=== PATIENT | female | born 1935 | race Caucasian/White ===

== ENCOUNTER → 2016-09-23 | Outpatient (CLI) | payer OTHER ==
[~2016-09-23] MED LIST: APIX1TAB PO; ASPEC81 PO; ATOR10TA88 PO; CALC-579 PO; CHOL100010 PO; CLC100 PO; CLL250 PO; CLTP PO; CYAN100020 PO; DILT120C68 PO; FSM70 PO; FURO-85 PO; HYDR-5688 PO; IBUP600T44 PO; LACT1CAP6 PO; METO25TA3 PO; OXYC-57 PO; OXYC1TAB3 PO; PRD20 PO; PRED20TA2 PO; PRLSR20 PO; QUET1TAB30 PO; SIMV20TA2 PO; SPIR50TA2 PO; TEMA15CA4 PO; VIT 12 PO
--- NOTE | 2016-09-23 15:59 | MAMMOGRAPHY REPORT ---
BILATERAL DIGITAL SCREENING MAMMOGRAM WITH CAD: 09/23/2016 CLINICAL HISTORY: Routine screening. Patient has no complaints. TECHNIQUE: Bilateral CC and MLO views were obtained. Current study was also evaluated with a Comput er Aided Detection (CAD) system. COMPARISON: Comparison is made to exams dated: 09/18/2015 mammogram, 09/12/2014 mammogram, 09/09/2013 m ammogram, 09/08/2012 mammogram, 08/13/2011 ultrasound, and 07/23/2011 mammogram - [facility]. BREAST COMPOSITION: The tissue of both breasts is heterogeneously dense, which may obscure small ma sses. FINDINGS: There is a newly visualized oval 8.7 x 6.4 mm mass in the far superior right breast, proj ecting over the pectoralis muscle on the MLO view. Although this could represent a lymph node, it w as not identified on any prior mammograms and is therefore indeterminate. Further characterization with ultrasound and possible additional mammographic views are recommended. There are stable benign-appearing calcifications bilaterally. Stable postsurgical changes in the le ft breast. No other suspicious mass, architectural distortion or cluster of microcalcifications is s een. IMPRESSION: ACR BI-RADS CATEGORY 0: INCOMPLETE EVALUATION: NEED ADDITIONAL IMAGING EVALUATION The newly visualized 8.7 x 6.4 mm oval mass in the right axilla needs additional evaluation. The patient will be called to schedule an appointment. Approximately 10% of breast cancers are not detected with mammography. A negative mammographic repor t should not delay biopsy if a clinically suggestive mass is present. Alyson Chi M.D. ay/:09/23/2016 14:46:46 Airfreight Operations Agent: Lilia DUENAS,R, M, [facility] letter sent: Addl Imaging 0 BI-RADS Code: ACR BI-RADS Category 0: Incomplete Evaluation: Need Additional Imaging Evaluation
== END | disposition home or self-care (01) ==
LOC: C.MAMM 10:15
PROVIDERS: ATTEND Family Medicine
DX: Z12.31 Encounter for screening mammogram for malignant neoplasm of breast (principal); N63 Unspecified lump in breast

== ENCOUNTER → 2016-10-03 | Outpatient (CLI) | payer OTHER ==
--- NOTE | 2016-10-06 13:48 | MAMMOGRAPHY REPORT ---
UNILATERAL RIGHT DIGITAL DIAGNOSTIC MAMMOGRAM TOMOSYNTHESIS WITH CAD AND TARGETED RIGHT ULTRASOUND: 10/03/2016 CLINICAL HISTORY: Callback from screening mammogram for right breast mass. TECHNIQUE: Breast tomosynthesis in addition to standard 2D mammography was performed. Current study was also evaluated with a Computer Aided Detection (CAD) system. Spot compression right MLO 2-D an d tomosynthesis images were obtained. COMPARISON: Comparison is made to exams dated: 09/23/2016 mammogram, 09/12/2014 mammogram, 09/18/2015 mammogram, 09/09/2013 mammogram, 09/08/2012 mammogram, and 08/13/2011 mammogram - [facility] enter. BREAST COMPOSITION: The tissue of the right breast is heterogeneously dense, which may obscure smal l masses. FINDINGS: Spot compression views demonstrate a morphologically normal right axillary lymph node pro jecting over the right pectoralis muscle, which is normal in shape and contains a normal fatty hilum . This correlates with the mass seen on the recent screening mammogram. Targeted ultrasound was performed of the right axilla. Morphologically normal right axillary lymph nodes are seen, without evidence of a suspicious mass or other suspicious sonographic abnormality. No adenopathy is evident. IMPRESSION: ACR BI-RADS CATEGORY 2: BENIGN, TARGETED ULTRASOUND ACR BI-RADS CATEGORY 2: BENIGN The right axillary mass corresponds with a morphologically normal right axillary lymph node. There is no evidence of right axillary adenopathy. There is no mammographic or targeted sonographic evide nce of malignancy. A 1 year screening mammogram is recommended. The patient has been verbally notif ied of the results. Approximately 10% of breast cancers are not detected with mammography. A negative mammographic repor t should not delay biopsy if a clinically suggestive mass is present. Patrica Edge M.D. ah/:10/03/2016 10:31:57 Sewing Machine Assembler: Jarvis DUENAS(Jennifer)(Jenny), letter sent: Normal 1/2 BI-RADS Code: ACR BI-RADS Category 2: Benign Ultrasound BI-RADS: ACR BI-RADS Category 2: Benign
== END | disposition home or self-care (01) ==
LOC: C.MAMM 09:45
PROVIDERS: ATTEND Family Medicine
DX: N63 Unspecified lump in breast (principal)

== ENCOUNTER → 2016-11-11 | Outpatient (CLI) | payer OTHER ==
[~2016-11-11] MED LIST changes: +ATOR10TA82 PO; -ATOR10TA88 PO
[2016-11-11 12:53] LABS: BASO % 0.2 %; BASO ABS # 0.02 K/uL (0-0.2); COMPLETE YES; EOS % 0.5 %; HEMATOCRIT 37.4 % (37-47); IG% 0.2 %; LYMPH % 16.6 %; LYMPH ABS # 1.39 K/uL (1.2-3.4); MEAN CORPUSCULAR HEMOGLOBIN 29.8 pg (25-34); MEAN CORPUSCULAR HGB CONC 34.2 g/dl (32-36); MEAN PLATELET VOLUME 9.8 fL (7.4-10.4); MONO % 8.7 %; NEUT % 73.8 %; PLATELET COUNT 326 K/uL (130-400); WHITE BLOOD COUNT 8.38 K/uL (4.8-10.8)
[2016-11-11 13:04] LABS: ALT/SGPT 21 U/L (12-78); BLOOD UREA NITROGEN 18 mg/dl (7-18); BUN/CREATININE RATIO 21.3 (10-20); CALCIUM 9.2 mg/dl (8.5-10.1); CARBON DIOXIDE 26 mmol/L (21-32); CHLORIDE 99 mmol/L (98-107); CREATININE 0.83 mg/dl (0.60-1.20); GLUCOSE 97 mg/dl (70-99); POTASSIUM 4.3 mmol/L (3.5-5.1); SODIUM 134 mmol/L (136-145)
[2016-11-11 13:15] LABS: ALB/GLOB RATIO 0.9 (0.9-2); ALKALINE PHOSPHATASE 78 U/L (45-117); AST/SGOT 16 U/L (15-37)
== END | disposition home or self-care (01) ==
LOC: C.LABPBG 10:41
PROVIDERS: ATTEND Nurse Practitioner Family
DX: R51 Headache (principal)

== ENCOUNTER 2016-11-14 14:04 | Emergency (ER) | payer OTHER ==
[~2016-11-14] VITALS: Ht 162.6 cm; Wt 39.0 kg
[~2016-11-14 14:04] MED LIST changes: -APIX1TAB PO; -ATOR10TA82 PO; -CALC-579 PO; -CHOL100010 PO; -CYAN100020 PO; -DILT120C68 PO; -FURO-85 PO; -HYDR-5688 PO; -LACT1CAP6 PO; -OXYC1TAB3 PO; -PRD20 PO; -PRED20TA2 PO; -QUET1TAB30 PO; -SPIR50TA2 PO; -TEMA15CA4 PO
[2016-11-14 14:10] VITALS: TEMP 36.6; Ht 162.6 cm; Wt 39.0 kg
[2016-11-14] MEDS ORDERED: ONDANSETRON INJ 2 MG/ML 2 ML VIAL IV STA (17:04)
[2016-11-14] MEDS ORDERED: SODIUM CHLORIDE 0.9% 500ML 500 ML IV STA (17:04)
--- NOTE | 2016-11-14 17:08 | EMERGENCY ROOM VISIT NOTE ---
History Report prepared by Kay: Marine De Dios Under the Supervision of: Dr. Lenny Pastrana D.O. First contact with patient: 16:56 Chief Complaint: HEADACHE Stated Complaint: SEVERE [place] FOR 3 WEEKS History of Present Illness The patient is an 80 year old female who presents to the Emergency Room with complaints of a constant headache that started 3 weeks ago. She rates her discomfort a 10/10 without pain medication. She states nothing makes this pain worse. Per the patient's daughter, the patient was evaluated by her primary care physician 3 days ago, who prescribed hydrocodone and recommended ultrasound of her carotid arteries and a ct scan of the head. The patient was pending insurance coverage for testing, but was unable to wait any longer as her pain medication prescription runs out in 2 days. Patient denies dizziness, visual disturbances, weakness, chest pain, nausea, vomiting, shortness of breath. Patient has a history of Lyme's Disease and atrial fibrillation. Recent blood work reveals high sodium levels and abnormal thyroid levels. Source of History: patient Onset: 3 weeks ago Position: head Symptom Intensity: 10/10 Timing: constant Modifying Factors (Worsening): other (None) Associated Symptoms: No SOB, No chest pain, No nausea, No vomiting Review of Systems See HPI for pertinent positives & negatives. A total of 10 systems reviewed and were otherwise negative. Past Medical & Surgical Medical Problems: (1) Atrial fibrillation (2) Lyme disease Surgical Problems: (1) S/P triple vessel bypass Family History Cancer Social History Smoking Status: Never Smoker Smokeless Tobacco Use: No Drug Use: none Housing Status: lives with family Current/Historical Medications Scheduled Apixaban (Eliquis), 2.5 MG PO BID Atorvastatin (Lipitor), 10 MG PO HS Calcium Carbonate-Cholecalcife (Calcium/Vitamin D3 600-400 mg-Unit), 1 TAB PO BID Cholecalciferol (Vitamin D), 1,000 UNITS PO QAM Cyanocobalamin (Vitamin B12), 1,000 MCG PO 2XWK Diltiazem Hcl Ext Rel (Tiazac), 120 MG PO BID Furosemide (Lasix), 20 MG PO QAM Lactobacillus (Probiotic), 1 CAP PO BID Omeprazole (Prilosec), 20 MG PO QAM Spironolactone (Aldactone), 50 MG PO QAM Scheduled PRN Hydrocodone/Acetaminophen 5MG/325MG (Stickney 5MG/325MG), 1 TABLET PO Q4 PRN for Pain Temazepam (Restoril), 15 MG PO HS PRN for Sleep Allergies Coded Allergies: No Known Allergies (Verified , 11/14/16) Physical Exam Vital Signs Date Time Temp Pulse Resp B/P Pulse Ox O2 Delivery O2 Flow Rate FiO2 11/14/16 20:12 73 18 117/69 96 Room Air 11/14/16 14:10 36.6 87 18 122/73 97 Room Air Physical Exam GENERAL: Patient is awake, alert, and in no acute distress. Patient is resting comfortably and showing no signs of anxiety EYES: The conjunctivae are clear. The pupils are round and reactive. EARS, NOSE, MOUTH AND THROAT: The nose is without any evidence of any deformity. Mucous membranes are moist tongue is midline NECK: The neck is nontender and supple. RESPIRATORY: Normal respiratory effort is noted there is no evidence of wheezing rhonchi or rales CARDIOVASCULAR: Irregular rhythm noted to auscultation. No definite murmurs noted. GASTROINTESTINAL: The abdomen is soft. Bowel sounds are present in all quadrants. Abdomen is nontender MUSCULOSKELETAL/EXTREMITIES: There is no evidence of gross deformity full range of motion is noted in the hips and shoulders SKIN: There is no obvious evidence of any rash. There are no petechiae, pallor or cyanosis noted. NEUROLOGIC: Patient is awake alert and oriented x3 strength is symmetric patellar reflexes are 2+ bilaterally Medical Decision & Procedures ER Provider Diagnostic Interpretation: Radiology results as stated below per my review and radiologist interpretation: CT SCAN OF THE BRAIN WITHOUT IV CONTRAST CLINICAL HISTORY: Headache. COMPARISON STUDY: No priors. TECHNIQUE: Unenhanced axial CT scan of the brain is performed from the vertex to the skull base. CT DOSE: 537.48 mGy.cm FINDINGS: Brain parenchyma: There are age-related involutional changes noting mild subcortical and periventricular microangiopathic change. There is no hemorrhage, mass effect, or evidence of acute territorial ischemia by CT criteria. 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 Armstrong-white matter is preserved. No extra-axial fluid collection is seen. Ventricles, sulci, cisterns: Prominent secondary to involutional change. Intracranial vasculature: There is atherosclerotic calcification of the cavernous carotid arteries. Calvarium: Unremarkable. Sinuses and mastoids: The visualized paranasal sinuses are clear. The mastoid air cells are well pneumatized. Orbits: The bony orbits are grossly intact. IMPRESSION: 1. There is no hemorrhage, mass effect, or evidence of acute territorial ischemia by CT criteria. 2. 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 Electronically signed by: Ranjit Lynch M.D. 11/14/2016 6:00 PM Dictated Date/Time: 11/14/2016 5:58 PM ULTRASOUND OF THE CAROTID ARTERIES CLINICAL HISTORY: Headache. COMPARISON STUDY: Carotid artery ultrasound dated 01/07/2007. TECHNIQUE: Real-time, grayscale, and color Doppler sonography of the carotid arteries is performed. Images are reviewed in the transverse and longitudinal planes. FINDINGS: Blood pressure in the right arm measures 102/62 and blood pressure in the left arm measures 109/58. The carotid arteries are patent bilaterally and demonstrate antegrade flow. There is mild atherosclerotic plaque seen bilaterally. Normal doppler arterial waveforms are seen throughout. Velocity measurements are listed below. Common carotid peak systolic velocity (cm/sec): RIGHT: 95 LEFT: 91 ICA proximal peak systolic velocity (cm/sec): RIGHT: 85 LEFT: 16 ICA mid peak systolic velocity (cm/sec): RIGHT: 79 LEFT: 71 ICA distal peak systolic velocity (cm/sec): RIGHT: 71 LEFT: 61 ICA/CC peak systolic ratio: RIGHT: 0.9 LEFT: 0.8 Antegrade flow was shown in the vertebral arteries. The external carotid arteries are patent. IMPRESSION: 1. There is no sonographic evidence of hemodynamically significant stenosis in the right or left carotid arterial system. 2. Antegrade flow is shown in the vertebral arteries. Electronically signed by: Ranjit Lynch M.D. 11/14/2016 6:54 PM Dictated Date/Time: 11/14/2016 6:52 PM Laboratory Results 11/14/16 17:15 Red Blood Count 4.17, Mean Corpuscular Volume 86.3, Mean Corpuscular Hemoglobin 29.7, Mean Corpuscular Hemoglobin Concent 34.4, Mean Platelet Volume 9.2, Neutrophils (%) (Auto) 67.7, Lymphocytes (%) (Auto) 22.8, Monocytes (%) (Auto) 8.6, Eosinophils (%) (Auto) 0.6, Basophils (%) (Auto) 0.3, Neutrophils # (Auto) 4.86, Lymphocytes # (Auto) 1.64, Monocytes # (Auto) 0.62, Eosinophils # (Auto) 0.04, Basophils # (Auto) 0.02 11/14/16 17:15 Test 11/14/16 17:15 White Blood Count 7.18 K/uL (4.8-10.8) Red Blood Count 4.17 M/uL (4.2-5.4) Hemoglobin 12.4 g/dL (12.0-16.0) Hematocrit 36.0 % (37-47) Mean Corpuscular Volume 86.3 fL (80-100) Mean Corpuscular Hemoglobin 29.7 pg (25-34) Mean Corpuscular Hemoglobin Concent 34.4 g/dl (32-36) Platelet Count 294 K/uL (130-400) Mean Platelet Volume 9.2 fL (7.4-10.4) Neutrophils (%) (Auto) 67.7 % Lymphocytes (%) (Auto) 22.8 % Monocytes (%) (Auto) 8.6 % Eosinophils (%) (Auto) 0.6 % Basophils (%) (Auto) 0.3 % Neutrophils # (Auto) 4.86 K/uL (1.4-6.5) Lymphocytes # (Auto) 1.64 K/uL (1.2-3.4) Monocytes # (Auto) 0.62 K/uL (0.11-0.59) Eosinophils # (Auto) 0.04 K/uL (0-0.5) Basophils # (Auto) 0.02 K/uL (0-0.2) RDW Standard Deviation 41.6 fL (36.4-46.3) RDW Coefficient of Variation 13.1 % (11.5-14.5) Immature Granulocyte % (Auto) 0.0 % Immature Granulocyte # (Auto) 0.00 K/uL (0.00-0.02) Erythrocyte Sedimentation Rate 64 mm/hr (0-21) Prothrombin Time 11.8 SECONDS (9.0-12.0) Prothromb Time International Ratio 1.1 (0.9-1.1) Activated Partial Thromboplast Time 31.1 SECONDS (21.0-31.0) Partial Thromboplastin Ratio 1.2 Anion Gap 6.0 mmol/L (3-11) Est Creatinine Clear Calc Drug Dose 30.5 ml/min Estimated GFR () 70.4 Estimated GFR (Non- 60.8 BUN/Creatinine Ratio 19.6 (10-20) Calcium Level 8.8 mg/dl (8.5-10.1) Magnesium Level 1.8 mg/dl (1.8-2.4) Total Bilirubin 0.5 mg/dl (0.2-1) Direct Bilirubin 0.2 mg/dl (0-0.2) Aspartate Amino Transf (AST/SGOT) 22 U/L (15-37) Alanine Aminotransferase (ALT/SGPT) 20 U/L (12-78) Alkaline Phosphatase 78 U/L (45-117) Troponin I < 0.015 ng/ml (0-0.045) C-Reactive Protein 13.10 mg/dl (0-0.29) Total Protein 7.8 gm/dl (6.4-8.2) Albumin 3.5 gm/dl (3.4-5.0) Lipase 133 U/L (73-393) Thyroid Stimulating Hormone (TSH) 5.000 uIu/ml (0.300-4.500) Free Thyroxine 1.07 ng/dl (0.80-1.60) Laboratory results per my review. Medications Administered Medications (Trade) Dose Ordered Sig/Rika Route Start Time Stop Time Status Last Admin Dose Admin Sodium Chloride (Nss 500ml) 500 ml @ 999 mls/hr Q31M STAT IV 11/14/16 17:04 11/14/16 17:34 DC 11/14/16 17:33 999 MLS/HR Acetaminophen/ Hydrocodone Bitart (Stickney 5/325mg Home Pack) 1 homepack UD ONCE PO 11/14/16 20:30 11/14/16 20:31 DC 11/14/16 20:36 1 HOMEPACK ECG Indication: other (Persistent headache ) Rate (beats per minute): 72 Rhythm: atrial fibrillation Findings: RBBB, other (No PVC, LVH was noted by voltage criteria ) ED Course 1656: The patient was evaluated in room B8. A complete history and physical examination were performed. 1704: Ordered Zofran Injection 4 mg IV, Sodium Chloride 500 ml @ 999 mls/hr IV. 1715: Ordered Morphine Sulfate 4 mg IV. 2030: Ordered Acetaminophen/ Hydrocodone Bitart 1 homepack PO. 2035: Upon reevaluation, the patient is resting more comfortably. I discussed the results and treatment plan with the patient and her daughter. They verbalized agreement of the treatment plan. She was discharged home. Medical Decision Differential diagnosis: Etiologies such as migraine headache, meningitis, sinusitis, CO exposure, ICH, SAH, infection, tumor, headache, sinus thrombosis, arterial dissection, as well as others were entertained. Nursing notes reviewed. The patient is an 80-year-old female who is been seeing her primary care physician for the last few weeks for headache. The patient was getting ready to have an outpatient workup for this headache including CT the head as well as carotid Dopplers. She could not get the tests certified so she was sent to the emergency Department have the test done in the interim. The patient did not have any focal neurologic deficit. She had no tenderness over the temporal arteries. The patient was found have a mild elevation in her inflammatory markers. I do not feel this is consistent with temporal arteritis at this time. I discussed the patient's laboratory and radiographic studies with her. She was encouraged to continue all medications as prescribed and rest. She was also encouraged to follow-up with the primary care physician as soon as possible but return to the emergency department immediately symptoms change worsen or the need arises. She tells me that her primary care physician is considering sending her to a neurologist for further workup for this headache. Impression Primary Impression: Headache Scribe Attestation The scribe's documentation has been prepared under my direction and personally reviewed by me in its entirety. I confirm that the note above accurately reflects all work, treatment, procedures, and medical decision making performed by me. Departure Information Dispostion Home / Self-Care Prescriptions Hydrocodone/Acetaminophen 5MG/325MG (Stickney 5MG/325MG) Tab 1 TABLET PO Q4 Y for Pain, #25 TAB Prov: Lenny Pastrana DO 11/14/16 Referrals Tran Garber MD (PCP) Forms HOME CARE DOCUMENTATION FORM, IMPORTANT VISIT INFORMATION Patient Instructions My [facility] Additional Instructions Call your family doctor in the morning to schedule follow-up appointment. Continue all medications as prescribed. Return to the emergency department immediately symptoms change worsen or the need arises. I would recommend a follow-up appointment with a neurologist to determine if you need to be started on steroids or if you need to have a biopsy of your temporal artery. Problem Qualifiers Primary Impression: Headache Headache type: unspecified Headache chronicity pattern: unspecified pattern Intractability: not intractable Qualified Codes: R51 - Headache
[2016-11-14] MEDS ORDERED: MoRPHine SULFATE 4 MG/ML 1 ML CARP\\VIAL IV PRN (17:15)
[2016-11-14] MEDS ORDERED: FURO-85 PO (17:27)
[2016-11-14] MEDS ORDERED: TEMA15CA4 PO (17:27)
[2016-11-14] MEDS ORDERED: PRLSR20 PO (17:27)
[2016-11-14] MEDS ORDERED: DILT120C68 PO (17:27)
[2016-11-14] MEDS ORDERED: CHOL100010 PO (17:27)
[2016-11-14] MEDS ORDERED: ATOR10TA82 PO (17:27)
[2016-11-14] MEDS ORDERED: LACT1CAP6 PO (17:27)
[2016-11-14] MEDS ORDERED: SPIR50TA2 PO (17:27)
[2016-11-14] MEDS ORDERED: CYAN100020 PO (17:27)
[2016-11-14] MEDS ORDERED: APIX1TAB PO (17:27)
[2016-11-14] MEDS ORDERED: CALC-579 PO (17:27)
[2016-11-14 17:33] LABS: BASO % 0.3 %; BASO ABS # 0.02 K/uL (0-0.2); COMPLETE YES; EOS % 0.6 %; LYMPH % 22.8 %; LYMPH ABS # 1.64 K/uL (1.2-3.4); MEAN CELL VOLUME 86.3 fL (80-100); MEAN CORPUSCULAR HEMOGLOBIN 29.7 pg (25-34); MEAN CORPUSCULAR HGB CONC 34.4 g/dl (32-36); MEAN PLATELET VOLUME 9.2 fL (7.4-10.4); MONO % 8.6 %; NEUT % 67.7 %; PLATELET COUNT 294 K/uL (130-400); RED BLOOD COUNT 4.17 M/uL (4.2-5.4); WHITE BLOOD COUNT 7.18 K/uL (4.8-10.8)
[2016-11-14 17:44] LABS: INR 1.1 (0.9-1.1); PARTIAL THROMBOPLASTIN RATIO 1.2; PROTHROMBIN TIME (PATIENT) 11.8 SECONDS (9.0-12.0)
[2016-11-14 17:51] LABS: ALT/SGPT 20 U/L (12-78); AST/SGOT 22 U/L (15-37); BLOOD UREA NITROGEN 17 mg/dl (7-18); BUN/CREATININE RATIO 19.6 (10-20); CALCIUM 8.8 mg/dl (8.5-10.1); CARBON DIOXIDE 30 mmol/L (21-32); CHLORIDE 96 mmol/L (98-107); CREATININE 0.89 mg/dl (0.60-1.20); GLUCOSE 100 mg/dl (70-99); MAGNESIUM 1.8 mg/dl (1.8-2.4); POTASSIUM 4.1 mmol/L (3.5-5.1); SODIUM 132 mmol/L (136-145)
[2016-11-14 18:00] LABS: ALKALINE PHOSPHATASE 78 U/L (45-117)
--- NOTE | 2016-11-14 18:02 | DIAGNOSTIC IMAGING REPORT ---
CT SCAN OF THE BRAIN WITHOUT IV CONTRAST CLINICAL HISTORY: Headache. COMPARISON STUDY: No priors. TECHNIQUE: Unenhanced axial CT scan of the brain is performed from the vertex to the skull base. CT DOSE: 537.48 mGy.cm FINDINGS: Brain parenchyma: There are age-related involutional changes noting mild subcortical and periventricular microangiopathic change. There is no hemorrhage, mass effect, or evidence of acute territorial ischemia by CT criteria. 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 Armstrong-white matter is preserved. No extra-axial fluid collection is seen. Ventricles, sulci, cisterns: Prominent secondary to involutional change. Intracranial vasculature: There is atherosclerotic calcification of the cavernous carotid arteries. Calvarium: Unremarkable. Sinuses and mastoids: The visualized paranasal sinuses are clear. The mastoid air cells are well pneumatized. Orbits: The bony orbits are grossly intact. IMPRESSION: 1. There is no hemorrhage, mass effect, or evidence of acute territorial ischemia by CT criteria. 2. 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 Electronically signed by: Ranjit Lynch M.D. 11/14/2016 6:00 PM Dictated Date/Time: 11/14/2016 5:58 PM
--- NOTE | 2016-11-14 18:56 | DIAGNOSTIC IMAGING REPORT ---
ULTRASOUND OF THE CAROTID ARTERIES CLINICAL HISTORY: Headache. COMPARISON STUDY: Carotid artery ultrasound dated 01/07/2007. TECHNIQUE: Real-time, grayscale, and color Doppler sonography of the carotid arteries is performed. Images are reviewed in the transverse and longitudinal planes. FINDINGS: Blood pressure in the right arm measures 102/62 and blood pressure in the left arm measures 109/58. The carotid arteries are patent bilaterally and demonstrate antegrade flow. There is mild atherosclerotic plaque seen bilaterally. Normal doppler arterial waveforms are seen throughout. Velocity measurements are listed below. Common carotid peak systolic velocity (cm/sec): RIGHT: 95 LEFT: 91 ICA proximal peak systolic velocity (cm/sec): RIGHT: 85 LEFT: 16 ICA mid peak systolic velocity (cm/sec): RIGHT: 79 LEFT: 71 ICA distal peak systolic velocity (cm/sec): RIGHT: 71 LEFT: 61 ICA/CC peak systolic ratio: RIGHT: 0.9 LEFT: 0.8 Antegrade flow was shown in the vertebral arteries. The external carotid arteries are patent. IMPRESSION: 1. There is no sonographic evidence of hemodynamically significant stenosis in the right or left carotid arterial system. 2. Antegrade flow is shown in the vertebral arteries. Electronically signed by: Ranjit Lynch M.D. 11/14/2016 6:54 PM Dictated Date/Time: 11/14/2016 6:52 PM
[2016-11-14] MEDS ORDERED: OXYCODONE HCL IR 5 MG TAB (IMMEDIATE RELEASE) PO STA (20:05)
[2016-11-14 20:12] VITALS: BP 117/69; PULSE 73; O2SAT 96
[2016-11-14] MEDS ORDERED: OXYC1TAB3 PO (20:12)
[2016-11-14] MEDS ORDERED: OXYCODONE IR HOME PACK PO ONE (20:15)
[2016-11-14] MEDS ORDERED: HYDR-5688 PO (20:24)
[2016-11-14] MEDS ORDERED: NORCO 5/325MG HOME PACK PO ONE (20:30)
== END 2016-11-14 20:42 | disposition home or self-care (01) ==
LOC: C.EDB 14:06
DX: R51 Headache (principal); I48.91 Unspecified atrial fibrillation; I45.10 Unspecified right bundle-branch block; Z87.898 Personal history of other specified conditions; Z95.1 Presence of aortocoronary bypass graft; Z79.899 Other long term (current) drug therapy; Z80.9 Family history of malignant neoplasm, unspecified; I65.23 Occlusion and stenosis of bilateral carotid arteries

== ENCOUNTER → 2016-11-17 | Outpatient (CLI) | payer OTHER ==
[~2016-11-17] MED LIST changes: +APIX1TAB PO; -ASPEC81 PO; +ATOR10TA82 PO; +CALC-579 PO; +CHOL100010 PO; -CLC100 PO; -CLL250 PO; -CLTP PO; +CYAN100020 PO; +DILT120C68 PO; -FSM70 PO; +FURO-85 PO; +HYDR-5688 PO; -IBUP600T44 PO; +LACT1CAP6 PO; -METO25TA3 PO; -OXYC-57 PO; +PRD20 PO; +PRED20TA2 PO; +QUET1TAB30 PO; -SIMV20TA2 PO; +SPIR50TA2 PO; +TEMA15CA4 PO; -VIT 12 PO
--- NOTE | 2016-11-17 12:33 | DIAGNOSTIC IMAGING REPORT ---
CERVICAL SPINE 2 OR 3 VIEWS CLINICAL HISTORY: NECK PAIN COMPARISON STUDY: None. FINDINGS: AP, lateral, and odontoid views of the cervical spine. Post sternotomy changes. The cervical spine is visualized from C1 through T1. Mild exaggeration of the normal lordotic curvature. Alignment is intact. No fractures identified. Mild disc space narrowing at C5-C6 and C6-C7 with small endplate osteophytes. The C1-C2 interval and prevertebral soft tissues are within normal limits. Mild facet degenerative changes throughout the cervical spine. IMPRESSION: Mild degenerative changes within the cervical spine. No fractures Electronically signed by: Jimenez Serra M.D. 11/17/2016 12:30 PM Dictated Date/Time: 11/17/2016 12:28 PM
== END | disposition home or self-care (01) ==
LOC: C.RAD1850 12:12
PROVIDERS: ATTEND Family Medicine
DX: M54.2 Cervicalgia (principal)

== ENCOUNTER → 2016-11-24 | Outpatient (CLI) | payer OTHER ==
[2016-11-24 13:04] LABS: BLOOD UREA NITROGEN 33 mg/dl (7-18); BUN/CREATININE RATIO 30.3 (10-20); CALCIUM 9.6 mg/dl (8.5-10.1); CARBON DIOXIDE 26 mmol/L (21-32); CHLORIDE 97 mmol/L (98-107); GLUCOSE 143 mg/dl (70-99); POTASSIUM 3.8 mmol/L (3.5-5.1); SODIUM 133 mmol/L (136-145)
[2016-11-24 13:18] LABS: C-REACTIVE PROTEIN 2.26 mg/dl (0-0.29)
[2016-11-28 09:53] LABS: 18KDIGG BAND REACTIVE (NONREACTIVE); 23KDIGG BAND REACTIVE (NONREACTIVE); 23KDIGM BAND REACTIVE (NONREACTIVE); 28KDIGG BAND REACTIVE (NONREACTIVE); 30KDIGG BAND REACTIVE (NONREACTIVE); 39KDIGG BAND REACTIVE (NONREACTIVE); 39KDIGM BAND NONREACTIVE (NONREACTIVE); 41KDIGG BAND REACTIVE (NONREACTIVE); 41KDIGM BAND REACTIVE (NONREACTIVE); 45KDIGG BAND REACTIVE (NONREACTIVE); 58KDIGG BAND REACTIVE (NONREACTIVE); 66KDIGG BAND REACTIVE (NONREACTIVE); 93KDIGG BAND REACTIVE (NONREACTIVE)
== END | disposition home or self-care (01) ==
LOC: C.LABPBG 10:14
PROVIDERS: ATTEND Nurse Practitioner Family
DX: R94.6 Abnormal results of thyroid function studies (principal); E87.1 Hypo-osmolality and hyponatremia; R51 Headache

== ENCOUNTER → 2016-11-27 | Outpatient (CLI) | payer OTHER ==
[~2016-11-27] MED LIST changes: +GADAVIST IV PRN
--- NOTE | 2016-11-27 14:00 | DIAGNOSTIC IMAGING REPORT ---
MRI OF THE BRAIN WITHOUT AND WITH IV CONTRAST CLINICAL HISTORY: New onset of headaches after age 49. COMPARISON STUDY: Head CT November 14, 2016. TECHNIQUE: Utilizing a 1.5 Estela magnet and dedicated coil, multiplanar, multiecho imaging of the brain was performed pre and postcontrast administration. IV administration of 4.5 mL of Gadavist contrast was uneventful. FINDINGS: There are no areas of restricted diffusion. No acute intracranial hemorrhage, midline shift or mass effect is present. There is mild cerebral atrophy. Ventricular system is unremarkable. There is an old infarct within the superior aspect of the left cerebellar hemisphere. There is no intracranial mass or pathologic enhancement. Numerous white matter T2 hyperintense foci suggest moderate small vessel disease. The basilar cisterns are patent. There are no extra-axial collections. Flow-voids for the major intracranial vessels are present. Calvarial signal is normal. IMPRESSION: 1. No acute intracranial findings. 2. No intracranial mass or pathologic enhancement. 3. 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 Electronically signed by: Alex Gomez M.D. 11/27/2016 1:59 PM Dictated Date/Time: 11/27/2016 1:55 PM
== END | disposition home or self-care (01) ==
LOC: C.MRIBC 12:10
PROVIDERS: ATTEND Psychiatry & Neurology Neurology
DX: R51 Headache (principal); Z86.73 Personal history of transient ischemic attack (TIA), and cerebral infarction without residual deficits

== ENCOUNTER → 2017-01-23 | Outpatient (CLI) | payer OTHER ==
[~2017-01-23] MED LIST changes: -GADAVIST IV PRN
[2017-01-23 17:00] LABS: BASO % 0.1 %; BASO ABS # 0.01 K/uL (0-0.2); COMPLETE YES; EOS % 0.1 %; HEMATOCRIT 39.9 % (37-47); IG% 0.2 %; LYMPH % 7.3 %; LYMPH ABS # 0.67 K/uL (1.2-3.4); MEAN CELL VOLUME 88.5 fL (80-100); MEAN CORPUSCULAR HEMOGLOBIN 29.7 pg (25-34); MEAN CORPUSCULAR HGB CONC 33.6 g/dl (32-36); MEAN PLATELET VOLUME 10.5 fL (7.4-10.4); MONO % 1.2 %; NEUT % 91.1 %; PLATELET COUNT 316 K/uL (130-400); RED BLOOD COUNT 4.51 M/uL (4.2-5.4); WHITE BLOOD COUNT 9.18 K/uL (4.8-10.8)
[2017-01-23 17:50] LABS: LYME DISEASE AB IGG POS (NEG); LYME DISEASE AB IGM POS (NEG)
[2017-01-28 15:25] LABS: 18KDIGG BAND REACTIVE (NONREACTIVE); 23KDIGG BAND REACTIVE (NONREACTIVE); 23KDIGM BAND REACTIVE (NONREACTIVE); 28KDIGG BAND REACTIVE (NONREACTIVE); 30KDIGG BAND REACTIVE (NONREACTIVE); 39KDIGG BAND REACTIVE (NONREACTIVE); 39KDIGM BAND NONREACTIVE (NONREACTIVE); 41KDIGG BAND REACTIVE (NONREACTIVE); 41KDIGM BAND NONREACTIVE (NONREACTIVE); 45KDIGG BAND REACTIVE (NONREACTIVE); 58KDIGG BAND REACTIVE (NONREACTIVE); 66KDIGG BAND REACTIVE (NONREACTIVE); 93KDIGG BAND REACTIVE (NONREACTIVE)
== END | disposition home or self-care (01) ==
LOC: C.LABPBG 12:19
PROVIDERS: ATTEND Family Medicine
DX: A69.20 Lyme disease, unspecified (principal); M54.2 Cervicalgia

== ENCOUNTER 2017-01-29 13:39 | Observation (INO) | payer OTHER ==
[~2017-01-29] VITALS: Ht 157.5 cm; Wt 50.8 kg
[~2017-01-29 13:39] MED LIST changes: -ATOR10TA82 PO; +ATOR10TA88 PO; -PRD20 PO; -PRED20TA2 PO; -QUET1TAB30 PO
--- NOTE | 2017-01-29 14:18 | DIAGNOSTIC IMAGING REPORT ---
SINGLE VIEW CHEST CLINICAL HISTORY: Generalized weakness. Change in mental status. FINDINGS: An AP, portable, upright chest radiograph is compared to chest x-ray and chest CT dated 12/01/2005. The examination is degraded by portable technique and patient rotation. The patient is status post midline sternotomy. The heart is mildly enlarged and there is atherosclerotic calcification of the thoracic aorta. Calcified apical pleural plaque is similar to previous. No airspace consolidation, pleural effusion, or pneumothorax is seen. The skeletal structures are osteopenic. The bony thorax is grossly intact. IMPRESSION: Cardiomegaly with no acute cardiopulmonary abnormality. Electronically signed by: Ranjit Lynch M.D. 01/29/2017 2:17 PM Dictated Date/Time: 01/29/2017 2:16 PM
[2017-01-29 14:39] LABS: COMPLETE YES; EOS % 0.4 %; HEMATOCRIT 37.2 % (37-47); IG% 0.4 %; LYMPH % 8.3 %; LYMPH ABS # 1.16 K/uL (1.2-3.4); MEAN CELL VOLUME 87.9 fL (80-100); MEAN CORPUSCULAR HEMOGLOBIN 28.8 pg (25-34); MEAN CORPUSCULAR HGB CONC 32.8 g/dl (32-36); MEAN PLATELET VOLUME 9.7 fL (7.4-10.4); MONO % 6.6 %; NEUT % 84.3 %; PLATELET COUNT 397 K/uL (130-400); RED BLOOD COUNT 4.23 M/uL (4.2-5.4)
--- NOTE | 2017-01-29 14:42 | DIAGNOSTIC IMAGING REPORT ---
HEAD CT NONCONTRAST CT DOSE: 537.48 mGy.cm HISTORY: EVALUATE ALTERED MENTAL STATUS/WEAKNESS TECHNIQUE: Multiaxial CT images of the head were performed without the use of intravenous contrast. Automated exposure control was utilized for this study. Comparison: Head CT 11/14/2016. Findings: The paranasal sinuses and mastoid air cells are clear. The calvarium and skull base are intact. There is no mass, hematoma, midline shift, acute infarct. White matter hypodensity is nonspecific but suggestive of microvascular ischemic change. The ventricles and sulci are within normal limits. 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 Impression: No significant change compared to the prior study. No acute intracranial abnormality. Electronically signed by: Jimenez Serra M.D. 01/29/2017 2:40 PM Dictated Date/Time: 01/29/2017 2:36 PM
[2017-01-29 14:56] LABS: INR 1.1 (0.9-1.1); PARTIAL THROMBOPLASTIN RATIO 1.1; PROTHROMBIN TIME (PATIENT) 11.9 SECONDS (9.0-12.0)
[2017-01-29 14:59] LABS: ALT/SGPT 22 U/L (12-78); BLOOD UREA NITROGEN 30 mg/dl (7-18); BUN/CREATININE RATIO 29.6 (10-20); CALCIUM 9.8 mg/dl (8.5-10.1); CARBON DIOXIDE 28 mmol/L (21-32); CHLORIDE 95 mmol/L (98-107); GLUCOSE 134 mg/dl (70-99); MAGNESIUM 2.1 mg/dl (1.8-2.4); POTASSIUM 4.2 mmol/L (3.5-5.1); SODIUM 132 mmol/L (136-145)
[2017-01-29 15:08] LABS: ALKALINE PHOSPHATASE 61 U/L (45-117); AST/SGOT 10 U/L (15-37)
[2017-01-29 15:53] LABS: LYME DISEASE AB IGG POS (NEG); LYME DISEASE AB IGM POS (NEG)
[2017-01-29] MEDS ORDERED: METHYLPREDNISOLONE 125 MG VIAL IV STA (16:08)
[2017-01-29 16:14] LABS: URINE APPEARANCE CLEAR (CLEAR); URINE BILIRUBIN NEG (NEG); URINE COLOR YELLOW; URINE NITRITE NEG (NEG); URINE SPECIFIC GRAVITY 1.019 (1.000-1.030); UROBILINOGEN NEG (NEG)
[2017-01-29 16:15] LABS: MANUAL MICROSCOPIC REQUIRED? NO; REVIEW REQ? NO
--- NOTE | 2017-01-29 17:53 | EMERGENCY ROOM VISIT NOTE ---
History Report prepared by Kay: Nabila Crenshaw Under the Supervision of: Dr. Lenny Pastrana D.O. First contact with patient: 13:51 Chief Complaint: HEAD PAIN Stated Complaint: SEVERE HEAD PAIN, JAW, EYEBROWS AND NECK History of Present Illness The patient is an 81 year old female who presents to the Emergency Room with complaints of an intermittent headache starting two months ago. The patient reports that around Nory time she was diagnosed with Lyme disease. She reports that she did complete the cycle of Doxycycline. She states that after completing that her PCP recommended physical therapy to get her strength back. She reports that she completed the therapy for four weeks. She states that she has had difficulty sleeping for the past 8-9 months. She notes that the headaches then started two months ago. She reports that her PCP had a CT and MRI performed to determine why. She states that she has seen a neurologist. She reports that they couldn't find anything from the tests to determine why she has these head pains, but was believed it may be coming from degenerative disc disease that was seen on a neck x-ray. She states that her doctor offered to do a spinal tap, but they declined. The patient reports that the headaches worsened at the beginning of this month. She states they were the worst they have ever been last week, so she went to her PCP. She reports that her PCP gave her Prednisone which relived the pain. She states that it just made her jittery. She reports that two days after being done with the Prednisone, her headaches came back. The patient reports that she came to the ED today because her daughter made her since she awoke this morning dizzy and unable to see out of her left eye. The patient notes that she is experiencing pain in her eyebrows , knees, and joints. The patient notes that she had little red bumps behind her ears last week. The patient denies fevers, chills, nausea, vomiting, and any recent falls. Source of History: patient Onset: two months ago Position: head Timing: intermittent Modifying Factors (Relieving): other (Prednisone) Associated Symptoms: No fevers, No chills, No nausea, No vomiting Note: The patient complains of dizziness, not being able to see out of her left eye, pain in her eyebrows, pain in her knees, and pain in her joints. The patient denies any recent falls. Review of Systems See HPI for pertinent positives & negatives. A total of 10 systems reviewed and were otherwise negative. Past Medical & Surgical Medical Problems: (1) Atrial fibrillation (2) Intractable headache (3) Lyme disease (4) Temporal arteritis Surgical Problems: (1) S/P triple vessel bypass Family History Cancer Social History Smoking Status: Never Smoker Drug Use: none Housing Status: lives with family Current/Historical Medications Scheduled Apixaban (Eliquis), 2.5 MG PO BID Atorvastatin (Lipitor), 10 MG PO HS Calcium Carbonate-Cholecalcife (Calcium/Vitamin D3 600-400 mg-Unit), 1 TAB PO BID Cholecalciferol (Vitamin D), 1,000 UNITS PO QAM Cyanocobalamin (Vitamin B12), 1,000 MCG PO 2XWK Diltiazem Hcl Ext Rel (Tiazac), 120 MG PO BID Furosemide (Lasix), 20 MG PO QAM Lactobacillus (Probiotic), 1 CAP PO BID Omeprazole (Prilosec), 20 MG PO QAM Spironolactone (Aldactone), 50 MG PO QAM Scheduled PRN Hydrocodone/Acetaminophen 5MG/325MG ([place] 5MG/325MG), 1 TABLET PO Q4 PRN for Pain Temazepam (Restoril), 15 MG PO HS PRN for Sleep Allergies Coded Allergies: Aspirin (Unverified Allergy, Unknown, unk, 01/29/17) Prednisone (Unverified Allergy, Unknown, unk, 01/29/17) Physical Exam Vital Signs Date Time Temp Pulse Resp B/P (MAP) Pulse Ox O2 Delivery O2 Flow Rate FiO2 01/29/17 17:26 102 18 136/70 98 Room Air 01/29/17 15:38 84 16 117/55 98 Room Air 01/29/17 14:46 84 01/29/17 14:41 88 20 129/71 96 01/29/17 14:41 95 Room Air 01/29/17 13:43 36.7 96 18 131/68 98 Room Air Physical Exam GENERAL: Patient is awake, alert, and in no acute distress. Patient is resting comfortably and showing no signs of anxiety EYES: The conjunctivae are clear. The pupils are round and reactive. EARS, NOSE, MOUTH AND THROAT: The nose is without any evidence of any deformity. Mucous membranes are moist tongue is midline NECK: The neck is nontender and supple. RESPIRATORY: Normal respiratory effort is noted there is no evidence of wheezing rhonchi or rales CARDIOVASCULAR: Regular rate and rhythm noted there no murmurs rubs or gallops normal S1 normal S2 GASTROINTESTINAL: The abdomen is soft. Bowel sounds are present in all quadrants. Abdomen is nontender MUSCULOSKELETAL/EXTREMITIES: There is no evidence of gross deformity full range of motion is noted in the hips and shoulders SKIN: There is no obvious evidence of any rash. There are no petechiae, pallor or cyanosis noted. NEUROLOGIC: Patient is awake alert and oriented x3 strength is symmetric patellar reflexes are 2+ bilaterally Medical Decision & Procedures ER Provider Diagnostic Interpretation: Radiology results as stated below per my review and radiologist interpretation: HEAD CT NONCONTRAST CT DOSE: 537.48 mGy.cm HISTORY: EVALUATE ALTERED MENTAL STATUS/WEAKNESS TECHNIQUE: Multiaxial CT images of the head were performed without the use of intravenous contrast. Automated exposure control was utilized for this study. Comparison: Head CT 11/14/2016. Findings: The paranasal sinuses and mastoid air cells are clear. The calvarium and skull base are intact. There is no mass, hematoma, midline shift, acute infarct. White matter hypodensity is nonspecific but suggestive of microvascular ischemic change. The ventricles and sulci are within normal limits. 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 Impression: No significant change compared to the prior study. No acute intracranial abnormality. Electronically signed by: Jimenez Serra M.D. 01/29/2017 2:40 PM Dictated Date/Time: 01/29/2017 2:36 PM SINGLE VIEW CHEST CLINICAL HISTORY: Generalized weakness. Change in mental status. FINDINGS: An AP, portable, upright chest radiograph is compared to chest x-ray and chest CT dated 12/01/2005. The examination is degraded by portable technique and patient rotation. The patient is status post midline sternotomy. The heart is mildly enlarged and there is atherosclerotic calcification of the thoracic aorta. Calcified apical pleural plaque is similar to previous. No airspace consolidation, pleural effusion, or pneumothorax is seen. The skeletal structures are osteopenic. The bony thorax is grossly intact. IMPRESSION: Cardiomegaly with no acute cardiopulmonary abnormality. Electronically signed by: Ranjit Lynch M.D. 01/29/2017 2:17 PM Dictated Date/Time: 01/29/2017 2:16 PM Laboratory Results 01/29/17 14:20 Red Blood Count 4.23, Mean Corpuscular Volume 87.9, Mean Corpuscular Hemoglobin 28.8, Mean Corpuscular Hemoglobin Concent 32.8, Mean Platelet Volume 9.7, Neutrophils (%) (Auto) 84.3, Lymphocytes (%) (Auto) 8.3, Monocytes (%) (Auto) 6.6, Eosinophils (%) (Auto) 0.4, Basophils (%) (Auto) 0.0, Neutrophils # (Auto) 11.80, Lymphocytes # (Auto) 1.16, Monocytes # (Auto) 0.93, Eosinophils # (Auto) 0.06, Basophils # (Auto) 0.00 01/29/17 14:20 Test 01/29/17 14:20 01/29/17 14:30 White Blood Count 14.00 K/uL (4.8-10.8) Red Blood Count 4.23 M/uL (4.2-5.4) Hemoglobin 12.2 g/dL (12.0-16.0) Hematocrit 37.2 % (37-47) Mean Corpuscular Volume 87.9 fL (80-100) Mean Corpuscular Hemoglobin 28.8 pg (25-34) Mean Corpuscular Hemoglobin Concent 32.8 g/dl (32-36) Platelet Count 397 K/uL (130-400) Mean Platelet Volume 9.7 fL (7.4-10.4) Neutrophils (%) (Auto) 84.3 % Lymphocytes (%) (Auto) 8.3 % Monocytes (%) (Auto) 6.6 % Eosinophils (%) (Auto) 0.4 % Basophils (%) (Auto) 0.0 % Neutrophils # (Auto) 11.80 K/uL (1.4-6.5) Lymphocytes # (Auto) 1.16 K/uL (1.2-3.4) Monocytes # (Auto) 0.93 K/uL (0.11-0.59) Eosinophils # (Auto) 0.06 K/uL (0-0.5) Basophils # (Auto) 0.00 K/uL (0-0.2) RDW Standard Deviation 45.9 fL (36.4-46.3) RDW Coefficient of Variation 14.2 % (11.5-14.5) Immature Granulocyte % (Auto) 0.4 % Immature Granulocyte # (Auto) 0.05 K/uL (0.00-0.02) Erythrocyte Sedimentation Rate 46 mm/hr (0-21) Prothrombin Time 11.9 SECONDS (9.0-12.0) Prothromb Time International Ratio 1.1 (0.9-1.1) Activated Partial Thromboplast Time 28.5 SECONDS (21.0-31.0) Partial Thromboplastin Ratio 1.1 Anion Gap 9.0 mmol/L (3-11) Est Creatinine Clear Calc Drug Dose 34.3 ml/min Estimated GFR () 60.8 Estimated GFR (Non- 52.4 BUN/Creatinine Ratio 29.6 (10-20) Calcium Level 9.8 mg/dl (8.5-10.1) Magnesium Level 2.1 mg/dl (1.8-2.4) Total Bilirubin 0.4 mg/dl (0.2-1) Direct Bilirubin 0.2 mg/dl (0-0.2) Aspartate Amino Transf (AST/SGOT) 10 U/L (15-37) Alanine Aminotransferase (ALT/SGPT) 22 U/L (12-78) Alkaline Phosphatase 61 U/L (45-117) Troponin I < 0.015 ng/ml (0-0.045) C-Reactive Protein 19.30 mg/dl (0-0.29) Total Protein 6.8 gm/dl (6.4-8.2) Albumin 3.0 gm/dl (3.4-5.0) Thyroid Stimulating Hormone (TSH) 2.450 uIu/ml (0.300-4.500) Lyme Disease IgG Antibody POS (NEG) Urine Color YELLOW Urine Appearance CLEAR (CLEAR) Urine pH 5.0 (4.5-7.5) Urine Specific [place] 1.019 (1.000-1.030) Urine Protein NEG (NEG) Urine Glucose (UA) NEG (NEG) Urine Ketones NEG (NEG) Urine Occult Blood NEG (NEG) Urine Nitrite NEG (NEG) Urine Bilirubin NEG (NEG) Urine Urobilinogen NEG (NEG) Urine Leukocyte Esterase NEG (NEG) Laboratory results per my review. Medications Administered Medications (Trade) Dose Ordered Sig/Rika Route Start Time Stop Time Status Last Admin Dose Admin Methylprednisolone Sodium Succinate (Solu-Medrol IV) 125 mg NOW STAT IV 01/29/17 16:08 01/29/17 16:09 DC 01/29/17 16:08 125 MG ECG Indication: other (dizziness) Rate (beats per minute): 83 Rhythm: atrial fibrillation Findings: RBBB (pattern noted), other (LVH noted by voltage criteria) Comparison ECG Date: 11/14/2016 Change: no significant change ED Course 1351: The patient was evaluated in room A9. A complete history and physical examination were performed. 1550: I reevaluated the patient and she is resting comfortably. 1604: I discussed the patient's case with Dr. Clarke. Given the visual complaints, Dr. Clarke thinks that she shouldn't be managed as an outpatient and thinks her case should be discussed with the hospitalist. 1608: Ordered Solu-Medrol IV 125 mg IV. 1612. I discussed the patient's case with Dr. Nino. The patient will be evaluated for further management. Medical Decision Medication Reconciliation: I attest that I have personally reviewed the patient' s current medications list. Blood pressure screening: Patient was found to have normal blood pressure on screening and does not require follow-up. Differential diagnosis: Etiologies such as migraine headache, meningitis, sinusitis, CO exposure, ICH, SAH, infection, tumor, headache, sinus thrombosis, arterial dissection, as well as others were entertained. The patient is an 81-year-old female who presented to the emergency department with family members for evaluation of headache. The patient describes headache which is bitemporal as well as jaw claudication. The patient was seen for these symptoms previously. She had a complete neurologic workup. She also was found have Lyme disease last winter. I'm unsure if this is a true finding or if there is some other immunologic abnormality causing a false positive but she was treated with antibiotics. She presents to [facility] today with significant headache. She was started on steroids recently which improved her symptoms considerably. I discussed the patient's laboratory and radiographic studies with her. If this does represent an arteritis causing her headache I'm concerned because she's not having visual problems as well. For this reason I discussed her case with the patient's primary neurologist. I also discussed her case with the on-call [facility] hospitalist. She was given IV Solu-Medrol in the emergency department. She was reevaluated multiple times. Consults Time Called: 1609 Consulting Physician: Dr. Nino Returned Call: 1612 I discussed the patient's case with Dr. Nino. The patient will be evaluated for further management. Impression Primary Impression: Headache Additional Impressions: possible CVA possible temporal arteritis Scribe Attestation The scribe's documentation has been prepared under my direction and personally reviewed by me in its entirety. I confirm that the note above accurately reflects all work, treatment, procedures, and medical decision making performed by me. Departure Information Dispostion Being Evaluated By Hospitalist Referrals Tran Garber MD (PCP) Patient Instructions My [facility] Problem Qualifiers Primary Impression: Headache Headache type: unspecified Headache chronicity pattern: unspecified pattern Intractability: not intractable Qualified Codes: R51 - Headache
[2017-01-29] MEDS ORDERED: ALUMINUM/MAGNESIUM/SIMETH (MAALOX MAX) 30 ML UDC PO PRN (18:00)
[2017-01-29] MEDS ORDERED: LORAZEPAM 2 MG/ML 1 ML VIAL IV PRN ×2 (18:00)
[2017-01-29] MEDS ORDERED: LORAZEPAM INJ 1 MG in SYRINGE 0.5 ML IV PRN (18:00)
[2017-01-29] MEDS ORDERED: ONDANSETRON INJ 2 MG/ML 2 ML VIAL IV PRN (18:00)
[2017-01-29] MEDS ORDERED: LORAZEPAM INJ 0.5 MG in SYRINGE 0.75 ML IV PRN (18:00)
[2017-01-29] MEDS ORDERED: ACETAMINOPHEN 325 MG TAB PO PRN (18:00)
[2017-01-29] MEDS ORDERED: MAGNESIUM HYDROXIDE SUSP 30 ML UDC PO PRN (18:00)
[2017-01-29] MEDS ORDERED: TEMAZEPAM 15 MG CAP PO PRN (18:00)
[2017-01-29] MEDS ORDERED: KETOROLAC TROMETHAMINE 15 MG/ML VIAL IV PRN (18:00)
[2017-01-29] MEDS ORDERED: LORAZEPAM 0.5 MG TAB PO PRN (18:00)
[2017-01-29] MEDS ORDERED: IV FLUIDS COMPLETED PRN (18:15)
--- NOTE | 2017-01-29 18:44 | History and Physical ---
History & Physical Date & Time of Service: Jan 29, 2017 at 18:16 Chief Complaint: Severe Head Pain, Jaw, Eyebrows And Neck Primary Care Physician: Tran Garber MD History of Present Illness Source: patient, family 79-year-old female presents to emergency department with intense bitemporal headache, painful chewing and swallowing, increasing fatigue. This patient has a significant recent history of having Lyme disease diagnosed in the fall and winter of 2015 at the spring, she was treated by Dr. Abdulaziz Bynum with 1 month of doxycycline which ended in September 2016. She is feeling well then in November noticed some visual changes and headaches, particularly blurry vision in the right eye. The patient saw her eye doctor who said her visual acuity had not changed and recommended a medical workup. The patient had visited Dr. Mane, but most recently saw Dr. Rodriguez where she was given some oral steroids and had transient improvement of her headache. However the steroids caused jitteriness and insomnia and she self discontinued them. The patient now presents with intense bitemporal headache Patient has a significant past medical history of dermatomyositis for which she was treated for a longer period of time with CellCept, however sometime in the last 10 years she was told to discontinue it by her physician who she no longer sees. Her initial evaluation in the emergency department shows a markedly elevated CRP , but no other significant abdomen allergies with the exception of mild white blood cell count elevation which could be from her recent steroid use. The most recent steroids were [address] Rodriguez Past Medical/Surgical History Medical Problems: (1) Atrial fibrillation Status: Chronic (2) Lyme disease Status: Chronic Surgical Problems: (1) S/P triple vessel bypass Status: Resolved Family History Cancer Social History Smoking Status: Never Smoker Drug Use: none Immunizations History of Influenza Vaccine: Unknown History of Tetanus Vaccine?: Unknown History of Pneumococcal: Unknown History of Hepatitis B Vaccine: Unknown Multi-Drug Resistant Organisms History of MDRO: No Allergies Coded Allergies: Aspirin (Unverified Allergy, Unknown, unk, 01/29/17) Prednisone (Unverified Allergy, Unknown, unk, 01/29/17) Home Medications Scheduled Apixaban (Eliquis), 2.5 MG PO BID Atorvastatin (Lipitor), 10 MG PO HS Calcium Carbonate-Cholecalcife (Calcium/Vitamin D3 600-400 mg-Unit), 1 TAB PO BID Cholecalciferol (Vitamin D), 1,000 UNITS PO QAM Cyanocobalamin (Vitamin B12), 1,000 MCG PO 2XWK Diltiazem Hcl Ext Rel (Tiazac), 120 MG PO BID Furosemide (Lasix), 20 MG PO QAM Lactobacillus (Probiotic), 1 CAP PO BID Omeprazole (Prilosec), 20 MG PO QAM Spironolactone (Aldactone), 50 MG PO QAM Scheduled PRN Hydrocodone/Acetaminophen 5MG/325MG ([place] 5MG/325MG), 1 TABLET PO Q4 PRN for Pain Temazepam (Restoril), 15 MG PO HS PRN for Sleep Review of Systems ROS: well nourished well developed ROS: well nourished well developed No double vision, but the patient has blurry vision of her right eye No problems with speech, but she has painful jaws with chewing and difficulty swallowing No palpitations, chest pain or pressure Wheezing or breathing issues No abdominal pain nausea vomiting diarrhea, recent weight loss due to decreased appetite No burning urine urine frequency or changes in color No focal joint pain or muscle pain No skin rashes gross oral lesions No unusual bruising or bleeding No focused back pain or numbness or loss of strength No changes in memory or confusion Physical Exam Vital Signs Date Time Temp Pulse Resp B/P (MAP) Pulse Ox O2 Delivery O2 Flow Rate FiO2 01/29/17 17:26 102 18 136/70 98 Room Air 01/29/17 15:38 84 16 117/55 98 Room Air 01/29/17 14:46 84 01/29/17 14:41 88 20 129/71 96 01/29/17 14:41 95 Room Air 01/29/17 13:43 36.7 96 18 131/68 98 Room Air Diagnostics Laboratory Results Results Past 24 Hours Test 01/29/17 14:20 01/29/17 14:30 Range/Units White Blood Count 14.00 4.8-10.8 K/uL Red Blood Count 4.23 4.2-5.4 M/uL Hemoglobin 12.2 12.0-16.0 g/dL Hematocrit 37.2 37-47 % Mean Corpuscular Volume 87.9 80-100 fL Mean Corpuscular Hemoglobin 28.8 25-34 pg Mean Corpuscular Hemoglobin Concent 32.8 32-36 g/dl Platelet Count 397 130-400 K/uL Mean Platelet Volume 9.7 7.4-10.4 fL Neutrophils (%) (Auto) 84.3 % Lymphocytes (%) (Auto) 8.3 % Monocytes (%) (Auto) 6.6 % Eosinophils (%) (Auto) 0.4 % Basophils (%) (Auto) 0.0 % Neutrophils # (Auto) 11.80 1.4-6.5 K/uL Lymphocytes # (Auto) 1.16 1.2-3.4 K/uL Monocytes # (Auto) 0.93 0.11-0.59 K/uL Eosinophils # (Auto) 0.06 0-0.5 K/uL Basophils # (Auto) 0.00 0-0.2 K/uL RDW Standard Deviation 45.9 36.4-46.3 fL RDW Coefficient of Variation 14.2 11.5-14.5 % Immature Granulocyte % (Auto) 0.4 % Immature Granulocyte # (Auto) 0.05 0.00-0.02 K/uL Erythrocyte Sedimentation Rate 46 0-21 mm/hr Prothrombin Time 11.9 9.0-12.0 SECONDS Prothromb Time International Ratio 1.1 0.9-1.1 Activated Partial Thromboplast Time 28.5 21.0-31.0 SECONDS Partial Thromboplastin Ratio 1.1 Sodium Level 132 136-145 mmol/L Potassium Level 4.2 3.5-5.1 mmol/L Chloride Level 95 98-107 mmol/L Carbon Dioxide Level 28 21-32 mmol/L Anion Gap 9.0 3-11 mmol/L Blood Urea Nitrogen 30 7-18 mg/dl Creatinine 1.00 0.60-1.20 mg/dl Est Creatinine Clear Calc Drug Dose 34.3 ml/min Estimated GFR () 60.8 Estimated GFR (Non- 52.4 BUN/Creatinine Ratio 29.6 10-20 Random Glucose 134 70-99 mg/dl Calcium Level 9.8 8.5-10.1 mg/dl Magnesium Level 2.1 1.8-2.4 mg/dl Total Bilirubin 0.4 0.2-1 mg/dl Direct Bilirubin 0.2 0-0.2 mg/dl Aspartate Amino Transf (AST/SGOT) 10 15-37 U/L Alanine Aminotransferase (ALT/SGPT) 22 12-78 U/L Alkaline Phosphatase 61 45-117 U/L Troponin I < 0.015 0-0.045 ng/ml C-Reactive Protein 19.30 0-0.29 mg/dl Total Protein 6.8 6.4-8.2 gm/dl Albumin 3.0 3.4-5.0 gm/dl Thyroid Stimulating Hormone (TSH) 2.450 0.300-4.500 uIu/ml Lyme Disease IgG Antibody POS NEG Lyme Disease IgM Antibody POS NEG Urine Color YELLOW Urine Appearance CLEAR CLEAR Urine pH 5.0 4.5-7.5 Urine Specific [place] 1.019 1.000-1.030 Urine Protein NEG NEG Urine Glucose (UA) NEG NEG Urine Ketones NEG NEG Urine Occult Blood NEG NEG Urine Nitrite NEG NEG Urine Bilirubin NEG NEG Urine Urobilinogen NEG NEG Urine Leukocyte Esterase NEG NEG CXR normal other (EKG shows A. fib with controlled response) Impression Assessment and Plan 81-year-old female here with intractable headache and concern for giant cell arteritis. The patient observed for pain control, begun on oral steroids, and we'll coordinate care for temporal artery biopsy with holding her oral anticoagulant. Will hopefully have our general surgery team be able to do this some time next week to get a tissue diagnosis. Dr. JOE we'll see the patient and likely follow-up in clinic, she recommended prednisone 40 mg. For her atrial fibrillation will continue her diltiazem and Eliquis a 2.5 coordinating holding this when appropriate. For pain control, the patient states she sensitive to opiates, will use intravenous Toradol and Tylenol this point in time. She believes she is also had some intolerance to Ultram in the past. We'll maintain Restoril for sleep but attempt use low-dose Ativan or Seroquel. DVT prevention is her ELIQUIS VTE Prophylaxis VTE Risk Assessment Done? Y/N: Yes Risk Level: Moderate
[2017-01-29] MEDS ORDERED: LACTOBACILLUS ACIDOPHILUS (FLORANEX) TAB PO SCH (18:45)
[2017-01-29 19:20] VITALS: BP 145/69; PULSE 94; TEMP 36.8; O2SAT 96; Ht 157.5 cm; Wt 50.8 kg
--- NOTE | 2017-01-29 19:24 | DIAGNOSTIC IMAGING REPORT ---
CAROTID ARTERY ULTRASOUND CLINICAL HISTORY: Suspect arteritis. COMPARISON STUDY: Carotid ultrasound November 14, 2016. TECHNIQUE: Real-time, grayscale, and color Doppler sonography of the carotid and vertebral arteries was performed. Images were viewed in the transverse and longitudinal planes. FINDINGS: There is moderate atherosclerotic plaque. Velocity measurements are listed below. COMMON CAROTID PEAK SYSTOLIC VELOCITY (CM/S): RIGHT 98 LEFT 101 ICA PEAK SYSTOLIC VELOCITY (CM/S): RIGHT 90 LEFT 264 Systolic ratio between the left internal to common carotid artery is elevated at 2.6. Antegrade flow is seen in the vertebral arteries. The external carotid arteries are patent. Blood pressure in the right arm measured 116/65. Blood pressure in the left arm measured 117/59. IMPRESSION: Findings suggestive of greater than 70% stenosis of the proximal left internal carotid artery. Velocities have increased since ultrasound of November 14, 2016. Electronically signed by: Alex Gomez M.D. 01/29/2017 7:23 PM Dictated Date/Time: 01/29/2017 7:18 PM
--- NOTE | 2017-01-29 20:32 | Rheumatology Consultation ---
Rheumatology Consultation Date of Consultation: Jan 29, 2017. 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 History is obtained mostly from the patient's daughter. She reports that onset of her illness began in late May after she had raked some leaves, she developed leg pain and back pain. Symptoms persisted and she was eventually diagnosed with Lyme disease in July. She saw Dr. Bynum and was treated with 1 month of doxycycline. In mid November, she followed up with Dr. Garber as they switched her primary care provider. Patient complained of right sided weakness. Physical therapy was recommended and she participated in weekly home PT with improvement in her strength. Around this time, she began to experience daily headaches that were global in nature. 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 She saw her PCP on November 11 and was prescribed Vicodin which did not help. She had a head CT that was negative. She was referred to neurology. She had an MRI of the brain that showed no acute pathology to explain her headaches and a x-ray of her neck showed degenerative changes. A spinal tap was recommended but patient deferred the procedure. Last week, she was seen by Dr. Rodriguez in family practice and complained of jaw pain, facial swelling, ongoing headaches, and swelling behind her ears. She was prescribed prednisone tablets (dose unknown) advised to take 3 tabs for 3 days, 2 tabs for 3 days then 1 tab for 3 days then stop. Daughter notes that she took the prednisone on Thursday and Thursday which resulted in resolution of her headaches, jaw pain, and facial swelling. Because the prednisone made her more jittery, she stopped it and her headache returned. She has also been having trouble sleeping for several months noting that she often can go for several days without sleeping. She has tried trazodone and temazepam without much improvement in her insomnia. She also has been experiencing drenching night sweats for a few weeks and developed right eye blurry vision again. Daughter notes that her sed rate has been up since being diagnosed with Lyme disease. Past Medical/Surgical History Medical History: atrial fibrillation Dermatomyositis-sans myositis CAD s/p 3 v CABG in 2006 Atrial fibrillation Chronic anticoagulation Osteoarthritis Osteoporosis Carpal tunnel syndrome Hearing loss Lyme disease Social History Smoking Status: Never Smoker Drug Use: none Review of Systems Constitutional: + sweats Eyes: + worsening of vision ENT: + trouble swallowing Respiratory: No cough, No sputum, No shortness of breath, No dyspnea on exertion Cardiac: No chest pain, No orthopnea Abdomen: No pain, No nausea, No vomiting, No diarrhea Musculoskeletal: No joint pain, No muscle pain, No swelling Female : No dysuria Neurologic: + see HPI Heme: + swollen lymph nodes Skin: No rash Allergies Coded Allergies: Aspirin (Unverified Allergy, Unknown, unk, 01/29/17) Prednisone (Unverified Allergy, Unknown, unk, 01/29/17) Medications Current Inpatient Medications Medications (Trade) Dose Ordered Sig/Rika Route Start Time Stop Time Status Last Admin Dose Admin Acetaminophen (Tylenol Tab) 650 mg Q4H PRN PO 01/29/17 18:00 02/28/17 17:59 Al Hydrox/Mg Hydrox/Simethicone (Maalox Max Susp) 15 ml Q4H PRN PO 01/29/17 18:00 02/28/17 17:59 Magnesium Hydroxide (Milk Of Magnesia Susp) 30 ml Q12H PRN PO 01/29/17 18:00 02/28/17 17:59 Ondansetron HCl (Zofran Inj) 4 mg Q6H PRN IV 01/29/17 18:00 02/28/17 17:59 Apixaban (Eliquis Tab) 2.5 mg BID PO 01/29/17 21:00 02/28/17 20:59 Atorvastatin Calcium (Lipitor Tab) 10 mg HS PO 01/29/17 21:00 02/28/17 20:59 Diltiazem HCl (TIAzac CAP) 120 mg BID PO 01/29/17 21:00 02/28/17 20:59 Furosemide (Lasix Tab) 20 mg QAM PO 01/30/17 09:00 03/01/17 08:59 Temazepam (Restoril Cap) 15 mg HS PRN PO 01/29/17 18:00 02/28/17 17:59 Pantoprazole Sodium (Protonix Tab) 40 mg QAM PO 01/30/17 09:00 03/01/17 08:59 Ketorolac Tromethamine (Toradol Inj) 15 mg Q8H PRN IV 01/29/17 18:00 02/03/17 17:59 Lorazepam (Ativan Inj) 0.5 mg Q4H PRN IV 01/29/17 18:00 02/28/17 17:59 Lorazepam (Ativan Inj) 1 mg Q4H PRN IV 01/29/17 18:00 02/28/17 17:59 Lorazepam (Ativan Tab) 0.5 mg Q6 PRN PO 01/29/17 18:00 02/28/17 17:59 Quetiapine Fumarate (seroQUEL TAB) 25 mg HS PO 01/29/17 21:00 02/28/17 20:59 Lorazepam 1 mg/ Syringe 1 ml @ 1 mls/min Q4H PRN IV 01/29/17 18:00 02/28/17 17:59 Lorazepam 0.5 mg/ Syringe 1 ml @ 1 mls/min Q4H PRN IV 01/29/17 18:00 02/28/17 17:59 Prednisone (PredniSONE TAB) 40 mg DAILY PO 01/30/17 09:00 03/01/17 08:59 Miscellaneous (Iv Fluids Completed) 1 ea PRN PRN N/A 01/29/17 18:15 01/29/18 18:14 Lactobacillus Acidophilus (Floranex Tab) 4 tab DAILY PO 01/30/17 09:00 03/01/17 08:59 Physical Exam Date Time Temp Pulse Resp B/P (MAP) Pulse Ox O2 Delivery O2 Flow Rate FiO2 01/29/17 18:45 97 16 122/66 97 01/29/17 17:26 102 18 136/70 98 Room Air 01/29/17 15:38 84 16 117/55 98 Room Air 01/29/17 14:46 84 01/29/17 14:41 88 20 129/71 96 01/29/17 14:41 95 Room Air 01/29/17 13:43 36.7 96 18 131/68 98 Room Air Eyes: bilateral eyes normal inspection, bilateral eyes EOMI ENT: normal ENT inspection Neck: supple, no adenopathy, thyroid normal Respiratory: chest non-tender, lungs clear, normal breath sounds, no respiratory distress, no accessory muscle use Cardiovascular: no edema, + irregularly irregular Abdomen: normal bowel sounds, non tender, soft Musculoskeletal: Mild degenerative changes in the hands. No joint tenderness or swelling Neurologic/Psychiatric: alert, normal mood/affect, oriented x 3 Skin: warm/dry, no rash 01/23/17: MOHSEN negative, RF negative Laboratory Results Last 24 Hours Test 01/29/17 14:20 01/29/17 14:30 White Blood Count 14.00 K/uL Red Blood Count 4.23 M/uL Hemoglobin 12.2 g/dL Hematocrit 37.2 % Mean Corpuscular Volume 87.9 fL Mean Corpuscular Hemoglobin 28.8 pg Mean Corpuscular Hemoglobin Concent 32.8 g/dl Platelet Count 397 K/uL Mean Platelet Volume 9.7 fL Neutrophils (%) (Auto) 84.3 % Lymphocytes (%) (Auto) 8.3 % Monocytes (%) (Auto) 6.6 % Eosinophils (%) (Auto) 0.4 % Basophils (%) (Auto) 0.0 % Neutrophils # (Auto) 11.80 K/uL Lymphocytes # (Auto) 1.16 K/uL Monocytes # (Auto) 0.93 K/uL Eosinophils # (Auto) 0.06 K/uL Basophils # (Auto) 0.00 K/uL RDW Standard Deviation 45.9 fL RDW Coefficient of Variation 14.2 % Immature Granulocyte % (Auto) 0.4 % Immature Granulocyte # (Auto) 0.05 K/uL Erythrocyte Sedimentation Rate 46 mm/hr Prothrombin Time 11.9 SECONDS Prothromb Time International Ratio 1.1 Activated Partial Thromboplast Time 28.5 SECONDS Partial Thromboplastin Ratio 1.1 Sodium Level 132 mmol/L Potassium Level 4.2 mmol/L Chloride Level 95 mmol/L Carbon Dioxide Level 28 mmol/L Anion Gap 9.0 mmol/L Blood Urea Nitrogen 30 mg/dl Creatinine 1.00 mg/dl Est Creatinine Clear Calc Drug Dose 34.3 ml/min Estimated GFR () 60.8 Estimated GFR (Non- 52.4 BUN/Creatinine Ratio 29.6 Random Glucose 134 mg/dl Calcium Level 9.8 mg/dl Magnesium Level 2.1 mg/dl Total Bilirubin 0.4 mg/dl Direct Bilirubin 0.2 mg/dl Aspartate Amino Transf (AST/SGOT) 10 U/L Alanine Aminotransferase (ALT/SGPT) 22 U/L Alkaline Phosphatase 61 U/L Troponin I < 0.015 ng/ml C-Reactive Protein 19.30 mg/dl Total Protein 6.8 gm/dl Albumin 3.0 gm/dl Thyroid Stimulating Hormone (TSH) 2.450 uIu/ml Lyme Disease IgG Antibody POS Lyme Disease IgM Antibody POS Urine Color YELLOW Urine Appearance CLEAR Urine pH 5.0 Urine Specific [place] 1.019 Urine Protein NEG Urine Glucose (UA) NEG Urine Ketones NEG Urine Occult Blood NEG Urine Nitrite NEG Urine Bilirubin NEG Urine Urobilinogen NEG Urine Leukocyte Esterase NEG Assessment & Plan Assessment & Plan: 81 year old woman presenting with history of persistent headaches with development of jaw pain, scalp tenderness, blurry vision and history of night sweats in setting of elevated inflammatory markers. Overall presentation concerning for GCA/temporal arteritis. Unclear what dose of steroids she received as an outpatient ?60 mg. She did have improvement of her symptoms but experienced side effects. I had an extensive discussion with the patient and her daughter about my impressions and recommendations. Recommendations 1. Consider starting 40 mg of prednisone first dose now then in the mornings with breakfast. 2. Consult general surgery for bilateral temporal artery biopsies ( 2 week window between starting steroids and positive yield on biopsy) 3. Consider sleep aid such as trazodone (unclear her home dose) 4. Discussed that if biopsies are positive, steroid taper would be over several months; if biopsies are negative but she improves with steroids, can likely do a faster taper (40 mg daily and taper by 10 mg every week, then once at 10 mg daily taper by 2.5 mg every week) and monitor for return of symptoms. 5. She will need follow-up with rheumatology in 1 week after her discharge. Daughter informs me that patient cannot be seen by me due to insurance issues. Thank you for allowing rheumatology to participate in the care of this patient.
[2017-01-29] MEDS ORDERED: ATORVASTATIN 10 MG TAB PO SCH (21:00)
[2017-01-29] MEDS ORDERED: HEPARIN SOD 5000 UNIT/0.5 ML CARP SQ SCH (21:00)
[2017-01-29] MEDS ORDERED: QUETIAPINE FUMARATE 25 MG TAB PO SCH (21:00)
[2017-01-29] MEDS ORDERED: METHYLPREDNISOLONE IV 40 MG in SYRINGE 0 ML IV SCH (21:00)
[2017-01-29] MEDS: DILTIAZEM HCL 120 MG EXT REL CAP PO SCH (21:39)
[2017-01-29] MEDS: APIXABAN 2.5 MG TAB PO SCH (21:40)
[2017-01-29] MEDS ORDERED: PNEUMOCOCCAL POLYSACCHARIDES 25 MCG/0.5 ML VIAL/SYR IM. ONE (21:45)
[2017-01-29] MEDS ORDERED: PNEUMOCOCCAL ADMINISTRATION CHARGE ONE (21:45)
[2017-01-29 23:07] VITALS: BP 103/62; PULSE 80; TEMP 36.7; O2SAT 98
[2017-01-30 03:12] VITALS: BP 101/57; PULSE 76; TEMP 36.5; O2SAT 98
[2017-01-30 06:48] LABS: HEMATOCRIT 37.3 % (37-47); MEAN CELL VOLUME 86.5 fL (80-100); MEAN CORPUSCULAR HEMOGLOBIN 27.6 pg (25-34); MEAN CORPUSCULAR HGB CONC 31.9 g/dl (32-36); MEAN PLATELET VOLUME 9.7 fL (7.4-10.4); PLATELET COUNT 430 K/uL (130-400); RED BLOOD COUNT 4.31 M/uL (4.2-5.4); WHITE BLOOD COUNT 10.44 K/uL (4.8-10.8)
[2017-01-30 07:17] VITALS: BP 119/71; PULSE 74; TEMP 36.5; O2SAT 96
[2017-01-30 07:19] LABS: BUN/CREATININE RATIO 41.9 (10-20); CREATININE 0.78 mg/dl (0.60-1.20); POTASSIUM 4.6 mmol/L (3.5-5.1)
[2017-01-30 07:30] LABS: CALCIUM 9.8 mg/dl (8.5-10.1)
[2017-01-30] MEDS: APIXABAN 2.5 MG TAB PO SCH (08:14)
[2017-01-30] MEDS: DILTIAZEM HCL 120 MG EXT REL CAP PO SCH (08:14)
[2017-01-30] MEDS ORDERED: LACTOBACILLUS ACIDOPHILUS (FLORANEX) TAB PO SCH (09:00)
[2017-01-30] MEDS ORDERED: FUROSEMIDE 20 MG TAB PO SCH (09:00)
[2017-01-30] MEDS ORDERED: PANTOprazole SOD 40 MG TAB PO SCH (09:00)
--- NOTE | 2017-01-30 10:49 | Medical Consult ---
Consultation Date of Consultation: Jan 30, 2017. Attending Physician: Angelito Nino M.D. History of Present Illness pt seen for + lyme titer. She was initially diagnosed in 07/2016, had 10 days doxy from pcp, continued with symptoms and then followed with ID in 08/2016, was given 28 day course with resolution. Was doing well until weeks ago when she noticed increasing right sided wu and jaw pain, no additional treatment but also did not initially seek care as she felt it was the "lyme disease leaving her body through her head". She has no f/c. no neck stiffness, no pain, still with intermittent wu and jaw pain. She denies facial droop, no difficulty with speaking/chewing. no visual complaints, no blurry vision, double vision, loss of vision. No new tick bites, no new rashes. No joint pain, muscle pain, fatigue , wt loss, abd pain, no n/v/d. no cp, sob, cough. has had elevated esr for some time. Saw rheum yesterday and suspect temporal arteritis, she is scheduled for biopsy this admission. She was started on steroids last pm and feels much better today. no wu on my exam, no jaw pain, she is eating breakfast and is comfortable. She does have + lyme titer 11/2016, 01/23, repeated again last night. Ct head negative, MRI in November negative as well. Daughter at bedside, states she had neuro eval months ago and LP was offered, but pt declined. She is afebrile this admission. All remaining ros reviewed and are negative. Past Medical/Surgical History Medical Problems: (1) Headache Status: Acute Family History Cancer Social History Smoking Status: Never Smoker Drug Use: none Housing Status: lives with family Allergies Coded Allergies: Aspirin (Unverified Allergy, Unknown, unk, 01/29/17) Prednisone (Unverified Allergy, Unknown, unk, 01/29/17) Current Inpatient Medications Current Inpatient Medications Medications (Trade) Dose Ordered Sig/Rika Route Start Time Stop Time Status Last Admin Dose Admin Acetaminophen (Tylenol Tab) 650 mg Q4H PRN PO 01/29/17 18:00 02/28/17 17:59 Al Hydrox/Mg Hydrox/Simethicone (Maalox Max Susp) 15 ml Q4H PRN PO 01/29/17 18:00 02/28/17 17:59 Magnesium Hydroxide (Milk Of Magnesia Susp) 30 ml Q12H PRN PO 01/29/17 18:00 02/28/17 17:59 Ondansetron HCl (Zofran Inj) 4 mg Q6H PRN IV 01/29/17 18:00 02/28/17 17:59 Apixaban (Eliquis Tab) 2.5 mg BID PO 01/29/17 21:00 02/28/17 20:59 01/30/17 08:14 2.5 MG Atorvastatin Calcium (Lipitor Tab) 10 mg HS PO 01/29/17 21:00 02/28/17 20:59 01/29/17 21:40 10 MG Diltiazem HCl (TIAzac CAP) 120 mg BID PO 01/29/17 21:00 02/28/17 20:59 01/30/17 08:14 120 MG Furosemide (Lasix Tab) 20 mg QAM PO 01/30/17 09:00 03/01/17 08:59 01/30/17 08:14 20 MG Temazepam (Restoril Cap) 15 mg HS PRN PO 01/29/17 18:00 02/28/17 17:59 Pantoprazole Sodium (Protonix Tab) 40 mg QAM PO 01/30/17 09:00 03/01/17 08:59 01/30/17 08:13 40 MG Ketorolac Tromethamine (Toradol Inj) 15 mg Q8H PRN IV 01/29/17 18:00 02/03/17 17:59 01/29/17 21:46 15 MG Lorazepam (Ativan Inj) 0.5 mg Q4H PRN IV 01/29/17 18:00 02/28/17 17:59 Lorazepam (Ativan Inj) 1 mg Q4H PRN IV 01/29/17 18:00 02/28/17 17:59 Lorazepam (Ativan Tab) 0.5 mg Q6 PRN PO 01/29/17 18:00 02/28/17 17:59 Quetiapine Fumarate (seroQUEL TAB) 25 mg HS PO 01/29/17 21:00 02/28/17 20:59 01/29/17 21:40 25 MG Lorazepam 1 mg/ Syringe 1 ml @ 1 mls/min Q4H PRN IV 01/29/17 18:00 02/28/17 17:59 Lorazepam 0.5 mg/ Syringe 1 ml @ 1 mls/min Q4H PRN IV 01/29/17 18:00 02/28/17 17:59 Prednisone (PredniSONE TAB) 40 mg DAILY PO 01/30/17 09:00 03/01/17 08:59 01/30/17 08:14 40 MG Miscellaneous (Iv Fluids Completed) 1 ea PRN PRN N/A 01/29/17 18:15 01/29/18 18:14 Lactobacillus Acidophilus (Floranex Tab) 4 tab DAILY PO 01/30/17 09:00 03/01/17 08:59 Physical Exam Date Time Temp Pulse Resp B/P (MAP) Pulse Ox O2 Delivery O2 Flow Rate FiO2 01/30/17 08:00 Room Air 01/30/17 07:17 36.5 74 17 119/71 (87) 96 Room Air 01/30/17 04:00 Room Air 01/30/17 03:12 36.5 76 18 101/57 (72) 98 Room Air 01/29/17 23:59 Room Air 01/29/17 23:07 36.7 80 18 103/62 (76) 98 Room Air 01/29/17 20:00 Room Air 01/29/17 19:20 36.8 94 16 145/69 96 Room Air 01/29/17 18:45 97 16 122/66 97 01/29/17 17:26 102 18 136/70 98 Room Air 01/29/17 15:38 84 16 117/55 98 Room Air 01/29/17 14:46 84 01/29/17 14:41 88 20 129/71 96 01/29/17 14:41 95 Room Air 01/29/17 13:43 36.7 96 18 131/68 98 Room Air General Appearance: WD/WN, no apparent distress Head: normocephalic, atraumatic Eyes: normal inspection, EOMI Neck: supple, no adenopathy Respiratory/Chest: chest non-tender, lungs clear, normal breath sounds, no respiratory distress Cardiovascular: regular rate, rhythm, no edema Abdomen/GI: non tender, soft Extremities/Musculoskelatal: normal inspection, no pedal edema Neurologic/Psych: alert, oriented x 3 Skin: normal color Laboratory Results Last 24 Hours Test 01/29/17 14:20 01/29/17 14:30 01/30/17 05:45 White Blood Count 14.00 K/uL 10.44 K/uL Red Blood Count 4.23 M/uL 4.31 M/uL Hemoglobin 12.2 g/dL 11.9 g/dL Hematocrit 37.2 % 37.3 % Mean Corpuscular Volume 87.9 fL 86.5 fL Mean Corpuscular Hemoglobin 28.8 pg 27.6 pg Mean Corpuscular Hemoglobin Concent 32.8 g/dl 31.9 g/dl Platelet Count 397 K/uL 430 K/uL Mean Platelet Volume 9.7 fL 9.7 fL Neutrophils (%) (Auto) 84.3 % Lymphocytes (%) (Auto) 8.3 % Monocytes (%) (Auto) 6.6 % Eosinophils (%) (Auto) 0.4 % Basophils (%) (Auto) 0.0 % Neutrophils # (Auto) 11.80 K/uL Lymphocytes # (Auto) 1.16 K/uL Monocytes # (Auto) 0.93 K/uL Eosinophils # (Auto) 0.06 K/uL Basophils # (Auto) 0.00 K/uL RDW Standard Deviation 45.9 fL 45.1 fL RDW Coefficient of Variation 14.2 % 14.3 % Immature Granulocyte % (Auto) 0.4 % Immature Granulocyte # (Auto) 0.05 K/uL Erythrocyte Sedimentation Rate 46 mm/hr Prothrombin Time 11.9 SECONDS Prothromb Time International Ratio 1.1 Activated Partial Thromboplast Time 28.5 SECONDS Partial Thromboplastin Ratio 1.1 Sodium Level 132 mmol/L 135 mmol/L Potassium Level 4.2 mmol/L 4.6 mmol/L Chloride Level 95 mmol/L 101 mmol/L Carbon Dioxide Level 28 mmol/L 28 mmol/L Anion Gap 9.0 mmol/L 6.0 mmol/L Blood Urea Nitrogen 30 mg/dl 33 mg/dl Creatinine 1.00 mg/dl 0.78 mg/dl Est Creatinine Clear Calc Drug Dose 34.3 ml/min 44.0 ml/min Estimated GFR () 60.8 82.1 Estimated GFR (Non- 52.4 70.8 BUN/Creatinine Ratio 29.6 41.9 Random Glucose 134 mg/dl 180 mg/dl Calcium Level 9.8 mg/dl 9.8 mg/dl Magnesium Level 2.1 mg/dl Total Bilirubin 0.4 mg/dl Direct Bilirubin 0.2 mg/dl Aspartate Amino Transf (AST/SGOT) 10 U/L Alanine Aminotransferase (ALT/SGPT) 22 U/L Alkaline Phosphatase 61 U/L Troponin I < 0.015 ng/ml C-Reactive Protein 19.30 mg/dl Total Protein 6.8 gm/dl Albumin 3.0 gm/dl Thyroid Stimulating Hormone (TSH) 2.450 uIu/ml Lyme Disease IgG Antibody POS Lyme Disease IgM Antibody POS Urine Color YELLOW Urine Appearance CLEAR Urine pH 5.0 Urine Specific [place] 1.019 Urine Protein NEG Urine Glucose (UA) NEG Urine Ketones NEG Urine Occult Blood NEG Urine Nitrite NEG Urine Bilirubin NEG Urine Urobilinogen NEG Urine Leukocyte Esterase NEG Assessment & Plan (1) Temporal arteritis Assessment & Plan: agree with steroids and biopsy. Doubt current symptoms are due to recurrent lyme disease, would hold abx pending biopsy results. Her + lyme titers likely reflect previously diagnosed and treated lyme disease. May be + for some time. 01/29 likely to be unchanged from 01/23 titers. no new ID recs at this time.
[2017-01-30 11:28] VITALS: BP 135/68; PULSE 79; TEMP 36.8; O2SAT 97
[2017-01-30] MEDS ORDERED: QUET1TAB30 PO (12:12)
[2017-01-30] MEDS ORDERED: PRD20 PO (12:12)
--- NOTE | 2017-01-30 12:24 | Discharge Instructions ---
Discharge Instructions Date of Service Jan 30, 2017. Admission Reason for Admission: Itractable Headache Temporal Arteritis Discharge Discharge Diagnosis / Problem: Suspected temporal arteritis, insomnia Discharge Goals Goal(s): Improve function, Diagnostic testing (temporal artery biopsy) Activity Recommendations Activity Limitations: resume your previous activity Lifting Limitations: none Exercise/Sports Limitations: as tolerated Shower/Bathe: no limitations Driving or Machine Use: no limitations . Instructions / Follow-Up Instructions / Follow-Up Medications: - PREDNISONE: 40mg daily x 1 week, then decrease by 10mg every week (40 x 7 days , 30 x 7 days, 20 x 7 days and 10 x 7 days) please follow up with hot car operator, my nurse navigator will call you with appointment with [facility] - SEROQUEL: take one hour prior to planning on going to sleep, maintain good sleep hygiene only use bedroom for sleeping, cool and quiet and dark, no TV or stimulation prior to sleep, try to go to bed at the same time if you are restless, don't lay in bed, get up and read or do something else and then return to bed when you feel tired Temporal arteritis: suspected by rheumatology, will need biopsy on 02/[address] Sinclair You need to hold Eliquis 48 hours prior to biopsy, last dose should be evening of 02/03. you can resume when cleared by Dr. Sinclair, likely the day after biopsy FOLLOW UP - Dr. Sinclair, biopsy on 02/06, [address] [phone] - Dr. Odom, hot car operator with [facility], her office should contact you regarding appointment sometime after the biopsy results - Dr. Garber, please call for follow up in the next 2 weeks to assess how Seroquel is working and whether or not Prednisone helping headache Current Hospital Diet Patient's current hospital diet: Regular Diet Discharge Diet Recommended Diet: Regular Diet Pending Studies Studies pending at discharge: no Medical Emergencies . Who to Call and When: Medical Emergencies: If at any time you feel your situation is an emergency, please call 911 immediately. . Non-Emergent Contact Non-Emergency issues call your: Primary Care Provider Call Non-Emergent contact if: your pain is not controlled, your pain is worsening, you have any medication questions . . "Provider Documentation" section prepared by David Eaton. . VTE Core Measure Inpt VTE Proph given/why not?: [facility] Drug Monitoring Program Search Results: no issues identified
[2017-01-30 12:41] VITALS: BP 135/68; PULSE 79; TEMP 36.8; O2SAT 97
--- NOTE | 2017-01-31 07:47 | Discharge Summary ---
Discharge Summary Date of Service January 30, 2017. Discharge Summary Admission Date: Jan 29, 2017 at 17:53 Discharge Date: Jan 30, 2017 Discharge Disposition: Home Principal Diagnosis: Severe headache, susptected temporal arteritis Problems/Secondary Diagnoses: Insomnia Atrial fibrillation Immunizations: Have You Had Influenza Vaccine: Unknown History of Tetanus Vaccine?: Unknown History of Pneumococcal: Unknown History of Hepatitis B Vaccine: Unknown Procedures: none Consultations: Rheumatology Medication Reconciliation New Medications: Quetiapine Fumarate (Seroquel) 25 Mg Tab 25 MG PO HS PRN for Insomnia, #30 TAB Prednisone (Prednisone) 20 Mg Tab 40 MG PO DAILY, #35 TAB 0 Refills Continued Medications: Apixaban (Eliquis) 2.5 Mg Tab 2.5 MG PO BID, TAB Atorvastatin (Lipitor) 10 Mg Tab 10 MG PO HS, TAB Calcium Carbonate-Cholecalcife (Calcium/Vitamin D3 600-400 mg-Unit) 1 Tab Tab 1 TAB PO BID Cholecalciferol (Vitamin D) 1,000 Unit Tab 1000 UNITS PO QAM Cyanocobalamin (Vitamin B12) 1,000 Mcg Tab 1000 MCG PO 2XWK TAKES ON & . Diltiazem Hcl Ext Rel (Tiazac) 120 Mg Capcr 120 MG PO BID, CAP Furosemide (Lasix) 20 Mg Tab 20 MG PO QAM, TAB Hydrocodone/Acetaminophen 5MG/325MG (Warren 5MG/325MG) Tab 1 TABLET PO Q4 PRN for Pain, #25 TAB Lactobacillus (Probiotic) 1 Cap Cap 1 CAP PO BID Omeprazole (Prilosec) 20 Mg Capcr 20 MG PO QAM, CAP Spironolactone (Aldactone) 50 Mg Tab 50 MG PO QAM, TAB Discontinued Medications: Temazepam (Restoril) 15 Mg Cap 15 MG PO HS PRN for Sleep, CAP Discharge Exam Patient was feeling much better in the AM after receiving Prednisone 40mg the evening prior and 40mg in the morning. Her headache was mild to moderate, definitely not severe. We discussed the importance of staying on the Prednisone as she stopped it last time by herself due to feeling shaky and insomnia. I discussed the case with Dr. Sinclair with general surgery over the phone, he would see her in the office later next week and plan for the biopsy the following Thursday or Thursday. Patient reported that she slept better last night after a dose of Seroquel. The aide actually woke her at 3am for vitals and after that she could not fall back asleep. She requested to continue the Seroquel at home. All the discharge instructions and plan were discussed with the patient and her daughter at the bedside. Review of Systems: Constitutional: + problem reported (heachache better), No fever, No chills, No sweats, No weight loss, No weakness, No fatigue Eyes: No worsening of vision, No eye pain, No redness, No discharge, No diplopia, No problem reported ENT: No hearing loss, No unusual epistaxis, No nasal symptoms, No sore throat, No tinnitus, No dental problems, No trouble swallowing, No problem reported Respiratory: No cough, No sputum, No wheezing, No shortness of breath, No dyspnea on exertion, No dyspnea at rest, No hemoptysis, No problem reported Cardiovascular: No chest pain, No orthopnea, No PND, No edema, No claudication, No palpitations, No problem reported Abdomen: No pain, No nausea, No vomiting, No diarrhea, No constipation, No GI bleeding, No problem reported Musculoskeletal: No joint pain, No muscle pain, No swelling, No calf pain, No problem reported Genitourinary - Female: No dysuria, No urinary frequency, No urinary urgency , No urinary incontinence, No urinary retention, No hematuria Neurologic: No memory loss, No paralysis, No weakness, No numbness/tingling , No vertigo, No balance problems, No problem reported Psychiatric: No depression symptoms, No anhedonism, No anxiety, No insomnia , No substance abuse, No problem reported Endocrine: No fatigue, No excessive thirst, No excessive urination, No problem reported Hematologic / Lymphatic: No abnormal bleeding/bruising, No clotting problems , No swollen lymph nodes, No night sweats, No problem reported Integumentary: No rash, No itch, No new/changing skin lesions, No color change, No bleeding, No problem reported Physical Exam: General Appearance: WD/WN, no apparent distress Eyes: normal inspection, EOMI, sclerae normal ENT: normal ENT inspection, hearing grossly normal, pharynx normal Neck: supple, no adenopathy, no JVD Respiratory/Chest: chest non-tender, lungs clear, normal breath sounds, no respiratory distress, no accessory muscle use Cardiovascular: regular rate, rhythm, no edema, no gallop, no JVD, no murmur , normal peripheral pulses, + pertinent finding (temporal arteries tender to palpation) Abdomen / GI: normal bowel sounds, non tender, soft, no organomegaly Extremities: normal inspection, no calf tenderness, normal capillary refill , no pedal edema, normal range of motion, pelvis stable 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 - Severe headache: suspect temporal arteritis, ESR elevated at 48, tender over temporal arteries, pain when opening and closing jaw responded well to Prednisone 40mg appreciate consultation from Dr. Cardozo, recommend d/c on Prednisone and early biopsy discussed with Dr. Sinclair, patient scheduled for office visit 02/06 and then biopsy on 02/09 or 02/10 he will give her instructions on holding Eliquis d/c on Prednisone 40mg daily x 1 week, then 30mg x 1 week, 20mg x 1 week and 10mg x [address] Cardozo is out of network for patient's insurance, requested new car get ready mechanic set up patient with Dr. Odom with [facility] - Insomnia: responded well to Seroquel 25mg last evening will stop Restoril take Seroquel one hour prior to going to sleep, reviewed proper sleep hygiene in detail with patient and gave her instructions - Atrial fibrillation: rate controlled on Eliquis for AC, needs held prior to biopsy, Dr. Sinclair will instruct her on when to stop Total Time Spent: Greater than 30 minutes This includes examination of the patient, discharge planning, medication reconciliation, and communication with other providers. Discharge Instructions Please refer to the electronic Patient Visit Report (Discharge Instructions) for additional information. Follow-Up Dr. Sinclair on 02/06 Dr. Garber in 2 weeks for follow up on temporal arteritis and insomnia Dr. Odom, in 2 weeks if possible for management of arteritis Additional Copies To Navdeep Sinclair D.O.; Soraida Cardozo MD; Xi Odom MD; Tran Garber MD
[2017-02-02 11:21] LABS: 18KDIGG BAND REACTIVE (NONREACTIVE); 23KDIGG BAND NONREACTIVE (NONREACTIVE); 23KDIGM BAND REACTIVE (NONREACTIVE); 28KDIGG BAND NONREACTIVE (NONREACTIVE); 30KDIGG BAND REACTIVE (NONREACTIVE); 39KDIGG BAND REACTIVE (NONREACTIVE); 39KDIGM BAND NONREACTIVE (NONREACTIVE); 41KDIGG BAND REACTIVE (NONREACTIVE); 41KDIGM BAND REACTIVE (NONREACTIVE); 45KDIGG BAND REACTIVE (NONREACTIVE); 58KDIGG BAND REACTIVE (NONREACTIVE); 66KDIGG BAND REACTIVE (NONREACTIVE); 93KDIGG BAND REACTIVE (NONREACTIVE)
== END 2017-01-30 13:10 | disposition home or self-care (01) ==
LOC: C.EDB 13:40 → C.2T 17:53 → ENRESERV 18:04
PROVIDERS: ADMIT Internal Medicine; ATTEND Internal Medicine
DX: R51 Headache (principal); G47.00 Insomnia, unspecified; I48.91 Unspecified atrial fibrillation; M33.90 Dermatopolymyositis, unspecified, organ involvement unspecified; Z80.9 Family history of malignant neoplasm, unspecified; I25.10 Atherosclerotic heart disease of native coronary artery without angina pectoris; Z95.1 Presence of aortocoronary bypass graft; Z79.01 Long term (current) use of anticoagulants

== ENCOUNTER 2017-02-09 07:27 | Day surgery (SDC) | payer OTHER ==
[2017-02-06 18:48] VITALS: BMI 19.0
[~2017-02-09] VITALS: Ht 160 cm; Wt 49.5 kg
[~2017-02-09 07:27] MED LIST changes: +CEFAZOLIN 1000MG/55 ML D5W IV SCH; +LACTATED RINGER'S 1000ML 1,000 ML IV SCH; +PRD20 PO; +QUET1TAB30 PO; -TEMA15CA4 PO
[2017-02-09] MEDS ORDERED: PRED20TA2 PO (07:51)
[2017-02-09 07:52] VITALS: BP 141/71; PULSE 76; TEMP 36.5; O2SAT 99; Ht 160 cm; Wt 49.5 kg
--- NOTE | 2017-02-09 08:41 | History & Physical Bridge Note ---
H&P Re-Evaluation Bridge Note: I have examined the patient, reviewed the History & Physical and in the interval since the performance of the History & Physical I have noted the following changes of clinical significance: No changes noted no changes. will note that we plan on doing a right sided temporal artery biopsy. pt agreeable. questions answered.
[2017-02-09] MEDS ORDERED: FLUMAZENIL 0.1 MG/1 ML 10 ML VIAL IV PRN (10:15)
[2017-02-09] MEDS ORDERED: NALOXONE HCL 0.4 MG/1 ML VIAL/CARP IV PRN (10:15)
[2017-02-09] MEDS ORDERED: ONDANSETRON INJ 2 MG/ML 2 ML VIAL IV PRN ×2 (10:15→12:15)
[2017-02-09] MEDS ORDERED: LABETALOL HCL IV 5 MG/ML 20ML IV PRN (10:15)
[2017-02-09] MEDS ORDERED: MEPERIDINE HCL 25 MG/ML CARP IV PRN (10:15)
[2017-02-09] MEDS ORDERED: EpHEDrine SULFATE INJ 50 MG/ML AMP IV PRN (10:15)
[2017-02-09] MEDS ORDERED: ATROPINE SULFATE 0.1 MG/ML 5ML SYR IV PRN (10:15)
[2017-02-09] MEDS ORDERED: PHENYLEPHRINE 100MCG/ML 5ML SYR IV PRN (10:15)
[2017-02-09] MEDS ORDERED: FENTANYL CITRATE INJ 50 MCG/1 ML 2 ML VIAL IV PRN (10:15)
[2017-02-09] MEDS ORDERED: HYDROmorphone INJ 2 MG/ML SYR/VIAL IV PRN (10:15)
[2017-02-09] MEDS ORDERED: LIDOCAINE HCL 2% 2 ML VIAL (20MG/ML) ONE (10:33)
[2017-02-09] MEDS ORDERED: PROPOFOL IV EMULSION 10 MG/ML 20 ML VIAL IV ONE (10:33)
[2017-02-09] MEDS ORDERED: MIDAZOLAM HCL 1 MG/ML 2ML VIAL ONE (10:33)
[2017-02-09] MEDS ORDERED: FENTANYL CITRATE INJ 50 MCG/1 ML 2 ML VIAL ONE (10:35)
[2017-02-09] MEDS ORDERED: LIDOCAINE HCL 1% 20 ML VIAL ONE (11:04)
[2017-02-09] MEDS ORDERED: BUPIVACAINE 0.5 % 5 MG/1 ML MPF 30ML VIAL ONE (11:04)
[2017-02-09] MEDS ORDERED: ONDANSETRON INJ 2 MG/ML 2 ML VIAL ONE (11:44)
[2017-02-09] MEDS ORDERED: HYDROCODONE/ACETAMOPHEN 5/325MG TAB PO PRN ×2 (12:15)
[2017-02-09] MEDS ORDERED: SODIUM CHLORIDE 0.9% 1000ML 1,000 ML IV SCH (12:15)
--- NOTE | 2017-02-09 12:15 | Discharge Instructions ---
Discharge Instructions Date of Service Feb 09, 2017. Admission Reason for Admission: Headache Discharge Discharge Diagnosis / Problem: Headache Discharge Goals Goal(s): Decrease discomfort, Improve function Activity Recommendations Activity Limitations: as noted below Lifting Limitations: no more than 10 pounds Exercise/Sports Limitations: until after follow-up appointment May Resume Sexual Activity: after follow-up appointment Shower/Bathe: tomorrow Driving or Machine Use: resume 1 day after discharge . Instructions / Follow-Up Instructions / Follow-Up Please leave your gauze bandage on for the next 24-48hrs. You may then remove the dressing to shower. You have steri-strips on directly over the incision, please leave the steri-strips on until they fall off by themselves. Please follow-up in the office with Dr. Sinclair in 1-2 weeks. Please call the office at [phone] with any questions or concerns. Current Hospital Diet Patient's current hospital diet: Discharge Diet Recommended Diet: Regular Diet Procedures Procedures Performed: Right Temporal Artery Biopsy Pending Studies Studies pending at discharge: yes List of pending studies: Pathology report. Medical Emergencies . Who to Call and When: Medical Emergencies: If at any time you feel your situation is an emergency, please call 911 immediately. . Non-Emergent Contact Non-Emergency issues call your: Primary Care Provider, Surgeon Call Non-Emergent contact if: temperature is above 101.5, your pain is not controlled, wound has increased drainage, wound has increased redness . "Provider Documentation" section prepared by Zully Puga. . VTE Core Measure Inpt VTE Proph given/why not?: SCD's [place] Drug Monitoring Program Search Results: patient reviewed within database, no issues identified
--- NOTE | 2017-02-09 12:30 | Anesthesiology Progress Note ---
Anesthesia Post Op Note Date & Time Feb 09, 2017 at 12:29 Vital Signs Pain Intensity: 0 Vital Signs Past 12 Hours Date Time Temp Pulse Resp B/P (MAP) Pulse Ox O2 Delivery O2 Flow Rate FiO2 02/09/17 12:08 36.4 79 17 122/63 100 Mask 10 02/09/17 07:52 36.5 76 18 141/71 (94) 99 Room Air Notes Mental Status: alert / awake / arousable, participated in evaluation Pt Amnestic to Procedure: Yes Nausea / Vomiting: adequately controlled Pain: adequately controlled Airway Patency, RR, SpO2: stable & adequate BP & HR: stable & adequate Hydration State: stable & adequate Anesthetic Complications: no major complications apparent
--- NOTE | 2017-02-09 12:59 | [facility] Operative Report ---
Operative Report Operative Date Feb 09, 2017. Pre-Operative Diagnosis Headaches Post-Operative Diagnosis same as preop Procedure(s) Performed Right Temporal Artery Biopsy Surgeon Dr. Navdeep Sinclair Cream Dumper Surgeon(s) Zully Puga PA-C Estimated Blood Loss 5mL Findings normal anatomy Specimens A. Right Temporal Artery Anesthesia mac Complication(s) None Disposition Recovery Room / PACU Description of Procedure After informed consent was obtained the patient states the operating suite placed in supine position. IV sedation was administered by anesthesia and titrated to effect. After adequate sedation was obtained the patient was placed with the right temporal exposed. There was sterilely prepped and draped in usual fashion. we used an on table Doppler to find the temporal artery with good pulses. We made a incision directly over the pulse with a 15 blade scalpel. I should state that we used Marcaine to make a field block prior to doing this. Then using electrocautery and blunt dissection to carry this down through the soft tissue. Once we had the temporal artery isolated we clamped it proximally and distally with right angle clamps. We then removed about a 1 inch piece of the artery and sent to pathology. We used 3-0 silk to tie off both ends with double ligatures. There was adequate hemostasis in the procedure. Thoroughly irrigated the wound and close it with 3-0 Monocryl for deep layers and 5-0 Monocryl for the skin. Sterile dressing was applied. Patient awakened and transferred recovery in stable condition I attest to the content of the Intraoperative Record and any orders documented therein. Any exceptions are noted below.
[2017-02-09 13:40] VITALS: BP 115/62; PULSE 91; TEMP 36.7; O2SAT 99
== END 2017-02-09 13:55 | disposition home or self-care (01) ==
LOC: C.ACU 07:27
PROVIDERS: ATTEND Surgery
DX: I77.6 Arteritis, unspecified (principal); I25.10 Atherosclerotic heart disease of native coronary artery without angina pectoris; I50.9 Heart failure, unspecified; E78.5 Hyperlipidemia, unspecified; G47.00 Insomnia, unspecified; M81.0 Age-related osteoporosis without current pathological fracture; Z95.1 Presence of aortocoronary bypass graft; Z79.52 Long term (current) use of systemic steroids; Z86.19 Personal history of other infectious and parasitic diseases; Z90.49 Acquired absence of other specified parts of digestive tract; Z90.710 Acquired absence of both cervix and uterus; Z82.49 Family history of ischemic heart disease and other diseases of the circulatory system; Z80.0 Family history of malignant neoplasm of digestive organs; Z80.42 Family history of malignant neoplasm of prostate

== ENCOUNTER → 2017-02-18 | Outpatient (CLI) | payer OTHER ==
[~2017-02-18] MED LIST changes: -CEFAZOLIN 1000MG/55 ML D5W IV SCH; -HYDR-5688 PO; -LACTATED RINGER'S 1000ML 1,000 ML IV SCH; -PRD20 PO; +PRED20TA2 PO
[2017-02-18 10:41] LABS: BLOOD UREA NITROGEN 25 mg/dl (7-18); BUN/CREATININE RATIO 28.9 (10-20); CALCIUM 9.1 mg/dl (8.5-10.1); CARBON DIOXIDE 29 mmol/L (21-32); CHLORIDE 97 mmol/L (98-107); CREATININE 0.88 mg/dl (0.60-1.20); GLUCOSE 119 mg/dl (70-99); SODIUM 131 mmol/L (136-145)
== END | disposition home or self-care (01) ==
LOC: C.LAB1850 09:36
PROVIDERS: ATTEND Internal Medicine Rheumatology
DX: E87.1 Hypo-osmolality and hyponatremia (principal); Z79.52 Long term (current) use of systemic steroids

== ENCOUNTER → 2017-02-24 | Outpatient (CLI) | payer OTHER | END | disposition home or self-care (01) | LOC: C.MAMM 09:36 | PROVIDERS: ATTEND Internal Medicine Rheumatology | DX: M81.0 Age-related osteoporosis without current pathological fracture (principal); Z79.52 Long term (current) use of systemic steroids ==

== ENCOUNTER → 2017-02-27 | Outpatient (CLI) | payer OTHER | END | disposition home or self-care (01) | LOC: C.LABPBG 07:25 | PROVIDERS: ATTEND Internal Medicine Rheumatology | DX: M31.6 Other giant cell arteritis (principal) ==

== ENCOUNTER → 2017-04-01 | Outpatient (CLI) | payer OTHER ==
[2017-04-01 12:47] LABS: BLOOD UREA NITROGEN 32 mg/dl (7-18); BUN/CREATININE RATIO 32.1 (10-20); CALCIUM 9.5 mg/dl (8.5-10.1); CARBON DIOXIDE 23 mmol/L (21-32); CHLORIDE 93 mmol/L (98-107); GLUCOSE 134 mg/dl (70-99); SODIUM 126 mmol/L (136-145)
== END | disposition home or self-care (01) ==
LOC: C.LABPBG 10:16
PROVIDERS: ATTEND Family Medicine
DX: M31.6 Other giant cell arteritis (principal); Z79.52 Long term (current) use of systemic steroids; E55.9 Vitamin D deficiency, unspecified; I50.9 Heart failure, unspecified

== ENCOUNTER → 2017-04-07 | Outpatient (CLI) | payer OTHER ==
[2017-04-07 17:50] LABS: URINE APPEARANCE CLEAR (CLEAR); URINE BILIRUBIN NEG (NEG); URINE COLOR YELLOW; URINE NITRITE NEG (NEG); URINE SPECIFIC GRAVITY 1.026 (1.000-1.030); UROBILINOGEN NEG (NEG)
[2017-04-07 18:00] LABS: MANUAL MICROSCOPIC REQUIRED? NO; REVIEW REQ? NO
[2017-04-07 18:19] LABS: BLOOD UREA NITROGEN 28 mg/dl (7-18); CALCIUM 8.7 mg/dl (8.5-10.1); CARBON DIOXIDE 24 mmol/L (21-32); CHLORIDE 94 mmol/L (98-107); GLUCOSE 225 mg/dl (70-99); POTASSIUM 4.9 mmol/L (3.5-5.1); SODIUM 127 mmol/L (136-145)
[2017-04-07 18:33] LABS: BUN/CREATININE RATIO 36.3 (10-20); CREATININE 0.78 mg/dl (0.60-1.20); PHOSPHORUS 2.6 mg/dl (2.5-4.9)
== END | disposition home or self-care (01) ==
LOC: C.LABPBG 15:33
PROVIDERS: ATTEND Internal Medicine Nephrology
DX: E87.1 Hypo-osmolality and hyponatremia (principal)

== ENCOUNTER → 2017-04-17 | Outpatient (CLI) | payer OTHER ==
[2017-04-17 12:37] LABS: BLOOD UREA NITROGEN 32 mg/dl (7-18); BUN/CREATININE RATIO 43.6 (10-20); CARBON DIOXIDE 25 mmol/L (21-32); CHLORIDE 97 mmol/L (98-107); CREATININE 0.74 mg/dl (0.60-1.20); GLUCOSE 130 mg/dl (70-99); POTASSIUM 4.2 mmol/L (3.5-5.1); SODIUM 129 mmol/L (136-145)
[2017-04-17 12:39] LABS: PHOSPHORUS 2.8 mg/dl (2.5-4.9)
== END | disposition home or self-care (01) ==
LOC: C.LABPBG 08:59
PROVIDERS: ATTEND Internal Medicine Nephrology
DX: E87.1 Hypo-osmolality and hyponatremia (principal)

== ENCOUNTER → 2017-05-04 | Outpatient (CLI) | payer OTHER ==
[2017-05-04 16:59] LABS: BLOOD UREA NITROGEN 24 mg/dl (7-18); BUN/CREATININE RATIO 29.8 (10-20); CALCIUM 8.2 mg/dl (8.5-10.1); CARBON DIOXIDE 28 mmol/L (21-32); CHLORIDE 97 mmol/L (98-107); GLUCOSE 186 mg/dl (70-99); POTASSIUM 3.8 mmol/L (3.5-5.1); SODIUM 133 mmol/L (136-145)
[2017-05-04 17:02] LABS: PHOSPHORUS 3.1 mg/dl (2.5-4.9)
== END | disposition home or self-care (01) ==
LOC: C.LABPBG 11:14
PROVIDERS: ATTEND Internal Medicine Rheumatology
DX: E87.1 Hypo-osmolality and hyponatremia (principal); R29.898 Other symptoms and signs involving the musculoskeletal system; M31.6 Other giant cell arteritis; H53.8 Other visual disturbances; Z51.81 Encounter for therapeutic drug level monitoring; Z79.52 Long term (current) use of systemic steroids

== ENCOUNTER → 2017-05-14 | Outpatient (CLI) | payer OTHER ==
[2017-05-14 18:08] LABS: BLOOD UREA NITROGEN 31 mg/dl (7-18); BUN/CREATININE RATIO 33.4 (10-20); CALCIUM 8.6 mg/dl (8.5-10.1); CARBON DIOXIDE 26 mmol/L (21-32); CHLORIDE 92 mmol/L (98-107); CREATININE 0.94 mg/dl (0.60-1.20); GLUCOSE 199 mg/dl (70-99); MAGNESIUM 2.3 mg/dl (1.8-2.4); PHOSPHORUS 3.7 mg/dl (2.5-4.9); POTASSIUM 4.3 mmol/L (3.5-5.1); SODIUM 128 mmol/L (136-145)
== END | disposition home or self-care (01) ==
LOC: C.LABPBG 11:46
PROVIDERS: ATTEND Internal Medicine Nephrology
DX: E87.1 Hypo-osmolality and hyponatremia (principal)

== ENCOUNTER → 2017-06-11 | Outpatient (CLI) | payer OTHER ==
[~2017-06-11] MED LIST changes: +ATOR10TA82 PO; -ATOR10TA88 PO
[2017-06-11 17:56] LABS: BLOOD UREA NITROGEN 29 mg/dl (7-18); BUN/CREATININE RATIO 22.3 (10-20); CARBON DIOXIDE 25 mmol/L (21-32); CHLORIDE 93 mmol/L (98-107); CREATININE 1.32 mg/dl (0.60-1.20); GLUCOSE 298 mg/dl (70-99); SODIUM 130 mmol/L (136-145)
== END | disposition home or self-care (01) ==
LOC: C.LABPBG 13:31
PROVIDERS: ATTEND Internal Medicine Cardiovascular Disease
DX: E87.1 Hypo-osmolality and hyponatremia (principal); R60.0 Localized edema

== ENCOUNTER → 2017-06-16 | Outpatient (CLI) | payer OTHER ==
[2017-06-16 17:36] LABS: BLOOD UREA NITROGEN 30 mg/dl (7-18); BUN/CREATININE RATIO 30.2 (10-20); CALCIUM 8.9 mg/dl (8.5-10.1); CARBON DIOXIDE 27 mmol/L (21-32); CHLORIDE 91 mmol/L (98-107); CREATININE 0.99 mg/dl (0.60-1.20); GLUCOSE 176 mg/dl (70-99); MAGNESIUM 2.1 mg/dl (1.8-2.4); POTASSIUM 4.5 mmol/L (3.5-5.1); SODIUM 127 mmol/L (136-145)
[2017-06-16 17:37] LABS: PHOSPHORUS 3.6 mg/dl (2.5-4.9)
== END | disposition home or self-care (01) ==
LOC: C.LABPBG 15:12
PROVIDERS: ATTEND Internal Medicine Nephrology
DX: E87.1 Hypo-osmolality and hyponatremia (principal)

== ENCOUNTER → 2017-06-22 | Outpatient (CLI) | payer OTHER ==
[2017-06-22 12:44] LABS: BLOOD UREA NITROGEN 26 mg/dl (7-18); BUN/CREATININE RATIO 31.1 (10-20); CALCIUM 9.1 mg/dl (8.5-10.1); CARBON DIOXIDE 22 mmol/L (21-32); CHLORIDE 94 mmol/L (98-107); CREATININE 0.84 mg/dl (0.60-1.20); GLUCOSE 159 mg/dl (70-99); PHOSPHORUS 3.6 mg/dl (2.5-4.9); SODIUM 127 mmol/L (136-145)
== END | disposition home or self-care (01) ==
LOC: C.LABPBG 10:14
PROVIDERS: ATTEND Internal Medicine Nephrology
DX: E87.1 Hypo-osmolality and hyponatremia (principal)

== ENCOUNTER → 2017-07-09 | Outpatient (CLI) | payer OTHER ==
[2017-07-09 17:53] LABS: BLOOD UREA NITROGEN 33 mg/dl (7-18); BUN/CREATININE RATIO 25.9 (10-20); CALCIUM 8.4 mg/dl (8.5-10.1); CARBON DIOXIDE 23 mmol/L (21-32); CHLORIDE 94 mmol/L (98-107); CREATININE 1.28 mg/dl (0.60-1.20); GLUCOSE 320 mg/dl (70-99); POTASSIUM 4.1 mmol/L (3.5-5.1); SODIUM 129 mmol/L (136-145)
[2017-07-09 18:03] LABS: BETA-HYDROXYBUTYRATE 1.45 mg/dL (0.2-2.81)
== END | disposition home or self-care (01) ==
LOC: C.LABPBG 14:16
PROVIDERS: ATTEND Physician Assistant
DX: R29.898 Other symptoms and signs involving the musculoskeletal system (principal); M31.6 Other giant cell arteritis; Z79.52 Long term (current) use of systemic steroids; E87.1 Hypo-osmolality and hyponatremia

== ENCOUNTER → 2017-07-14 | Outpatient (CLI) | payer OTHER ==
[2017-07-14 18:01] LABS: BLOOD UREA NITROGEN 38 mg/dl (7-18); BUN/CREATININE RATIO 30.8 (10-20); CALCIUM 9.2 mg/dl (8.5-10.1); CARBON DIOXIDE 27 mmol/L (21-32); CHLORIDE 88 mmol/L (98-107); CREATININE 1.24 mg/dl (0.60-1.20); GLUCOSE 172 mg/dl (70-99); POTASSIUM 3.9 mmol/L (3.5-5.1); SODIUM 126 mmol/L (136-145)
== END | disposition home or self-care (01) ==
LOC: C.LABPBG 14:20
PROVIDERS: ATTEND Physician Assistant
DX: I50.9 Heart failure, unspecified (principal)

== ENCOUNTER → 2017-07-21 | Outpatient (CLI) | payer OTHER ==
[2017-07-21 15:00] LABS: BLOOD UREA NITROGEN 48 mg/dl (7-18); BUN/CREATININE RATIO 35.6 (10-20); CALCIUM 9.2 mg/dl (8.5-10.1); CARBON DIOXIDE 24 mmol/L (21-32); CHLORIDE 86 mmol/L (98-107); CREATININE 1.34 mg/dl (0.60-1.20); GLUCOSE 270 mg/dl (70-99); POTASSIUM 4.2 mmol/L (3.5-5.1); SODIUM 121 mmol/L (136-145)
== END | disposition home or self-care (01) ==
LOC: C.LAB1850 14:02
PROVIDERS: ATTEND Physician Assistant
DX: E87.1 Hypo-osmolality and hyponatremia (principal)

== ENCOUNTER → 2017-07-23 | Outpatient (CLI) | payer OTHER ==
[~2017-07-23] MED LIST changes: +BUME2TAB3 PO; +PRED10TA PO; +SODI1TAB PO; +[UNRECOGNIZED DRUG - CODE] PO
[2017-07-23 17:41] LABS: BLOOD UREA NITROGEN 40 mg/dl (7-18); BUN/CREATININE RATIO 35.2 (10-20); CALCIUM 8.7 mg/dl (8.5-10.1); CARBON DIOXIDE 26 mmol/L (21-32); CHLORIDE 88 mmol/L (98-107); CREATININE 1.13 mg/dl (0.60-1.20); GLUCOSE 237 mg/dl (70-99); POTASSIUM 4.5 mmol/L (3.5-5.1); SODIUM 122 mmol/L (136-145)
== END | disposition home or self-care (01) ==
LOC: C.LABPBG 14:49
PROVIDERS: ATTEND Internal Medicine Nephrology
DX: E87.1 Hypo-osmolality and hyponatremia (principal)

== ENCOUNTER 2017-07-25 14:35 | Inpatient (IN) | payer OTHER ==
[~2017-07-25] VITALS: Ht 157.5 cm; Wt 59.6 kg
[~2017-07-25 14:35] MED LIST changes: -BUME2TAB3 PO; -PRED10TA PO; -SODI1TAB PO; -[UNRECOGNIZED DRUG - CODE] PO
[2017-07-25 15:30] VITALS: BP 129/75; PULSE 94; TEMP 36.6; O2SAT 96; Ht 157.5 cm; Wt 59.6 kg
[2017-07-25] MEDS ORDERED: ZOLPIDEM TARTRATE 5 MG TAB PO PRN (15:30)
[2017-07-25] MEDS ORDERED: MAGNESIUM HYDROXIDE SUSP 30 ML UDC PO PRN (15:30)
[2017-07-25] MEDS ORDERED: POLYETHYLENE (MIRALAX) 17 GM PACK PO PRN (15:30)
[2017-07-25] MEDS ORDERED: PRED10TA PO ×2 (15:52)
[2017-07-25] MEDS ORDERED: SODI1TAB PO ×2 (15:55)
[2017-07-25 16:16] LABS: COMPLETE YES; HEMATOCRIT 34.6 % (37-47); LYMPH % 5.5 %; LYMPH ABS # 0.58 K/uL (1.2-3.4); MEAN CELL VOLUME 84.4 fL (80-100); MEAN CORPUSCULAR HEMOGLOBIN 28.8 pg (25-34); MEAN CORPUSCULAR HGB CONC 34.1 g/dl (32-36); MEAN PLATELET VOLUME 9.2 fL (7.4-10.4); MONO % 4.2 %; NEUT % 89.3 %; PLATELET COUNT 238 K/uL (130-400); WHITE BLOOD COUNT 10.52 K/uL (4.8-10.8)
[2017-07-25 16:33] LABS: BUN/CREATININE RATIO 38.2 (10-20); CALCIUM 8.6 mg/dl (8.5-10.1); CREATININE 0.93 mg/dl (0.60-1.20); MAGNESIUM 2.2 mg/dl (1.8-2.4); POTASSIUM 4.3 mmol/L (3.5-5.1)
[2017-07-25 16:35] LABS: PROTHROMBIN TIME (PATIENT) 10.6 SECONDS (9.0-12.0)
[2017-07-25 16:37] LABS: PARTIAL THROMBOPLASTIN RATIO 0.9; PROTHROMBIN TIME (PATIENT) 10.6 SECONDS (9.0-12.0)
[2017-07-25 16:44] LABS: PHOSPHORUS 3.5 mg/dl (2.5-4.9); THYROID STIMULATING HORMONE 2.77 uIu/ml (0.300-4.500)
[2017-07-25] MEDS ORDERED: QUETIAPINE FUMARATE 25 MG TAB PO PRN (16:45)
[2017-07-25] MEDS ORDERED: TOLVAPTAN TAB 15 MG TAB PO ONE (17:15)
--- NOTE | 2017-07-25 17:59 | Nephrology Consultation ---
Nephrology Consultation Date & Providers Date of Consultation: Jul 25, 2017. Primary Care Provider: Tran Garber MD Referring Provider: Reason for Consultation Hyponatremia History of Present Illness Debra Malhotra is an 81-year-old female being directly admitted to [facility] for management of hyponatremia. I first met Debra in the Nephrology clinic on July 21 for evaluation of her dysnatremia. Debra has a complicated history of acute and chronic CHF as well as hyponatremia. She has been followed closely in the Nephrology clinic by Dr. Jimenes and in the cardiology clinic by Dr. Araujo. 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 Unfortunately, management has been complicated by inability to tolerate oral NaCl supplements or a fluid restriction. Debra has suffered recurrent fluid retention associated with oral NaCl supplements >1 gm/day. Medical history is notable for coronary artery disease, permanent atrial fibrillation, hypothyroidism, chronic diastolic congestive heart failure. Debra has chronic mild hyponatremia dating back to November 2016. She was diagnosed with temporal arteritis in January and has been maintained on chronic prednisone therapy. Dr. Odom decreased the dose to 10 mg daily last . Debra states that she is largely asymptomatic in terms of her dysnatremia. However, she does note a instability of gait. She has not fallen. She feels that her balance is impaired. She also notes proximal muscle weakness in her legs. She has been experiencing muscle cramps notably in her hands and feet. She does not consume NSAIDs. Appetite is normal and she denies diarrhea or any GI symptoms. Debra has insomnia which is chronic, predating her dysnatremia. She presented to the cardiology clinic earlier this month with hypervolemia. Bumex was increased from 3 mg daily to 4 mg daily. Zaroxolyn on a weekly basis was added. She noted significant improvement in edema but weight stabilized at 130 lbs. Prior estimated dry weight was 126 lbs. When she presented to the nephrology clinic last Thursday, serum sodium had dropped from 129 to 121 mmol/ L. After a long discussion with the patient and her daughter as well as Dr. Araujo, I asked Debra to increase her NaCl tablets to 1 gram twice daily and to decrease her daily fluid intake from 80 ounces to 40 ounces. She was agreeable but has reported significant difficulty maintaining these changes. The patient's daughter (Samantha) contacted me today to report that Debra had gained 3 lbs since Thursday and was experiencing swelling in her legs and her face. Debra again expressed significant frustration regarding the abnormal laboratory findings. Despite the fact that overall she feels well. Appetite is good and she does not have GI symptoms. Past Medical/Surgical History Medical: -- Coronary artery disease -- Chronic congestive heart failure with preserved LVEF (diastolic dysfunction) -- Dyslipidemia -- Permanent atrial fibrillation -- Chronic hyponatremia with SIADH -- Insomnia -- Sensorineural hearing loss of both ears -- Temporal arteritis with current use of systemic steroids -- History of dermatomyositis -- History of lyme disease -- Bilateral carotid bruits -- Osteoarthritis Surgical: -- CABG -- Lumpectomy -- Cholecystectomy -- Hysterectomy -- Temporal artery biopsy Allergies Coded Allergies: Prochlorperazine (Verified Allergy, Unknown, unable to recall, 02/09/17) Aspirin (Verified Adverse Reaction, Unknown, stomach pains, 02/09/17) Methotrexate (Verified Adverse Reaction, Unknown, elevated liver levels, ) Inpatient Medications Current Inpatient Medications Medications (Trade) Dose Ordered Sig/Rika Route Start Time Stop Time Status Last Admin Dose Admin Heparin Sodium (Porcine) (Heparin Sq 5000 Unit/0.5ml) 5,000 unit Q8 SQ 07/25/17 22:00 08/24/17 21:59 Magnesium Hydroxide (Milk Of Magnesia Susp) 30 ml Q12H PRN PO 07/25/17 15:30 08/24/17 15:29 Zolpidem Tartrate (Ambien Tab) 5 mg HSZ PRN PO 07/25/17 15:30 08/24/17 15:29 Polyethylene (Miralax Powder Packet) 17 gm DAILY PRN PO 07/25/17 15:30 08/24/17 15:29 Apixaban (Eliquis Tab) 2.5 mg BID PO 07/25/17 21:00 08/24/17 20:59 UNV Atorvastatin Calcium (Lipitor Tab) 10 mg HS PO 07/25/17 21:00 08/24/17 20:59 Diltiazem HCl (TIAzac CAP) 120 mg BID PO 07/25/17 21:00 08/24/17 20:59 Prednisone (PredniSONE TAB) 10 mg DAILY PO 07/26/17 09:00 08/25/17 08:59 Quetiapine Fumarate (seroQUEL TAB) 25 mg HS PRN PO 07/25/17 16:45 08/24/17 16:44 Spironolactone (Aldactone Tab) 50 mg QAM PO 07/26/17 09:00 08/25/17 08:59 Pantoprazole Sodium (Protonix Tab) 40 mg QAM PO 07/26/17 09:00 08/25/17 08:59 Tolvaptan (Samsca Tab) 15 mg NOW ONCE PO 07/25/17 17:15 07/25/17 17:16 Family History Cancer Social History Smoking Status: Never Smoker Drug Use: none Review of Systems ENT: + hearing loss Abdomen: No pain, No nausea, No vomiting, No diarrhea, No constipation Neurologic: + weakness, + balance problems A complete review of systems was performed. Pertinent positives are noted above. All other systems are negative. Physical Exam Date Time Temp Pulse Resp B/P (MAP) Pulse Ox O2 Delivery O2 Flow Rate FiO2 07/25/17 15:30 36.6 94 16 129/75 96 Room Air General Appearance: no apparent distress Head: normocephalic, atraumatic, + pertinent finding (pierce facies) Eyes: normal inspection, sclerae normal ENT: normal ENT inspection, pharynx normal, + pertinent finding (oral mucosa moist) Neck: supple, thyroid normal Respiratory/Chest: lungs clear, no respiratory distress, no accessory muscle use Cardiovascular: no gallop, no murmur, + irregularly irregular Abdomen/GI: non tender, soft Back: no CVA tenderness, no muscle spasm Extremities/Musculoskelatal: normal inspection, + pedal edema (trace pitting) Neurologic/Psych: alert, normal mood/affect Laboratory Results Last 24 Hours Test 07/25/17 16:02 07/25/17 16:20 White Blood Count 10.52 K/uL Red Blood Count 4.10 M/uL Hemoglobin 11.8 g/dL Hematocrit 34.6 % Mean Corpuscular Volume 84.4 fL Mean Corpuscular Hemoglobin 28.8 pg Mean Corpuscular Hemoglobin Concent 34.1 g/dl Platelet Count 238 K/uL Mean Platelet Volume 9.2 fL Neutrophils (%) (Auto) 89.3 % Lymphocytes (%) (Auto) 5.5 % Monocytes (%) (Auto) 4.2 % Eosinophils (%) (Auto) 0.0 % Basophils (%) (Auto) 0.0 % Neutrophils # (Auto) 9.40 K/uL Lymphocytes # (Auto) 0.58 K/uL Monocytes # (Auto) 0.44 K/uL Eosinophils # (Auto) 0.00 K/uL Basophils # (Auto) 0.00 K/uL RDW Standard Deviation 46.9 fL RDW Coefficient of Variation 15.1 % Immature Granulocyte % (Auto) 1.0 % Immature Granulocyte # (Auto) 0.10 K/uL Prothrombin Time 10.6 SECONDS Prothromb Time International Ratio 1.0 Activated Partial Thromboplast Time 23.0 SECONDS Partial Thromboplastin Ratio 0.9 Sodium Level 123 mmol/L Potassium Level 4.3 mmol/L Chloride Level 88 mmol/L Carbon Dioxide Level 25 mmol/L Anion Gap 10.0 mmol/L Blood Urea Nitrogen 36 mg/dl Creatinine 0.93 mg/dl Est Creatinine Clear Calc Drug Dose 39.9 ml/min Estimated GFR () 66.3 Estimated GFR (Non- 57.2 BUN/Creatinine Ratio 38.2 Random Glucose 143 mg/dl Osmolality 272 mOsm/kg Calcium Level 8.6 mg/dl Phosphorus Level 3.5 mg/dl Magnesium Level 2.2 mg/dl Total Bilirubin 0.4 mg/dl Aspartate Amino Transf (AST/SGOT) 26 U/L Alanine Aminotransferase (ALT/SGPT) 42 U/L Alkaline Phosphatase 63 U/L Pro-B-Type Natriuretic Peptide 1744 pg/ml Total Protein 7.0 gm/dl Albumin 3.6 gm/dl Globulin 3.4 gm/dl Albumin/Globulin Ratio 1.0 Thyroid Stimulating Hormone (TSH) 2.770 uIu/ml Urine Osmolality 450 mOms/kg Urine Random Sodium 62 mEq/L Urine Random Potassium 46.1 mEq/L Impression (1) Hyponatremia (2) Coronary artery disease (3) Chronic diastolic CHF (congestive heart failure) (4) Atrial fibrillation Debra has chronic hyponatremia. She endorses some mild symptoms that may be related to dysnatremia including impaired balance, muscle cramps and gait instability. Prior evaluation consistent with SIADH. She has moderate acute on chronic hyponatremia on recent laboratory studies. Modest improvement was seen with fluid restriction and oral NaCl but she was not able to tolerate this therapy. Oral urea was not an option locally. Volume status currently appears euvolemic to hypervolemic. The risks associated with both correction and acute physiologic adjustment to a hypotonic state were reviewed in detail with the patient and her daughter today. We also reviewed the risks and benefits of treatment. The patient has not been able to tolerate therapy including NaCl tablets and fluid restriction. She has had recurrent fluid retention and chronic dry mouth. She is developing diuretic resistance which also may be related to her dysnatremia. Medical history is notable for coronary artery disease, permanent atrial fibrillation, hypothyroidism, chronic diastolic congestive heart failure. She was diagnosed with temporal arteritis in January and has been maintained on chronic prednisone therapy. Continued use of Zaroxolyn or thiazide diuretics is not appropriate. The medication has been discontinued. I would continue enough loop diuretic to maintain current volume status. She has been on Bumex 4 mg daily and spironolactone 50 mg daily at home. We reviewed the benefits of Vaptan therapy. Liver function is normal. Prolonged use of tolvaptan would be considered an option with close monitoring if there is no improvement with current therapy. The medication will be started under observation tdoday. Recommendations -- Stop oral NaCl tablets -- Document orthostatic vitals daily -- Tolvaptan 15 mg now -- Serum sodium Q 3-4 hours -- Avoid a rate of correction > 1 mmol/4 hours -- Liberalize fluid intake -- Free water excess to be corrected is approximately 2 L and -- Goal rate of correction would be a maximum of 6 mmol in the next 24 hours -- Once appropriate serum sodium and volume status have been reached, patient may be discharged with close outpatient follow up
--- NOTE | 2017-07-25 19:02 | History and Physical ---
History & Physical Date & Time of Service: Jul 25, 2017 at 18:43 Chief Complaint: Hyponatremia Primary Care Physician: Tran Garber MD History of Present Illness Source: patient, family 81 years old female with PMHx of A fib on Eliquis, diastolic CHF, CAD S/P CABG 2006 and GCA biopsy proved on 01/2017 currently on steroids. patient developed worsening resistant hyponatremia, complicated by her need for diuretics due to her diastolic CHF and fluid retention. managed for her CHF by Dr. Araujo and for her hyponatremia by Dr. Bridges. recently her Bumex was increased to 44mg daily, also started on Metolazone once weekly. the diuretics increase lead to worsening hyponatremia. worsening hyponatremia prompted increasing her sodium chloride tablets from 1 G to 2G per day. that initiated the vicious [place] of worsening fliud retention. as per daughter she gained 2 lb weight since yesterday Sent for direct admission by Dr. Bridges. Past Medical/Surgical History Medical Problems: (1) Atrial fibrillation Status: Chronic (2) Lyme disease Status: Chronic Surgical Problems: (1) S/P triple vessel bypass Status: Resolved Family History Cancer Social History Smoking Status: Never Smoker Drug Use: none Immunizations History of Influenza Vaccine: Unknown History of Tetanus Vaccine?: Unknown History of Pneumococcal: Unknown History of Hepatitis B Vaccine: Unknown Multi-Drug Resistant Organisms History of MDRO: No Allergies Coded Allergies: Prochlorperazine (Verified Allergy, Unknown, unable to recall, 02/09/17) Aspirin (Verified Adverse Reaction, Unknown, stomach pains, 02/09/17) Methotrexate (Verified Adverse Reaction, Unknown, elevated liver levels, ) Home Medications Scheduled Apixaban (Eliquis), 2.5 MG PO BID Atorvastatin (Lipitor), 10 MG PO HS Calcium Carbonate-Cholecalcife (Calcium/Vitamin D3 600-400 mg-Unit), 1 TAB PO BID Cholecalciferol (Vitamin D), 1,000 UNITS PO QAM Cyanocobalamin (Vitamin B12), 1,000 MCG PO 2XWK Diltiazem Hcl Ext Rel (Tiazac), 120 MG PO BID Lactobacillus (Probiotic), 1 CAP PO BID Omeprazole (Prilosec), 20 MG PO QAM Prednisone Tab (Prednisone), 10 MG PO DAILY Sodium Chloride (Sodium Chloride), 1 TAB PO BID Spironolactone (Aldactone), 50 MG PO QAM Scheduled PRN Quetiapine Fumarate (Seroquel), 25 MG PO HS PRN for Insomnia Review of Systems Constitutional: + weakness, + fatigue, No fever, No chills, No sweats, No weight loss, No problem reported Eyes: + worsening of vision, No eye pain, No redness, No discharge, No diplopia , No problem reported ENT: No hearing loss, No unusual epistaxis, No nasal symptoms, No sore throat, No tinnitus, No dental problems, No trouble swallowing, No problem reported Respiratory: No cough, No sputum, No wheezing, No shortness of breath, No dyspnea on exertion, No dyspnea at rest, No hemoptysis, No problem reported Cardiovascular: No chest pain, No orthopnea, No PND, No edema, No claudication , No palpitations, No problem reported Abdomen: No pain, No nausea, No vomiting, No diarrhea, No constipation, No GI bleeding, No problem reported Musculoskeletal: No joint pain, No muscle pain, No swelling, No calf pain, No problem reported Genitourinary - Female: No dysuria, No urinary frequency, No urinary urgency, No urinary incontinence, No urinary retention, No hematuria, No dysmenorrhea, No menorrhagia, No metrorrhagia, No rash, No vaginal bleeding, No vaginal discharge, No vaginal itching, No vulvodynia, No , No problem reported Neurologic: No memory loss, No paralysis, No weakness, No numbness/tingling, No vertigo, No balance problems, No problem reported Psychiatric: No depression symptoms, No anhedonism, No anxiety, No insomnia, No substance abuse, No problem reported Endocrine: No fatigue, No excessive thirst, No excessive urination, No problem reported Hematologic / Lymphatic: No abnormal bleeding/bruising, No clotting problems, No swollen lymph nodes, No night sweats, No problem reported Integumentary: No rash, No itch, No new/changing skin lesions, No color change , No bleeding, No problem reported Allergic / Immunologic: No environmental allergies, No seasonal allergies, No pet sensitivities, No food allergies, No hives, No frequent infections, No poor healing, No prolonged convalescence, No problem reported Physical Exam Vital Signs Date Time Temp Pulse Resp B/P (MAP) Pulse Ox O2 Delivery O2 Flow Rate FiO2 12/23/17 15:30 36.6 94 16 129/75 96 Room Air General Appearance: WD/WN, no apparent distress Head: normocephalic, atraumatic, + pertinent finding (cushingoid face) Eyes: normal inspection, EOMI ENT: normal ENT inspection, hearing grossly normal Neck: supple Respiratory/Chest: chest non-tender, lungs clear, normal breath sounds, no respiratory distress, no accessory muscle use Cardiovascular: no edema, no gallop, no JVD, no murmur, + irregularly irregular Abdomen/GI: non tender, soft, no organomegaly, no pulsatile mass Back: normal inspection Extremities/Musculoskelatal: normal inspection, normal range of motion, + pedal edema Neurologic/Psych: certified histologic 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3 % Lymphocytes (%) (Auto) 5.5 % Monocytes (%) (Auto) 4.2 % Eosinophils (%) (Auto) 0.0 % Basophils (%) (Auto) 0.0 % Neutrophils # (Auto) 9.40 1.4-6.5 K/uL Lymphocytes # (Auto) 0.58 1.2-3.4 K/uL Monocytes # (Auto) 0.44 0.11-0.59 K/uL Eosinophils # (Auto) 0.00 0-0.5 K/uL Basophils # (Auto) 0.00 0-0.2 K/uL RDW Standard Deviation 46.9 36.4-46.3 fL RDW Coefficient of Variation 15.1 11.5-14.5 % Immature Granulocyte % (Auto) 1.0 % Immature Granulocyte # (Auto) 0.10 0.00-0.02 K/uL Prothrombin Time 10.6 9.0-12.0 SECONDS Prothromb Time International Ratio 1.0 0.9-1.1 Activated Partial Thromboplast Time 23.0 21.0-31.0 SECONDS Partial Thromboplastin Ratio 0.9 Sodium Level 123 136-145 mmol/L Potassium Level 4.3 3.5-5.1 mmol/L Chloride Level 88 98-107 mmol/L Carbon Dioxide Level 25 21-32 mmol/L Anion Gap 10.0 3-11 mmol/L Blood Urea Nitrogen 36 7-18 mg/dl Creatinine 0.93 0.60-1.20 mg/dl Est Creatinine Clear Calc Drug Dose 39.9 ml/min Estimated GFR () 66.3 Estimated GFR (Non- 57.2 BUN/Creatinine Ratio 38.2 10-20 Random Glucose 143 70-99 mg/dl Osmolality 272 280-300 mOsm/kg Calcium Level 8.6 8.5-10.1 mg/dl Phosphorus Level 3.5 2.5-4.9 mg/dl Magnesium Level 2.2 1.8-2.4 mg/dl Total Bilirubin 0.4 0.2-1 mg/dl Aspartate Amino Transf (AST/SGOT) 26 15-37 U/L Alanine Aminotransferase (ALT/SGPT) 42 12-78 U/L Alkaline Phosphatase 63 45-117 U/L Pro-B-Type Natriuretic Peptide 1744 0-1800 pg/ml Total Protein 7.0 6.4-8.2 gm/dl Albumin 3.6 3.4-5.0 gm/dl Globulin 3.4 2.5-4.0 gm/dl Albumin/Globulin Ratio 1.0 0.9-2 Thyroid Stimulating Hormone (TSH) 2.770 0.300-4.500 uIu/ml Urine Osmolality 450 500-800 mOms/kg Urine Random Sodium 62 mEq/L Urine Random Potassium 46.1 mEq/L Impression Assessment and Plan 81 years old female presented to the hospital with resistant hyponatremia. Treated with salt tablets at home that aggravated her diastolic congestive heart failure. Then she fall into a vicious cycle of increasing diuretics, worsening hyponatremia, increasing salt tablets etc. Although everything was done for the patient thus far appears to be appropriate , and Dr. Araujo decided to change the approach of management. 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 History of lyme disease treated with 21 days of doxycycline last year Osteoarthritis plan Discussed with check serum osmolality/urine osmolality urine sodium and potassium TSH, Discontinue oral NaCl tablets and start Tolvaptan 1 dose after checking liver function Monitor sodium level closely/every 3 hours, avoid correcting sodium with a rate faster than 6 mmol per day Check orthostatic vitals daily Avoid a rate of correction > 1 mmol/4 hours Nocturnal O2 sat study, if patient has obstructive sleep apnea, initiating BiPAP or CPAP will push the fluid of the lung while she is sleeping and help with her shortness of breath, she might require less diuretics Advanced Directives Existing Living Will: Yes Existing Power of Donation Specialist: Yes VTE Prophylaxis VTE Risk Assessment Done? Y/N: Yes Risk Level: Moderate
[2017-07-25 19:30] VITALS: BP 129/72; PULSE 117; TEMP 36.8; O2SAT 97
[2017-07-25 20:00] VITALS: O2SAT 97
[2017-07-25] MEDS ORDERED: SODIUM CHLORIDE 1 GM TAB PO SCH (21:00)
[2017-07-25] MEDS ORDERED: ATORVASTATIN 10 MG TAB PO SCH (21:00)
[2017-07-25] MEDS: APIXABAN 2.5 MG TAB PO SCH (21:11)
[2017-07-25] MEDS: DILTIAZEM HCL 120 MG EXT REL CAP PO SCH (21:11)
[2017-07-25] MEDS ORDERED: HEPARIN SOD 5000 UNIT/0.5 ML CARP SQ SCH (22:00)
[2017-07-25 23:55] VITALS: BP_SYST 113; BP_SYST 126; BP_SYST 162; BP_DIAS 64; BP_DIAS 77; BP_DIAS 80; PULSE 62; PULSE 82; PULSE 90; TEMP 36.9; O2SAT 98
[2017-07-26] VITALS (7 sets, daily range): BP systolic 110–118; BP diastolic 66–74; PULSE 60–76; TEMP 36.5–36.8; O2SAT 93–99
[2017-07-26 03:58] LABS: BASO % 0.1 %; BASO ABS # 0.01 K/uL (0-0.2); COMPLETE YES; EOS % 0.2 %; HEMATOCRIT 34.2 % (37-47); IG% 1.3 %; LYMPH % 13.6 %; LYMPH ABS # 1.24 K/uL (1.2-3.4); MEAN CELL VOLUME 84.4 fL (80-100); MEAN CORPUSCULAR HEMOGLOBIN 28.1 pg (25-34); MEAN CORPUSCULAR HGB CONC 33.3 g/dl (32-36); MEAN PLATELET VOLUME 9.1 fL (7.4-10.4); MONO % 7.8 %; PLATELET COUNT 216 K/uL (130-400); RED BLOOD COUNT 4.05 M/uL (4.2-5.4); WHITE BLOOD COUNT 9.13 K/uL (4.8-10.8)
[2017-07-26 04:17] LABS: BUN/CREATININE RATIO 41.8 (10-20); CALCIUM 8.8 mg/dl (8.5-10.1); CREATININE 0.75 mg/dl (0.60-1.20); MAGNESIUM 2.3 mg/dl (1.8-2.4); POTASSIUM 4.1 mmol/L (3.5-5.1)
[2017-07-26 04:20] LABS: PHOSPHORUS 2.8 mg/dl (2.5-4.9)
[2017-07-26] MEDS: APIXABAN 2.5 MG TAB PO SCH (08:54)
[2017-07-26] MEDS: DILTIAZEM HCL 120 MG EXT REL CAP PO SCH (08:54)
[2017-07-26] MEDS ORDERED: SPIRONOLACTONE 25 MG TAB PO SCH (09:00)
[2017-07-26] MEDS ORDERED: PANTOprazole SOD 40 MG TAB PO SCH (09:00)
[2017-07-26] MEDS ORDERED: TOLVAPTAN TAB 15 MG TAB PO SCH (12:00)
[2017-07-26] MEDS ORDERED: [UNRECOGNIZED DRUG - CODE] PO ×2 (12:18)
[2017-07-26] MEDS ORDERED: BUME2TAB3 PO ×2 (12:19)
--- NOTE | 2017-07-26 12:23 | Discharge Instructions ---
Discharge Instructions Date of Service Jul 26, 2017. Admission Reason for Admission: Hyponatremia Discharge Discharge Diagnosis / Problem: Hyponatremia Discharge Goals Goal(s): Decrease discomfort, Improve disease control, Learn about illness, Diagnostic testing, Therapeutic intervention, Prevent Disease Progression Activity Recommendations Activity Limitations: resume your previous activity . Instructions / Follow-Up Instructions / Follow-Up Hyponatremia (low sodium)- recommendations as per nephrology: STOP sodium tablets STOP Metolazone and Bumex Continue Aldactone 50 mg daily 1.5-2L fluid restriction per day Resume all other regular home medications as prescribed FOLLOW-UPS: Please follow-up with your PCP within 5-7 days Please follow-up with Nephrology, Dr. Bridges on 07/28 as scheduled Please follow-up/keep all of your subspecialty appointments Current Hospital Diet Patient's current hospital diet: Regular Diet Discharge Diet Recommended Diet: Regular Diet Fluid Restriction: 2000 ml (8 cups) Pending Studies Studies pending at discharge: no Medical Emergencies . Who to Call and When: Medical Emergencies: If at any time you feel your situation is an emergency, please call 911 immediately. . Non-Emergent Contact Non-Emergency issues call your: Primary Care Provider . . "Provider Documentation" section prepared by Ana Lutz. . VTE Core Measure Inpt VTE Proph given/why not?: Shakeel Henry, CYDNEY's
--- NOTE | 2017-07-26 12:27 | Discharge Summary ---
Discharge Summary Date of Service Jul 26, 2017. 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5 MG PO BID, TAB Atorvastatin (Lipitor) 10 Mg Tab 10 MG PO HS, TAB Calcium Carbonate-Cholecalcife (Calcium/Vitamin D3 600-400 mg-Unit) 1 Tab Tab 1 TAB PO BID Cholecalciferol (Vitamin D) 1,000 Unit Tab 1000 UNITS PO QAM Cyanocobalamin (Vitamin B12) 1,000 Mcg Tab 1000 MCG PO 2XWK TAKES ON & . Diltiazem Hcl Ext Rel (Tiazac) 120 Mg Capcr 120 MG PO BID, CAP Lactobacillus (Probiotic) 1 Cap Cap 1 CAP PO BID Omeprazole (Prilosec) 20 Mg Capcr 20 MG PO QAM, CAP Prednisone Tab (Prednisone) 10 Mg Tab 10 MG PO DAILY, TAB Quetiapine Fumarate (Seroquel) 25 Mg Tab 25 MG PO HS PRN for Insomnia, #30 TAB Spironolactone (Aldactone) 50 Mg Tab 50 MG PO QAM, TAB Discontinued Medications: Bumetanide (Bumex) 2 Mg Tab 2 TAB PO DAILY for 30 Days, #60 TAB 5 Refills Sodium Chloride (Sodium Chloride) 1 Gm Tab 1 TAB PO BID Referrals At Discharge Follow up Referrals: Truck Switcher Referral - Within 1 Week with Fredi Bridges D.O. Discharge Exam Review of Systems: Constitutional: No fever, No chills, No sweats, No weakness, No fatigue Eyes: No worsening of vision ENT: + hearing loss (chronic ) Respiratory: No cough, No shortness of breath, No hemoptysis Cardiovascular: No chest pain, No edema, No palpitations Abdomen: No pain, No nausea, No vomiting, No diarrhea, No constipation Musculoskeletal: No joint pain, No muscle pain, No swelling, No calf pain Genitourinary - Female: No dysuria, No hematuria Neurologic: No weakness, No numbness/tingling Psychiatric: No depression symptoms, No anxiety Endocrine: No fatigue, No excessive thirst, No excessive urination Hematologic / Lymphatic: No abnormal bleeding/bruising Integumentary: No rash, No itch, No new/changing skin lesions Physical Exam: General Appearance: no apparent distress Eyes: normal inspection, PERRL ENT: hearing grossly normal Neck: supple Respiratory/Chest: lungs clear, no respiratory distress, no accessory muscle use Cardiovascular: + irregularly irregular (regular rate ) Abdomen / GI: normal bowel sounds, non tender, soft Extremities: no calf tenderness, no pedal edema Neurologic/Psychiatric: alert, normal mood/affect, normal reflexes Skin: normal color, warm/dry, no rash Hospital Course Admission H&P: 81 years old female with PMHx of A fib on Eliquis, diastolic CHF, CAD S/P CABG 2006 and GCA biopsy proved on 01/2017 currently on steroids. patient developed worsening resistant hyponatremia, complicated by her need for diuretics due to her diastolic CHF and fluid retention. managed for her CHF by Dr. Araujo and for her hyponatremia by Dr. Bridges. recently her Bumex was increased to 44mg daily , also started on Metolazone once weekly. the diuretics increase lead to worsening hyponatremia. worsening hyponatremia prompted increasing her sodium chloride tablets from 1 G to 2G per day. that initiated the vicious [place] of worsening fliud retention. as per daughter she gained 2 lb weight since yesterday Sent for direct admission by Dr. Bridges. Physical Exam Vital Signs Date Time Temp Pulse Resp B/P (MAP) Pulse Ox O2 Delivery O2 Flow Rate FiO2 07/25/17 15:30 36.6 94 16 129/75 96 Room Air General Appearance: WD/WN, no apparent distress Head: normocephalic, atraumatic, + pertinent finding (cushingoid face) Eyes: normal inspection, EOMI ENT: normal ENT inspection, hearing grossly normal Neck: supple Respiratory/Chest: chest non-tender, lungs clear, normal breath sounds, no respiratory distress, no accessory muscle use Cardiovascular: no edema, no gallop, no JVD, no murmur, + irregularly irregular Abdomen/GI: non tender, soft, no organomegaly, no pulsatile mass Back: normal inspection Extremities/Musculoskelatal: normal inspection, normal range of motion, + pedal edema Neurologic/Psych: 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 Treated with salt tablets at home that aggravated her diastolic congestive heart failure. Then she fall into a vicious cycle of increasing diuretics, worsening hyponatremia, increasing salt tablets etc. Although everything was done for the patient thus far appears to be appropriate, and Dr. Araujo decided to change the approach of management. 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 Bridges: - Admitted to tele for cardiac monitoring - Treated w/ Tolvaptan 15 mg daily x2 doses while admitted - Continue Aldactone 50 mg QAM; hold Bumex 4 mg daily; STOP Metolazone - TSH WNL - Nephrology consulted, appreciate recommendations: -- follow-up w/ Dr. Bridges on 07/28 -- Medications as above -- STOP NaCl tablets -- 1.5- 2L fluid restriction Diastolic CHF- STABLE- follows w/ Dr. Araujo: - Monitor I&Os and daily weights- dry weight goal 127 lbs- currently at 131 today from 133 yesterday - Continue Aldactone 50 mg QAM as per nephrology - Hold Bumex 4 mg daily for now at discharge- will readdress at nephrology f/u - STOP Metolazone CAD s/p CABG in 2006, dyslipidemia, chronic a.fib- follows w/ Dr. Araujo: Diltiazem 120 mg daily, Eliquis 2.5 mg BID, Lipitor 10 mg HS GCA biopsy- proved on January 2017: Continue Prednisone 10 mg daily Insomnia, ?HANK: - Nocturnal sleep study- did not drop below < 89% - Continue Seroquel 25 mg HS PRN GI prophylaxis: Protonix daily DVT prophylaxis: Eliquis Code Status: LEVEL I, FULL Dispo: Discharge to home Total Time Spent: Greater than 30 minutes This includes examination of the patient, discharge planning, medication reconciliation, and communication with other providers. Discharge Instructions Please refer to the electronic Patient Visit Report (Discharge Instructions) for additional information. Follow-Up Please follow-up with your PCP within 5-7 days Please follow-up with Dr. Bridges on 07/28 Please follow-up/keep all of your subspecialty appointments Reviewed: Pt Seen/Exam by Me History Pt is feeling much improved and would like to go home. Denies chest pain, SOB. Has been tolerating PO without issue. Agree with HPI/ROS as noted. General Appearance: WD/WN, no apparent distress Respiratory: normal breath sounds, no respiratory distress Cardiovascular: normal peripheral pulses, regular rate, rhythm Gastrointestinal: non tender, soft Extremities: non-tender, no pedal edema Neurologic/Psychiatric: alert, normal mood/affect, oriented x 3 Skin Characteristics: normal color, warm/dry Assessment/Plan Agree with plan as outlined above. d/c home s/p tolvaptan dosing today d/c all diuretics other than spironolactone per Dr. Kapoor Fluid restriction 1.5-2L, discussed with pt f/u Thursday with Dr. Bridges Current dx is reset osmostat and renal feels that pt's baseline Na is around 125
--- NOTE | 2017-07-26 12:39 | NEPHROLOGY PROGRESS NOTE ---
DATE: 07/26/2017 SUBJECTIVE: Mrs. Malhotra says that she feels well. She denies being short of breath. She recognizes that she has some minimal lower extremity edema. Her history of coronary artery disease, atrial fibrillation and temporal arteritis were reviewed with the patient and her daughter. 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 Further fluctuations of her blood sugar could occur. It is interesting that when she takes salt pills, she immediately gets thirsty. When she takes diuretics, she will have an increasing frequency of nocturnal leg cramps. Currently, she denies having any chest pain or shortness of breath. She does have some mild swelling of her legs. OBJECTIVE: GENERAL: On physical examination, she appears as a very pleasant, slightly cushingoid elderly woman, who was in no distress. VITAL SIGNS: She e is afebrile (36.8), her blood pressure 115/69, and her pulse is 76-90 and irregularly irregular. Her respirations are 16. Her pulse ox 93%-99% on room air. SKIN: Shows her to be slightly plethoric. She has scars from prior surgical procedures. LYMPHATICS: Show no palpable adenopathy. HEAD, EYES, EARS, NOSE AND THROAT: Unremarkable other than her cushingoid features. Her oral mucous membranes are moist. NECK: Supple. She has no jugular venous distension or carotid bruit. CHEST: Clear to auscultation. CARDIAC: Shows an irregular rhythm. I hear no murmur or gallop. ABDOMEN: Nontender. EXTREMITIES: Show 1+ pitting edema of the left leg and trace pitting edema of the right leg distally. NEUROLOGIC: Shows no lateralizing changes. PERTINENT LABORATORY WORK: Today shows a serum sodium of 125, potassium of 4.1, chlorides of 92 and total CO2 of 26. Her anion gap measures 7.0. It may be slightly higher because of her low serum albumin of 3.1. Her BUN is 31 with a creatinine of 0.75. Her blood sugar today was 140. Her calcium is 8.8, her phosphate 2.8, and magnesium is 2.3. Total bilirubin 0.4. Her AST is 19. Her ALT is 36. Her alkaline phosphatase is 54. Total protein is 6.1, as noted, and albumin of 3.1. Her TSH done during the hospitalization was 2.770. ASSESSMENT: I think that Mrs. 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 ____ this as a type of syndrome of inappropriate antidiuretic hormone secretion. Nonetheless, her history is quite consistent with that. She has never had mental status changes with sodium levels that dropped further. There is no specific treatment for this disorder. RECOMMENDATIONS: I think that she can be safely discharged to home. Prior to leaving, it certainly would not be an issue for her to get another dose of tolvaptan. I would not discharge her on that medication. I would avoid the use of sodium tablets. I do not think it is going to be helped. I discussed with the patient and her daughter some fluid restriction at least until next Thursday. If her only issue is one of her low serum sodium related to reset osmostat, theoretically her fluid intake would not have any long-term impact on her serum sodium since the whole idea of reset osmostat is for her to behave in a physiologic fashion, but only with a lower serum sodium. Therefore, unless there are other issues of a rise in her blood pressure or shortness of breath or pulmonary edema, I think diuretics should be avoided. She can certainly wear a support hose given the fact that it does appear as if she may have some measure of venous insufficiency affecting her lower extremities. I would not use tolvaptan as an outpatient at least for now. I would not use Bumex and I would certainly avoid giving her salt tablets. I have reviewed all of this with the patient and her daughter. They understand and agree. I also discussed it with Dr. Wise, her hospitalist.
== END 2017-07-26 14:47 | disposition home or self-care (01) | DRG 644 ==
LOC: C.2T 15:14
PROVIDERS: ADMIT Internal Medicine; ATTEND Family Medicine
DX: E22.2 Syndrome of inappropriate secretion of antidiuretic hormone (principal); I50.32 Chronic diastolic (congestive) heart failure; I25.10 Atherosclerotic heart disease of native coronary artery without angina pectoris; G47.33 Obstructive sleep apnea (adult) (pediatric); H90.3 Sensorineural hearing loss, bilateral; I48.2 Chronic atrial fibrillation; Z79.01 Long term (current) use of anticoagulants; Z79.52 Long term (current) use of systemic steroids; Z79.899 Other long term (current) drug therapy; Z95.1 Presence of aortocoronary bypass graft

== ENCOUNTER → 2017-07-31 | Outpatient (CLI) | payer OTHER ==
[~2017-07-31] MED LIST changes: -FURO-85 PO; +PRED10TA PO; -PRED20TA2 PO
[2017-07-31 14:31] LABS: BLOOD UREA NITROGEN 33 mg/dl (7-18); CALCIUM 8.9 mg/dl (8.5-10.1); CARBON DIOXIDE 25 mmol/L (21-32); CREATININE 1.02 mg/dl (0.60-1.20); GLUCOSE 235 mg/dl (70-99); POTASSIUM 4.5 mmol/L (3.5-5.1); SODIUM 126 mmol/L (136-145)
== END | disposition home or self-care (01) ==
LOC: C.LAB1850 13:35
PROVIDERS: ATTEND Internal Medicine Nephrology
DX: E87.1 Hypo-osmolality and hyponatremia (principal)

== ENCOUNTER → 2017-08-12 | Outpatient (CLI) | payer OTHER ==
[~2017-08-12] MED LIST changes: -QUET1TAB30 PO
[2017-08-12 15:55] LABS: ALBUMIN 3.2 gm/dl (3.4-5.0); BLOOD UREA NITROGEN 25 mg/dl (7-18); CALCIUM 8.5 mg/dl (8.5-10.1); CARBON DIOXIDE 26 mmol/L (21-32); CREATININE 1.64 mg/dl (0.60-1.20); GLUCOSE 220 mg/dl (70-99); POTASSIUM 4.3 mmol/L (3.5-5.1); SODIUM 127 mmol/L (136-145)
[2017-08-12 15:58] LABS: PHOSPHORUS 3.5 mg/dl (2.5-4.9)
== END | disposition home or self-care (01) ==
LOC: C.LAB1850 12:57
PROVIDERS: ATTEND Internal Medicine Rheumatology
DX: M81.0 Age-related osteoporosis without current pathological fracture (principal); R29.898 Other symptoms and signs involving the musculoskeletal system; M31.6 Other giant cell arteritis; Z79.52 Long term (current) use of systemic steroids; E87.1 Hypo-osmolality and hyponatremia

== ENCOUNTER → 2017-08-20 | Outpatient (CLI) | payer OTHER ==
[2017-08-20 18:32] LABS: BLOOD UREA NITROGEN 28 mg/dl (7-18); CALCIUM 8.5 mg/dl (8.5-10.1); CARBON DIOXIDE 26 mmol/L (21-32); CREATININE 1.18 mg/dl (0.60-1.20); GLUCOSE 263 mg/dl (70-99); POTASSIUM 4.2 mmol/L (3.5-5.1); SODIUM 126 mmol/L (136-145)
== END | disposition home or self-care (01) ==
LOC: C.LABPBG 13:22
PROVIDERS: ATTEND Internal Medicine Nephrology
DX: N28.9 Disorder of kidney and ureter, unspecified (principal)

== ENCOUNTER → 2017-08-31 | Outpatient (CLI) | payer OTHER ==
[2017-08-31 13:17] LABS: ALBUMIN 3.4 gm/dl (3.4-5.0); BLOOD UREA NITROGEN 22 mg/dl (7-18); CALCIUM 8.8 mg/dl (8.5-10.1); CARBON DIOXIDE 26 mmol/L (21-32); CREATININE 0.84 mg/dl (0.60-1.20); GLUCOSE 140 mg/dl (70-99); POTASSIUM 3.8 mmol/L (3.5-5.1); SODIUM 128 mmol/L (136-145)
[2017-08-31 13:22] LABS: PHOSPHORUS 3.7 mg/dl (2.5-4.9)
== END | disposition home or self-care (01) ==
LOC: C.LABPBG 10:26
PROVIDERS: ATTEND Internal Medicine Nephrology
DX: E87.1 Hypo-osmolality and hyponatremia (principal)

== ENCOUNTER → 2017-09-14 | Outpatient (CLI) | payer OTHER ==
[2017-09-14 13:25] LABS: BLOOD UREA NITROGEN 26 mg/dl (7-18); CARBON DIOXIDE 26 mmol/L (21-32); CREATININE 0.96 mg/dl (0.60-1.20); GLUCOSE 128 mg/dl (70-99); POTASSIUM 3.9 mmol/L (3.5-5.1); SODIUM 124 mmol/L (136-145)
== END | disposition home or self-care (01) ==
LOC: C.LABPBG 10:18
PROVIDERS: ATTEND Internal Medicine Rheumatology
DX: E87.1 Hypo-osmolality and hyponatremia (principal); M31.6 Other giant cell arteritis; Z79.52 Long term (current) use of systemic steroids

== ENCOUNTER → 2017-10-01 | Outpatient (CLI) | payer OTHER | END | disposition home or self-care (01) | LOC: C.LABPBG 15:00 | PROVIDERS: ATTEND Internal Medicine Rheumatology | DX: M31.6 Other giant cell arteritis (principal); Z79.52 Long term (current) use of systemic steroids; R60.9 Edema, unspecified ==

== ENCOUNTER → 2017-10-09 | Outpatient (CLI) | payer OTHER ==
[2017-10-09 12:09] LABS: ALBUMIN 3.8 gm/dl (3.4-5.0); BLOOD UREA NITROGEN 29 mg/dl (7-18); CALCIUM 9.6 mg/dl (8.5-10.1); CARBON DIOXIDE 25 mmol/L (21-32); CREATININE 1.02 mg/dl (0.60-1.20); GLUCOSE 103 mg/dl (70-99); PHOSPHORUS 4.4 mg/dl (2.5-4.9); POTASSIUM 4.1 mmol/L (3.5-5.1); SODIUM 125 mmol/L (136-145)
== END | disposition home or self-care (01) ==
LOC: C.LABPBG 08:14
PROVIDERS: ATTEND Internal Medicine Nephrology
DX: E55.9 Vitamin D deficiency, unspecified (principal)

== ENCOUNTER → 2017-10-21 | Outpatient (CLI) | payer OTHER ==
[2017-10-21 15:00] LABS: ALBUMIN 3.8 gm/dl (3.4-5.0); BLOOD UREA NITROGEN 20 mg/dl (7-18); CALCIUM 9.6 mg/dl (8.5-10.1); CARBON DIOXIDE 24 mmol/L (21-32); CREATININE 1.17 mg/dl (0.60-1.20); GLUCOSE 211 mg/dl (70-99); PHOSPHORUS 3.4 mg/dl (2.5-4.9); SODIUM 124 mmol/L (136-145)
== END | disposition home or self-care (01) ==
LOC: C.LAB1850 13:09
PROVIDERS: ATTEND Internal Medicine Nephrology
DX: E87.1 Hypo-osmolality and hyponatremia (principal)

== ENCOUNTER → 2017-11-16 | Outpatient (CLI) | payer OTHER ==
[2017-11-16 17:18] LABS: ALBUMIN 3.6 gm/dl (3.4-5.0); BLOOD UREA NITROGEN 33 mg/dl (7-18); CALCIUM 9.4 mg/dl (8.5-10.1); CARBON DIOXIDE 24 mmol/L (21-32); GLUCOSE 189 mg/dl (70-99); PHOSPHORUS 4.5 mg/dl (2.5-4.9); POTASSIUM 4.7 mmol/L (3.5-5.1); SODIUM 127 mmol/L (136-145)
== END | disposition home or self-care (01) ==
LOC: C.LABPBG 11:56
PROVIDERS: ATTEND Internal Medicine Nephrology
DX: E87.1 Hypo-osmolality and hyponatremia (principal); M31.6 Other giant cell arteritis; Z79.52 Long term (current) use of systemic steroids; R25.2 Cramp and spasm

== ENCOUNTER → 2017-11-19 | Outpatient (CLI) | payer OTHER | END | disposition home or self-care (01) | LOC: C.LABPBG 14:15 | PROVIDERS: ATTEND Internal Medicine Rheumatology | DX: H57.12 Ocular pain, left eye (principal) ==

== ENCOUNTER → 2017-12-15 | Outpatient (CLI) | payer OTHER ==
[2017-12-15 13:59] LABS: ALBUMIN 3.8 gm/dl (3.4-5.0); BLOOD UREA NITROGEN 35 mg/dl (7-18); CALCIUM 9.5 mg/dl (8.5-10.1); CARBON DIOXIDE 25 mmol/L (21-32); CREATININE 1.29 mg/dl (0.60-1.20); GLUCOSE 205 mg/dl (70-99); PHOSPHORUS 4.3 mg/dl (2.5-4.9); POTASSIUM 4.9 mmol/L (3.5-5.1); SODIUM 126 mmol/L (136-145)
== END | disposition home or self-care (01) ==
LOC: C.LAB1850 12:14
PROVIDERS: ATTEND Internal Medicine Nephrology
DX: E87.1 Hypo-osmolality and hyponatremia (principal)

== ENCOUNTER → 2018-03-03 | Outpatient (CLI) | payer OTHER | END | disposition home or self-care (01) | LOC: C.LABPBG 14:39 | PROVIDERS: ATTEND Internal Medicine Rheumatology | DX: M31.6 Other giant cell arteritis (principal); Z79.52 Long term (current) use of systemic steroids; M35.3 Polymyalgia rheumatica ==

== ENCOUNTER 2022-11-18 15:17 | Inpatient (IN) ==
--- NOTE | 2022-11-18 15:55 | ED Triage Note ---
Date of Service November 18, 2022 History of Present Illness This patient was briefly evaluated while in triage. An abbreviated physical exam was performed. This patient is a 86-year-old Female who presents to the ED for evaluation of shortness of breath. She was just seen by her Cable Installer Repairer Helper, Dr. Araujo, and referred to ED for admission for acute CHF exacerbation. Physical Exam Constitutional: alert and oriented x3. no acute distress. Respiratory: lungs are clear to auscultation without wheezes, rhonchi, or rales bilaterally. equal chest rise. mildly increased work of breathing, no accessory muscle use. Cardiovascular: normal heart sounds without murmur. regular rate and rhythm. GI: abdomen is soft, nontender. nl bowel sounds present throughout. No palpable masses. No rebound tenderness or guarding. No CVA tenderness Psych:appropriate mood and affect. Initial orders for labs and / or imaging were placed and patient was placed in the waiting area until a bed is available. Please see further documentation for the full ED course.
--- NOTE | 2022-11-18 16:13 | Emergency Department Note ---
Impression & Plan Pulmonary edema, LUCIA (dyspnea on exertion), Pleural effusion ED Provider Note NAME: TJ GALEAS AGE: 86 SEX: F : 1935 ARRIVES VIA: Walk-In INFORMANT: Patient, the patient's daughter ED PROVIDER(S): Lenny Pastrana DO CHIEF COMPLAINT: Difficulty breathing HPI: The patient is an 86-year-old male who presented to the emergency female who presented to the emergency department with her family member for an evaluation of difficulty breathing. The patient is a history of CHF. She has had some problems recently with weight gain as well as difficulty breathing. She has a history of valvular heart disease as well as CHF. She has had some changes to her outpatient medications especially over the course the last few months. She is having some trouble managing your condition as an outpatient. She went to see her shuttle filler today and was felt to be in need of further management and was sent to the emergency department. The patient denies having any chest pain. She had no fever. She has significant shortness of breath with exertion or lying flat. ROS: See above HPI for pertinent positives & negatives. A total of 10 systems reviewed and were otherwise negative. PAST MEDICAL HISTORY: See Below PAST SURGICAL HISTORY: See Below FAMILY HISTORY: See Below SOCIAL HISTORY: See Below HOME MEDICATIONS: See Below ALLERGIES: See Below VITALS: See Below PHYSICAL EXAMINATION: GENERAL: The patient is awake and alert. She is somewhat frail appearing. EYES: The conjunctivae are clear. The pupils are round and reactive. EARS, NOSE, MOUTH AND THROAT: The nose is without any evidence of any deformity. NECK: The neck is nontender and supple. RESPIRATORY: Diminished breath sounds are noted throughout. There were rales at both bases. CARDIOVASCULAR: Regular rate and rhythm noted there no murmurs rubs or gallops normal S1 normal S2. GASTROINTESTINAL: The abdomen is soft. Abdomen is nontender. MUSCULOSKELETAL/EXTREMITIES: There is no evidence of gross deformity full range of motion is noted in the hips and shoulders. SKIN: There is bilateral lower extremity edema noted.. NEUROLOGIC: Patient is awake alert and oriented x3 MEDICAL DECISION MAKING: The patient is an 86-year-old female who presented to the emergency department for an evaluation of difficulty breathing. The patient has a history of pulmonary edema. She was at her shuttle filler office and was felt to be in need of inpatient management. Upon arrival the patient had a normal oxygen saturation with rest but she became very dyspneic with any exertion. Physical exam does appear to be consistent with pulmonary edema. She was treated with a small dose of Lasix. She was reevaluated multiple times. I discussed her condition with the on-call [facility] hospitalist. She does a slight elevation in her troponin this does not appear to be new for her it may be chronic. He was feeling much better on reevaluation. I discussed her condition with her family members as well. They were agreeable to the plan. Triage Nursing notes reviewed. Prior medical records reviewed Vital Signs: reviewed and remarkable for no significant abnormalities Differential diagnosis: Reactive airway disease, pneumonia, pneumothorax, COPD, CHF, infections, cardiac ischemia, pulmonary embolism, musculoskeletal, gastrointestinal, as well as other pathologies. ER treatment provided: See below Diagnostics interpreted by me: ECG: EKG was obtained in the emergency department. My interpretation is atrial fibrillation at 84 bpm. Right bundle branch block pattern was noted. This was compared to a tracing from October 02, 2022. No changes were noted. Cardiac Monitoring: An order was placed for continuous cardiac monitoring. The monitor shows a rate of 76 bpm with atrial fibrillation. Laboratory studies: As stated above and show below. Imaging studies: See below. Radiographic imaging was reviewed by myself Consultation(s): I discussed this case with Dr. 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 Lyme disease HX OF Osteoporosis SNHL (sensorineural hearing loss) Temporal arteritis HX OF 3 YR AGO Surgical History History of breast surgery History of cholecystectomy History of colonoscopy History of hysterectomy History of left cataract surgery History of myringotomy History of temporal artery biopsy Hx of CABG (2006) TRIPLE BYPASS Family History Mother Myocardial infarction Hypertension Cardiac disorder Brother Prostate cancer Myocardial infarction FHx: deafness or hearing loss Father Cardiac disorder Sister Colon cancer FHx: deafness or hearing loss Non-Hodgkin lymphoma Brother Cardiac disorder Hypertension Denies family history of Ovarian cancer Breast cancer Social History Smoking Status: Former smoker Second Hand Exposure: No; Hx Alcohol Use: No Hx Substance Use: No Preferred Language: Tamazight Communication Ability: Effective Visual Impairment: Limited Hearing Ability: Use of Hearing Aid Animal Anatomy Teacher Required: No Beliefs That Will Affect Care: None marital status: / Current Living Situation: Alone current occupational status: retired current occupation: used to work at the [employer] Feels Safe at Home: Yes Childhood Exposure to Second-Hand Smoke: No caffeine: Yes (Soda occasional.) during the past year weight has: remained stable Dental Care, Regularly: Yes Physical Activity Frequency: Does not Exercise Seatbelt Use: always Sunscreen Use: No (isn't out in the sun ) Assistive Devices: Glasses Allergies Allergies Allergy/AdvReac Type Severity Reaction Status Date / Time prochlorperazine Allergy Unknown "combid" Verified 11/18/22 16:24 Unknown aspirin AdvReac Intermediate stomach Verified 11/18/22 16:24 pains methotrexate AdvReac Intermediate elevated Verified 11/18/22 16:24 liver levels Beta Adrenergic Blockers Allergy Unknown Unknown Uncoded 11/18/22 16:24 COMBID Allergy Unknown Unknown Uncoded 11/18/22 16:24 Home Meds Home Medications Medication Instructions Recorded Confirmed calcium carbonate 600 mg-vitamin 1 tab PO QDL 06/05/18 11/18/22 D3 5 mcg (200 unit) capsule (Calcium 600 + D(3)) cyanocobalamin (vitamin B-12) 1,000 mcg PO 2XWK 08/16/20 11/18/22 1,000 mcg tablet multivitamin (Daily Multi-Vitamin 1 tab PO DAILY 08/16/20 11/18/22 tablet) pyridoxine (vitamin B6) 100 mg 100 mg PO DAILY 10/08/21 11/18/22 tablet magnesium 200 mg tablet 0 mg PO HS 10/03/22 11/18/22 bumetanide 1 mg tablet 2 mg PO DAILY PRN weight gain, 11/07/22 11/18/22 edema, SOB mirtazapine 30 mg tablet 30 mg PO HS 11/18/22 11/18/22 potassium chloride 20 mEq 20 meq PO BID PRN TAKE WHEN TAKES 11/18/22 11/18/22 tablet,extended release BUMEX Previous Rx's Medication Instructions Recorded atorvastatin 10 mg tablet 10 mg PO HS #90 tabs 01/31/22 omeprazole 20 mg capsule,delayed 20 mg PO DAILY #90 caps 02/24/22 release diltiazem HCl 120 mg 120 mg PO BID #180 caps 03/26/22 capsule,extended release 24 hr (Cartia XT) ipratropium bromide 21 mcg (0.03 2 spray intranasal TID #30 mL 07/09/22 %) nasal spray digoxin 125 mcg (0.125 mg) tablet 125 mcg PO Q2D #14 tabs 08/21/22 apixaban 2.5 mg tablet (Eliquis) 2.5 mg PO BID #180 tabs 09/19/22 spironolactone 25 mg tablet 25 mg PO DAILY #90 tabs 10/16/22 albuterol sulfate 90 mcg/actuation 1 inh inhalation QID PRN shortness 11/03/22 aerosol inhaler of breath or wheezing #8.5 grams Results & Data (ED) Vital Signs Vital Signs - 24 hr 11/18/22 15:53 11/18/22 16:34 Temperature 36.6 C Temperature Source Temporal Artery Scan Pulse Rate 87 76 Respiratory Rate 16 Blood Pressure 143/68 H Blood Pressure Mean 93 Pulse Oximetry 97 Oxygen Delivery Method Room Air Sepsis Recent Fever Within 48 Hours No Sepsis New/Unexplained Change in Mental Status N/A Sepsis Action Taken by Nursing No Action Required Home Medications Current Medication List: was personally reviewed by me Laboratory Data Attestation: I reviewed the patient's lab results. 11/18/22 16:17 11/18/22 16:17 Lab Results 11/18/22 11/18/22 11/18/22 Range/Units 16:17 16:17 16:17 WBC 5.66 (4.8-10.8) K/ul RBC 3.80 L (4.20-5.40) M/uL Hgb 9.8 L (12.0-16.0) g/dl Hct 31.5 L (37.0-47.0) % MCV 82.9 (80.0-100.0) fL MCH 25.8 (25.0-34.0) pg MCHC 31.1 L (32.0-36.0) g/dL RDW Std Deviation 49.1 H (36.4-46.3) fL RDW Coeff of Mya 16.2 H (11.5-14.5) % Plt Count 361 (130-400) K/uL MPV 10.3 (9.4-12.4) fL Immature Gran % (Auto) 0.2 % Neut % (Auto) 72.6 % Lymph % (Auto) 15.2 % Beadle % (Auto) 9.9 % Eos % (Auto) 1.2 % Baso % (Auto) 0.9 % Neut # (Auto) 4.11 (1.40-6.50) K/uL Lymph # (Auto) 0.86 L (1.2-3.4) K/uL Beadle # (Auto) 0.56 (0.11-0.59) K/uL Eos # (Auto) 0.07 (0-0.50) K/uL Baso # (Auto) 0.05 (0-0.2) K/uL Immature Gran # (Auto) 0.01 (0.01-0.20) K/uL PT (9.0-12.0) Seconds INR (0.9-1.1) APTT (21.0-31.0) Seconds PTT Ratio Sodium 137 (136-145) mmol/L Potassium 4.3 (3.5-5.1) mmol/L Chloride 101 (98-107) mmol/L Carbon Dioxide 27 (21-32) mmol/L Anion Gap 9 (3-11) BUN 18 (6-23) mg/dl Creatinine 0.66 (0.6-1.2) mg/dl Est Cr Clr Drug Dosing 45.3 ml/min Est GFR ( Amer) 92.1 ml/min Est GFR (Non-Af Amer) 79.4 ml/min BUN/Creatinine Ratio 27.3 H (10-20) Glucose 117 H (70-99(Fasting)) mg/dl Calcium 9.1 (8.6-10.3) mg/dl Total Bilirubin 0.5 (0.2-1.0) mg/dl AST 21 (13-39) U/L ALT 11 (7-52) U/L Alkaline Phosphatase 76 (34-104) U/L Troponin I High Sens 41.3 H (0-14) pg/ml B-Natriuretic Peptide 380 H (0-100) pg/ml Total Protein 6.6 (6.0-8.3) gm/dl Albumin 3.4 (3.4-5.0) gm/dl Globulin 3.2 (2.5-4.0) gm/dl Albumin/Globulin Ratio 1.1 (0.9-2) Digoxin (0.8-2.0) ng/ml SARS-CoV-2, RNA, NAAT (NEGATIVE) 11/18/22 11/18/22 11/18/22 Range/Units 16:17 16:17 16:18 WBC (4.8-10.8) K/ul RBC (4.20-5.40) M/uL Hgb (12.0-16.0) g/dl Hct (37.0-47.0) % MCV (80.0-100.0) fL MCH (25.0-34.0) pg MCHC (32.0-36.0) g/dL RDW Std Deviation (36.4-46.3) fL RDW Coeff of Mya (11.5-14.5) % Plt Count (130-400) K/uL MPV (9.4-12.4) fL Immature Gran % (Auto) % Neut % (Auto) % Lymph % (Auto) % Beadle % (Auto) % Eos % (Auto) % Baso % (Auto) % Neut # (Auto) (1.40-6.50) K/uL Lymph # (Auto) (1.2-3.4) K/uL Beadle # (Auto) (0.11-0.59) K/uL Eos # (Auto) (0-0.50) K/uL Baso # (Auto) (0-0.2) K/uL Immature Gran # (Auto) (0.01-0.20) K/uL PT 12.6 H (9.0-12.0) Seconds INR 1.2 H (0.9-1.1) APTT 30.9 (21.0-31.0) Seconds PTT Ratio 1.1 Sodium (136-145) mmol/L Potassium (3.5-5.1) mmol/L Chloride (98-107) mmol/L Carbon Dioxide (21-32) mmol/L Anion Gap (3-11) BUN (6-23) mg/dl Creatinine (0.6-1.2) mg/dl Est Cr Clr Drug Dosing ml/min Est GFR ( Amer) ml/min Est GFR (Non-Af Amer) ml/min BUN/Creatinine Ratio (10-20) Glucose (70-99(Fasting)) mg/dl Calcium (8.6-10.3) mg/dl Total Bilirubin (0.2-1.0) mg/dl AST (13-39) U/L ALT (7-52) U/L Alkaline Phosphatase (34-104) U/L Troponin I High Sens (0-14) pg/ml B-Natriuretic Peptide (0-100) pg/ml Total Protein (6.0-8.3) gm/dl Albumin (3.4-5.0) gm/dl Globulin (2.5-4.0) gm/dl Albumin/Globulin Ratio (0.9-2) Digoxin 0.8 (0.8-2.0) ng/ml SARS-CoV-2, RNA, NAAT NEGATIVE (NEGATIVE) Administered Medications Discontinued Medications Furosemide (Furosemide 40 Mg/4 Ml Vial) 40 mg IV ONE ONE Stop: 11/18/22 16:46 Last Admin: 11/18/22 17:29 Dose: 40 mg Documented By: SANDOR Imaging Data Attestation: I personally reviewed and interpreted this imaging study as follows: My Impression: 1 view chest x-ray was obtained in the emergency department. My interpretation is pulmonary edema, final report below. Radiologist's Impression: Chest X-Ray 11/18/22 15:57 XR chest 1V portable HISTORY: 86 years-old Female SOB acute shortness of breath COMPARISON: 11/07/2022 TECHNIQUE: AP view of the chest FINDINGS: Cardiac silhouette is enlarged. Prior median sternotomy. Pulmonary vascular congestion. Layering pleural effusions with bibasilar consolidation, similar to prior. Pleural-parenchymal scarring of the lung apices. Degenerative changes of the shoulders and spine. IMPRESSION: 1. Cardiomegaly with mild pulmonary edema, similar to prior. 2. Layering pleural effusions with bibasilar consolidation has not significantly changed. ACT 112: Negative or not required by law. The above report was generated using voice recognition software. It may contain grammatical, syntax or spelling errors. Electronically signed by: Poli aHyes M.D. 11/18/2022 4:56 PM Discharge Plan Visit Data Chief Complaint: Referred by Doctor Stated Complaint: FLUID AROUND HEART ED Provider: Lenny Pastrana Discharge Problem: Pulmonary edema, LUCIA (dyspnea on exertion), Pleural effusion Patient Disposition: Being Evaluated by Hospitalist Forms Stand Alone Forms: My [facility] Prescriptions Prescriptions: No Action atorvastatin 10 mg tablet 10 mg PO HS Qty: 90 3RF omeprazole 20 mg capsule,delayed release(DR/EC) 20 mg PO DAILY Qty: 90 3RF diltiazem HCl [Cartia XT] 120 mg capsule,extended release 24hr 120 mg PO BID Qty: 180 3RF digoxin 125 mcg (0.125 mg) tablet 125 mcg PO Q2D Qty: 14 1RF albuterol sulfate 90 mcg/actuation HFA aerosol inhaler 1 inh inhalation QID PRN (Reason: shortness of breath or wheezing) Qty: 8.5 0RF ipratropium bromide 21 mcg (0.03 %) spray,non-aerosol 2 spray intranasal TID Qty: 30 5RF Rx Instructions: administer into each nostril spironolactone 25 mg tablet 25 mg PO DAILY Qty: 90 2RF multivitamin [Daily Multi-Vitamin] Tablet 1 tab PO DAILY pyridoxine (vitamin B6) 100 mg tablet 100 mg PO DAILY Eliquis 2.5 mg tablet 2.5 mg PO BID Qty: 180 3RF bumetanide 1 mg tablet 2 mg PO DAILY PRN (Reason: weight gain, edema, SOB) Calcium 600 + D(3) 600 mg calcium- 200 unit Capsule 1 tab PO QDL cyanocobalamin (vitamin B-12) 1,000 mcg tablet 1,000 mcg PO 2XWK Rx Instructions: TUES & THURS magnesium 200 mg Tablet 0 mg PO HS Rx Instructions: pt states she takes two magnesium tablets at hs -unknown dose mirtazapine 30 mg tablet 30 mg PO HS potassium chloride 20 mEq tablet extended release 20 meq PO BID PRN (Reason: TAKE WHEN TAKES BUMEX) Referrals Referrals: Tran Garber MD [Primary Care Provider] -
[2022-11-18] MEDS ORDERED: FUROSEMIDE 40 MG/4 ML VIAL IV ONE (16:45)
--- NOTE | 2022-11-18 16:57 | XRay Report ---
XR chest 1V portable HISTORY: 86 years-old Female SOB acute shortness of breath COMPARISON: 11/07/2022 TECHNIQUE: AP view of the chest FINDINGS: Cardiac silhouette is enlarged. Prior median sternotomy. Pulmonary vascular congestion. Layering pleu ral effusions with bibasilar consolidation, similar to prior. Pleural-parenchymal scarring of the milan g apices. Degenerative changes of the shoulders and spine. IMPRESSION: 1. Cardiomegaly with mild pulmonary edema, similar to prior. 2. Layering pleural effusions with bibasilar consolidation has not significantly changed. ACT 112: Negative or not required by law. The above report was generated using voice recognition software. It may contain grammatical, syntax o r spelling errors. Electronically signed by: Poli Hayes M.D. 11/18/2022 4:56 PM
[2022-11-18 17:03] LABS: Albumin Globulin Ratio 1.1 (0.9-2); Albumin Level 3.4 gm/dl (3.4-5.0); BUN Creatinine Ratio 27.3 (10-20); Bilirubin,Total 0.5 mg/dl (0.2-1.0); Calcium 9.1 mg/dl (8.6-10.3); Creatinine Clr Calc Pharmacy 45.3 ml/min; Est GFR (African American) 92.1 ml/min; Est GFR (Non-African American) 79.4 ml/min; Globulin 3.2 gm/dl (2.5-4.0); Potassium 4.3 mmol/L (3.5-5.1); Total Protein 6.6 gm/dl (6.0-8.3)
[2022-11-18 17:09] LABS: Basophils # (auto) 0.05 K/uL (0-0.2); Basophils % (auto) 0.9 %; Eosinophils # (auto) 0.07 K/uL (0-0.50); Eosinophils % (auto) 1.2 %; Hematocrit (blood only) 31.5 % (37.0-47.0); Hemoglobin 9.8 g/dl (12.0-16.0); Immature Granulocytes # (auto) 0.01 K/uL (0.01-0.20); Immature Granulocytes % (auto) 0.2 %; Lymphocytes # (auto) 0.86 K/uL (1.2-3.4); Lymphocytes % (auto) 15.2 %; Mean Corpuscular Hemoglobin 25.8 pg (25.0-34.0); Mean Corpuscular Hgb Conc 31.1 g/dL (32.0-36.0); Mean Corpuscular Volume 82.9 fL (80.0-100.0); Mean Platelet Volume 10.3 fL (9.4-12.4); Monocytes # (auto) 0.56 K/uL (0.11-0.59); Monocytes % (auto) 9.9 %; Neutrophils # (auto) 4.11 K/uL (1.40-6.50); Neutrophils % (auto) 72.6 %; Platelet Count 361 K/uL (130-400); RDW Coefficient of Variation 16.2 % (11.5-14.5); RDW Standard Deviation 49.1 fL (36.4-46.3); White Blood Count 5.66 K/ul (4.8-10.8)
[2022-11-18 17:10] LABS: Troponin I High Sensitivity 41.3 pg/ml (0-14)
[2022-11-18 17:39] LABS: INR 1.2 (0.9-1.1); Partial Thromboplastin Ratio 1.1; Partial Thromboplastin Time 30.9 Seconds (21.0-31.0); Prothrombin Time 12.6 Seconds (9.0-12.0)
--- NOTE | 2022-11-18 17:42 | History & Physical Report ---
Date of Service November 18, 2022 Assessment & Plan (1) LUCIA (dyspnea on exertion): Plan: Dyspnea on exertion, history of heart failure with midrange ejection fraction. DDx includes acute on chronic CHF versus progression of valvular disease, reduced RV function is noted History of CABG 2006 Echo/01/23: EF 40-45%. Moderate global hypokinesis of LV. Severe mitral regurg, severe tricuspid regurg, LV SP normal, moderate left pleural effusion No salt load over Easter, is careful to maintain low-salt diet. She notes that she has had lower extremity edema which has not responded well to Bumex in the past and is suspected to have additional venous stasis contributing to her swelling. - CXR: Cardiomegaly with mild pulmonary edema. Layering pleural effusions, bibasilar consolidation. No leukocytosis. Hemoglobin 9.8, baseline around 911 with MCV 89. Cardiology consulted, patient sees Dr. Araujo as an outpatient. - Creatinine less than 1 at baseline, admitting creatinine 0.66 - BNP 380 - High-sensitivity troponin 41.3, low 50s last month clinically without chest pain, trended - Digoxin level therapeutic at 0.8 Lasix IV twice daily continued, hold for hypotension Strict ins and outs Fall precautions Atrial fibrillation Adequately rate controlled Continue apixaban 2.5 mg twice daily, digoxin, diltiazem Digoxin level 0.8, lower end of normal on admission Insomnia Saw 10/31/2022 sleep clinic, insomnia suspect with an underlying anxiety component. Melatonin without improvement in sleep quality, Seroquel 75 mg without improvement and which was thought to have contributed to fluid retention, temazepam and benzos limited by hallucinations and fall, Remeron started without significant improvement but without side effects We will continue Remeron at this time PMR Prednisone gradually down titrated over several years, patient noticed that she also had arteritis associated with this Completed a 3-year taper of prednisone which she is no longer on Continue to follow for vision changes/headaches, none present at time of assessment No change in acute management GERD Continue Protonix 20 mg daily DVT prophylaxis: Anticoagulated Disposition: Medical telemetry for exertional dyspnea, CHF CODE STATUS: DNR/DNI Diet: Heart healthy, low-salt (2) Pulmonary edema: (3) Hx of CABG: (4) Chronic diastolic CHF (congestive heart failure): (5) Myopathy: (6) PMR (polymyalgia rheumatica): (7) Permanent atrial fibrillation: (8) GERD without esophagitis: (9) Vitamin D deficiency: History of Present Illness Primary Care Provider: Tran Garber MD Debra is an 86-year-old female with a history of severe MR, heart failure with EF 40-45%, CAD s/p CABG 2006, permanent A-fib on digoxin and diltiazem and dose reduced apixaban who presented to the emergency department with shortness of breath and difficulty breathing. She has had some weight gain. She saw her bingo usher this morning who noted that she was with evidence of fluid in the lungs, legs, and with concerns for pleural effusions but had actually had a slight weight decrease. Was recommended for IV diuretics as inpatient, and if picture unclear to degree of CHF may need progression to right heart catheterization with end-stage valvular disease and declining LV systolic function possible. Seen with family present. She has had worsened shortness of breath for which she saw her bingo usher. They were concerned about fluid retention and recommended ER evaluation. She feels her breathing has been worse than normal for the last week-10 days. Gradually worsening. No remitting factors. Severe limitation to activity, cannot get dressed without limiting dyspnea. No chest pain, no chest pressure. Denies palpitations. She reports she has actually lost weight, 10-12 lbs since stopping prednisone. Was on prednisone for temporal arteritis. Was on high dose prednisone, just stopped a few weeks ago after being on for several. Was on 40mg and slowly tapered over the last 3 years Bilateral lower extremity edema, started to worsen in the beginning of September. "Feet were skinny in August." Was thought to be venous insuffiency, and ?seroqu el initiation at the same time. Endorses significant orthopnea, much worse in the last 10 days and it harder for her to sleep. Notes her insomnia is separate from shortness of breath, seems worse since thanksgiving No BRBPR/melena. Doesnt feel her afib. No recent palpitations. Did take medications this morning. Has not taken bumex recently as her weight was not up. Medical History: Reviewed Medications: Reviewed Surgical History: Reviewed Family history: Reviewed Allergies: Reviewed Social History: Former tobacco use in remission, no alcohol use Code Status: DNR/DNI, discussed with patient Allergies Allergy/AdvReac Type Severity Reaction Status Date / Time prochlorperazine Allergy Unknown "combid" Verified 11/18/22 16:24 Unknown aspirin AdvReac Intermediate stomach Verified 11/18/22 16:24 pains methotrexate AdvReac Intermediate elevated Verified 11/18/22 16:24 liver levels Beta Adrenergic Blockers Allergy Unknown Unknown Uncoded 11/18/22 16:24 COMBID Allergy Unknown Unknown Uncoded 11/18/22 16:24 Home Medications Medication Instructions Recorded Confirmed Type calcium carbonate 600 mg-vitamin 1 tab PO QDL 06/05/18 11/18/22 History D3 5 mcg (200 unit) capsule (Calcium 600 + D(3)) cyanocobalamin (vitamin B-12) 1,000 mcg PO 2XWK 08/16/20 11/18/22 History 1,000 mcg tablet multivitamin (Daily Multi-Vitamin 1 tab PO DAILY 08/16/20 11/18/22 History tablet) pyridoxine (vitamin B6) 100 mg 100 mg PO DAILY 10/08/21 11/18/22 History tablet atorvastatin 10 mg tablet 10 mg PO HS #90 tabs 01/31/22 11/18/22 Rx omeprazole 20 mg capsule,delayed 20 mg PO DAILY #90 caps 02/24/22 11/18/22 Rx release diltiazem HCl 120 mg 120 mg PO BID #180 caps 03/26/22 11/18/22 Rx capsule,extended release 24 hr (Cartia XT) ipratropium bromide 21 mcg (0.03 2 spray intranasal TID #30 mL 07/09/22 11/18/22 Rx %) nasal spray digoxin 125 mcg (0.125 mg) tablet 125 mcg PO Q2D #14 tabs 08/21/22 11/18/22 Rx apixaban 2.5 mg tablet (Eliquis) 2.5 mg PO BID #180 tabs 09/19/22 11/18/22 Rx magnesium 200 mg tablet 0 mg PO HS 10/03/22 11/18/22 History spironolactone 25 mg tablet 25 mg PO DAILY #90 tabs 10/16/22 11/18/22 Rx albuterol sulfate 90 mcg/actuation 1 inh inhalation QID PRN shortness 11/03/22 11/18/22 Rx aerosol inhaler of breath or wheezing #8.5 grams bumetanide 1 mg tablet 2 mg PO DAILY PRN weight gain, 11/07/22 11/18/22 History edema, SOB mirtazapine 30 mg tablet 30 mg PO HS 11/18/22 11/18/22 History potassium chloride 20 mEq 20 meq PO BID PRN TAKE WHEN TAKES 11/18/22 11/18/22 History tablet,extended release BUMEX Past Med/Surg History Medical History (Updated 11/18/22 @ 18:17 by Jamie Mcdaniel MD) Chronic diastolic CHF (congestive heart failure) DENIES CURRENT OR HX OF Coronary artery disease 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 Lyme disease HX OF Osteoporosis SNHL (sensorineural hearing loss) Temporal arteritis HX OF 3 YR AGO Surgical History History of breast surgery History of cholecystectomy History of colonoscopy History of hysterectomy History of left cataract surgery History of myringotomy History of temporal artery biopsy Hx of CABG (2006) [facility]IPLE [place]PASS Family History Mother Myocardial infarction Hypertension Cardiac disorder Brother Prostate cancer Myocardial infarction FHx: deafness or hearing loss Father Cardiac disorder Sister Colon cancer FHx: deafness or hearing loss Non-Hodgkin lymphoma Brother Cardiac disorder Hypertension Denies family history of Ovarian cancer Breast cancer Social History Smoking Status: Former smoker Second Hand Exposure: No; Hx Alcohol Use: No Hx Substance Use: No Preferred Language: Kyrgyz Communication Ability: Effective Visual Impairment: Limited Hearing Ability: Use of Hearing Aid 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 Beliefs That Will Affect Care: None marital status: / Current Living Situation: Alone current occupational status: retired current occupation: used to work at the [employer] Feels Safe at Home: Yes Childhood Exposure to Second-Hand Smoke: No caffeine: Yes (Soda occasional.) during the past year weight has: remained stable Dental Care, Regularly: Yes Physical Activity Frequency: Does not Exercise Seatbelt Use: always Sunscreen Use: No (isn't out in the sun ) Assistive Devices: Glasses Review of Systems Review of Systems: All systems reviewed & are unremarkable except as noted in HPI & below Physical Exam Physical Exam: General: A&Ox3. NAD. Cooperative. Answers questions appropriately, HEENT: Atraumatic, normocephalic. Patient/hearing grossly intact Pulm: CTAB A&P. -wheezes, -rales, -rhonchi. Symmetrical chest rise. No increased work of breathing. No respiratory distress. Cardiac: Irregularly irregular. Normal rate. Systolic murmur present. Radial pulses intact and symmetrical. Abdominal: Nontender, nondistended, soft. BS present. Extremities: Warm, dry. 2+ pitting edema through the lower extremities bilaterally. 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 strength and ankle dorsiflexion/plantarflexion are 5/5 bilaterally Results & Data Results & Data Vital Signs (Past 12 Hours) Vital Signs Temp Pulse Resp BP Pulse Ox O2 Del Method 11/18/22 16:34 76 11/18/22 15:53 36.6 C 87 16 143/68 H 97 Room Air PG Care Time/CCT Total # of Minutes Spent Total Time Spent with Patient: Total time spent is greater than 50% in coordination of care (as documented) at patient's floor/unit and/or counseling patient: Coding Level of Care Code 24952 INT INP/OBS CARE 3/75MIN Diagnoses LUCIA (dyspnea on exertion) R06.09 Pulmonary edema J81.0 Chronicity: acute Hx of CABG Z95.1 Chronic diastolic CHF (congestive heart failure) I50.32 Myopathy G72.9 PMR (polymyalgia rheumatica) M35.3 Permanent atrial fibrillation I48.21 GERD without esophagitis K21.9 Vitamin D deficiency E55.9 (2) Pulmonary edema Chronicity: acute Qualified Code(s): J81.0 - Acute pulmonary edema
[2022-11-18 21:03] LABS: Ferritin 83.3 ng/ml (8-388)
[2022-11-18] MEDS: ATORVASTATIN 10 MG TAB PO SCH (21:47)
[2022-11-18] MEDS: POTASSIUM CHLORIDE CRTAB 20 MEQ TABCR PO SCH (21:47)
[2022-11-18] MEDS: MIRTAZAPINE TAB 15 MG TAB PO SCH (21:47)
[2022-11-18] MEDS: APIXABAN 2.5 MG TAB PO SCH (21:47)
[2022-11-18] MEDS: dilTIAZem HCL 120 MG CAPCR PO SCH (21:48)
[2022-11-18] MEDS ORDERED: PNEUMOCOCCAL Polysaccharide Vaccine 25mcg/0.5mL vial/Syr IM ONE (22:30)
--- NOTE | 2022-11-19 07:59 | Hospitalist Progress Note ---
Date of Service November 19, 2022 Assessment & Plan (1) LUCIA (dyspnea on exertion): Plan: Dyspnea on exertion, history of heart failure with midrange ejection fraction. DDx includes acute on chronic CHF versus progression of valvular disease, reduced RV function is noted. History of CABG 2006 Echo 11/06/22: EF 40-45%. Moderate global hypokinesis of LV. Severe mitral regurg, severe tricuspid regurg, LV SP normal, moderate left pleural effusion No salt load over [facility], is careful to maintain low-salt diet as reported ( however, per discussion w/ cards - Dr Briones, she did admit to him what appears to have been heavy salt load/smoked meats/etc, could have put her in current state) CXR on admission w/ cardiomegaly w/ mild pulmonary edema/layering pleural effusions, bibasilar consolidation. No leukocytosis to suspect pneumonia and melissa pect compressive atelectasis from volume overload/effusions BNP elevated 380 (was 353 beginning of October) Per daughter, they have NOT used any bumex. Patient was on high doses steroids for giant cell arteritis for years, tapers to nothing earlier this year in [facility]. Cardiology consulted Remains on lasix 20mg IV BID (hold for hypotension) -- net negative 880cc this morning. Kidney function remains stable with such Spironolactone 25mg daily continued Monitor I&O, daily weights (RN to get standing scale later today) Remains on Dig for afib, rate controlled. Therapeutic range Trop 41.5 (in low 50s last month), clinically w/o cp. monitoring on telemetry. checked mag given afib, 1.6 -- 2gm IV ordered (also complaints of LE cramping/restless legs) Checked iron panel given hgb in 9s, with baseline 10-11s appearing Iron low 11, trans % sat 4 --> Venofer 300mg IV ordered, will continue while inpatient. Check B12/folate given normal MCV (now 79.5) and iron deficiency, will also check TSH. fecal occult next bm Monitor labs on repeat PT/OT consultations placed (2) Permanent atrial fibrillation: Plan: Atrial fibrillation Adequately rate controlled and remains on reduced dose eliquis BID, digoxin, diltiazem Digoxin level 0.8, lower end of normal on admission --> CHeck mag w/ labs/replacement as needed -- IV replacement for today and monitor repeat in AM would keep closer to 2, consider oral supp (3) Pulmonary edema: Plan: lasix IV BID as above -- monitor response titrate O2 as able --> now on RA this afternoon (4) Hx of CABG: Plan: reported hx 2006, follows w/ Dr Araujo remains on eliquis BID, statin (5) Chronic diastolic CHF (congestive heart failure): Plan: as above, diuresis w/ lasix IV BID (6) Myopathy: Plan: 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 Melatonin without improvement in sleep quality, Seroquel 75 mg without improvement and which was thought to have contributed to fluid retention, temazepam and benzos limited by hallucinations and fall, Remeron started without significant improvement but without side effects We will continue Remeron at this time Also check iron studies as above, possible restless legs keeping her up at night . ferritin 83. venofer for iron deficiency/low sats as above Plan continued inpatient stay continue lasix 20mg IV BID, monitor weight/volume status on examination PT/OT consulted (per CM, family asking for hospital bed as well -- can provide rx tomorrow) Admission and Anticipated Discharge Date Admission Date: November 18, 2022 Supervising Physician Co-Signing Physician Notes The patient was not seen by me. The chart was reviewed. Case discussed with DOUGLAS Denney. Agree with assessment and plan Subjective Seen this morning, states breathing improved Does have restless legs at baseline that keep her up at night. discussed iron/venofer replacement. they had her on seroquel for sleep and increased to 75mg but not working and then was stopped. recently been on mirtazapine which has helped with sleeping recently and took last night but was hopeful if able to limit this if restless legs related to low iron. She is 98% on 2L and will ask RN to titrate off. Discussed consultation to be undertaken by cardiology as well, do not feel we need to repeat her ECHO at present. Denies chest pain. Does have some lower extremity edema at present. Of note, had NOT TAKEN ANY BUMEX in several weeks as weights remained stable at home. Discussed w/ daughter on phone, Flores, lasix IV BID while inpatient at present. She notes her mother was on lasix in the past w/ high dose prednisone, which she was on for temporal arteritis many years ago and was tapered slowly to nothing earlier this year, several months ago. Physical Exam Physical Exam: General: WD/WN elderly female sitting up in bed, NAD HEENT: head normocephalic, atraumatic, mmm, trachea midline, +JVD Resp: diminished in the bases, no w/c, on 2L SpO2 98% (asked RN to titrate) CV: irregularly irregular, rates 60-70s, +murmur, LE edema, pitting bilaterally, calves nontender (but reporting restless legs) GI:+BS, soft/NT MSK/Neuro: no focal deficit Psych: AOx3, cooperative with exam, slightly depressed affect at times Results & Data Results & Data Vital Signs (Past 12 Hours) Vital Signs Temp Pulse Pulse Pulse Resp BP BP 11/19/22 03:18 37.1 C 75 18 136/59 L 11/19/22 01:25 69 11/19/22 00:15 11/18/22 22:50 36.9 C 71 18 130/63 11/18/22 20:15 37.1 C 107 H 18 126/78 11/18/22 20:50 Pulse Ox O2 Del Method O2 Flow Rate 11/19/22 03:18 96 Nasal Cannula 2 11/19/22 01:25 11/19/22 00:15 Nasal Cannula 2 11/18/22 22:50 97 Nasal Cannula 2 11/18/22 20:15 96 Nasal Cannula 2 11/18/22 20:50 Nasal Cannula 2 Laboratory Results 11/19/22 11/19/22 11/18/22 Range/Units 07:26 07:26 18:53 WBC 4.73 L (4.8-10.8) K/ul RBC 3.41 L (4.20-5.40) M/uL Hgb 8.9 L (12.0-16.0) g/dl Hct 27.1 L (37.0-47.0) % MCV 79.5 L (80.0-100.0) fL MCH 26.1 (25.0-34.0) pg MCHC 32.8 (32.0-36.0) g/dL RDW Std Deviation 47.1 H (36.4-46.3) fL RDW Coeff of Mya 16.4 H (11.5-14.5) % Plt Count 330 (130-400) K/uL MPV 10.1 (9.4-12.4) fL Immature Gran % (Auto) 0.2 % Neut % (Auto) 63.9 % Lymph % (Auto) 20.1 % Bulloch % (Auto) 11.8 % Eos % (Auto) 3.4 % Baso % (Auto) 0.6 % Neut # (Auto) 3.02 (1.40-6.50) K/uL Lymph # (Auto) 0.95 L (1.2-3.4) K/uL Bulloch # (Auto) 0.56 (0.11-0.59) K/uL Eos # (Auto) 0.16 (0-0.50) K/uL Baso # (Auto) 0.03 (0-0.2) K/uL Immature Gran # (Auto) 0.01 (0.01-0.20) K/uL PT (9.0-12.0) Seconds INR (0.9-1.1) APTT (21.0-31.0) Seconds PTT Ratio Sodium 138 (136-145) mmol/L Potassium 3.8 (3.5-5.1) mmol/L Chloride 102 (98-107) mmol/L Carbon Dioxide 28 (21-32) mmol/L Anion Gap 8 (3-11) BUN 14 (6-23) mg/dl Creatinine 0.63 (0.6-1.2) mg/dl Est Cr Clr Drug Dosing 47.5 ml/min Est GFR ( Amer) 93.5 ml/min Est GFR (Non-Af Amer) 80.6 ml/min BUN/Creatinine Ratio 22.2 H (10-20) Glucose 94 (70-99(Fasting)) mg/dl Calcium 8.5 L (8.6-10.3) mg/dl Magnesium 1.6 L (1.7-2.4) mg/dl Iron Cancelled (35-150) mcg/dl TIBC Cancelled (250-450) mcg/dl Unsaturated IBC Cancelled (155-355) mcg/dl Transferrin % Sat Cancelled (15-50) % Ferritin Cancelled (8-388) ng/ml Total Bilirubin (0.2-1.0) mg/dl AST (13-39) U/L ALT (7-52) U/L Alkaline Phosphatase (34-104) U/L Troponin I High Sens 39.0 H (0-14) pg/ml B-Natriuretic Peptide (0-100) pg/ml Total Protein (6.0-8.3) gm/dl Albumin (3.4-5.0) gm/dl Globulin (2.5-4.0) gm/dl Albumin/Globulin Ratio (0.9-2) Vitamin B12 (180-914) pg/ml Folate (>5.38) ng/ml TSH (0.300-4.500) uIu/ml Free T4 (0.61-1.60) ng/dl Free T3 (2.3-4.2) pg/ml Digoxin (0.8-2.0) ng/ml SARS-CoV-2, RNA, NAAT (NEGATIVE) 11/18/22 11/18/22 11/18/22 Range/Units 16:18 16:18 16:18 WBC (4.8-10.8) K/ul RBC (4.20-5.40) M/uL Hgb (12.0-16.0) g/dl Hct (37.0-47.0) % MCV (80.0-100.0) fL MCH (25.0-34.0) pg MCHC (32.0-36.0) g/dL RDW Std Deviation (36.4-46.3) fL RDW Coeff of Mya (11.5-14.5) % Plt Count (130-400) K/uL MPV (9.4-12.4) fL Immature Gran % (Auto) % Neut % (Auto) % Lymph % (Auto) % Bulloch % (Auto) % Eos % (Auto) % Baso % (Auto) % Neut # (Auto) (1.40-6.50) K/uL Lymph # (Auto) (1.2-3.4) K/uL Bulloch # (Auto) (0.11-0.59) K/uL Eos # (Auto) (0-0.50) K/uL Baso # (Auto) (0-0.2) K/uL Immature Gran # (Auto) (0.01-0.20) K/uL PT (9.0-12.0) Seconds INR (0.9-1.1) APTT (21.0-31.0) Seconds PTT Ratio Sodium (136-145) mmol/L Potassium (3.5-5.1) mmol/L Chloride (98-107) mmol/L Carbon Dioxide (21-32) mmol/L Anion Gap (3-11) BUN (6-23) mg/dl Creatinine (0.6-1.2) mg/dl Est Cr Clr Drug Dosing ml/min Est GFR ( Amer) ml/min Est GFR (Non-Af Amer) ml/min BUN/Creatinine Ratio (10-20) Glucose (70-99(Fasting)) mg/dl Calcium (8.6-10.3) mg/dl Magnesium (1.7-2.4) mg/dl Iron (35-150) mcg/dl TIBC (250-450) mcg/dl Unsaturated IBC (155-355) mcg/dl Transferrin % Sat (15-50) % Ferritin (8-388) ng/ml Total Bilirubin (0.2-1.0) mg/dl AST (13-39) U/L ALT (7-52) U/L Alkaline Phosphatase (34-104) U/L Troponin I High Sens (0-14) pg/ml B-Natriuretic Peptide (0-100) pg/ml Total Protein (6.0-8.3) gm/dl Albumin (3.4-5.0) gm/dl Globulin (2.5-4.0) gm/dl Albumin/Globulin Ratio (0.9-2) Vitamin B12 284 (180-914) pg/ml Folate > 22.30 (>5.38) ng/ml TSH 9.065 H (0.300-4.500) uIu/ml Free T4 1.14 (0.61-1.60) ng/dl Free T3 2.71 (2.3-4.2) pg/ml Digoxin (0.8-2.0) ng/ml SARS-CoV-2, RNA, NAAT (NEGATIVE) 11/18/22 11/18/22 11/18/22 Range/Units 16:18 16:17 16:17 WBC (4.8-10.8) K/ul RBC (4.20-5.40) M/uL Hgb (12.0-16.0) g/dl Hct (37.0-47.0) % MCV (80.0-100.0) fL MCH (25.0-34.0) pg MCHC (32.0-36.0) g/dL RDW Std Deviation (36.4-46.3) fL RDW Coeff of Mya (11.5-14.5) % Plt Count (130-400) K/uL MPV (9.4-12.4) fL Immature Gran % (Auto) % Neut % (Auto) % Lymph % (Auto) % Bulloch % (Auto) % Eos % (Auto) % Baso % (Auto) % Neut # (Auto) (1.40-6.50) K/uL Lymph # (Auto) (1.2-3.4) K/uL Bulloch # (Auto) (0.11-0.59) K/uL Eos # (Auto) (0-0.50) K/uL Baso # (Auto) (0-0.2) K/uL Immature Gran # (Auto) (0.01-0.20) K/uL PT 12.6 H (9.0-12.0) Seconds INR 1.2 H (0.9-1.1) APTT 30.9 (21.0-31.0) Seconds PTT Ratio 1.1 Sodium (136-145) mmol/L Potassium (3.5-5.1) mmol/L Chloride (98-107) mmol/L Carbon Dioxide (21-32) mmol/L Anion Gap (3-11) BUN (6-23) mg/dl Creatinine (0.6-1.2) mg/dl Est Cr Clr Drug Dosing ml/min Est GFR ( Amer) ml/min Est GFR (Non-Af Amer) ml/min BUN/Creatinine Ratio (10-20) Glucose (70-99(Fasting)) mg/dl Calcium (8.6-10.3) mg/dl Magnesium (1.7-2.4) mg/dl Iron (35-150) mcg/dl TIBC (250-450) mcg/dl Unsaturated IBC (155-355) mcg/dl Transferrin % Sat (15-50) % Ferritin (8-388) ng/ml Total Bilirubin (0.2-1.0) mg/dl AST (13-39) U/L ALT (7-52) U/L Alkaline Phosphatase (34-104) U/L Troponin I High Sens (0-14) pg/ml B-Natriuretic Peptide (0-100) pg/ml Total Protein (6.0-8.3) gm/dl Albumin (3.4-5.0) gm/dl Globulin (2.5-4.0) gm/dl Albumin/Globulin Ratio (0.9-2) Vitamin B12 (180-914) pg/ml Folate (>5.38) ng/ml TSH (0.300-4.500) uIu/ml Free T4 (0.61-1.60) ng/dl Free T3 (2.3-4.2) pg/ml Digoxin 0.8 (0.8-2.0) ng/ml SARS-CoV-2, RNA, NAAT NEGATIVE (NEGATIVE) 11/18/22 11/18/22 11/18/22 Range/Units 16:17 16:17 16:17 WBC 5.66 (4.8-10.8) K/ul RBC 3.80 L (4.20-5.40) M/uL Hgb 9.8 L (12.0-16.0) g/dl Hct 31.5 L (37.0-47.0) % MCV 82.9 (80.0-100.0) fL MCH 25.8 (25.0-34.0) pg MCHC 31.1 L (32.0-36.0) g/dL RDW Std Deviation 49.1 H (36.4-46.3) fL RDW Coeff of Mya 16.2 H (11.5-14.5) % Plt Count 361 (130-400) K/uL MPV 10.3 (9.4-12.4) fL Immature Gran % (Auto) 0.2 % Neut % (Auto) 72.6 % Lymph % (Auto) 15.2 % Bulloch % (Auto) 9.9 % Eos % (Auto) 1.2 % Baso % (Auto) 0.9 % Neut # (Auto) 4.11 (1.40-6.50) K/uL Lymph # (Auto) 0.86 L (1.2-3.4) K/uL Bulloch # (Auto) 0.56 (0.11-0.59) K/uL Eos # (Auto) 0.07 (0-0.50) K/uL Baso # (Auto) 0.05 (0-0.2) K/uL Immature Gran # (Auto) 0.01 (0.01-0.20) K/uL PT (9.0-12.0) Seconds INR (0.9-1.1) APTT (21.0-31.0) Seconds PTT Ratio Sodium 137 (136-145) mmol/L Potassium 4.3 (3.5-5.1) mmol/L Chloride 101 (98-107) mmol/L Carbon Dioxide 27 (21-32) mmol/L Anion Gap 9 (3-11) BUN 18 (6-23) mg/dl Creatinine 0.66 (0.6-1.2) mg/dl Est Cr Clr Drug Dosing 45.3 ml/min Est GFR ( Amer) 92.1 ml/min Est GFR (Non-Af Amer) 79.4 ml/min BUN/Creatinine Ratio 27.3 H (10-20) Glucose 117 H (70-99(Fasting)) mg/dl Calcium 9.1 (8.6-10.3) mg/dl Magnesium (1.7-2.4) mg/dl Iron 11 L (35-150) mcg/dl TIBC 268 (250-450) mcg/dl Unsaturated IBC 257 (155-355) mcg/dl Transferrin % Sat 4 L (15-50) % Ferritin 83.3 (8-388) ng/ml Total Bilirubin 0.5 (0.2-1.0) mg/dl AST 21 (13-39) U/L ALT 11 (7-52) U/L Alkaline Phosphatase 76 (34-104) U/L Troponin I High Sens 41.3 H (0-14) pg/ml B-Natriuretic Peptide 380 H (0-100) pg/ml Total Protein 6.6 (6.0-8.3) gm/dl Albumin 3.4 (3.4-5.0) gm/dl Globulin 3.2 (2.5-4.0) gm/dl Albumin/Globulin Ratio 1.1 (0.9-2) Vitamin B12 (180-914) pg/ml Folate (>5.38) ng/ml TSH (0.300-4.500) uIu/ml Free T4 (0.61-1.60) ng/dl Free T3 (2.3-4.2) pg/ml Digoxin (0.8-2.0) ng/ml SARS-CoV-2, RNA, NAAT (NEGATIVE) PG Care Time/CCT Total # of Minutes Spent Total Time Spent with Patient: Total time spent is greater than 50% in coordination of care (as documented) at patient's floor/unit and/or counseling patient: Coding Level of Care Code 53476 SUB INP/OBS CARE 3/50MIN Diagnoses LUCIA (dyspnea on exertion) R06.09 Permanent atrial fibrillation I48.21 Pulmonary edema J81.0 Chronicity: acute Hx of CABG Z95.1 Chronic diastolic CHF (congestive heart failure) I50.32 Myopathy G72.9 PMR (polymyalgia rheumatica) M35.3 GERD without esophagitis K21.9 Insomnia G47.00 (3) Pulmonary edema Chronicity: acute Qualified Code(s): J81.0 - Acute pulmonary edema
[2022-11-19 08:19] LABS: Basophils # (auto) 0.03 K/uL (0-0.2); Basophils % (auto) 0.6 %; Eosinophils # (auto) 0.16 K/uL (0-0.50); Eosinophils % (auto) 3.4 %; Hematocrit (blood only) 27.1 % (37.0-47.0); Hemoglobin 8.9 g/dl (12.0-16.0); Immature Granulocytes # (auto) 0.01 K/uL (0.01-0.20); Immature Granulocytes % (auto) 0.2 %; Lymphocytes # (auto) 0.95 K/uL (1.2-3.4); Lymphocytes % (auto) 20.1 %; Mean Corpuscular Hemoglobin 26.1 pg (25.0-34.0); Mean Corpuscular Hgb Conc 32.8 g/dL (32.0-36.0); Mean Corpuscular Volume 79.5 fL (80.0-100.0); Mean Platelet Volume 10.1 fL (9.4-12.4); Monocytes # (auto) 0.56 K/uL (0.11-0.59); Monocytes % (auto) 11.8 %; Neutrophils # (auto) 3.02 K/uL (1.40-6.50); Neutrophils % (auto) 63.9 %; Platelet Count 330 K/uL (130-400); RDW Coefficient of Variation 16.4 % (11.5-14.5); RDW Standard Deviation 47.1 fL (36.4-46.3); Red Blood Count 3.41 M/uL (4.20-5.40); White Blood Count 4.73 K/ul (4.8-10.8)
[2022-11-19] MEDS: dilTIAZem HCL 120 MG CAPCR PO SCH ×2 (08:21→21:19)
[2022-11-19] MEDS: APIXABAN 2.5 MG TAB PO SCH ×2 (08:21→21:20)
[2022-11-19] MEDS: POTASSIUM CHLORIDE CRTAB 20 MEQ TABCR PO SCH ×2 (08:21→22:10)
[2022-11-19] MEDS: DIGOXIN 0.125 MG TAB PO SCH (08:21)
[2022-11-19] MEDS: PYRIDOXINE HCL 50 MG TAB PO SCH (08:22)
[2022-11-19] MEDS: SPIRONOLACTONE 25 MG TAB PO SCH (08:22)
[2022-11-19] MEDS: PANTOprazole 40 MG TAB PO SCH (08:22)
[2022-11-19] MEDS: FUROSEMIDE INJ 20 MG/2 ML VIAL IV SCH ×2 (08:22→16:48)
[2022-11-19 08:44] LABS: BUN Creatinine Ratio 22.2 (10-20); Calcium 8.5 mg/dl (8.6-10.3); Creatinine Clr Calc Pharmacy 47.5 ml/min; Est GFR (African American) 93.5 ml/min; Est GFR (Non-African American) 80.6 ml/min; Magnesium 1.6 mg/dl (1.7-2.4); Potassium 3.8 mmol/L (3.5-5.1)
[2022-11-19] MEDS ORDERED: IRON SUCROSE 300 MG in SODIUM CHLORIDE 0.9% 250 ML IV ONE (09:00)
[2022-11-19 09:08] LABS: Thyroid Stimulating Hormone 9.065 uIu/ml (0.300-4.500)
[2022-11-19 09:24] LABS: Vitamin B12 284 pg/ml (180-914)
[2022-11-19 09:44] LABS: T4 Free Thyroxine 1.14 ng/dl (0.61-1.60)
[2022-11-19] MEDS ORDERED: CYANOCOBALAMIN (B-12) 500 MCG TABLET PO SCH (10:15)
[2022-11-19] MEDS: MAGNESIUM SULFATE / D5W 1 GM/100 ML BAG IV SCH ×2 (11:05→14:33)
--- NOTE | 2022-11-19 13:15 | Electrocardiogram Report ---
Test Reason : Blood Pressure : / mmHG Vent. Rate : 084 BPM Atrial Rate : 086 BPM P-R Int : 000 ms QRS Dur : 130 ms QT Int : 390 ms P-R-T Axes : 000 -40 018 degrees QTc Int : 460 ms Poor data quality, interpretation may be adversely affected Atrial fibrillation Left axis deviation Right bundle branch block Abnormal ECG When compared with ECG of 02-OCT-2022 21:27, Right bundle branch block has replaced Non-specific intra-ventricular conduction block Confirmed by Chuck Briones ([id number]) on 11/19/2022 1:15:03 PM Referred By: ED Confirmed By:Cristino Briones
--- NOTE | 2022-11-19 16:52 | Cardiology Consultation ---
Date of Consultation November 19, 2022 Assessment & Plan (1) LUCIA (dyspnea on exertion): (2) Severe tricuspid regurgitation: (3) Severe mitral regurgitation: (4) Heart failure with mid-range ejection fraction (HFmEF): (5) Coronary artery disease: (6) Permanent atrial fibrillation: Plan 1. Dyspnea: Likely an element of pulmonary vascular congestion. Possibly related to dietary indiscretion and high sodium intake a couple of days ago. In the past has been some difficulty with aggressive diuresis due to electrolyte and renal dysfunction. She seems to be responding well currently. I think we will continue on her current dose of diuretics monitoring electrolytes and renal function closely. 2. Cardiomyopathy: She appears to have worsening LV systolic function. Echocardiogram obtained in December of 2021 revealed normal LV function. Based on her response to diuresis we could make her medical regimen more aggressive to include Husam inhibition, Entresto and or Jardiance. 3. Right ventricular dysfunction: Some of her symptoms may be related to right ventricular dysfunction. Will need to monitor hemodynamics closely. 4. Coronary artery disease: No current symptoms suggestive of coronary insufficiency or ischemia. Mildly reduced LV systolic function but no regional wall motion abnormalities. Continue secondary prevention with atorvastatin and apixaban. 5. Atrial fibrillation: Permanent. Good rate control. Normally we would want to use beta-blockers instead of diltiazem for rate control in the setting of her cardiomyopathy. However, she appears to have had an intolerance free. On systemic anticoagulation. 6. Valvular heart disease: She has severe mitral and tricuspid regurgitation. No great options for treatment other than diuresis and medical therapy. We will see how she response to diuresis. History of Present Illness Reason for Consultation: Dyspnea, congestive heart failure Requesting Physician: Marquez Attending Physician: John Piper MD History of Present Illness The patient is an 86-year-old woman with a history of coronary disease and associated ischemic cardiomyopathy. She also suffers from permanent atrial fibrillation and severe valvular heart disease. She presented to the outpatient clinic yesterday with complaints of worsening dyspnea and edema. Generally the patient is able to care for her home and walks short distances without limiting dyspnea. He states she was mildly dyspneic leading up to the past few days when her symptoms worsened significantly. She does measure her weight at home and did not report any weight gain. However she did report lower extremity edema. She seems to have some sleeping difficulty and orthopnea as well. She denies missing any medications. She has not been aware of any palpitations or rapid heartbeats. She denies dizziness or lightheadedness. She does have a sleep disturbance characterized by restless leg syndrome. She did report some dietary indiscretion recently. At Easter time she ate her traditional meal which includes a lot of preserved meats and cottage cheese. Since admission she has been administered diuretics and stated that she has noticed some improvement in her breathing. Allergies Allergy/AdvReac Type Severity Reaction Status Date / Time Beta-Blockers Allergy Unknown Unknown Verified 11/19/22 16:51 (Beta-Adrenergic Bloc prochlorperazine Allergy Unknown "combid" Verified 11/18/22 16:24 Unknown aspirin AdvReac Intermediate stomach Verified 11/18/22 16:24 pains methotrexate AdvReac Intermediate elevated Verified 11/18/22 16:24 liver levels COMBID Allergy Unknown Unknown Uncoded 11/18/22 16:24 Home Medications Medication Instructions Recorded Confirmed Type calcium carbonate 600 mg-vitamin 1 tab PO QDL 06/05/18 11/18/22 History D3 5 mcg (200 unit) capsule (Calcium 600 + D(3)) cyanocobalamin (vitamin B-12) 1,000 mcg PO 2XWK 08/16/20 11/18/22 History 1,000 mcg tablet multivitamin (Daily Multi-Vitamin 1 tab PO DAILY 08/16/20 11/18/22 History tablet) pyridoxine (vitamin B6) 100 mg 100 mg PO DAILY 10/08/21 11/18/22 History tablet atorvastatin 10 mg tablet 10 mg PO HS #90 tabs 01/31/22 11/18/22 Rx omeprazole 20 mg capsule,delayed 20 mg PO DAILY #90 caps 02/24/22 11/18/22 Rx release diltiazem HCl 120 mg 120 mg PO BID #180 caps 03/26/22 11/18/22 Rx capsule,extended release 24 hr (Cartia XT) ipratropium bromide 21 mcg (0.03 2 spray intranasal TID #30 mL 07/09/22 11/18/22 Rx %) nasal spray digoxin 125 mcg (0.125 mg) tablet 125 mcg PO Q2D #14 tabs 08/21/22 11/18/22 Rx apixaban 2.5 mg tablet (Eliquis) 2.5 mg PO BID #180 tabs 09/19/22 11/18/22 Rx magnesium 200 mg tablet 0 mg PO HS 10/03/22 11/18/22 History spironolactone 25 mg tablet 25 mg PO DAILY #90 tabs 10/16/22 11/18/22 Rx albuterol sulfate 90 mcg/actuation 1 inh inhalation QID PRN shortness 11/03/22 11/18/22 Rx aerosol inhaler of breath or wheezing #8.5 grams bumetanide 1 mg tablet 2 mg PO DAILY PRN weight gain, 11/07/22 11/18/22 History edema, SOB mirtazapine 30 mg tablet 30 mg PO HS 11/18/22 11/18/22 History potassium chloride 20 mEq 20 meq PO BID PRN TAKE WHEN TAKES 11/18/22 11/18/22 History tablet,extended release BUMEX Patient History Medical History (Updated 11/18/22 @ 18:17 by Jamie Mcdaniel MD) Chronic diastolic CHF (congestive heart failure) DENIES CURRENT OR HX OF Coronary artery disease 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 Lyme disease HX OF Osteoporosis SNHL (sensorineural hearing loss) Temporal arteritis HX OF 3 YR AGO Surgical History History of breast surgery History of cholecystectomy History of colonoscopy History of hysterectomy History of left cataract surgery History of myringotomy History of temporal artery biopsy Hx of CABG (2006) TRIPLE BYPASS Family History Mother Myocardial infarction Hypertension Cardiac disorder Brother Prostate cancer Myocardial infarction FHx: deafness or hearing loss Father Cardiac disorder Sister Colon cancer FHx: deafness or hearing loss Non-Hodgkin lymphoma Brother Cardiac disorder Hypertension Denies family history of Ovarian cancer Breast cancer Social History Smoking Status: Never smoker Second Hand Exposure: No; Hx Alcohol Use: No Hx Substance Use: No Preferred Language: Mohawk Communication Ability: Effective Visual Impairment: Limited Hearing Ability: Use of Hearing Aid [place] Required: No Beliefs That Will Affect Care: None marital status: / Current Living Situation: Family Current Living Situation Comment: with daughter for last 3 weeks current occupational status: retired current occupation: used to work at the [employer] Other Information That Helps Us Care for You: No Feels Safe at Home: Yes Safety Concerns: Feels Safe At This Time Childhood Exposure to Second-Hand Smoke: No caffeine: Yes (Soda occasional.) during the past year weight has: remained stable Dental Care, Regularly: Yes Physical Activity Frequency: Does not Exercise Seatbelt Use: always Sunscreen Use: No (isn't out in the sun ) Assistive Devices: Walker Review of Systems Review of Systems: Per HPI. Tired. Difficult to sleep. Physical Exam Physical Exam: She is alert and oriented x3. Mood affect appear normal. She answered all questions appropriately. HEENT: Sclerae are anicteric. Pupils are equal and reactive to light and accommodation. Extraocular movements were intact. Neuro: Cranial nerves intact Lungs: Lungs are clear to auscultation bilaterally. There are no rales wheezes or rhonchi. She has normal respiratory effort without use of accessory muscles. There is normal pulmonary excursion. Cardiac: The rhythm was regular. S1 and S2 were normal. Holosystolic murmur. The PMI was not markedly displaced on palpation. Abdomen: The abdomen was soft and nontender. Extremities: Patient has bilateral radial pulses that are equal in intensity. There is no evidence cyanosis or clubbing. Mild lower extremity edema, right worse than left Skin: There are no rashes noted on examination today. Results & Data Vital Signs (Past 12 Hours) Vital Signs Temp Pulse Pulse Resp BP Pulse Ox O2 Del Method 11/19/22 15:57 67 11/19/22 11:49 36.7 C 71 20 141/63 H 97 Room Air 11/19/22 08:30 Nasal Cannula 11/19/22 09:18 36.7 C 87 20 132/70 98 Nasal Cannula 11/19/22 08:21 86 11/19/22 08:00 36.7 C 83 20 132/64 96 Nasal Cannula O2 Flow Rate 11/19/22 15:57 11/19/22 11:49 11/19/22 08:30 2 11/19/22 09:18 2 11/19/22 08:21 11/19/22 08:00 2 Laboratory Results Abnormal Lab Results 11/18/22 11/18/22 11/18/22 16:17 16:17 16:17 WBC 5.66 RBC 3.80 L Hgb 9.8 L Hct 31.5 L MCV 82.9 MCH 25.8 MCHC 31.1 L RDW Std Deviation 49.1 H RDW Coeff of Mya 16.2 H Plt Count 361 MPV 10.3 Immature Gran % (Auto) 0.2 Neut % (Auto) 72.6 Lymph % (Auto) 15.2 [place] % (Auto) 9.9 Eos % (Auto) 1.2 Baso % (Auto) 0.9 Neut # (Auto) 4.11 Lymph # (Auto) 0.86 L [place] # (Auto) 0.56 Eos # (Auto) 0.07 Baso # (Auto) 0.05 Immature Gran # (Auto) 0.01 PT INR APTT PTT Ratio Sodium 137 Potassium 4.3 Chloride 101 Carbon Dioxide 27 Anion Gap 9 BUN 18 Creatinine 0.66 Est Cr Clr Drug Dosing 45.3 Est GFR ( Amer) 92.1 Est GFR (Non-Af Amer) 79.4 BUN/Creatinine Ratio 27.3 H Glucose 117 H Calcium 9.1 Magnesium Iron 11 L TIBC 268 Unsaturated IBC 257 Transferrin % Sat 4 L Ferritin 83.3 Total Bilirubin 0.5 AST 21 ALT 11 Alkaline Phosphatase 76 Troponin I High Sens 41.3 H B-Natriuretic Peptide 380 H Total Protein 6.6 Albumin 3.4 Globulin 3.2 Albumin/Globulin Ratio 1.1 Vitamin B12 Folate TSH Free T4 Free T3 Digoxin SARS-CoV-2, RNA, NAAT 11/18/22 11/18/22 11/18/22 16:17 16:17 16:18 WBC RBC Hgb Hct MCV MCH MCHC RDW Std Deviation RDW Coeff of Mya Plt Count MPV Immature Gran % (Auto) Neut % (Auto) Lymph % (Auto) [place] % (Auto) Eos % (Auto) Baso % (Auto) Neut # (Auto) Lymph # (Auto) [place] # (Auto) Eos # (Auto) Baso # (Auto) Immature Gran # (Auto) PT 12.6 H INR 1.2 H APTT 30.9 PTT Ratio 1.1 Sodium Potassium Chloride Carbon Dioxide Anion Gap BUN Creatinine Est Cr Clr Drug Dosing Est GFR ( Amer) Est GFR (Non-Af Amer) BUN/Creatinine Ratio Glucose Calcium Magnesium Iron TIBC Unsaturated IBC Transferrin % Sat Ferritin Total Bilirubin AST ALT Alkaline Phosphatase Troponin I High Sens B-Natriuretic Peptide Total Protein Albumin Globulin Albumin/Globulin Ratio Vitamin B12 Folate TSH Free T4 Free T3 Digoxin 0.8 SARS-CoV-2, RNA, NAAT NEGATIVE 11/18/22 11/18/22 11/18/22 16:18 16:18 16:18 WBC RBC Hgb Hct MCV MCH MCHC RDW Std Deviation RDW Coeff of Mya Plt Count MPV Immature Gran % (Auto) Neut % (Auto) Lymph % (Auto) [place] % (Auto) Eos % (Auto) Baso % (Auto) Neut # (Auto) Lymph # (Auto) [place] # (Auto) Eos # (Auto) Baso # (Auto) Immature Gran # (Auto) PT INR APTT PTT Ratio Sodium Potassium Chloride Carbon Dioxide Anion Gap BUN Creatinine Est Cr Clr Drug Dosing Est GFR ( Amer) Est GFR (Non-Af Amer) BUN/Creatinine Ratio Glucose Calcium Magnesium Iron TIBC Unsaturated IBC Transferrin % Sat Ferritin Total Bilirubin AST ALT Alkaline Phosphatase Troponin I High Sens B-Natriuretic Peptide Total Protein Albumin Globulin Albumin/Globulin Ratio Vitamin B12 284 Folate > 22.30 TSH 9.065 H Free T4 1.14 Free T3 2.71 Digoxin SARS-CoV-2, RNA, NAAT 11/18/22 11/19/22 11/19/22 18:53 07:26 07:26 WBC 4.73 L RBC 3.41 L Hgb 8.9 L Hct 27.1 L MCV 79.5 L MCH 26.1 MCHC 32.8 RDW Std Deviation 47.1 H RDW Coeff of Mya 16.4 H Plt Count 330 MPV 10.1 Immature Gran % (Auto) 0.2 Neut % (Auto) 63.9 Lymph % (Auto) 20.1 [place] % (Auto) 11.8 Eos % (Auto) 3.4 Baso % (Auto) 0.6 Neut # (Auto) 3.02 Lymph # (Auto) 0.95 L [place] # (Auto) 0.56 Eos # (Auto) 0.16 Baso # (Auto) 0.03 Immature Gran # (Auto) 0.01 PT INR APTT PTT Ratio Sodium 138 Potassium 3.8 Chloride 102 Carbon Dioxide 28 Anion Gap 8 BUN 14 Creatinine 0.63 Est Cr Clr Drug Dosing 47.5 Est GFR ( Amer) 93.5 Est GFR (Non-Af Amer) 80.6 BUN/Creatinine Ratio 22.2 H Glucose 94 Calcium 8.5 L Magnesium 1.6 L Iron Cancelled TIBC Cancelled Unsaturated IBC Cancelled Transferrin % Sat Cancelled Ferritin Cancelled Total Bilirubin AST ALT Alkaline Phosphatase Troponin I High Sens 39.0 H B-Natriuretic Peptide Total Protein Albumin Globulin Albumin/Globulin Ratio Vitamin B12 Folate TSH Free T4 Free T3 Digoxin SARS-CoV-2, RNA, NAAT Diagnostic Findings Echocardiogram obtained 11/06/2022: Ejection fraction 40-45%. Moderate right ventricular dilation. Mildly reduced right ventricular systolic function. Severe mitral and tricuspid regurgitation. Moderate size left pleural effusion. Chest x-ray obtained the time admission revealed cardiomegaly with mild pulmo nary edema and layering pleural effusion. ECG Additional Comments: Fibrillation with a controlled ventricular rate. Right bundle branch block and left anterior fascicular block. PG Care Time/CCT Total # of Minutes Spent Total Time Spent with Patient: Total time spent is greater than 50% in coordination of care (as documented) at patient's floor/unit and/or counseling patient: Coding Level of Care Code 45821 INT INP/OBS CARE 3/75MIN Diagnoses LUCIA (dyspnea on exertion) R06.09 Severe tricuspid regurgitation I07.1 Severe mitral regurgitation I34.0 Heart failure with mid-range ejection fraction (HFmEF) I50.22 Coronary artery disease I25.10 Permanent atrial fibrillation I48.21
[2022-11-19] MEDS: CYANOCOBALAMIN 1000 MCG/ML VIAL IM SCH (17:52)
[2022-11-19] MEDS: ATORVASTATIN 10 MG TAB PO SCH (21:19)
[2022-11-19] MEDS: MIRTAZAPINE TAB 15 MG TAB PO SCH (21:20)
[2022-11-19] MEDS ORDERED: SALINE NASAL 225 SPRAYS, GENTAMICIN SULFATE 60 MG, BARCODE IDENTIFIER 0 EACH PRN (21:21)
[2022-11-19] MEDS ORDERED: SODIUM CHLORIDE 0.65% NA SOLN 45 ML (OCEAN) ONE (21:24)
[2022-11-19] MEDS ORDERED: SODIUM CHLORIDE 0.65% NA SOLN 45 ML (OCEAN) NAE PRN (21:54)
[2022-11-20 07:32] LABS: Hematocrit (blood only) 27.9 % (37.0-47.0); Hemoglobin 9.2 g/dl (12.0-16.0); Mean Corpuscular Hemoglobin 26.2 pg (25.0-34.0); Mean Corpuscular Volume 79.5 fL (80.0-100.0); Mean Platelet Volume 10.1 fL (9.4-12.4); Platelet Count 322 K/uL (130-400); RDW Coefficient of Variation 16.4 % (11.5-14.5); RDW Standard Deviation 47.4 fL (36.4-46.3); Red Blood Count 3.51 M/uL (4.20-5.40); White Blood Count 5.36 K/ul (4.8-10.8)
--- NOTE | 2022-11-20 07:49 | Hospitalist Progress Note ---
Date of Service November 20, 2022 Assessment & Plan (1) LUCIA (dyspnea on exertion): Plan: Dyspnea on exertion, history of heart failure with midrange ejection fraction. History of CABG 2006 Suspect acute on chronic CHF 2nd progression of valvular disease, reduced RV function is noted. Echo 11/06/22: EF 40-45%. Moderate global hypokinesis of LV. Severe mitral regurg, severe tricuspid regurg, LV SP normal, moderate left pleural effusion No salt load over Easter reported initially, however, per discussion w/ cards - Dr Briones 11/19, she did admit to him what appears to have been heavy salt load/smoked meats/etc, could have put her in current state CXR on admission w/ cardiomegaly w/ mild pulmonary edema/layering pleural effusions, bibasilar consolidation. No leukocytosis to suspect pneumonia and suspect compressive atelectasis from volume overload/effusions BNP elevated 380 (was 353 beginning of October) --> Per daughter, they have NOT used any bumex. Patient was on high doses steroids for giant cell arteritis for years, tapers to nothing earlier this year in September. Cardiology consulted -- appreciate recs/assistance/management ?consideration for low dose carvedilol per discussion w/ CHF provider this morning. Vs CAPRICE/ARB -- awaiting eval/to hear back from Dr Briones once he sees patient today Continues on Lasix 20mg IV BID (hold for hypotension) -- net negative 880cc 11/19, currently net negative -1.95L and kidney function remains stable. Continue spironolactone 25mg daily Remains on Dig for afib, rate controlled -- level 0.8 & therapeutic Weights not as accurate -- standing vs bedscale. Asked nursing to obtain standing scale weights ONLY Mag 1.6 -- IV replacement ordered and repeat mag improved to 1.8 and ordered additional 1gm IV (reported RLS/cramping -- also see anemia below -- getting venofer infusions) PT/OT consultations placed -- home w/ HH planned CM following -- rx for hospital bed provided for patient, as "The patient requires the head of the bed to be elevated more than 30 degrees most of the time due to congestive heart failure and this is not feasible with an ordinary bed" Monitor labs in AM (2) Chronic diastolic CHF (congestive heart failure): Plan: as above, most recent echo w/ reduced RV systolic function diuresis w/ lasix IV BID cards consulted -- consideration for carvedilol vs CAPRICE/Jardiance etc -- defer to cards (apparently intolerance to BB in the past noted) (3) Iron deficiency anemia: Plan: Anemia w/ hgb 8-9 on admit w/ prior baselines 10-11 Iron panel checked given anemia/MCV <80 -- studies c/w RAYRAY w/ iron low at 11, trans % sat 4 --> Venofer 300mg IV ordered, on day 2/3 and will complete 3 doses while inpatient B12 boderline low -- IM replacement ordered while inpatient and can continue PO at d/c. Folate >22. TSH elevated, ?reactive from acute CHF/valvular heart disease state but T4/T3 wnl and will not be initiating any synthroid replacement at present. Fecal occult ordered for completeness Hgb stable/improved w/ diuretics and venofer --> 9.2 and will monitor blood counts (4) Permanent atrial fibrillation: Plan: Atrial fibrillation, rates 60-80s Remains on dig -- therapeutic on level check Remains on eliquis BID, reduced dose for age/weight Continues on diltiazem Consideration to add low dose carvedilol vs CAPRICE as above Keeping mag ~2, K ~4 (5) Elevated TSH: Plan: Checked TSH given afib/not on any replacement TSH was elevated to 9.065, however T4/T3 were wnl Suspected reactive/elevation initially, however patient did see Neuro back in 2020 and had an elevated Thyroid antimicrosomal antibody elevation at that time, making me suspicious for an underlying Hashimotos --> will add TPO to AM labs ?if contributing to weakness/muscle cramping/weight gain/fatigue/dry hair/etc Discussed w/ Dr Cardenas, could consider starting low dose synthroid 25mcg daily. Discussed w/ supervising provider who would like to hold off starting supplementation given T4/T3 wnl at this point. Dr Cardenas happy to see patient in f/u -- metal bonding crib attendant to assist with arranging for the morning (6) Elevated troponin: Plan: Trop 41.5 (low 50s last month), clinically improving w/ diuretics and suspect demand ischemia from volume overload 2nd to progressive valvular disease as well as salt load/dietary indescretions w/ easter no CP reported SOB improving w/ diuretic therapy EKG w/ CP (7) Pulmonary edema: Plan: Improving Repeat CXR w/ mild congestive changes noted again -- remains on lasix as outlined improvement in breathing/LE edema reported, net negative Titrated to RA during the day (uses 2L at night reported) monitor (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 Has hx dermatomyositis as well (was on tx/follows rheumatology) GCA/PMR Prednisone gradually down titrated over several years, patient noticed that she also had arteritis associated with this Completed a 3-year taper of prednisone which she is no longer on Continue to follow for vision changes/headaches, none present at time of assessment No change in acute management (9) PMR (polymyalgia rheumatica): (10) GERD without esophagitis: Plan: GERD Continue Protonix 20 mg daily (11) Insomnia: Plan: Insomnia Saw 10/31/2022 sleep clinic, insomnia suspect with an underlying anxiety component. Melatonin without improvement in sleep quality, Seroquel 75 mg without improvement and which was thought to have contributed to fluid retention, temazepam and benzos limited by hallucinations and fall, Remeron started without significant improvement but without side effects We will continue Remeron at this time Also check iron studies as above, possible restless legs keeping her up at night . ferritin 83. venofer for iron deficiency/low sats as above (12) Hx of CABG: Plan: reported hx 2006, follows w/ Dr Araujo remains on eliquis BID, statin Plan continued inpatient stay continue lasix 20mg IV BID, monitor weight/volume status on examination PT/OT consulted (per CM, family asking for hospital bed as well -- can provide rx tomorrow) Admission and Anticipated Discharge Date Admission Date: November 18, 2022 Supervising Physician Co-Signing Physician Notes The patient was not seen by me. The chart was reviewed. Case discussed with DOUGLAS Denney. Agree with assessment and plan Subjective Eval this morning, doing better. LE edema improved, net negative 1.7L. Discussed continuing IV diuretics for today but likely need some maintenance daily. Appetite improved. Reports breathing improved but on 2L currently-- She does note they want her to wear 2L HS at night -- asked RN to titrate/remove. Getting 2nd dose Venofer today. Reports restless leg symptoms improving. Eating/drinking without issue. Discussed bad valve, medical optimization, outpatient follow up. She is wondering if replacement/repair is possible. Touching base w/ cardiology for ongoing plan of care. No fever/chills. Questions/concerns addressed at this time. Review of Systems Review of Systems: All systems reviewed & are unremarkable except as noted in HPI & below Physical Exam Physical Exam: General: WD/WN elderly female sitting up in recliner chair, improvement in energy/demeanor, NAD HEENT: head normocephalic, atraumatic, mmm, trachea midline, +JVD Resp: diminished in the bases, no w/c, on 2L SpO2 99% (on from sleeping overnight -- asked RN to titrate/remove -- 99% on RA) CV: irregularly irregular, rates 60-70s, +murmur, REDUCED LE edema, calves nontender GI:+BS, soft/NT : jaramillo draining yellow, more concentrated urine MSK/Neuro: no focal deficit Psych: AOx3, cooperative with exam, slightly depressed affect at times but much improved today Results & Data Results & Data Vital Signs (Past 12 Hours) Vital Signs Temp Pulse Pulse Resp BP Pulse Ox Pulse Ox 11/20/22 06:03 75 11/20/22 03:22 37.4 C 69 20 131/62 97 11/20/22 00:00 90 11/19/22 23:32 37.1 C 83 20 126/50 L 97 11/19/22 21:30 96 O2 Del Method O2 Del Method O2 Flow Rate O2 Flow Rate 11/20/22 06:03 11/20/22 03:22 Nasal Cannula 2.5 11/20/22 00:00 11/19/22 23:32 Nasal Cannula 2 11/19/22 21:30 Nasal Cannula 2 Laboratory Results 11/20/22 11/20/22 11/20/22 Range/Units 07:13 07:13 07:13 WBC 5.36 (4.8-10.8) K/ul RBC 3.51 L (4.20-5.40) M/uL Hgb 9.2 L (12.0-16.0) g/dl Hct 27.9 L (37.0-47.0) % MCV 79.5 L (80.0-100.0) fL MCH 26.2 (25.0-34.0) pg MCHC 33.0 (32.0-36.0) g/dL RDW Std Deviation 47.4 H (36.4-46.3) fL RDW Coeff of Mya 16.4 H (11.5-14.5) % Plt Count 322 (130-400) K/uL MPV 10.1 (9.4-12.4) fL Sodium 135 L (136-145) mmol/L Potassium 4.3 (3.5-5.1) mmol/L Chloride 100 (98-107) mmol/L Carbon Dioxide 28 (21-32) mmol/L Anion Gap 7 (3-11) BUN 14 (6-23) mg/dl Creatinine 0.69 (0.6-1.2) mg/dl Est Cr Clr Drug Dosing 43.3 ml/min Est GFR ( Amer) 90.7 ml/min Est GFR (Non-Af Amer) 78.3 ml/min BUN/Creatinine Ratio 20.3 H (10-20) Glucose 97 (70-99(Fasting)) mg/dl Calcium 8.6 (8.6-10.3) mg/dl Magnesium 1.8 (1.7-2.4) mg/dl Total Bilirubin 0.6 (0.2-1.0) mg/dl AST 17 (13-39) U/L ALT 10 (7-52) U/L Alkaline Phosphatase 66 (34-104) U/L Total Protein 6.0 (6.0-8.3) gm/dl Albumin 3.0 L (3.4-5.0) gm/dl Globulin 3.0 (2.5-4.0) gm/dl Albumin/Globulin Ratio 1.0 (0.9-2) Cortisol AM Sample 17.04 (6.2-22.6) mcg/dl Diagnostic Findings Chest X-Ray 11/20/22 07:46 XR chest 1V portable HISTORY: f/u pulmonary edema/congestion COMPARISON: Chest 11/18/2022. FINDINGS: No pneumothorax. The heart remains enlarged. Mild congestive change persists. Small bilateral pleural effusions and bibasilar densities are again noted. There are poststernotomy changes. Pleural-parenchymal apical calcifications are again noted. IMPRESSION: 1. Cardiomegaly and mild congestive change again noted. 2. Small bilateral pleural effusions and bibasilar densities persist. ACT 112: Negative or not required by law. Electronically signed by: Jimenez Serra M.D. 11/20/2022 9:17 AM PG Care Time/CCT Total # of Minutes Spent Total Time Spent with Patient: Total time spent is greater than 50% in coordination of care (as documented) at patient's floor/unit and/or counseling patient: Coding Level of Care Code 64489 SUB INP/OBS CARE 3/50MIN Diagnoses LUCIA (dyspnea on exertion) R06.09 Chronic diastolic CHF (congestive heart failure) I50.32 Iron deficiency anemia D50.9 Permanent atrial fibrillation I48.21 Elevated TSH R79.89 Elevated troponin R77.8 Pulmonary edema J81.0 Chronicity: acute Myopathy G72.9 PMR (polymyalgia rheumatica) M35.3 GERD without esophagitis K21.9 Insomnia G47.00 Hx of CABG Z95.1 (7) Pulmonary edema Chronicity: acute Qualified Code(s): J81.0 - Acute pulmonary edema
[2022-11-20 07:51] LABS: Bilirubin,Total 0.6 mg/dl (0.2-1.0); Calcium 8.6 mg/dl (8.6-10.3); Magnesium 1.8 mg/dl (1.7-2.4); Potassium 4.3 mmol/L (3.5-5.1)
[2022-11-20 07:57] LABS: BUN Creatinine Ratio 20.3 (10-20); Creatinine Clr Calc Pharmacy 43.3 ml/min; Est GFR (African American) 90.7 ml/min; Est GFR (Non-African American) 78.3 ml/min
[2022-11-20] MEDS: CYANOCOBALAMIN 1000 MCG/ML VIAL IM SCH (08:49)
[2022-11-20] MEDS: APIXABAN 2.5 MG TAB PO SCH ×2 (08:49→22:12)
[2022-11-20] MEDS: dilTIAZem HCL 120 MG CAPCR PO SCH ×2 (08:50→22:11)
[2022-11-20] MEDS: PANTOprazole 40 MG TAB PO SCH (08:51)
[2022-11-20] MEDS: PYRIDOXINE HCL 50 MG TAB PO SCH (08:52)
[2022-11-20] MEDS: SPIRONOLACTONE 25 MG TAB PO SCH (08:52)
[2022-11-20] MEDS: FUROSEMIDE INJ 20 MG/2 ML VIAL IV SCH ×2 (09:10→17:41)
[2022-11-20] MEDS: POTASSIUM CHLORIDE CRTAB 20 MEQ TABCR PO SCH ×2 (09:11→22:13)
[2022-11-20] MEDS: IRON SUCROSE 300 MG in SODIUM CHLORIDE 0.9% 250 ML IV SCH (09:11)
--- NOTE | 2022-11-20 09:18 | XRay Report ---
XR chest 1V portable HISTORY: f/u pulmonary edema/congestion COMPARISON: Chest 11/18/2022. FINDINGS: No pneumothorax. The heart remains enlarged. Mild congestive change persists. Small bilater al pleural effusions and bibasilar densities are again noted. There are poststernotomy changes. Pleur al-parenchymal apical calcifications are again noted. IMPRESSION: 1. Cardiomegaly and mild congestive change again noted. 2. Small bilateral pleural effusions and bibasilar densities persist. ACT 112: Negative or not required by law. Electronically signed by: Jimenez Serra M.D. 11/20/2022 9:17 AM
[2022-11-20] MEDS ORDERED: MAGNESIUM SULFATE / D5W 1 GM/100 ML BAG IV ONE (10:39)
--- NOTE | 2022-11-20 18:31 | Cardiology Progress Note ---
Date of Service November 20, 2022 Assessment & Plan (1) LUCIA (dyspnea on exertion): (2) Severe tricuspid regurgitation: (3) Severe mitral regurgitation: (4) Heart failure with mid-range ejection fraction (HFmEF): (5) Coronary artery disease: (6) Permanent atrial fibrillation: Plan 1. Dyspnea: Improved. She seems to be responding to diuresis. It is very likely her "dry weight" will need to be adjusted. We will switch her to oral diuretics tomorrow. If she has continued improvement she can likely be discharged with outpatient follow-up. 2. Cardiomyopathy: She appears to have worsening LV systolic function. Echocardiogram obtained in December of 2021 revealed normal LV function. We will monitor her blood pressure. She may be a good candidate for an ARB. Also a good candidate for Jardiance. 3. Right ventricular dysfunction: Some of her symptoms may be related to right ventricular dysfunction. Will need to monitor hemodynamics closely. 4. Coronary artery disease: No current symptoms suggestive of coronary insufficiency or ischemia. Mildly reduced LV systolic function but no regional wall motion abnormalities. Continue secondary prevention with atorvastatin and apixaban. 5. Atrial fibrillation: Permanent. Good rate control. Normally we would want to use beta-blockers instead of diltiazem for rate control in the setting of her cardiomyopathy. However, she appears to have had an intolerance previously. On systemic anticoagulation. 6. Valvular heart disease: She has severe mitral and tricuspid regurgitation. No great options for treatment other than diuresis and medical therapy. We will see how she response to diuresis. Admission and Anticipated Discharge Date Admission Date: November 20, 2022 Subjective This afternoon the patient clinically feeling better than yesterday. She reported being ambulatory with assistance. She had some element of dyspnea which was improved with use of supplemental oxygen. Still poor ability to sleep. She feels that her lower extremity edema is better. Review of Systems Review of Systems: Per HPI Physical Exam Physical Exam: She is alert and oriented x3. Mood affect appear normal. She answered all questions appropriately. HEENT: Sclerae are anicteric. Pupils are equal and reactive to light and accommodation. Extraocular movements were intact. Neuro: Cranial nerves intact Lungs: Lungs are clear to auscultation bilaterally. There are no rales wheezes or rhonchi. She has normal respiratory effort without use of accessory muscles. There is normal pulmonary excursion. Cardiac: The rhythm was regular. S1 and S2 were normal. Holosystolic murmur. The PMI was not markedly displaced on palpation. Abdomen: The abdomen was soft and nontender. Extremities: Patient has bilateral radial pulses that are equal in intensity. There is no evidence cyanosis or clubbing. Mild lower extremity edema, right worse than left Skin: There are no rashes noted on examination today. Results & Data Vital Signs (Past 12 Hours) Vital Signs Temp Pulse Pulse Resp BP Pulse Ox O2 Del Method 11/20/22 14:07 65 11/20/22 15:39 36.6 C 64 20 122/60 95 Room Air 11/20/22 10:59 36.7 C 83 20 141/60 H 99 Room Air 11/20/22 09:00 Nasal Cannula 11/20/22 07:57 36.8 C 77 20 139/67 98 Room Air O2 Flow Rate 11/20/22 14:07 11/20/22 15:39 11/20/22 10:59 11/20/22 09:00 2 11/20/22 07:57 Laboratory Results Abnormal Lab Results 11/20/22 11/20/22 11/20/22 07:13 07:13 07:13 WBC 5.36 RBC 3.51 L Hgb 9.2 L Hct 27.9 L MCV 79.5 L MCH 26.2 MCHC 33.0 RDW Std Deviation 47.4 H RDW Coeff of Mya 16.4 H Plt Count 322 MPV 10.1 Sodium 135 L Potassium 4.3 Chloride 100 Carbon Dioxide 28 Anion Gap 7 BUN 14 Creatinine 0.69 Est Cr Clr Drug Dosing 43.3 Est GFR ( Amer) 90.7 Est GFR (Non-Af Amer) 78.3 BUN/Creatinine Ratio 20.3 H Glucose 97 Calcium 8.6 Magnesium 1.8 Total Bilirubin 0.6 AST 17 ALT 10 Alkaline Phosphatase 66 Total Protein 6.0 Albumin 3.0 L Globulin 3.0 Albumin/Globulin Ratio 1.0 Cortisol AM Sample 17.04 Diagnostic Findings Echocardiogram obtained 11/06/2022: Ejection fraction 40-45%. Moderate right ventricular dilation. Mildly reduced right ventricular systolic function. Severe mitral and tricuspid regurgitation. Moderate size left pleural effusion. Chest x-ray obtained the time admission revealed cardiomegaly with mild pulmonary edema and layering pleural effusion. ECG Additional Comments: Fibrillation with a controlled ventricular rate. Right bundle branch block and left anterior fascicular block. PG Care Time/CCT Total # of Minutes Spent Total Time Spent with Patient: Total time spent is greater than 50% in coordination of care (as documented) at patient's floor/unit and/or counseling patient: Coding Level of Care Code 20632 SUB INP/OBS CARE 2/35MIN Diagnoses LUCIA (dyspnea on exertion) R06.09 Severe tricuspid regurgitation I07.1 Severe mitral regurgitation I34.0 Heart failure with mid-range ejection fraction (HFmEF) I50.22 Coronary artery disease I25.10 Permanent atrial fibrillation I48.21
[2022-11-20] MEDS ORDERED: MELATONIN 3 MG TAB PO PRN (20:23)
[2022-11-20] MEDS: BUMETANIDE 1 MG TAB PO SCH (22:10)
[2022-11-20] MEDS: MIRTAZAPINE TAB 15 MG TAB PO SCH (22:11)
[2022-11-20] MEDS: ATORVASTATIN 10 MG TAB PO SCH (22:12)
[2022-11-20] MEDS: ACETAMINOPHEN 325 MG TAB PO PRN (22:14)
--- NOTE | 2022-11-21 07:34 | Hospitalist Progress Note ---
Date of Service November 21, 2022 Assessment & Plan (1) LUCIA (dyspnea on exertion): Plan: IMPROVING Dyspnea on exertion, history of heart failure with midrange ejection fraction. History of CABG 2006. Suspect acute on chronic CHF 2nd progression of valvular disease, reduced RV function is noted. Echo 11/06/22: EF 40-45%. Moderate global hypokinesis of LV. Severe mitral regurg, severe tricuspid regurg, LV SP normal, moderate left pleural effusion Cards on consult Reported smoked meats/salt load w/ Easter meal but usually very cautious about sodium intake CXR on admit w/ pulmonary edema and layering effusions/bibasilar consolidation. (no WBC elevation/fevers to suspect pneumonia) BNP elevated 380 (had not been taking any Bumex at home) Placed on Lasix 20mg IV BID on admission through evening 11/20 Switched to Lasix 20mg PO BID for today Monitor weights/I&O Currently net negative -3.5L and kidney function remains stable. Will monitor response to switch to PO and if continued improvement/renal function remains stable we may consider discharge tomorrow. RX given to CM for hospital bed at home given inability to lay flat with her CHF symptoms not feasible in ordinary bed. Will check overnight pulse ox given use at night and reports she does not have such. Consider 2step prior to dc to demonstrate any needs Will need f/u at [place] with Dr Araujo for ongoing management *Of note, patient will have f/u endocrinology outpatient for below (2) Chronic diastolic CHF (congestive heart failure): Plan: acute on chronic, improving most recent echo w/ reduced RV systolic function and worsening valvular heart disease cards on consult diuresis as above consideration for carvedilol vs caprice/Jardiance - defer to cards (apparently intolerance to BB in the past) (3) Iron deficiency anemia: Plan: Anemia w/ hgb 8-9 on admit w/ prior baselines 10-11 Iron panel checked given anemia/MCV <80 -- studies c/w RAYRAY w/ iron low at 11, trans % sat 4 To complete dose 3/3 of Venofer 300mg for today B12 borderline low as well and IM replacement ordered while inpatient and can continue PO at d/c Folate wnl fecal occult if able to obtain while inpatient -- denied blood in past TSH checked given anemia -- see below (4) Permanent atrial fibrillation: Plan: Atrial fibrillation, rates 60-80s Remains on dig -- therapeutic on level check Remains on eliquis BID, reduced dose for age/weight Continues on diltiazem Consideration to add low dose carvedilol vs CAPRICE as above Keeping mag ~2, K ~4 (5) Elevated TSH: Plan: Checked TSH given afib/not on any replacement TSH was elevated to 9.065, however T4/T3 were wnl Suspected reactive/elevation initially, however patient did see Neuro back in 2020 and had an elevated Thyroid antimicrosomal antibody elevation at that time, making me suspicious for an underlying Hashimotos especially given symptoms weakness/muscle cramping/weight gain/fatigue/dry hair/etc TPO added to AM labs today -- pending Discussed w/ endocrinology, Dr Cardenas-- consideration to start low dose synthroid 25mcg daily however per discussion with my supervising provider, Dr Piper, would prefer holding off supplementation at this time given normal T4/t3 and have outpatient f/u with endocrinology office machine inspector to assist with arranging outpatient follow up (6) Elevated troponin: Plan: Trop 41.5 (low 50s last month), clinically improving w/ diuretics and suspect demand ischemia from volume overload 2nd to progressive valvular disease as well as salt load/dietary indiscretions w/ easter no CP reported SOB improving w/ diuretic therapy EKG w/ CP (7) Pulmonary edema: Plan: Improving Repeat CXR w/ improvement today, continues with good UOP, net negative as above and switched to oral lasix BID for today Supp o2 to maintain sat monitor (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 Has hx dermatomyositis as well (was on tx/follows rheumatology) CK NOT elevated GCA/PMR Prednisone gradually down titrated over several years, patient noticed that she also had arteritis associated with this Completed a 3-year taper of prednisone which she is no longer on Continue to follow for vision changes/headaches, none present at time of assessment No change in acute management ESR was checked in combination w/ CK and was elevated. Given age/anemia and lack of visual symptoms reported at present/proximal muscle weakness (and r/o PMR by prior rheum in past however she did have GCA) will hold off on ordering any steroids. ?If related to possible hashimotos as above -- outpt f/u endo and will need f/u rheum (9) GERD without esophagitis: Plan: Continue Protonix 20 mg daily (10) Insomnia: Plan: Insomnia Saw 10/31/2022 sleep clinic, insomnia suspect with an underlying anxiety component. Melatonin without improvement in sleep quality, Seroquel 75 mg without improvement and which was thought to have contributed to fluid retention, temazepam and benzos limited by hallucinations and fall, Remeron started without significant improvement but without side effects and has been continued Venofer as above for low ferritin for RLS symptoms which she reports have improved She does still continue to complain of issues with sleeping Melatonin given last night, will increase for tonight in combination w/ her remeron. Given recent increase in remeron from 15 to 30 would hold off further increase at this time ?any benefit from low dose vistaril -- will discuss w/ supervising provider prior to ordering prn dose for this evening (11) Hx of CABG: Plan: reported hx 2006, follows w/ Dr Araujo remains on eliquis BID, statin (12) Hypomagnesemia: Plan: prior low, replacement ordered. 1.7 on repeat and 1gm IV ordered given underlying afib to keep closer to 2 k acceptable (13) B12 deficiency: Plan: low normal 284 -- IM replacement ordered while inpatient and can continue PO at d/c Plan continued inpatient stay switching to PO diuretics for today and monitor response possible dc tomorrow w/ outpt f/u Admission and Anticipated Discharge Date Admission Date: November 20, 2022 Supervising Physician Co-Signing Physician Notes The patient was not seen by me. The chart was reviewed. Case discussed with DOUGLAS Denney. Agree with assessment and plan Subjective eval this morning, doing well family at bedside leg swelling looks great, improved mobility, less cramping/restless legs reported. last dose venofer infusing reports improvement in breathing, currently on room air eating lunch SpO2 97% jaramillo continues w/ good output. reports improvement in appetite. discussed again O2 use at night --- she does not have at home. will check overnight pulse ox study for eval. Discussed concerns for possible Guillermo' given symptoms and endocrinology follow up at discharge. Poor sleep reported, doesn't think she got her Remeron (recently increased from 15 to 30mg). Discussed she did get this dose, will try melatonin. She states she tried 24mg in the past. Will touch base w/ supervising provider to see about alternatives. switched to PO lasix for today and want to continue to monitor output/kidney function in am to ensure remaining stable and can potentially consider discharge for tomorrow. Updated daughter on phone this afternoon. Will plan on touching base during visitation tomorrow between 12-1pm. Physical Exam Physical Exam: General: WD/WN elderly female sitting up in recliner chair, improvement in ener gy/demeanor, NAD but reporting she got poor sleep. family at bedside HEENT: head normocephalic, atraumatic, mmm, trachea midline, +JVD Resp: diminished in the bases, no w/c, on 2L this morning but currently on room air CV: irregularly irregular, rates 60-70s, +murmur, REDUCED LE edema and remaining stable, calves nontender GI:+BS, soft/NT : jaramillo draining yellow urine at present MSK/Neuro: no focal deficit Psych: AOx3, cooperative with exam Results & Data Results & Data Vital Signs (Past 12 Hours) Vital Signs Temp Pulse Pulse Resp BP BP Pulse Ox 11/20/22 22:04 74 11/21/22 03:27 36.4 C L 69 18 132/65 99 11/20/22 22:04 74 11/20/22 21:00 11/20/22 21:00 11/20/22 23:15 37.3 C 67 18 124/70 98 11/20/22 19:35 36.6 C 68 18 137/65 98 O2 Del Method O2 Del Method O2 Flow Rate O2 Flow Rate 11/20/22 22:04 11/21/22 03:27 Nasal Cannula 2.5 11/20/22 22:04 11/20/22 21:00 Nasal Cannula 2 11/20/22 21:00 Nasal Cannula 2 11/20/22 23:15 Nasal Cannula 2.5 11/20/22 19:35 Nasal Cannula 2.5 Laboratory Results 11/21/22 11/21/22 11/21/22 Range/Units 06:59 06:59 06:59 WBC 5.81 (4.8-10.8) K/ul RBC 3.86 L (4.20-5.40) M/uL Hgb 10.1 L (12.0-16.0) g/dl Hct 31.0 L (37.0-47.0) % MCV 80.3 (80.0-100.0) fL MCH 26.2 (25.0-34.0) pg MCHC 32.6 (32.0-36.0) g/dL RDW Std Deviation 47.7 H (36.4-46.3) fL RDW Coeff of Mya 16.4 H (11.5-14.5) % Plt Count 350 (130-400) K/uL MPV 10.1 (9.4-12.4) fL ESR 100 H (0-30) mm/hr Sodium 137 (136-145) mmol/L Potassium 4.3 (3.5-5.1) mmol/L Chloride 97 L (98-107) mmol/L Carbon Dioxide 33 H (21-32) mmol/L Anion Gap 7 (3-11) BUN 15 (6-23) mg/dl Creatinine 0.75 (0.6-1.2) mg/dl Est Cr Clr Drug Dosing 39.9 ml/min Est GFR ( Amer) 83.1 ml/min Est GFR (Non-Af Amer) 71.7 ml/min BUN/Creatinine Ratio 20.0 (10-20) Glucose 95 (70-99(Fasting)) mg/dl Calcium 9.2 (8.6-10.3) mg/dl Magnesium 1.7 (1.7-2.4) mg/dl Total Creatine Kinase 30 (26-192) U/L Thyroid Antimicrosomal 11/21/22 Range/Units 06:59 WBC (4.8-10.8) K/ul RBC (4.20-5.40) M/uL Hgb (12.0-16.0) g/dl Hct (37.0-47.0) % MCV (80.0-100.0) fL MCH (25.0-34.0) pg MCHC (32.0-36.0) g/dL RDW Std Deviation (36.4-46.3) fL RDW Coeff of Mya (11.5-14.5) % Plt Count (130-400) K/uL MPV (9.4-12.4) fL ESR (0-30) mm/hr Sodium (136-145) mmol/L Potassium (3.5-5.1) mmol/L Chloride (98-107) mmol/L Carbon Dioxide (21-32) mmol/L Anion Gap (3-11) BUN (6-23) mg/dl Creatinine (0.6-1.2) mg/dl Est Cr Clr Drug Dosing ml/min Est GFR ( Amer) ml/min Est GFR (Non-Af Amer) ml/min BUN/Creatinine Ratio (10-20) Glucose (70-99(Fasting)) mg/dl Calcium (8.6-10.3) mg/dl Magnesium (1.7-2.4) mg/dl Total Creatine Kinase (26-192) U/L Thyroid Antimicrosomal Pending Diagnostic Findings Chest X-Ray 11/21/22 07:34 XR chest 1V portable HISTORY: 86 years-old Female f/u overload acute shortness of breath COMPARISON: 11/20/2022 TECHNIQUE: AP view of the chest FINDINGS: Cardiac silhouette is enlarged. Prior median sternotomy. Pleural calcifications with biapical pleural-parenchymal scarring redemonstrated. Layering pleural effusions with bibasilar consolidation is similar to prior. Mildly improved pulmonary edema. Degenerative changes of the shoulders and spine. IMPRESSION: 1. Cardiomegaly with mildly improved pulmonary edema. 2. Persistent layering pleural effusions with bibasilar consolidation. ACT 112: Negative or not required by law. The above report was generated using voice recognition software. It may contain grammatical, syntax or spelling errors. Electronically signed by: Poli Hayes M.D. 11/21/2022 8:51 AM PG Care Time/CCT Total # of Minutes Spent Total Time Spent with Patient: Total time spent is greater than 50% in coordination of care (as documented) at patient's floor/unit and/or counseling patient: Coding Level of Care Code 47067 SUB INP/OBS CARE 3/50MIN Diagnoses LUCIA (dyspnea on exertion) R06.09 Chronic diastolic CHF (congestive heart failure) I50.32 Iron deficiency anemia D50.9 Permanent atrial fibrillation I48.21 Elevated TSH R79.89 Elevated troponin R77.8 Pulmonary edema J81.0 Chronicity: acute Myopathy G72.9 GERD without esophagitis K21.9 Insomnia G47.00 Hx of CABG Z95.1 Hypomagnesemia E83.42 B12 deficiency E53.8 (7) Pulmonary edema Chronicity: acute Qualified Code(s): J81.0 - Acute pulmonary edema
[2022-11-21 07:35] LABS: Calcium 9.2 mg/dl (8.6-10.3); Creatinine Clr Calc Pharmacy 39.9 ml/min; Est GFR (African American) 83.1 ml/min; Est GFR (Non-African American) 71.7 ml/min; Hemoglobin 10.1 g/dl (12.0-16.0); Magnesium 1.7 mg/dl (1.7-2.4); Mean Corpuscular Hemoglobin 26.2 pg (25.0-34.0); Mean Corpuscular Hgb Conc 32.6 g/dL (32.0-36.0); Mean Corpuscular Volume 80.3 fL (80.0-100.0); Mean Platelet Volume 10.1 fL (9.4-12.4); Platelet Count 350 K/uL (130-400); Potassium 4.3 mmol/L (3.5-5.1); RDW Coefficient of Variation 16.4 % (11.5-14.5); RDW Standard Deviation 47.7 fL (36.4-46.3); Red Blood Count 3.86 M/uL (4.20-5.40); White Blood Count 5.81 K/ul (4.8-10.8)
[2022-11-21] MEDS: APIXABAN 2.5 MG TAB PO SCH ×2 (08:43→20:40)
[2022-11-21] MEDS: dilTIAZem HCL 120 MG CAPCR PO SCH ×2 (08:43→20:40)
[2022-11-21] MEDS: BUMETANIDE 1 MG TAB PO SCH ×2 (08:43→17:04)
[2022-11-21] MEDS: DIGOXIN 0.125 MG TAB PO SCH (08:44)
[2022-11-21] MEDS: SPIRONOLACTONE 25 MG TAB PO SCH (08:45)
[2022-11-21] MEDS: PANTOprazole 40 MG TAB PO SCH (08:45)
[2022-11-21] MEDS: CYANOCOBALAMIN 1000 MCG/ML VIAL IM SCH (08:45)
[2022-11-21] MEDS: PYRIDOXINE HCL 50 MG TAB PO SCH (08:45)
--- NOTE | 2022-11-21 08:53 | XRay Report ---
XR chest 1V portable HISTORY: 86 years-old Female f/u overload acute shortness of breath COMPARISON: 11/20/2022 TECHNIQUE: AP view of the chest FINDINGS: Cardiac silhouette is enlarged. Prior median sternotomy. Pleural calcifications with biapical pleural -parenchymal scarring redemonstrated. Layering pleural effusions with bibasilar consolidation is dylon lar to prior. Mildly improved pulmonary edema. Degenerative changes of the shoulders and spine. IMPRESSION: 1. Cardiomegaly with mildly improved pulmonary edema. 2. Persistent layering pleural effusions with bibasilar consolidation. ACT 112: Negative or not required by law. The above report was generated using voice recognition software. It may contain grammatical, syntax o r spelling errors. Electronically signed by: Poli Hayes M.D. 11/21/2022 8:51 AM
[2022-11-21] MEDS ORDERED: FUROSEMIDE 20 MG TAB PO SCH (09:00)
[2022-11-21] MEDS ORDERED: MAGNESIUM SULFATE / D5W 1 GM/100 ML BAG IV ONE (09:14)
[2022-11-21] MEDS: IRON SUCROSE 300 MG in SODIUM CHLORIDE 0.9% 250 ML IV SCH (10:02)
[2022-11-21] MEDS: POTASSIUM CHLORIDE CRTAB 20 MEQ TABCR PO SCH (10:17)
--- NOTE | 2022-11-21 16:23 | Communication Note ---
Date of Service: November 21, 2022 CDS Query Acute on chronic combined systolic and diastolic CHF Acute on chronic diastolic CHF In setting of worsening valvular heart dise ase Plan as outlined in A/P
--- NOTE | 2022-11-21 17:13 | Cardiology Progress Note ---
Date of Service November 21, 2022 Assessment & Plan (1) LUCIA (dyspnea on exertion): (2) Severe tricuspid regurgitation: (3) Severe mitral regurgitation: (4) Heart failure with mid-range ejection fraction (HFmEF): (5) Coronary artery disease: (6) Permanent atrial fibrillation: Plan 1. Dyspnea: She continues to improve. No actual dyspnea today. Likely due to effective diuresis. 2. Cardiomyopathy: She appears to have worsening LV systolic function. Echocardiogram obtained in December of 2021 revealed normal LV function. Blood pressure is good. Will start low-dose ARB. Also good candidate for Jardiance. In the past she has had some hyperkalemia will need to monitor her renal function and potassium closely. 3. Right ventricular dysfunction: Some of her symptoms may be related to right ventricular dysfunction. Responded well to diuresis. 4. Coronary artery disease: No current symptoms suggestive of coronary insufficiency or ischemia. Mildly reduced LV systolic function but no regional wall motion abnormalities. Continue secondary prevention with atorvastatin and apixaban. 5. Atrial fibrillation: Permanent. Good rate control. Normally we would want to use beta-blockers instead of diltiazem for rate control in the setting of her cardiomyopathy. However, she appears to have had an intolerance previously. On digoxin as well. On systemic anticoagulation. 6. Valvular heart disease: She has severe mitral and tricuspid regurgitation. No great options for treatment other than diuresis and medical therapy. We will see how she response to diuresis. I think we will consolidate her bumetanide dose to 2 mg in the morning. She may need a very low dose of Bumex at the time of discharge. Will start ARB. Monitor electrolytes and renal function closely. Likely stable for discharge in a day or so. Admission and Anticipated Discharge Date Admission Date: November 20, 2022 Subjective This afternoon the patient claimed he feeling well. She reports sleeping better last night. Her lower extremity edema has improved. She was ambulatory in the hallway and was told to slow down because she was walking quite rapidly. She denies significant breathing difficulty or limiting dyspnea with ambulation. She reports having normal oxygen saturations as well. Review of Systems Review of Systems: Per HPI Physical Exam Physical Exam: She is alert and oriented x3. Mood affect appear normal. She answered all questions appropriately. HEENT: Sclerae are anicteric. Pupils are equal and reactive to light and accommodation. Extraocular movements were intact. Neuro: Cranial nerves intact Lungs: Lungs are clear to auscultation bilaterally. There are no rales wheezes or rhonchi. She has normal respiratory effort without use of accessory muscles. There is normal pulmonary excursion. Cardiac: The rhythm was regular. S1 and S2 were normal. Holosystolic murmur. The PMI was not markedly displaced on palpation. Extremities: Patient has bilateral radial pulses that are equal in intensity. There is no evidence cyanosis or clubbing. Minimal lower extremity edema, slight on the right. Skin: There are no rashes noted on examination today. Results & Data Vital Signs (Past 12 Hours) Vital Signs Temp Pulse Pulse Resp BP Pulse Ox O2 Del Method 11/21/22 15:15 36.5 C 80 20 152/72 H 96 Room Air 11/21/22 11:47 36.4 C L 83 20 183/72 H 97 Room Air 11/21/22 09:00 Nasal Cannula 11/21/22 07:56 36.3 C L 68 20 148/71 H 100 Room Air 11/21/22 07:41 67 O2 Flow Rate 11/21/22 15:15 11/21/22 11:47 11/21/22 09:00 2 11/21/22 07:56 11/21/22 07:41 Laboratory Results Abnormal Lab Results 11/21/22 11/21/22 11/21/22 06:59 06:59 06:59 WBC 5.81 RBC 3.86 L Hgb 10.1 L Hct 31.0 L MCV 80.3 MCH 26.2 MCHC 32.6 RDW Std Deviation 47.7 H RDW Coeff of Mya 16.4 H Plt Count 350 MPV 10.1 ESR 100 H Sodium 137 Potassium 4.3 Chloride 97 L Carbon Dioxide 33 H Anion Gap 7 BUN 15 Creatinine 0.75 Est Cr Clr Drug Dosing 39.9 Est GFR ( Amer) 83.1 Est GFR (Non-Af Amer) 71.7 BUN/Creatinine Ratio 20.0 Glucose 95 Calcium 9.2 Magnesium 1.7 Total Creatine Kinase 30 PG Care Time/CCT Total # of Minutes Spent Total Time Spent with Patient: Total time spent is greater than 50% in coordination of care (as documented) at patient's floor/unit and/or counseling patient: Coding Level of Care Code 68595 SUB INP/OBS CARE 3/50MIN Diagnoses LUCIA (dyspnea on exertion) R06.09 Severe tricuspid regurgitation I07.1 Severe mitral regurgitation I34.0 Heart failure with mid-range ejection fraction (HFmEF) I50.22 Coronary artery disease I25.10 Permanent atrial fibrillation I48.21
[2022-11-21] MEDS: ATORVASTATIN 10 MG TAB PO SCH (20:40)
[2022-11-21] MEDS: MIRTAZAPINE TAB 15 MG TAB PO SCH (20:40)
[2022-11-22 07:10] LABS: Hematocrit (blood only) 30.6 % (37.0-47.0); Hemoglobin 9.9 g/dl (12.0-16.0); Mean Corpuscular Hemoglobin 26.1 pg (25.0-34.0); Mean Corpuscular Hgb Conc 32.4 g/dL (32.0-36.0); Mean Corpuscular Volume 80.5 fL (80.0-100.0); Mean Platelet Volume 9.8 fL (9.4-12.4); Platelet Count 371 K/uL (130-400); RDW Coefficient of Variation 16.2 % (11.5-14.5); RDW Standard Deviation 47.3 fL (36.4-46.3); White Blood Count 5.78 K/ul (4.8-10.8)
--- NOTE | 2022-11-22 07:23 | Hospitalist Progress Note ---
Date of Service November 22, 2022 Assessment & Plan (1) Chronic diastolic CHF (congestive heart failure): Plan: Admitted for LUCIA 2ndto Acute on chronic combined systolic and diastolic CHF in setting of worsening valvular heart disease ECHO 11/06 w/ now reduced EF 40-45%. Moderate global hypokinesis of LV. Severe mitral regurg, severe tricuspid regurg, LV SP normal, moderate left pleural effusion BNP elevated 380 (prior less earlier this year) Lasix 20mg IV BID while inpatient w/ good response Switched from lasix 20mg IV BID to 20mg PO BID AM 11/21 but was switched to 1mg bumex PO BID evening 11/20 by cardiology Continued on bumex 1mg BID, started losartan this morning 25mg, continues on spironolactone. Will HOLD bumex dose for this evening 11/22, monitor repeat labs in AM. Suspect possibly only using 1mg bumex daily since addition of losartan but will monitor for now. Holding further K supplementation to prevent hyperkalemia given on spironolactone Net negative -4.4L Overnight pulse ox w/o significant drop/need for supp o2 at night -- 97% on RA Continue to monitor weights/I&O Treatment of her iron deficiency anemia w/ Venofer x 3 doses while inpatient. B12 IM x 3 and continue PO at d/c. Hgb improved and remains stable. No evidence for bleeding reported/observed. TSH elevation to 9 w/ normal T3/T4. Prior elevated TPO. Repeat ordered and pending prior to discharge and CM navigator assisting with endocrinology follow up at discharge. ESR elevation 100 multifactorial suspected denied prior sx GCA. Patient does/did have significant anemia, older age, prior inflammatory processes w/ dermatomyositis, however CK wnl. Prior PMR dx r/o by rheumatology. Can f/u outpatient as well for continued monitoring/treatment and having f/u endo for TSH/concerns. ?underlying autoimmune process. 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 Hopefully w/ hospital bed at home/improved ability to sleep will help. Continues on Remeron 30mg HS. Rec continuing melatonin. Can consider addition of vistaril or Benadryl at night but would want to avoid given age/risk for side effects at this time and rec outpt f/u (2) LUCIA (dyspnea on exertion): Plan: IMPROVING, 97% on RA -- see above did have salt load around easter w/ meats/cottage cheese/etc. Will need outpt f/u Dr Araujo in the next week as well (3) Iron deficiency anemia: Plan: Anemia w/ hgb 8-9 on admit w/ prior baselines 10-11 Iron panel checked given anemia/MCV <80 -- studies c/w RAYRAY w/ iron low at 11, trans % sat 4 Completed Venofer 3/3, B12 IM x 3 and continue PO supp. Folate wnl TSH elevation -- see below fecal occult if able to obtain -- placed order for senna/docusate given no BM reported x 2 days (4) Permanent atrial fibrillation: Plan: Atrial fibrillation, rates 60-80s Remains on dig -- therapeutic on level check Remains on eliquis BID, reduced dose for age/weight Continues on diltiazem Keeping mag ~2, K ~4 (5) Elevated TSH: Plan: Checked TSH given afib/not on any replacement TSH was elevated to 9.065, however T4/T3 were wnl Suspected reactive/elevation initially, however patient did see Neuro back in 2020 and had an elevated Thyroid antimicrosomal antibody elevation at that time, making me suspicious for an underlying Hashimotos especially given symptoms weakness/muscle cramping/weight gain/fatigue/dry hair/etc TPO added to AM labspending and will need outpt f/u Discussed w/ endocrinology, Dr Cardenas-- consideration to start low dose synthroid 25mcg daily however per discussion with my supervising provider, Dr Piper, would prefer holding off supplementation at this time given normal T4/t3 and have outpatient f/u with endocrinology. 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 Has hx dermatomyositis as well (was on tx/follows rheumatology) CK NOT elevated GCA/PMR Prednisone gradually down titrated over several years, patient noticed that she also had arteritis associated with this Completed a 3-year taper of prednisone which she is no longer on Continue to follow for vision changes/headaches, none present at time of assessment No change in acute management ESR was checked in combination w/ CK and CK wnl, ESR significant elevation Given age/anemia and lack of visual symptoms reported at present/proximal muscle weakness (and r/o PMR by prior rheum in past however she did have GCA) will hold off on ordering any steroids. ?If related to possible hashimotos as above -- outpt f/u endo and will need f/u rheum ??related to osteonecrosis of her R tibial metaphysis as above noted -- declined ortho eval and rec outpt rheum f/u (9) PMR (polymyalgia rheumatica): (10) GERD without esophagitis: Plan: Continue Protonix 20 mg daily (11) Insomnia: Plan: Insomnia Saw 10/31/2022 sleep clinic, insomnia suspect with an underlying anxiety component. Melatonin without improvement in sleep quality, Seroquel 75 mg without improvement and which was thought to have contributed to fluid retention, temazepam and benzos limited by hallucinations and fall, Remeron started without significant improvement but without side effects and has been continued Venofer as above for low ferritin for RLS symptoms which she reports have improved She does still continue to complain of issues with sleeping Melatonin given last night, will increase for tonight in combination w/ her remeron. 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 Is vasculopathy. 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 hopeful dc Thursday w/ HH. repeat labs for next week and f/u cards/endo/rheum/ortho Admission and Anticipated Discharge Date Admission Date: November 20, 2022 Supervising Physician Co-Signing Physician Notes The patient was not seen by me. The chart was reviewed. Case discussed with DOUGLAS Denney. Agree with assessment and plan Subjective Eval around lunch, daughter at bedside. Patient edema/breathing improved but she is feeling fatigued/whiped out. Discussed continuing inpatient stay and holding bumex for this evening. Did start losartan this morning, explained reasoning for such. Patient denies any visual symptoms/etc. Son w/ hx MG of note. Denied any issues swallowing/etc. Appetite still ok. Sleep ongoing issue but did get a couple hours. Had some pain to her right knee the other day, not reporting any issues at present. Possible bakers cyst, but did discuss possible prior reports osteonecrosis of tibia in past from steroids. Per note 05/22/22 Rheumatology, MRI showed osteonecrosis of right tibial metaphysis. They are inquiring about procedure for her reflux in her legs, as was told candidate by Dr Araujo. Can have outpt f/u for such. Physical Exam Physical Exam: General: WD/WN elderly female sitting up in bed, son/daughter at bedside, NAD but reporting fatigue HEENT: mm slightly dry, trachea midline, no thyromegaly appreciated Resp: slightly diminished in the bases, ,no wheezing, on room air CV: irregularly irregular, rates controlled, +murmur, edema at baseline, calves nontender GI: +BS, slight distension, nontender : jaramillo w/ yellow urine, slightly cloudy w/ trace sediment/?blood in bottom of bag MSK/Neuro: follows commands, no facial droop, no slurred speech R knee reporting some tenderness to palpation (at site known prior osteonecrosis), ROM intact strength 3-4/5 LE equally. Psych: AOx3 Results & Data Results & Data Vital Signs (Past 12 Hours) Vital Signs Temp Pulse Pulse Resp BP Pulse Ox Pulse Ox 11/22/22 03:37 36.7 C 86 16 127/64 96 11/22/22 02:44 82 93 11/22/22 02:34 76 94 11/21/22 23:57 11/21/22 23:06 36.9 C 83 16 136/51 L 93 11/21/22 22:54 81 94 11/21/22 19:30 36.8 C 71 20 133/58 L 95 O2 Del Method O2 Del Method O2 Flow Rate FiO2 11/22/22 03:37 Room Air 11/22/22 02:44 Room Air 11/22/22 02:34 Room Air 11/21/22 23:57 Nasal Cannula 2 11/21/22 23:06 Room Air 11/21/22 22:54 Room Air 11/21/22 19:30 Room Air PG Care Time/CCT Total # of Minutes Spent Total Time Spent with Patient: Total time spent is greater than 50% in coordination of care (as documented) at patient's floor/unit and/or counseling patient: Coding Level of Care Code 32301 SUB INP/OBS CARE 350MIN Diagnoses Chronic diastolic CHF (congestive heart failure) I50.32 LUCIA (dyspnea on exertion) R06.09 Iron deficiency anemia D50.9 Permanent atrial fibrillation I48.21 Elevated TSH R79.89 Elevated troponin R77.8 Pulmonary edema J81.0 Chronicity: acute Myopathy G72.9 PMR (polymyalgia rheumatica) M35.3 GERD without esophagitis K21.9 Insomnia G47.00 Hx of CABG Z95.1 (7) Pulmonary edema Chronicity: acute Qualified Code(s): J81.0 - Acute pulmonary edema
[2022-11-22 07:26] LABS: Albumin Level 3.3 gm/dl (3.4-5.0); Bilirubin,Total 0.6 mg/dl (0.2-1.0); Calcium 9.3 mg/dl (8.6-10.3); Creatinine Clr Calc Pharmacy 37.4 ml/min; Est GFR (African American) 76.8 ml/min; Est GFR (Non-African American) 66.3 ml/min; Globulin 3.2 gm/dl (2.5-4.0); Magnesium 1.6 mg/dl (1.7-2.4); Potassium 3.9 mmol/L (3.5-5.1); Total Protein 6.5 gm/dl (6.0-8.3)
[2022-11-22] MEDS: APIXABAN 2.5 MG TAB PO SCH ×2 (08:14→20:42)
[2022-11-22] MEDS: SPIRONOLACTONE 25 MG TAB PO SCH (08:14)
[2022-11-22] MEDS: LOSARTAN POTASSIUM 25 MG TAB PO SCH (08:15)
[2022-11-22] MEDS: PANTOprazole 40 MG TAB PO SCH (08:15)
[2022-11-22] MEDS: CYANOCOBALAMIN (B-12) 500 MCG TABLET PO SCH (08:15)
[2022-11-22] MEDS: dilTIAZem HCL 120 MG CAPCR PO SCH ×2 (08:15→20:42)
[2022-11-22] MEDS: PYRIDOXINE HCL 50 MG TAB PO SCH (08:16)
[2022-11-22] MEDS: BUMETANIDE 1 MG TAB PO SCH (08:16)
[2022-11-22] MEDS: MAGNESIUM SULFATE / D5W 1 GM/100 ML BAG IV SCH ×2 (08:25→10:11)
[2022-11-22] MEDS: DOCUSATE SODIUM/SENNA 50/8.6MG TAB PO SCH (13:33)
[2022-11-22] MEDS: DICLOFENAC SOD 1% GEL 100 GM TUBE EXT SCH ×2 (16:38→20:42)
[2022-11-22 19:09] LABS: Appearance Urine Turbid (Clear); Bacteria Urine Automated 4+ (Negative); Bilirubin Urine Negative (Negative); Blood Urine 3+ (Negative); Color Urine Yellow; Epithelial Cell Urine Auto >30 /lpf (0-5); Glucose Urine UA Negative (Negative); Ketones Urine Negative (Negative); Leukocyte Esterase Urine 3+ (Negative); Nitrite Urine Negative (Negative); Protein Urine Trace (Negative); Specific Gravity Urine 1.012 (1.000-1.030); Urobilinogen Urine Negative (Negative); WBC Urine Automated >30 /hpf (0-5); pH Urine 5.5 (4.5-7.5)
[2022-11-22 19:19] LABS: Cast Urine Automated 0 /lpf (0-5)
[2022-11-22] MEDS: MELATONIN 3 MG TAB PO PRN (20:41)
[2022-11-22] MEDS: ACETAMINOPHEN 325 MG TAB PO PRN (20:41)
[2022-11-22] MEDS: MIRTAZAPINE TAB 15 MG TAB PO SCH (20:41)
[2022-11-22] MEDS: ATORVASTATIN 10 MG TAB PO SCH (20:41)
[2022-11-22] MEDS: cefTRIAXone SODIUM 1,000 MG in DEXTROSE 5% AD-VAN 50 ML IV SCH (22:49)
[2022-11-23 06:31] LABS: Hematocrit (blood only) 31.6 % (37.0-47.0); Hemoglobin 10.3 g/dl (12.0-16.0); Mean Corpuscular Hgb Conc 32.6 g/dL (32.0-36.0); Mean Corpuscular Volume 79.8 fL (80.0-100.0); Mean Platelet Volume 10.2 fL (9.4-12.4); Platelet Count 415 K/uL (130-400); RDW Coefficient of Variation 16.5 % (11.5-14.5); RDW Standard Deviation 46.7 fL (36.4-46.3); Red Blood Count 3.96 M/uL (4.20-5.40); White Blood Count 6.19 K/ul (4.8-10.8)
[2022-11-23 06:48] LABS: BUN Creatinine Ratio 22.2 (10-20); Calcium 9.4 mg/dl (8.6-10.3); Creatinine Clr Calc Pharmacy 30.2 ml/min; Est GFR (African American) 59.4 ml/min; Est GFR (Non-African American) 51.2 ml/min; Potassium 3.9 mmol/L (3.5-5.1)
--- NOTE | 2022-11-23 07:56 | Hospitalist Progress Note ---
Date of Service November 23, 2022 Assessment & Plan (1) UTI (urinary tract infection): Plan: NEW had been doing great up until 11/22 with increased fatigue/feeling whipped out. Jaramillo w/ slightly cloudier urine w/ blood tinged/sediment. UA/cx ordered which appeared infected, had some increased agitations overnight and started on empiric rocephin remove jaramillo monitor urine cultures -- preliminary w/ gram negative bacilli and likely able to dc on oral abx tomorrow (2) Chronic diastolic CHF (congestive heart failure): Plan: Admitted for LUCIA 2ndto Acute on chronic combined systolic and diastolic CHF in setting of worsening valvular heart disease ECHO 11/06 w/ now reduced EF 40-45%. Moderate global hypokinesis of LV. Severe mitral regurg, severe tricuspid regurg, LV SP normal, moderate left pleural effusion BNP elevated 380 (prior less earlier this year) Lasix 20mg IV BID while inpatient w/ good response Switched from lasix 20mg IV BID to 20mg PO BID AM 11/21 but was switched to 1mg bumex PO BID evening 11/20 by cardiology Continued on bumex 1mg BID, started losartan 25mg AM 11/22 Treatment of her iron deficiency anemia w/ Venofer x 3 doses while inpatient. Also B12 as below HELD bumex dose for evening 11/22 (got 1mg PO dose in AM) Net negative 4.6L, does not appear to be significantly volume overloaded/edema stable and no obvious JVD at present Kidney function stable at present, holding Bumex for today --suspect able to d/c in AM on 1mg bumex daily in AM if BPs continue to be stable/improved continue losartan (new med) and her usual spironolactone (hold her supp K at dc) (3) LUCIA (dyspnea on exertion): Plan: IMPROVING, 95% on RA -- see above did have salt load around easter w/ meats/cottage cheese/etc. Will need outpt f/u Dr Araujo in the next week as well (4) Iron deficiency anemia: Plan: Anemia w/ hgb 8-9 on admit w/ prior baselines 10-11 Iron panel checked given anemia/MCV <80 -- studies c/w RAYRAY w/ iron low at 11, trans % sat 4 Completed Venofer 3/3, B12 IM x 3 and continue PO supp. Folate wnl TSH elevation -- see below fecal occult if able to obtain -- placed order for senna/docusate given no BM reported x 2 days --> BM yesterday and today (5) Permanent atrial fibrillation: Plan: Atrial fibrillation, rates 60-80s Remains on dig -- therapeutic on level check Remains on eliquis BID, reduced dose for age/weight Continues on diltiazem Keeping mag ~2, K ~4 started oral slow mag, repeat mag wnl and continue at dc recommended (6) Elevated TSH: Plan: Checked TSH given afib/not on any replacement TSH was elevated to 9.065, however T4/T3 were wnl Suspected reactive/elevation initially, however patient did see Neuro back in 2020 and had an elevated Thyroid antimicrosomal antibody elevation at that time, making me suspicious for an underlying Hashimotos especially given symptoms weakness/muscle cramping/weight gain/fatigue/dry hair/etc TPO added to AM labs pending and will need outpt f/u Discussed w/ endocrinology, Dr Cardenas-- consideration to start low dose synthroid 25mcg daily however per discussion with my supervising provider, Dr Piper, would prefer holding off supplementation at this time given normal T4/t3 and have outpatient f/u with endocrinology. 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 Has hx dermatomyositis as well (was on tx/follows rheumatology) CK NOT elevated GCA/PMR Prednisone gradually down titrated over several years, patient noticed that she also had arteritis associated with this Completed a 3-year taper of prednisone which she is no longer on Continue to follow for vision changes/headaches, none present at time of assessment No change in acute management ESR was checked in combination w/ CK and CK wnl, ESR significant elevation Given age/anemia and lack of visual symptoms reported at present/proximal muscle weakness (and r/o PMR by prior rheum in past however she did have GCA) will hold off on ordering any steroids. ?If related to possible hashimotos as above -- outpt f/u endo and will need f/u rheum ??related to osteonecrosis of her R tibial metaphysis as above noted -- declined ortho eval and rec outpt rheum f/u also now w/ UTI, could be contributing to ESR elevation -- tx as above (10) PMR (polymyalgia rheumatica): (11) GERD without esophagitis: Plan: Continue Protonix 20 mg daily (12) Insomnia: Plan: Saw 10/31/2022 sleep clinic, insomnia suspect with an underlying anxiety component. Melatonin without improvement in sleep quality, Seroquel 75 mg without improvement and which was thought to have contributed to fluid retention, temazepam and benzos limited by hallucinations and fall, Remeron started without significant improvement but without side effects and has been continued Venofer as above for low ferritin for RLS symptoms which she reports have improved She does still continue to complain of issues with sleeping Melatonin given last night, will increase for tonight in combination w/ her remeron. 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 Is a vasculopath. 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 hopeful dc Thursday w/ HH. repeat labs for next week and f/u cards/endo/rheum/ortho Admission and Anticipated Discharge Date Admission Date: November 20, 2022 Supervising Physician Co-Signing Physician Notes The patient was not seen by me. The chart was reviewed. Case discussed with DOUGLAS Denney. Agree with assessment and plan Subjective eval around lunch, she was upset about events overnight. tearful. No chest pain, breathing stable other than being upset with overnight nurse. Discussed UTI, antibiotics. Monitoring cultures and will wait until finalized and plan for dc on oral antibiotics tomorrow. Jaramillo catheter removed this morning, foul smelling. +BM yesterday and today. Appetite about the same. Will plan to resume bumex tomorrow at 1mg for AM and can have outpatient follow up. Physical Exam Physical Exam: General: WD/WN elderly female sitting up in bed, tearful talking about events overnight HEENT: mm slightly dry, trachea midline, no thyromegaly appreciated Resp: slightly diminished in the bases but improving, ,no wheezing, on room air CV: irregularly irregular, rates controlled, +murmur, edema in legs looks great/at baseline, calves nontender GI: +BS, soft/nt : no further jaramillo (removed this morning) MSK/Neuro: follows commands, no facial droop, no slurred speech strength 3-4/5 LE equally. Psych: AOx3, tearful at times Results & Data Results & Data Vital Signs (Past 12 Hours) Vital Signs Temp Pulse Pulse Resp BP Pulse Ox O2 Del Method 11/23/22 07:39 36.8 C 92 H 16 124/66 96 Room Air 11/23/22 07:13 63 11/23/22 03:05 37 C 62 16 133/85 95 Room Air 11/22/22 22:02 80 11/22/22 20:00 Room Air 11/22/22 23:11 37 C 87 20 136/86 96 Room Air Laboratory Results 11/23/22 11/23/22 11/22/22 Range/Units 05:53 05:53 18:51 WBC 6.19 (4.8-10.8) K/ul RBC 3.96 L (4.20-5.40) M/uL Hgb 10.3 L (12.0-16.0) g/dl Hct 31.6 L (37.0-47.0) % MCV 79.8 L (80.0-100.0) fL MCH 26.0 (25.0-34.0) pg MCHC 32.6 (32.0-36.0) g/dL RDW Std Deviation 46.7 H (36.4-46.3) fL RDW Coeff of Mya 16.5 H (11.5-14.5) % Plt Count 415 H (130-400) K/uL MPV 10.2 (9.4-12.4) fL Sodium 135 L (136-145) mmol/L Potassium 3.9 (3.5-5.1) mmol/L Chloride 95 L (98-107) mmol/L Carbon Dioxide 32 (21-32) mmol/L Anion Gap 8 (3-11) BUN 22 (6-23) mg/dl Creatinine 0.99 (0.6-1.2) mg/dl Est Cr Clr Drug Dosing 30.2 ml/min Est GFR ( Amer) 59.4 ml/min Est GFR (Non-Af Amer) 51.2 ml/min BUN/Creatinine Ratio 22.2 H (10-20) Glucose 93 (70-99(Fasting)) mg/dl Calcium 9.4 (8.6-10.3) mg/dl Magnesium 2.0 (1.7-2.4) mg/dl Urine Color Yellow Urine Appearance Turbid A (Clear) Urine pH 5.5 (4.5-7.5) Ur Specific Gully 1.012 (1.000-1.030) Urine Protein Trace H (Negative) Urine Glucose (UA) Negative (Negative) Urine Ketones Negative (Negative) Urine Blood 3+ H (Negative) Urine Nitrite Negative (Negative) Urine Bilirubin Negative (Negative) Urine Urobilinogen Negative (Negative) Ur Leukocyte Esterase 3+ H (Negative) Urine WBC (Auto) >30 H (0-5) /hpf Urine RBC (Auto) 10-30 H (0-4) /hpf U Hyaline Cast (Auto) 0 (0-5) /lpf U Epithel Cells (Auto) >30 H (0-5) /lpf Urine Bacteria (Auto) 4+ H (Negative) PG Care Time/CCT Total # of Minutes Spent Total Time Spent with Patient: Total time spent is greater than 50% in coordination of care (as documented) at patient's floor/unit and/or counseling patient: Coding Level of Care Code 70426 SUB INP/OBS CARE 3/50MIN Diagnoses UTI (urinary tract infection) N39.0 Chronic diastolic CHF (congestive heart failure) I50.32 LUCIA (dyspnea on exertion) R06.09 Iron deficiency anemia D50.9 Permanent atrial fibrillation I48.21 Elevated TSH R79.89 Elevated troponin R77.8 Pulmonary edema J81.0 Chronicity: acute Myopathy G72.9 PMR (polymyalgia rheumatica) M35.3 GERD without esophagitis K21.9 Insomnia G47.00 Hx of CABG Z95.1 B12 deficiency E53.8 (8) Pulmonary edema Chronicity: acute Qualified Code(s): J81.0 - Acute pulmonary edema
[2022-11-23] MEDS: APIXABAN 2.5 MG TAB PO SCH ×2 (07:58→21:55)
[2022-11-23] MEDS: dilTIAZem HCL 120 MG CAPCR PO SCH ×2 (07:58→21:54)
[2022-11-23] MEDS: DIGOXIN 0.125 MG TAB PO SCH (07:59)
[2022-11-23] MEDS: SPIRONOLACTONE 25 MG TAB PO SCH (07:59)
[2022-11-23] MEDS: CYANOCOBALAMIN (B-12) 500 MCG TABLET PO SCH (07:59)
[2022-11-23] MEDS: DOCUSATE SODIUM/SENNA 50/8.6MG TAB PO SCH (07:59)
[2022-11-23] MEDS: PYRIDOXINE HCL 50 MG TAB PO SCH (07:59)
[2022-11-23] MEDS: PANTOprazole 40 MG TAB PO SCH (07:59)
[2022-11-23] MEDS: DICLOFENAC SOD 1% GEL 100 GM TUBE EXT SCH ×4 (07:59→21:55)
[2022-11-23] MEDS: MAGNESIUM CHLORIDE W/CALCIUM 64MG DELAYED REL TAB PO SCH (07:59)
[2022-11-23] MEDS: LOSARTAN POTASSIUM 25 MG TAB PO SCH (07:59)
[2022-11-23] MEDS: ATORVASTATIN 10 MG TAB PO SCH (21:55)
[2022-11-23] MEDS: MIRTAZAPINE TAB 15 MG TAB PO SCH (21:55)
[2022-11-23] MEDS: cefTRIAXone SODIUM 1,000 MG in DEXTROSE 5% AD-VAN 50 ML IV SCH (22:09)
[2022-11-23] MEDS: MELATONIN 3 MG TAB PO PRN (23:25)
[2022-11-24] MEDS: MAGNESIUM CHLORIDE W/CALCIUM 64MG DELAYED REL TAB PO SCH (08:24)
[2022-11-24] MEDS: dilTIAZem HCL 120 MG CAPCR PO SCH (08:24)
[2022-11-24] MEDS: APIXABAN 2.5 MG TAB PO SCH (08:24)
[2022-11-24] MEDS: PYRIDOXINE HCL 50 MG TAB PO SCH (08:24)
[2022-11-24] MEDS: DOCUSATE SODIUM/SENNA 50/8.6MG TAB PO SCH (08:24)
[2022-11-24] MEDS: PANTOprazole 40 MG TAB PO SCH (08:24)
[2022-11-24] MEDS: SPIRONOLACTONE 25 MG TAB PO SCH (08:24)
[2022-11-24] MEDS: LOSARTAN POTASSIUM 25 MG TAB PO SCH (08:24)
[2022-11-24] MEDS: CYANOCOBALAMIN (B-12) 500 MCG TABLET PO SCH (08:24)
[2022-11-24] MEDS: DICLOFENAC SOD 1% GEL 100 GM TUBE EXT SCH ×3 (08:26→16:21)
[2022-11-24 08:58] LABS: Hematocrit (blood only) 35.8 % (37.0-47.0); Hemoglobin 11.3 g/dl (12.0-16.0); Mean Corpuscular Hemoglobin 25.7 pg (25.0-34.0); Mean Corpuscular Hgb Conc 31.6 g/dL (32.0-36.0); Mean Corpuscular Volume 81.5 fL (80.0-100.0); Mean Platelet Volume 9.9 fL (9.4-12.4); Platelet Count 457 K/uL (130-400); RDW Coefficient of Variation 17.2 % (11.5-14.5); RDW Standard Deviation 49.1 fL (36.4-46.3); Red Blood Count 4.39 M/uL (4.20-5.40); White Blood Count 6.92 K/ul (4.8-10.8)
[2022-11-24 09:07] LABS: BUN Creatinine Ratio 22.6 (10-20); Creatinine Clr Calc Pharmacy 30.6 ml/min; Est GFR (African American) 72.4 ml/min; Est GFR (Non-African American) 62.5 ml/min; Magnesium 1.9 mg/dl (1.7-2.4); Potassium 4.2 mmol/L (3.5-5.1)
--- NOTE | 2022-11-24 09:39 | XRay Report ---
XR chest 1V portable HISTORY: follow up effusions/congestion COMPARISON: Chest 11/21/2022. FINDINGS: No pneumothorax. The cardiac silhouette remains mildly enlarged. There are poststernotomy c hanges again noted. Small bilateral pleural effusions have slightly improved. No evidence for pulmona ry edema. Pleural calcifications again noted. IMPRESSION: Slight improvement in the small bilateral pleural effusions. ACT 112: Negative or not required by law. Electronically signed by: Jimenez Serra M.D. 11/24/2022 9:38 AM
[2022-11-24] MEDS ORDERED: BUMETANIDE 1 MG TAB PO ONE (14:30)
--- NOTE | 2022-11-24 15:32 | Heart Failure Progress Note ---
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 HFmrEF: Appears euvolemic on exam. Tolerated diuresis well and appears optimized. Discharge on Bumex 1 mg daily. Daily standing weights. Will need to get her dry weight once she's back on her home scale. Low sodium diet. Strict I&Os while inpatient. Intolerant to beta blockers. Initiated on Losartan. Continue Spironolactone. Continue Digoxin. Consider SGLT2i in the future- but currently with UTI. She is well known to the heart failure program and follow up has been arranged. 2. Cardiomyopathy: She appears to have worsening LV systolic function. Echocardiogram obtained in December of 2021 revealed normal LV function. Blood pressure is good. Losartan has been initiated. Beta shyam listed as allergy. Also good candidate for Jardiance. In the past she has had some hyperkalemia will need to monitor her renal function and potassium closely. Potassium currently discontinued. 3. Right ventricular dysfunction: Some of her symptoms may be related to right ventricular dysfunction. Responded well to diuresis. 4. Coronary artery disease: No current symptoms suggestive of coronary insufficiency or ischemia. Mildly reduced LV systolic function but no regional wall motion abnormalities. Continue secondary prevention with atorvastatin and apixaban. 5. Atrial fibrillation: Permanent. Good rate control. Normally we would want to use beta-blockers instead of diltiazem for rate control in the setting of her cardiomyopathy. However, she appears to have had an intolerance previously. On digoxin as well. On systemic anticoagulation. 6. Valvular heart disease: She has severe mitral and tricuspid regurgitation. No great options for treatment other than diuresis and medical therapy. Continue to optimize diuretics. Disposition: For discharge today. Close follow up with the heart failure program. 11/27/22 at 10:30 Admission and Anticipated Discharge Date Admission Date: November 20, 2022 Subjective Patient reports feeling well this am. Her breathing has improved. She is tolerating room air. Her lower extremity edema has resolved completely. She is net negative 3.5 L. Weight this am is 90 on standing scale? She denies chest pain, palpitations, cough. Physical Exam Physical Exam: She is alert and oriented x3. Mood affect appear normal. She answered all questions appropriately. HEENT: Sclerae are anicteric. Pupils are equal and reactive to light and accommodation. Extraocular movements were intact. Neuro: Cranial nerves intact Lungs: Lungs are clear to auscultation bilaterally. There are no rales wheezes or rhonchi. She has normal respiratory effort without use of accessory muscles. Decreased air movement throughout. Cardiac: The rhythm was regular. S1 and S2 were normal. Holosystolic murmur. The PMI was not markedly displaced on palpation. Extremities: Patient has bilateral radial pulses that are equal in intensity. There is no evidence cyanosis or clubbing. No lower extremity edema. Skin: There are no rashes noted on examination today. Results & Data Vital Signs (Past 12 Hours) Vital Signs Temp Pulse Pulse Resp BP Pulse Ox O2 Del Method 11/24/22 15:09 90 11/24/22 14:44 97.9 F 74 16 131/68 96 Room Air 11/24/22 10:58 98.4 F 92 H 16 131/69 95 Room Air 11/24/22 09:10 Room Air 11/24/22 07:40 97.9 F 108 H 16 134/75 94 Room Air 11/24/22 07:06 85 11/24/22 04:00 98.2 F 92 H 18 138/64 94 Room Air PG Care Time/CCT Total # of Minutes Spent Total Time Spent with Patient: Total time spent is greater than 50% in coordination of care (as documented) at patient's floor/unit and/or counseling patient: Coding Level of Care Code 78966 SUB INP/OBS CARE 3/50MIN Diagnoses LUCIA (dyspnea on exertion) R06.09 Severe tricuspid regurgitation I07.1 Severe mitral regurgitation I34.0 Heart failure with mid-range ejection fraction (HFmEF) I50.22 Coronary artery disease I25.10 Permanent atrial fibrillation I48.21
--- NOTE | 2022-11-24 15:36 | Discharge Summary ---
Date of Service November 24, 2022 Admission HPI Per Admitting Provider Debra is an 86-year-old female with a history of severe MR, heart failure with EF 40-45%, CAD s/p CABG 2006, permanent A-fib on digoxin and diltiazem and dose reduced apixaban who presented to the emergency department with shortness of breath and difficulty breathing. She has had some weight gain. She saw her shop welder this morning who noted that she was with evidence of fluid in the lungs, legs, and with concerns for pleural effusions but had actually had a slight weight decrease. Was recommended for IV diuretics as inpatient, and if picture unclear to degree of CHF may need progression to right heart c atheterization with end-stage valvular disease and declining LV systolic function possible. Seen with family present. She has had worsened shortness of breath for which she saw her shop welder. They were concerned about fluid retention and recommended ER evaluation. She feels her breathing has been worse than normal for the last week-10 days. Gradually worsening. No remitting factors. Severe limitation to activity, cannot get dressed without limiting dyspnea. No chest pain, no chest pressure. Denies palpitations. She reports she has actually lost weight, 10-12 lbs since stopping prednisone. Was on prednisone for temporal arteritis. Was on high dose prednisone, just stopped a few weeks ago after being on for several. Was on 40mg and slowly tapered over the last 3 years Bilateral lower extremity edema, started to worsen in the beginning of September. "Feet were skinny in August." Was thought to be venous insuffiency, and ?seroquel initiation at the same time. Endorses significant orthopnea, much worse in the last 10 days and it harder for her to sleep. Notes her insomnia is separate from shortness of breath, seems worse since thanksgiving No BRBPR/melena. Doesnt feel her afib. No recent palpitations. Did take medications this morning. Has not taken bumex recently as her weight was not up. Medical History: Reviewed Medications: Reviewed Surgical History: Reviewed Family history: Reviewed Allergies: Reviewed Social History: Former tobacco use in remission, no alcohol use Code Status: DNR/DNI, discussed with patient Principal Diagnosis Acute on chronic HFmEF UTI Discharge Exam Constitutional WD/WN, vitals as above Respiratory normal respiratory effort, lungs clear to auscultation Cardiovascular Rate/Rhythm: regular rate and + irregularly irregular Heart Sounds: + murmur (2/6 systolic LLSB) Psychiatric Orientation: alert, oriented x 3 and cooperative Discharge Data Allergies Allergy/AdvReac Type Severity Reaction Status Date / Time Beta-Blockers Allergy Unknown Unknown Verified 11/19/22 16:51 (Beta-Adrenergic Bloc prochlorperazine Allergy Unknown "combid" Verified 11/18/22 16:24 Unknown aspirin AdvReac Intermediate stomach Verified 11/18/22 16:24 pains methotrexate AdvReac Intermediate elevated Verified 11/18/22 16:24 liver levels COMBID Allergy Unknown Unknown Uncoded 11/18/22 16:24 Consultations 11/18/22 17:31 ED Decision to Admit Stat 11/19/22 09:00 Consult Cardiology Routine Hospital Course (1) Chronic diastolic CHF (congestive heart failure): Admitted for LUCIA 2ndto Acute on chronic combined systolic and diastolic CHF in setting of worsening valvular heart disease ECHO 11/06 w/ now reduced EF 40-45%. Moderate global hypokinesis of LV. Severe mitral regurg, severe tricuspid regurg, LV SP normal, moderate left pleural effusion BNP elevated 380 (prior less earlier this year) Lasix 20mg IV BID while inpatient w/ good response Switched from lasix 20mg IV BID to 20mg PO BID AM 11/21 but was switched to 1mg bumex PO BID evening 11/20 by cardiology Continued on bumex 1mg BID, started losartan 25mg AM 11/22 Net negative 4.3L, weight down, peripheral edema resolved, feeling much better stable for dc to home on Bumex 1mg po daily continue losartan (new med) and her usual spironolactone (hold her supp K at dc) f/u CHF clinic after discharge (2) UTI (urinary tract infection): had been doing great up until 11/22 with increased fatigue/feeling wiped out. Jaramillo w/ slightly cloudier urine w/ blood tinged/sediment. UA/cx ordered which appeared infected, had some increased agitations overnight and started on empiric rocephin removed jaramillo Ur cx with Klebsiella resistant to nitrofurantoin dc to home on 5 more days of po keflex asymptomatic otherwise at time of discharge mentation and energy level improved (3) LUCIA (dyspnea on exertion): resolved with diuresis (4) Iron deficiency anemia: Anemia w/ hgb 8-9 on admit w/ prior baselines 10-11 Iron panel checked given anemia/MCV <80 -- studies c/w RAYRAY w/ iron low at 11, trans % sat 4 Completed Venofer 3/3, B12 IM x 3 and continue PO supp with B12 after discharge. Folate wnl TSH elevation -- see below (5) Permanent atrial fibrillation: Atrial fibrillation, rates 60-80s Remains on dig -- therapeutic on level check Remains on eliquis BID, reduced dose for age/weight Continues on diltiazem Keeping mag ~2, K ~4 started oral slow mag, repeat mag wnl and continue at dc recommended (6) Elevated TSH: Checked TSH given afib/not on any replacement TSH was elevated to 9.065, however T4/T3 were wnl Suspected reactive/elevation initially, however patient did see Neuro back in 2020 and had an elevated Thyroid antimicrosomal antibody elevation at that time, making me suspicious for an underlying Hashimotos especially given symptoms weakness/muscle cramping/weight gain/fatigue/dry hair/etc TPO pending and will need outpt f/u Discussed w/ endocrinology, Dr Cardenas-- consideration to start low dose synthroid 25mcg daily however will defer to outpt treatment and f/u with Endocrine hand grinder to assist with arranging outpatient follow up at d/c (7) Elevated troponin: Trop 41.5 (low 50s last month), clinically improving w/ diuretics and suspect demand ischemia from volume overload 2nd to progressive valvular disease as well as salt load/dietary indiscretions w/ easter no CP reported SOB improving w/ diuretic therapy, now on RA (8) Pulmonary edema: Improving on repeat, diuresis as above No further need for O2 supp, monitor (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 Has hx dermatomyositis as well (was on tx/follows rheumatology) CK NOT elevated GCA/PMR Prednisone gradually down titrated over several years, patient noticed that she also had arteritis associated with this Completed a 3-year taper of prednisone which she is no longer on Continue to follow for vision changes/headaches, none present at time of assessment No change in acute management ESR was checked in combination w/ CK and CK wnl, ESR significant elevation at 108 Given age/anemia and lack of visual symptoms reported at present/proximal muscle weakness (and r/o PMR by prior rheum in past however she did have GCA) will hold off on ordering any steroids. 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 Melatonin without improvement in sleep quality, Seroquel 75 mg without improvement and which was thought to have contributed to fluid retention, temazepam and benzos limited by hallucinations and fall, Remeron started without significant improvement but without side effects and has been continued Venofer as above for low ferritin for RLS symptoms which she reports have improved She does still continue to complain of issues with sleeping Melatonin given which worked well-can use at home prn in combination w/ her remeron. Given recent increase in remeron from 15 to 30 would hold off further in crease at this time (13) Hx of CABG: reported hx 2006, follows w/ Dr Araujo remains on eliquis BID, statin Of note, patient w/ poor appetite. Is a vasculopath. 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 b/l from imaging in November 2018 (14) B12 deficiency: low normal, IM replacement x 3 while inpatient and can continue PO supp at d/c Plan dispo-dc to home with HH Discussed care with daughter on phone at length on day of discharge Total Time Total Time Spent Total Time Spent (In Minutes): 40 min Discharge Plan Discharge Items Patient Disposition: Home - Home Health Services Reason For Visit: EXERTIONAL DYSPNEA Discharge Diagnosis: Acute on chronic HFmEF UTI Activity: As commented below Lifting: Gradually increase as tolerated Bathing: No limitations Exercise/Sports: Gradually increase as tolerated Non-emergency contact: Primary Care Provider and Insulation Cutter Call non-emergency contact if: you have any medication questions and your symptoms worsen Follow-up/Referrals: Tran Garber MD [Primary Care Provider] - (Follow up within 1-2 weeks.) Jonna Castillo PA-C [Physician Computer Education Professor] - 11/27/22 10:30 am Diet: Low Sodium (2gm) Fluids: 1800ml (7 cups) Addtl Attending Provider Instructions: Please continue on with taking your Bumex (water pill) 1mg by mouth ONCE DAILY every day rather than as needed. Follow up with Ms. Castillo of the CHF clinic as scheduled. You were also diagnosed with a UTI and will need to finish out 5 more days of an antibiotic called Keflex. For your B12 deficiency, you were given shots of B12 and should continue taking an oral supplement. You should also continue on a magnesium supplement. Your thyroid function was a bit abnormal and you should have this followed up as an outpatient with an Power Mule Operator. Call your Primary Care doctor if any of the following symptoms or problems start or get worse: * Shortness of breath or difficulty breathing * Wake up at night short of breath * Chest pain * Cough * Swelling of your hands, feet, or legs * More fatigued or tired with your normal activity * Palpitations - sudden fast heart beats WEIGHT * Weigh yourself every morning after using the bathroom. * Use the same scale. * Wear the same amount of clothing. * Write your weight down on a chart. * Call your Primary Care doctor if you gain more than 2-3 pounds in 1-2 days. MEDICATIONS * Use this discharge instruction sheet for medication instructions. * Take your medications at the time your doctor ordered. * Do not skip a dose of your medicines. * If you miss a dose of medicine, take it as soon as possible, but DO NOT DOUBLE A DOSE. * Read your medicine information when you get home. * Know all of the side effects of your medicine. If in doubt, ask your pharmacist * Call your Primary Care doctor's office if you have any side effects. * Be sure all of your doctors know what medicine and herbs you take (including c old, flu, and herbal medicine). Take the following with you to your follow-up doctor appointments: * Weight Chart * Medication List * List of questions Do not drink excessive alcohol, beer or wine. Pending Studies at Discharge: Yes Studies:: Thyroid antibodies Stand-Alone Forms: [employer], Smoking Cessation Medications and DC Order Prescriptions: New cephalexin 500 mg Capsule 500 mg PO BID Qty: 10 0RF losartan 25 mg Tablet 25 mg PO QAM Qty: 30 0RF diclofenac sodium [Voltaren Arthritis Pain] 1 % Gel 2 g EXT QID PRN (Reason: pain) Qty: 100 0RF Rx Instructions: Apply to painful joint Please use tube from hospital Mag 64 64 mg Tablet,Delayed Release (Dr/Ec) 64 mg PO QAM Qty: 30 0RF Rx Instructions: OTC Continued atorvastatin 10 mg tablet 10 mg PO HS Qty: 90 3RF omeprazole 20 mg capsule,delayed release(DR/EC) 20 mg PO DAILY Qty: 90 3RF diltiazem HCl [Cartia XT] 120 mg capsule,extended release 24hr 120 mg PO BID Qty: 180 3RF digoxin 125 mcg (0.125 mg) tablet 125 mcg PO Q2D Qty: 14 1RF albuterol sulfate 90 mcg/actuation HFA aerosol inhaler 1 inh inhalation QID PRN (Reason: shortness of breath or wheezing) Qty: 8.5 0RF ipratropium bromide 21 mcg (0.03 %) spray,non-aerosol 2 spray intranasal TID Qty: 30 5RF Rx Instructions: administer into each nostril spironolactone 25 mg tablet 25 mg PO DAILY Qty: 90 2RF multivitamin [Daily Multi-Vitamin] Tablet 1 tab PO DAILY pyridoxine (vitamin B6) 100 mg tablet 100 mg PO DAILY Eliquis 2.5 mg tablet 2.5 mg PO BID Qty: 180 3RF Calcium 600 + D(3) 600 mg calcium- 200 unit Capsule 1 tab PO QDL mirtazapine 30 mg tablet 30 mg PO HS Changed cyanocobalamin (vitamin B-12) 1,000 mcg tablet 1,000 mcg PO DAILY Qty: 30 0RF Rx Instructions: OTC bumetanide 1 mg tablet 1 mg PO DAILY Qty: 30 0RF Discontinued magnesium 200 mg Tablet 0 mg PO HS Rx Instructions: pt states she takes two magnesium tablets at hs -unknown dose potassium chloride 20 mEq tablet extended release 20 meq PO BID PRN (Reason: TAKE WHEN TAKES BUMEX) Discharge Orders: Discharge Order- CHF (Routine); Ordered 11/24/22 Ordered By: Elva Sen Admission Data Admit Date/Time: 11/20/22 13:20 Attending Provider: Elva Sen Admit Provider: Jamie Mcdaniel Primary Care Provider: Tran Garber Other Providers: Jamie Mcdaniel ; Chuck Briones ; [facility] Coding Level of Care Code 69513 INP/OBS DISCH >30 MIN Diagnoses Chronic diastolic CHF (congestive heart failure) I50.32 UTI (urinary tract infection) N39.0 LUCIA (dyspnea on exertion) R06.09 Iron deficiency anemia D50.9 Permanent atrial fibrillation I48.21 Elevated TSH R79.89 Elevated troponin R77.8 Pulmonary edema J81.0 Chronicity: acute Myopathy G72.9 PMR (polymyalgia rheumatica) M35.3 GERD without esophagitis K21.9 Insomnia G47.00 Hx of CABG Z95.1 B12 deficiency E53.8
[2022-11-24] MEDS ORDERED: cephALEXin 500 MG CAP PO SCH (21:00)
[2022-11-25] MEDS ORDERED: BUMETANIDE 1 MG TAB PO SCH (09:00)
== END 2022-11-24 17:05 | disposition home health service (06) | DRG 292 ==
LOC: ED 15:17 → EDINP 15:17 → SUATTDRO 18:31 → EDINP 20:00 → 2N 20:24 → SUATTDRO 11-20 13:20

== ENCOUNTER 2024-07-06 08:46 | Inpatient (IN) ==
--- NOTE | 2024-07-06 09:48 | Emergency Department Note ---
ED Provider Note History of Present Illness Chief Complaint: Shortness of Breath/Dyspnea Stated Complaint: SOB, SEEMS OFF Time Seen by Provider: 07/06/24 09:03 88-year-old female, history of congestive heart failure, coronary artery disease, obstructive sleep apnea, chronic atrial fibrillation on low-dose Eliquis, and PEG tube placement on 06/16/2024 for malnutrition, who was brought to the emergency department by her daughter (who provides excellent history for the patient) with complaints of ongoing shortness of breath. The patient was just seen by her family doctor on Thursday with a walk test indicating that she would be eligible for home oxygen. The daughter reports that since her appointment on Thursday, she has had progressively worsening shortness of breath. The patient does occasionally take Bumex for peripheral edema, however has not needed over the past few days. Patient denies any fever or chills, runny nose or cough. The daughter reports that she checked her pulse ox over the past 24 hours, with the lowest reading of 72% on room air, but usually around 85 to 90%. They report that the patient also appears weaker than usual. Patient has had a prior history of CABG x 3 in 2006. Her most recent cardiology appointment did not require any changes in her medications. The patient currently denies any chest pain or significant shortness of breath. The daughter reports that the PEG tube appears to be operating normally. She only occasionally gets some drainage from around the PEG tube, otherwise reports that the skin appears normal. Home Medications Medication Instructions Recorded Confirmed Type pyridoxine (vitamin B6) 100 mg 100 mg PO QAM 10/08/21 07/06/24 History tablet diclofenac sodium 1 % topical gel 2 g EXT QID PRN pain #100 grams 11/24/22 07/06/24 Rx (Voltaren Arthritis Pain) diltiazem HCl 120 mg 120 mg PO BID #180 caps 08/04/23 07/06/24 Rx capsule,extended release 24 hr (Cartia XT) acetaminophen 500 mg tablet 500 mg PO Q6H PRN pain/fever 01/05/24 07/06/24 History (Tylenol Extra Strength) bumetanide 1 mg tablet 1 mg PO 2XWK #30 tabs 05/16/24 07/06/24 Rx apixaban 2.5 mg tablet (Eliquis) 2.5 mg PO BID #180 tabs 05/30/24 07/06/24 Rx Medical Marijuana 1 gummy PO HS 06/13/24 07/06/24 History doxepin 3 mg tablet 3 mg PO HS 06/13/24 07/06/24 History ipratropium bromide 21 mcg (0.03 2 spray intranasal BID PRN 06/13/24 07/06/24 History %) nasal spray Congestion levothyroxine 25 mcg tablet 25 mcg PO QAM 06/13/24 07/06/24 History omeprazole 20 mg capsule,delayed 20 mg PO QAM 06/13/24 07/06/24 History release pramipexole 0.25 mg tablet 0.25 mg PO UD 06/13/24 07/06/24 History spironolactone 25 mg tablet 25 mg PO QAM 06/13/24 07/06/24 History syringe (disposable) 60 mL #100 ea 06/16/24 06/29/24 Rx (Monoject Syringe Vahid Type) nutritional supplements 0.08 See Rx Instructions feeding tube 06/17/24 07/06/24 Rx gram-2 kcal/mL liquid for tube TID 30 days #24,000 mL feed (Nutren 2.0) albuterol sulfate 90 mcg/actuation 1 inh inhalation .COMPLEX 06/21/24 07/06/24 History aerosol inhaler shortness of breath or wheezing atorvastatin 10 mg tablet 10 mg PO .COMPLEX 06/21/24 07/06/24 History cyanocobalamin (vitamin B-12) See Rx Instructions .Route .COMPLEX 06/21/24 07/06/24 History 1,000 mcg tablet Oxygen Home #1 ea 07/02/24 Rx losartan 25 mg tablet 25 mg PO QAM #90 tabs 07/05/24 07/06/24 Rx Allergies Allergy/AdvReac Type Severity Reaction Status Date / Time Beta-Blockers Allergy Unknown Unknown Verified 06/29/24 09:45 (Beta-Adrenergic Bloc prochlorperazine Allergy Unknown "combid" Verified 06/29/24 09:45 Unknown aspirin AdvReac Intermediate stomach Verified 06/29/24 09:45 pains methotrexate AdvReac Intermediate elevated Verified 06/29/24 09:45 liver levels COMBID Allergy Unknown Unknown Uncoded 06/29/24 09:45 Past Med/Surg History Problem List Goals of care, counseling/discussion Malnutrition (Acute) Hyponatremia (Acute) Hyperkalemia (Acute) Coronary artery disease involving coronary bypass graft (Acute) Elevated troponin I level (Acute) Dyspnea on exertion (Acute) Congestive heart failure (Acute) Abnormal weight loss Periodic limb movement disorder (PLMD) Adult failure to thrive Exercise hypoxemia 05/04/24: 6 min walk test, 86% RA, test prematurely stopped. TZunigaMD Dysequilibrium Tremor Dysphagia Dysarthria Underweight Hypothyroidism Guillermo's thyroiditis B12 deficiency Elevated TSH Iron deficiency anemia LUCIA (dyspnea on exertion) (Acute) Severe tricuspid regurgitation Severe mitral regurgitation Heart failure with mid-range ejection fraction (HFmEF) Chronic insomnia Fatigue Hypomagnesemia Venous insufficiency Otitis externa Dyspnea on exertion Nocturnal leg cramps Pleural effusion on right Tympanic membrane perforation Hyperkalemia (03/14/21) PMR (polymyalgia rheumatica) Sensorineural hearing loss (SNHL) of both ears Arthralgia of multiple joints Myopathy Permanent atrial fibrillation Eustachian tube dysfunction Mixed conductive and sensorineural hearing loss Cervical radiculopathy Eczema Dyslipidemia Idiopathic polyneuropathy Insomnia Osteoporosis Vitamin D deficiency GERD without esophagitis Rhinitis Tinnitus of left ear Vertigo Hx of CABG (2006) TRIPLE BYPASS Hyponatremia Coronary artery disease Chronic diastolic CHF (congestive heart failure) DENIES CURRENT OR HX OF Medical History Exercise hypoxemia 05/04/24: 6 min walk test, 86% RA, test prematurely stopped. TZunigaMD Hx of vertigo no recent issues per dtr Venous insufficiency Severe tricuspid regurgitation Severe mitral regurgitation Hx of pleural effusion "in the past, no concern at this point per dtr" Permanent atrial fibrillation f/u dr. ledesma, [facility] [place] Osteoporosis PLMD (periodic limb movement disorder) Hx of iron deficiency anemia Idiopathic polyneuropathy Hypothyroidism GERD without esophagitis Eczema no recent flares Dysphagia Dyslipidemia Adult failure to thrive LUCIA (dyspnea on exertion) Coronary artery disease Chronic diastolic CHF (congestive heart failure) Chronic insomnia Dermatomyositis hx, no recent issues History of temporal arteritis SNHL (sensorineural hearing loss) bilateral hearing aids Lyme disease hx, no residual effects per dtr. Surgical History Hx of cardiac cath 2006, preop to hysterectomy, ~3 days later taken to [facility] for CABG x3 Hx of right cataract extraction Hx of CABG 2007, triple bypass, [facility]; f/u dr. ledesma, [facility] [place] History of left cataract surgery History of colonoscopy History of myringotomy History of temporal artery biopsy History of hysterectomy History of breast surgery pt dtr denies History of cholecystectomy Family History Mother Myocardial infarction Hypertension Cardiac disorder Brother Prostate cancer Myocardial infarction FHx: deafness or hearing loss Father Cardiac disorder Sister Colon cancer FHx: deafness or hearing loss Non-Hodgkin lymphoma Brother Cardiac disorder Hypertension Denies family history of Ovarian cancer Breast cancer Social History Smoking Status: Never smoker Second Hand Exposure: No; Do You Dip or Chew Tobacco: No; Hx Alcohol Use: No Hx Substance Use: Yes Last Used Substance Other:: uses daily at bedtime Substance Use Type Other:: marijuana gummies Preferred Language: Tajik Communication Ability: Impaired Communication Ability Comment: Patient has slurred speech that is chronic/unable to swallow Visual Impairment: Limited Hearing Ability: Use of Hearing Aid Coil Cutter Required: No Beliefs That Will Affect Care: None marital status: / Current Living Situation: Family Current Living Situation Comment: with daughter current occupational status: retired current occupation: used to work at the [employer] How many Children do You have: 2 Feels Safe at Home: Yes Safety Concerns: Feels Safe At This Time Childhood Exposure to Second-Hand Smoke: No Diet: regular caffeine: No (Soda occasional.) during the past year weight has: remained stable Dental Care, Regularly: Yes Physical Activity Frequency: Daily Seatbelt Use: always Sunscreen Use: No (isn't out in the sun ) Assistive Devices: Glasses and Hearing Aid - Bilateral Physical Exam Vital Signs Vital Signs - 24 hr 07/06/24 08:57 07/06/24 09:11 07/06/24 09:11 Temperature 36.5 C Temperature Source Temporal Artery Scan Pulse Rate 91 H Pulse Rate [Apical] Respiratory Rate 20 22 Respiratory Effort / Characteristics Non-Labored Spontaneous Respiratory Depth Normal Normal Blood Pressure 124/67 Blood Pressure [Right Arm] Blood Pressure Mean 86 Blood Pressure Mean [Right Arm] Pulse Oximetry 94 95 Oxygen Delivery Method Room Air Room Air Room Air Sepsis Recent Fever Within 48 Hours No Sepsis New/Unexplained Change in Mental Status No Sepsis Action Taken by Nursing No Action Required 07/06/24 09:20 07/06/24 09:46 07/06/24 11:00 Temperature Temperature Source Pulse Rate 77 Pulse Rate [Apical] 89 Respiratory Rate 22 22 Respiratory Effort / Characteristics Respiratory Depth Normal Blood Pressure Blood Pressure [Right Arm] 115/69 Blood Pressure Mean Blood Pressure Mean [Right Arm] 84 Pulse Oximetry 96 99 Oxygen Delivery Method Room Air Room Air Sepsis Recent Fever Within 48 Hours Sepsis New/Unexplained Change in Mental Status Sepsis Action Taken by Nursing CONSTITUTIONAL: Cachectic appearing female in no acute distress. The patient is alert and oriented x 3 and conversant. HEENT: Normocephalic, atraumatic. Pupils equal, round and reactive. Patient does not wear hearing aids. Examination does not show any TM erythema, rhinorrhea or significant posterior pharyngeal erythema. NECK: Full active range of motion without discomfort. No JVD or carotid bruits appreciated. LYMPHATICS: No cervical chain adenopathy. RESPIRATORY: Lung sounds are distant without any obvious wheezing, crackles, rhonchi or stridor. CARDIOVASCULAR: Regular rate and rhythm with no murmurs, rubs or gallops. GASTROINTESTINAL: Bowel sounds present in all quadrants. PEG tube appears to be in appropriate position without any surrounding erythema or discharge. There is a mild amount of discharge around the ABD pad that is applied around the PEG tube. INTEGUMENTARY: No rash or other significant dermatologic conditions noted. HEMATOLOGIC: No ecchymosis or petechiae. PSYCHIATRIC: Positive affect. NEUROLOGIC: No focal neurologic deficits appreciated. Course Course Patient history and physical exam were performed. Nurses notes reviewed. I did review outside medical records, including the patient's office visit 2 days ago for a 6-minute walk test, showing that she did not have any significant hypoxia on testing, but did have notable fatigue. Also reviewed the patient's last cardiology note from 06/21/2024, and they felt that the patient appeared to be stable without any changes to her medications. Further review of prior medical records shows that the patient does not have any concerning findings on chest imaging. IV access was established, and labs were ordered and drawn. An ECG was performed, showing questionable ischemic changes over the inferolateral leads, which is new since her last ECG of 02/22/2024. The patient was placed on public message service supervisor while in the emergency department. Further review of labs shows an elevated troponin and BNP. Further review of labs shows a mild anemia which is baseline for the patient. Coagulation studies are normal. The patient is also mildly hyponatremic at 132, and hyperkalemic at 5.2. Renal function is normal. TSH is also elevated, showing a history of chronic TSH elevation. Free T4 is normal. There was a delay in urinalysis as the patient was unable to provide a urine specimen. A BioFire PCR respiratory panel was negative. CT angiography of the chest shows pulmonary edema without evidence for pulmonary emboli or pneumonia. The case was discussed with Dr. Kennedy, ED attending physician, who agrees with workup and admission. [facility], I did speak with Dr. David, [facility] international account representative on- call, who is also in the emergency department at the time. He will further evaluate the patient. The case was then discussed with Dr. Mcdaniel, [facility], who will also evaluate the patient. Please see their dictation for further treatment and final disposition. The daughter also mentioned that the patient is having problems swallowing her diltiazem and omeprazole. I did discuss this with our ED pharmacist as well, who indicates that there is a diltiazem immediate release formula that may be able to be compounded by a pharmacist, however that would be best directed by cardiology. Regarding the omeprazole, there is a lansoprazole ODT that could be administered as well as her proton pump inhibitor. I did recommend that the daughter discuss this with cardiology and the hospitalist during admission. Administered Medications Atorvastatin Calcium (Atorvastatin 10 Mg Tab) 10 mg PO DAILY [facility] Stop: 08/05/24 13:59 Last Admin: 07/06/24 13:47 Dose: Not Given Documented By: MMG Miscellaneous (*Medical Marijuana Gummy*Order Awaiting Action) 1 each N/A QS [facility] Stop: 08/05/24 15:59 Last Admin: 07/06/24 17:13 Dose: Not Given Documented By: AAL Pramipexole Dihydrochloride (Pramipexole Dihydrochlo 0.25 Mg Tab) 0.25 mg PO DAILY@1800 [facility] Stop: 08/05/24 17:59 Last Admin: 07/06/24 18:28 Dose: 0.25 mg Documented By: LYNDSAY Sterile Water (Tube Feeding Water Flush) 30 ml PEG Q4H [place] Stop: 08/05/24 13:59 Last Admin: 07/06/24 19:24 Dose: 30 ml Documented By: Admin: 07/06/24 18:28 Dose: Not Given Documented By: LYNDSAY Discontinued Medications Furosemide (Furosemide Inj 20 Mg/2 Ml Vial) 20 mg IV ONE ONE Stop: 07/06/24 13:35 Last Admin: 07/06/24 13:47 Dose: 20 mg Documented By: SHEBA Ioversol (Optiray 320 125ml) 119 ml IV ONCE ONE Stop: 07/06/24 11:17 Last Admin: 07/06/24 11:17 Dose: 119 ml Documented By: DONIS Medical Decision Making Medical Records Attestation: I reviewed the patient's medical records. Home Medications was personally reviewed by me Laboratory Data Attestation: I reviewed the patient's lab results. 07/06/24 09:55 07/06/24 09:55 Lab Results 07/06/24 07/06/24 Range/Units 09:55 11:37 WBC 6.42 (4.8-10.8) K/ul RBC 3.73 L (4.20-5.40) M/uL Hgb 11.5 L (12.0-16.0) g/dl Hct 35.0 L (37.0-47.0) % MCV 93.8 (80.0-100.0) fL MCH 30.8 (25.0-34.0) pg MCHC 32.9 (32.0-36.0) g/dL RDW Std Deviation 51.8 H (36.4-46.3) fL RDW Coeff of Mya 15.1 H (11.5-14.5) % Plt Count 283 (130-400) K/uL MPV 10.1 (9.4-12.4) fL Immature Gran % (Auto) 0.2 % Neut % (Auto) 89.7 % Lymph % (Auto) 6.9 % [place] % (Auto) 3.0 % Eos % (Auto) 0.0 % Baso % (Auto) 0.2 % Neut # (Auto) 5.77 (1.40-6.50) K/uL Lymph # (Auto) 0.44 L (1.20-3.40) K/uL [place] # (Auto) 0.19 (0.11-0.59) K/uL Eos # (Auto) 0.00 (0.00-0.50) K/uL Baso # (Auto) 0.01 (0.00-0.20) K/uL Immature Gran # (Auto) 0.01 (0.01-0.20) K/uL PT 11.2 (9.0-12.0) Seconds INR 1.0 (0.9-1.1) APTT 28 (21-31) Seconds PTT Ratio 1.0 Sodium 132 L (136-145) mmol/L Potassium 5.2 H (3.5-5.1) mmol/L Chloride 91 L (98-107) mmol/L Carbon Dioxide 32 (21-32) mmol/L Anion Gap 9 (3-11) BUN 39 H (6-23) mg/dl Creatinine 0.75 (0.6-1.2) mg/dl Est Cr Clr Drug Dosing Not Reportable eGFR 76.05 BUN/Creatinine Ratio 52.0 H (10-20) Glucose 119 H (70-99(Fasting)) mg/dl Calcium 10.4 H (8.6-10.3) mg/dl Phosphorus 4.7 (2.5-4.9) mg/dl Magnesium 2.0 (1.7-2.4) mg/dl Total Bilirubin 0.4 (0.2-1.0) mg/dl AST 39 (13-39) U/L ALT 25 (7-52) U/L Alkaline Phosphatase 90 (34-104) U/L Troponin I High Sens 1161.1 H* 1112.7 H* (0-14) pg/ml B-Natriuretic Peptide 1356 H (0-100) pg/ml Total Protein 7.6 (6.0-8.3) gm/dl Albumin 4.2 (3.4-5.0) gm/dl Globulin 3.4 (2.5-4.0) gm/dl Albumin/Globulin Ratio 1.2 (0.9-2) Lipase 34 (11-82) U/L TSH 6.682 H (0.300-4.500) uIu/ml Free T4 0.90 (0.61-1.60) ng/dl Imaging Data Attestation: I personally reviewed and interpreted this imaging study as follows: My Impression: My interpretation of CT angiography of the chest shows evidence for pulmonary edema without evidence for pulmonary emboli or pneumonia. Cardiomegaly is also noted. Radiologist report was also reviewed with concurrence. Radiologist's Impression: Chest CTA 07/06/24 09:40 CT ANGIOGRAPHY OF THE CHEST, PULMONARY EMBOLUS PROTOCOL CLINICAL HISTORY: Shortness of breath. Evaluate for pulmonary embolus. COMPARISON STUDY: Chest CT November 03, 2018. Chest radiograph February 22, 2024. TECHNIQUE: Following IV administration of 119 mL of Optiray, helical axial images of the chest were obtained utilizing the pulmonary embolus protocol. Maximal intensity projections and sagittal and coronal reformats were viewed on an independent 3D workstation. IV contrast was administered without complication. Automated exposure control was utilized for the study. A dose lowering technique was utilized adhering to the principles of ALARA. CT DOSE: 242.84 mGy.cm FINDINGS: No pulmonary emboli are identified. The thoracic aorta is not opacified. There are postoperative findings consistent with median sternotomy and bypass grafting. Moderate cardiomegaly. No pericardial effusion is present. Dilatation of the right heart chambers with dilatation of the IVC and hepatic veins with reflux of contrast is noted. Small to moderate right and small left pleural effusions are present. There is no pneumothorax. Asymmetric groundglass opacities within the right lower lobe favor atelectasis. There is no consolidation to suggest pneumonia. Scattered tiny pulmonary nodules measuring up to 4 mm are similar to CT of November 03, 2018. Subpleural biapical partially calcified densities are unchanged. These are benign. There are no acute fractures within the bony thorax. There is body wall edema. IMPRESSION: 1. No pulmonary emboli identified. 2. Cardiomegaly with pulmonary edema. Small to moderate right and small left pleural effusions. 3. Asymmetric groundglass right lung opacity suggestive of atelectasis. No consolidation to suggest pneumonia. ACT 112: Negative or not required by law. Electronically signed by: Alex Gomez M.D. 07/06/2024 11:30 AM ECG Data Attestation: I personally reviewed and interpreted this ECG as follows: Indication: + SOB/dyspnea and + weakness Rate (beats per minute): 84 Rhythm: + atrial fibrillation ECG Intervals/blocks: + Right Bundle branch block ECG ST segments: + ST depression (Inferolateral) ECG Findings: + Other (Bifascicular block) Comparison ECG Date: from (02/22/2024) Change: the following changes noted (Inferolateral ischemic changes) MDM Narrative Cardiac monitoring: An order was placed for continuous cardiac monitoring. The monitor shows a rate of 84 bpm with atrial fibrillation bifascicular blocks. blood bank calendar control clerk history was reviewed throughout the evaluation, and no dysrhythmias were noted. See ED Course section for further details of today's visit. The patient was brought to the emergency department via private transportation for evaluation of progressively worsening shortness of breath. It is noted that the patient denies any chest pain. She does have a prior history of coronary artery disease with a three-vessel CABG in 2006. The patient does not appear to have any upper respiratory symptoms to suggest viral infection, however a BioFire test was ordered and was negative. Further review of labs did show an elevated troponin and BNP, with chest CT angiography showing pulmonary edema without evidence for pneumonia, pericarditis or pulmonary emboli. ECG is concerning for possible inferior lateral ischemia. Additional labs also shows a mild hyperkalemia, anemia and hyponatremia that can be further corrected by the hospitalist service. I did discuss the case with cardiology (Dr. David), who is also in the emergency department at the time of this consult. The case was also discussed with the [facility] hospitalist (Dr. Mcdaniel) who agrees with admission. The case was also discussed with Dr. Kennedy, ED attending physician, who agrees with workup and admission. Impression Congestive heart failure, Dyspnea on exertion, Elevated troponin I level, Coronary artery disease involving coronary bypass graft, Hyperkalemia, Hyponatremia, Malnutrition Discharge Plan Visit Data Chief Complaint: Shortness of Breath/Dyspnea Stated Complaint: SOB, SEEMS OFF ED Provider: Cesar Kennedy ED Midlevel Provider: Marco A Whitney Discharge Problem: Congestive heart failure, Dyspnea on exertion, Elevated troponin I level, Coronary artery disease involving coronary bypass graft, Hyperkalemia, Hyponatremia, Malnutrition Patient Disposition: Admitted As Inpatient Discharge Instructions Interventions: ED Discharge Assessment Last Done: 07/06/24 13:00 Addendum July 06, 2024 21:30 I was consulted by the Advanced Practice Provider and was substantively involved in the patient's visit.This includes aspects of the HPI, MDM, diagnostic interpretations, and disposition/plan. I discussed the case with the BRANDIN and agree with the findings and plan as documented in BRANDIN [place]'s note.
[2024-07-06 10:15] LABS: Basophils # (auto) 0.01 K/uL (0.00-0.20); Basophils % (auto) 0.2 %; Hemoglobin 11.5 g/dl (12.0-16.0); Immature Granulocytes # (auto) 0.01 K/uL (0.01-0.20); Immature Granulocytes % (auto) 0.2 %; Lymphocytes # (auto) 0.44 K/uL (1.20-3.40); Lymphocytes % (auto) 6.9 %; Mean Corpuscular Hemoglobin 30.8 pg (25.0-34.0); Mean Corpuscular Hgb Conc 32.9 g/dL (32.0-36.0); Mean Corpuscular Volume 93.8 fL (80.0-100.0); Mean Platelet Volume 10.1 fL (9.4-12.4); Monocytes # (auto) 0.19 K/uL (0.11-0.59); Neutrophils # (auto) 5.77 K/uL (1.40-6.50); Neutrophils % (auto) 89.7 %; Platelet Count 283 K/uL (130-400); RDW Coefficient of Variation 15.1 % (11.5-14.5); RDW Standard Deviation 51.8 fL (36.4-46.3); Red Blood Count 3.73 M/uL (4.20-5.40); White Blood Count 6.42 K/ul (4.8-10.8)
[2024-07-06 10:38] LABS: Alanine Aminotransferase 25 U/L (7-52); Albumin Globulin Ratio 1.2 (0.9-2); Albumin Level 4.2 gm/dl (3.4-5.0); Alkaline Phosphatase 90 U/L (34-104); Anion Gap 9 (3-11); Aspartate Aminotransferase 39 U/L (13-39); Bilirubin,Total 0.4 mg/dl (0.2-1.0); Blood Urea Nitrogen 39 mg/dl (6-23); Calcium 10.4 mg/dl (8.6-10.3); Carbon Dioxide 32 mmol/L (21-32); Chloride 91 mmol/L (98-107); Globulin 3.4 gm/dl (2.5-4.0); Glucose 119 mg/dl (70-99(Fasting)); Lipase 34 U/L (11-82); Phosphorus 4.7 mg/dl (2.5-4.9); Potassium 5.2 mmol/L (3.5-5.1); Sodium 132 mmol/L (136-145); Total Protein 7.6 gm/dl (6.0-8.3)
[2024-07-06 10:45] LABS: Partial Thromboplastin Time 28 Seconds (21-31); Prothrombin Time 11.2 Seconds (9.0-12.0)
[2024-07-06 10:52] LABS: Thyroid Stimulating Hormone 6.682 uIu/ml (0.300-4.500)
[2024-07-06 10:55] LABS: Troponin I High Sensitivity 1161.1 pg/ml (0-14)
[2024-07-06] MEDS: OPTIRAY 320 125ml IV ONE (11:17)
[2024-07-06 11:27] LABS: Adenovirus PCR Not Detected (NotDetected); Bordetella parapertussis PCR Not Detected (NotDetected); Bordetella pertussis PCR Not Detected (NotDetected); Chlamydia pneumoniae PCR Not Detected (NotDetected); Coronavirus 229E PCR Not Detected (NotDetected); Coronavirus CoV-2 (COVID19)PCR Not Detected (NotDetected); Coronavirus HKU1 PCR Not Detected (NotDetected); Coronavirus NL63 PCR Not Detected (NotDetected); Coronavirus OC43PCR Not Detected (NotDetected); Human Metapneumovirus PCR Not Detected (NotDetected); Influenza A PCR Not Detected (NotDetected); Influenza B PCR Not Detected (NotDetected); Mycoplasma pneumoniae PCR Not Detected (NotDetected); Parainfluenza Virus 1 PCR Not Detected (NotDetected); Parainfluenza Virus 2 PCR Not Detected (NotDetected); Parainfluenza Virus 3 PCR Not Detected (NotDetected); Parainfluenza Virus 4 PCR Not Detected (NotDetected); Respiratory Syncytial VirusPCR Not Detected (NotDetected); Rhinovirus/Enterovirus PCR Not Detected (NotDetected)
--- NOTE | 2024-07-06 11:32 | CT Scan Report ---
CT ANGIOGRAPHY OF THE CHEST, PULMONARY EMBOLUS PROTOCOL CLINICAL HISTORY: Shortness of breath. Evaluate for pulmonary embolus. COMPARISON STUDY: Chest CT November 03, 2018. Chest radiograph February 22, 2024. TECHNIQUE: Following IV administration of 119 mL of Optiray, helical axial images of the chest were o btained utilizing the pulmonary embolus protocol. Maximal intensity projections and sagittal and cor onal reformats were viewed on an independent 3D workstation. IV contrast was administered without co mplication. Automated exposure control was utilized for the study. A dose lowering technique was ut ilized adhering to the principles of ALARA. CT DOSE: 242.84 mGy.cm FINDINGS: No pulmonary emboli are identified. The thoracic aorta is not opacified. There are postope rative findings consistent with median sternotomy and bypass grafting. Moderate cardiomegaly. No mehul cardial effusion is present. Dilatation of the right heart chambers with dilatation of the IVC and he patic veins with reflux of contrast is noted. Small to moderate right and small left pleural effusion s are present. There is no pneumothorax. Asymmetric groundglass opacities within the right lower lobe favor atelectasis. There is no consolidation to suggest pneumonia. Scattered tiny pulmonary nodules measuring up to 4 mm are similar to CT of November 03, 2018. Subpleural biapical partially calcified dens ities are unchanged. These are benign. There are no acute fractures within the bony thorax. There is body wall edema. IMPRESSION: 1. No pulmonary emboli identified. 2. Cardiomegaly with pulmonary edema. Small to moderate right and small left pleural effusions. 3. Asymmetric groundglass right lung opacity suggestive of atelectasis. No consolidation to suggest p neumonia. ACT 112: Negative or not required by law. Electronically signed by: Alex Gomez M.D. 07/06/2024 11:30 AM
--- NOTE | 2024-07-06 11:32 | History & Physical Report ---
Date of Service July 06, 2024 Assessment & Plan (1) Congestive heart failure: Plan: Acute on chronic CHF, midrange EF, CAD, A-fib Last echo with EF approximately 40-45% With BNP acutely elevated at 1356, troponin 1161 CTA with no evidence of PE. Patient does have pulmonary edema and right greater than left lateral effusions Lasix 20 mg IV twice daily ordered, if an adequate urine output will double to 40 twice daily. Target net 24-hour negative of approximately 1 L Heart healthy diet Troponin is elevated, patient has not had clinical chest pain at any point. EKG is with baseline bundle branch block redemonstrated, possible inferior ischemic change. Repeat troponin stable/lightly downtrending. Suspect demand with hypoxia and acute CHF. Will continue diuresis as noted. Echo is pending. Troponin trended On dose reduced Eliquis, this is continued. No missed doses Feed free water amounts being adjusted as noted below, depending on progression may also need 12 X weekly dose of diuretic reinstated (2) Coronary artery disease involving coronary bypass graft: Plan: Losartan/spirolactone temporarily held for borderline low blood pressures while diuresing with Lasix and concurrent hyperkalemia. Resume these as clinically indicated once potassium normalizes Continue statin Continue diltiazem Cardiology following Echo is noted, Trope is noted, EKG is (3) Malnutrition: Plan: With history of dysphagia and PEG placement 1 month ago EGD 06/16/2024: Suspicious for candidiasis, benign esophageal stenosis, externally removable PEG placement completed, normal stomach/duodenum. Nutrition consulted. Patient had been working up to a full can of [employer] 3 times daily, currently is only taking around 6 ounces per meal. 4 ounce water flush before and after in addition to 2 ounces of water in the morning with pills. RD following and will decrease proportion of free water given CHF (4) PMR (polymyalgia rheumatica): Plan: Continue home meds (5) Insomnia: Plan: Continue home meds Patient may take her medical marijuana gummy in the evening if brought in for verification and self-administered (6) Goals of care, counseling/discussion: Plan: Patient was seen with her Daughter Samantha at bedside. Goals of care were discussed including CODE STATUS which was verified is DNR/DNI. Patient's daughter did request completion of a POLST form on admission which they had not yet done. Reviewed form in its entirety which was completed and signed at time of admission. Patient does have a PEG tube as noted. POLST form completed and scanned into chart, patient retained original copy to post on fridge. In short DNR/DNI, would want to discuss limited interventions outside of cardiac arrest, would want antibiotics if they could prolong life, and currently has a PEG tube and does not want any limitation of care related to artificial nutrition. Time spent on total discussion reviewing goals of care, completion of forms with the patient/family, documentation approximately 40 minutes. Plan DVT prophylaxis: Anticoagulated on Eliquis Disposition: MT for acute on chronic CHF CODE STATUS: DNR/DNI Diet: Heart healthy History of Present Illness Primary Care Provider: Tran Garber MD Debra is an 88-year-old female with a past medical history of CABG 2006, permanent A-fib on dose reduced apixaban, heart failure with EF 40-45% with severe TR/MR recently switched from Bumex twice daily to as needed 06/2024 who presents with progressive dyspnea, lower extremity edema, and reported hypoxia 70-85% by home pulse ox. PEG tube placed last month for difficulty swallowing and weight loss. Doing well after until she started to get trouble with her breathing. Did have some dificulty swallowing and using an ICH which she stopped due to thrush. No wheezing. 2 weeks ago started to get more short of breath going up stairs, then with exertion, and now has had some shortness of breath even with rest. Can no longer ascend steps at home due to dyspnea. No chest pain at any point. NO chest pressure or palpitations. 1 night of sinus congestion 2 weeks ago, but but has been using a vicks inhaler which she feels helps with her breathing a little. NO leg edema NO extra salt, is on PEG tube feedings. Bumux now as neede for leg swelling. Has not had any real food or salt PO since peg was placed. Does take some pudding/applesauce with evening pills. Takes eliquis dose reduced BID. Held this around her PEG tube placement. Restarted this ~1 week after PEG placement (06/22/24) and has been taking this [facility]. PEG Feeds: Nutrien 2.0 . Follows with [facility]. 1 carton per meal, onlyup to 6 or 7 oz per meal so far +4oz water flush per meal before and after, plus 2oz water with pills in the morningly. Takes evening pills with a few teaspoons of water and applesauce. Tried banatrol yesterday. On admission EKG has? Inferior lateral ischemic changes, baseline bundle branch block is redemonstrated, troponin is elevated to approximately 1000 with last measurement approximately 20 No infectious symptoms. No fever chills sweats cough runny nose. Medical History: Reviewed Medications: Reviewed Surgical History: Reviewed Family history: Reviewed Allergies: Reviewed Social History: No tobacco use, no etoh use Code Status: Samantha Danielle [phone] first contact in an emergency. Allergies Allergy/AdvReac Type Severity Reaction Status Date / Time Beta-Blockers Allergy Unknown Unknown Verified 06/29/24 09:45 (Beta-Adrenergic Bloc prochlorperazine Allergy Unknown "combid" Verified 06/29/24 09:45 Unknown aspirin AdvReac Intermediate stomach Verified 06/29/24 09:45 pains methotrexate AdvReac Intermediate elevated Verified 06/29/24 09:45 liver levels COMBID Allergy Unknown Unknown Uncoded 06/29/24 09:45 Home Medications Medication Instructions Recorded Confirmed Type pyridoxine (vitamin B6) 100 mg 100 mg PO QAM 10/08/21 07/06/24 History tablet diclofenac sodium 1 % topical gel 2 g EXT QID PRN pain #100 grams 11/24/22 07/06/24 Rx (Voltaren Arthritis Pain) diltiazem HCl 120 mg 120 mg PO BID #180 caps 08/04/23 07/06/24 Rx capsule,extended release 24 hr (Cartia XT) acetaminophen 500 mg tablet 500 mg PO Q6H PRN pain/fever 01/05/24 07/06/24 History (Tylenol Extra Strength) bumetanide 1 mg tablet 1 mg PO 2XWK #30 tabs 05/16/24 07/06/24 Rx apixaban 2.5 mg tablet (Eliquis) 2.5 mg PO BID #180 tabs 05/30/24 07/06/24 Rx Medical Marijuana 1 gummy PO HS 06/13/24 07/06/24 History doxepin 3 mg tablet 3 mg PO HS 06/13/24 07/06/24 History ipratropium bromide 21 mcg (0.03 2 spray intranasal BID PRN 06/13/24 07/06/24 History %) nasal spray Congestion levothyroxine 25 mcg tablet 25 mcg PO QAM 06/13/24 07/06/24 History omeprazole 20 mg capsule,delayed 20 mg PO QAM 06/13/24 07/06/24 History release pramipexole 0.25 mg tablet 0.25 mg PO UD 06/13/24 07/06/24 History spironolactone 25 mg tablet 25 mg PO QAM 06/13/24 07/06/24 History syringe (disposable) 60 mL #100 ea 06/16/24 06/29/24 Rx (Monoject Syringe Vahid Type) nutritional supplements 0.08 See Rx Instructions feeding tube 06/17/24 07/06/24 Rx gram-2 kcal/mL liquid for tube TID 30 days #24,000 mL feed (Nutren 2.0) albuterol sulfate 90 mcg/actuation 1 inh inhalation .COMPLEX 06/21/24 07/06/24 History aerosol inhaler shortness of breath or wheezing atorvastatin 10 mg tablet 10 mg PO .COMPLEX 06/21/24 07/06/24 History cyanocobalamin (vitamin B-12) See Rx Instructions .Route .COMPLEX 06/21/24 07/06/24 History 1,000 mcg tablet Oxygen Home #1 ea 07/02/24 Rx losartan 25 mg tablet 25 mg PO QAM #90 tabs 07/05/24 07/06/24 Rx Past Med/Surg History Problem List (Updated 07/06/24 @ 12:32 by Jamie Mcdaniel MD) Goals of care, counseling/discussion Malnutrition (Acute) Hyponatremia (Acute) Hyperkalemia (Acute) Coronary artery disease involving coronary bypass graft (Acute) Elevated troponin I level (Acute) Dyspnea on exertion (Acute) Congestive heart failure (Acute) Abnormal weight loss Periodic limb movement disorder (PLMD) Adult failure to thrive Exercise hypoxemia 05/04/24: 6 min walk test, 86% RA, test prematurely stopped. TZunigaMD Dysequilibrium Tremor Dysphagia Dysarthria Underweight Hypothyroidism Guillermo's thyroiditis B12 deficiency Elevated TSH Iron deficiency anemia LUCIA (dyspnea on exertion) (Acute) Severe tricuspid regurgitation Severe mitral regurgitation Heart failure with mid-range ejection fraction (HFmEF) Chronic insomnia Fatigue Hypomagnesemia Venous insufficiency Otitis externa Dyspnea on exertion Nocturnal leg cramps Pleural effusion on right Tympanic membrane perforation Hyperkalemia (03/14/21) PMR (polymyalgia rheumatica) Sensorineural hearing loss (SNHL) of both ears Arthralgia of multiple joints Myopathy Permanent atrial fibrillation Eustachian tube dysfunction Mixed conductive and sensorineural hearing loss Cervical radiculopathy Eczema Dyslipidemia Idiopathic polyneuropathy Insomnia Osteoporosis Vitamin D deficiency GERD without esophagitis Rhinitis Tinnitus of left ear Vertigo Hx of CABG (2006) TRIPLE BYPASS Hyponatremia Coronary artery disease Chronic diastolic CHF (congestive heart failure) DENIES CURRENT OR HX OF Medical History Exercise hypoxemia 05/04/24: 6 min walk test, 86% RA, test prematurely stopped. TZunigaMD Hx of vertigo no recent issues per dtr Venous insufficiency Severe tricuspid regurgitation Severe mitral regurgitation Hx of pleural effusion "in the past, no concern at this point per dtr" Permanent atrial fibrillation f/u dr. ledesma, [place] Osteoporosis PLMD (periodic limb movement disorder) Hx of iron deficiency anemia Idiopathic polyneuropathy Hypothyroidism GERD without esophagitis Eczema no recent flares Dysphagia Dyslipidemia Adult failure to thrive LUCIA (dyspnea on exertion) Coronary artery disease Chronic diastolic CHF (congestive heart failure) Chronic insomnia Dermatomyositis hx, no recent issues History of temporal arteritis SNHL (sensorineural hearing loss) bilateral hearing aids Lyme disease hx, no residual effects per dtr. Surgical History Hx of cardiac cath 2006, preop to hysterectomy, ~3 days later taken to [facility] [place]3 Hx of right cataract extraction Hx of CABG 2006, triple bypass, [facility]; f/u dr. ledesma, [place] History of left cataract surgery History of colonoscopy History of myringotomy History of temporal artery biopsy History of hysterectomy History of breast surgery pt dtr denies History of cholecystectomy Family History Mother Myocardial infarction Hypertension Cardiac disorder Brother Prostate cancer Myocardial infarction FHx: deafness or hearing loss Father Cardiac disorder Sister Colon cancer FHx: deafness or hearing loss Non-Hodgkin lymphoma Brother Cardiac disorder Hypertension Denies family history of Ovarian cancer Breast cancer Social History Smoking Status: Former smoker Second Hand Exposure: No; Do You Dip or Chew Tobacco: No; Hx Alcohol Use: No Hx Substance Use: Yes (medical card) Last Used Substance Other:: uses daily at bedtime Preferred Language: Martiniquais Communication Ability: Effective Communication Ability Comment: "her speech is somewhat difficult to understand" Visual Impairment: Limited Hearing Ability: Use of Hearing Aid [employer] Work[employer] Required: No Beliefs That Will Affect Care: None marital status: / Current Living Situation: Family Current Living Situation Comment: with daughter current occupational status: retired current occupation: used to work at the [employer] How many Children do You have: 2 Feels Safe at Home: Yes Childhood Exposure to Second-Hand Smoke: No Diet: regular caffeine: No (Soda occasional.) during the past year weight has: remained stable Dental Care, Regularly: Yes Physical Activity Frequency: Daily Seatbelt Use: always Sunscreen Use: No (isn't out in the sun ) Assistive Devices: Glasses and Hearing Aid - Bilateral Physical Exam Physical Exam: General: A&Ox3. NAD. Cooperative. HEENT: Atraumatic, normocephalic. Vision and hearing grossly intact Pulm: Diminished in the bases bilaterally with trace rales in the right dependent field symmetrical chest rise. No increased work of breathing. No respiratory distress. Cardiac: Irregularly irregular, systolic and soft diastolic murmurs present. Radial pulses intact and symmetrical. JVD is present Abdominal: PEG in place, no discharge/erythema/tenderness. Remaining abdomen Nontender, nondistended, soft. BS present. Extremities: There is no lower extremity edema Results & Data Results & Data Vital Signs (Past 12 Hours) Vital Signs Temp Pulse Pulse Resp BP BP Pulse Ox 07/06/24 11:00 89 22 115/69 99 07/06/24 09:46 22 96 07/06/24 09:20 77 07/06/24 09:11 22 95 07/06/24 09:11 07/06/24 08:57 36.5 C 91 H 20 124/67 94 O2 Del Method 07/06/24 11:00 Room Air 07/06/24 09:46 Room Air 07/06/24 09:20 07/06/24 09:11 Room Air 07/06/24 09:11 Room Air 07/06/24 08:57 Room Air PG Care Time/CCT Total # of Minutes Spent Total Time Spent with Patient: Total time spent is greater than 50% in coordination of care (as documented) at patient's floor/unit and/or counseling patient: Coding Level of Care Code 59353 INT INP/OBS CARE 3/75MIN Diagnoses Congestive heart failure I50.23 Heart failure chronicity: acute on chronic Heart failure type: systolic Coronary artery disease involving coronary bypass graft I25.810 Associated angina: without angina [place] vs. transplanted heart: [place] heart Malnutrition E46 PMR (polymyalgia rheumatica) M35.3 Insomnia G47.00 Goals of care, counseling/discussion Z71.89 (1) Congestive heart failure Heart failure chronicity: acute on chronic Heart failure type: systolic Qualified Code(s): I50.23 - Acute on chronic systolic (congestive) heart failure (2) Coronary artery disease involving coronary bypass graft Associated angina: without angina [place] vs. transplanted heart: [place] heart Qualified Code(s): I25.810 - Atherosclerosis of coronary artery bypass graft(s) without angina pectoris
[2024-07-06] MEDS ORDERED: ALBUTEROL HFA 8 GM INHALER INH PRN (12:59)
[2024-07-06] MEDS ORDERED: POLYETHYLENE (MIRALAX) 17 GM PACK PO PRN (12:59)
[2024-07-06] MEDS ORDERED: ONDANSETRON INJ 2 MG/ML 2 ML VIAL IV PRN (12:59)
[2024-07-06] MEDS ORDERED: ACETAMINOPHEN 500 MG TAB PO PRN (12:59)
[2024-07-06] MEDS ORDERED: DICLOFENAC SOD 1% GEL 100 GM TUBE EXT PRN (12:59)
[2024-07-06] MEDS: ATORVASTATIN 10 MG TAB PO SCH (13:47)
[2024-07-06] MEDS: FUROSEMIDE INJ 20 MG/2 ML VIAL IV ONE (13:47)
--- NOTE | 2024-07-06 14:26 | Electrocardiogram Report ---
Test Reason : Blood Pressure : */* mmHG Vent. Rate : 84 BPM Atrial Rate : * BPM P-R Int : * ms QRS Dur : 132 ms QT Int : 410 ms P-R-T Axes : * -57 -73 degrees QTcB Int : 484 ms Atrial fibrillation Right bundle branch block Left anterior fascicular block Bifascicular block T wave abnormality, consider inferolateral ischemia Abnormal ECG When compared with ECG of 22-Feb-2024 11:46, T wave inversion now evident in Inferior leads T wave inversion less evident in Lateral leads Confirmed by Lenny David ([id number]) on 07/06/2024 2:26:22 PM Referred By: REFERRED SELF Confirmed By: Lenny David
--- NOTE | 2024-07-06 14:56 | XCELERA ---
[id number] \\[id number]
[2024-07-06] MEDS: PRAMIPEXOLE DIHYDROCHLO 0.25 MG TAB PO SCH ×2 (18:28→21:51)
[2024-07-06] MEDS: TUBE FEEDING WATER FLUSH PEG SCH (18:28)
[2024-07-06] MEDS ORDERED: Nursing to Pharmacy Communication SCH (18:30)
[2024-07-06] MEDS: BANATROL TF 60 ML LIQUID PKT PEG SCH (21:50)
[2024-07-06] MEDS: DOXEPIN HCL 3 MG TAB PO SCH (21:50)
[2024-07-06] MEDS: APIXABAN 2.5 MG TAB PO SCH (21:50)
[2024-07-06] MEDS: dilTIAZem HCL 120 MG CAPCR PO SCH (21:50)
[2024-07-06] MEDS: MEDICAL MARIJUANA PO SCH (21:52)
[2024-07-07 02:29] LABS: Basophils # (auto) 0.03 K/uL (0.00-0.20); Basophils % (auto) 0.4 %; Hematocrit (blood only) 32.3 % (37.0-47.0); Hemoglobin 10.6 g/dl (12.0-16.0); Immature Granulocytes # (auto) 0.01 K/uL (0.01-0.20); Immature Granulocytes % (auto) 0.1 %; Lymphocytes # (auto) 0.67 K/uL (1.20-3.40); Lymphocytes % (auto) 9.9 %; Mean Corpuscular Hemoglobin 30.5 pg (25.0-34.0); Mean Corpuscular Hgb Conc 32.8 g/dL (32.0-36.0); Mean Corpuscular Volume 93.1 fL (80.0-100.0); Mean Platelet Volume 10.1 fL (9.4-12.4); Monocytes # (auto) 0.34 K/uL (0.11-0.59); Neutrophils # (auto) 5.71 K/uL (1.40-6.50); Neutrophils % (auto) 84.6 %; Platelet Count 273 K/uL (130-400); RDW Coefficient of Variation 15.5 % (11.5-14.5); RDW Standard Deviation 52.4 fL (36.4-46.3); Red Blood Count 3.47 M/uL (4.20-5.40); White Blood Count 6.76 K/ul (4.8-10.8)
[2024-07-07 02:45] LABS: BUN Creatinine Ratio 45.9 (10-20); Calcium 10.1 mg/dl (8.6-10.3); Potassium 4.6 mmol/L (3.5-5.1)
[2024-07-07] MEDS: LEVOTHYROXINE SODIUM 25 MCG TABLET PO SCH (05:49)
[2024-07-07] MEDS: IPRATROPIUM BROMIDE NASAL SPRAY 0.06% 15ML NAE PRN (07:47)
[2024-07-07] MEDS: CYANOCOBALAMIN (B-12) 500 MCG TABLET PO SCH (07:51)
[2024-07-07] MEDS: PYRIDOXINE HCL 50 MG TAB PO SCH (07:55)
[2024-07-07] MEDS: FUROSEMIDE 40 MG/4 ML VIAL IV SCH (09:52)
[2024-07-07] MEDS: PANTOprazole 40 MG TAB PO SCH (09:52)
--- NOTE | 2024-07-07 11:25 | Cardiology Consultation ---
Date of Consultation July 07, 2024 Assessment & Plan (1) Heart failure with mid-range ejection fraction (HFmEF): -Likely secondary to change in diuretic therapy back on June 21. -Agree with intravenous diuretics. -Would resume losartan when able. -She was intolerant to beta-blockers previously. (2) Coronary artery disease: -Quiescent on medical management. (3) Permanent atrial fibrillation: -Continue rate control and long-term anticoagulation. (4) Severe mitral regurgitation: -Moderate in degree on current echocardiogram. History of Present Illness Attending Physician: Angelito Nino MD History of Present Illness Mrs. Malhotra is an 88-year-old female admitted yesterday in mildly decompensated CHF. This consultation was ordered to assist in her cardiac management. Of note, the patient is typically seen by Dr. Araujo in the outpatient setting. The patient was in her usual state of health until approximately 1 week prior to presentation. She began to note progressive exertional dyspnea, some minor lower extremity edema, and had a reduced pulse ox at home of 85%. She was brought to the emergency room for further care. She was seen by Dr. Araujo on June 21 and her twice daily Bumex was changed to as needed dosing. She does carry history of chronic systolic CHF with an ejection fraction reported 40 to 45% back in November 2022. She has a history of coronary artery disease having undergone a three-vessel bypass in 2006. She also carries a history of severe mitral and tricuspid regurgitation. She is not felt to be an operative candidate. She did have a PEG tube placed last month because of malnutrition, weight loss, and difficulty swallowing. Currently, patient is resting comfortably in bed and without complaints. Past medical and surgical history 1. Coronary artery disease 2. CABG [place] [id number] 3. Hypercholesterolemia 4. Permanent atrial fibrillation 5. Chronic systolic CHF 6. Severe mitral digitation 7. Severe tricuspid regurgitation 8. Hypothyroidism 9. GERD 10. Malnutrition 11. PEG tube 12. PMR 13. Venous insufficiency 14. Vitamin B12 deficiency 15. Iron deficiency 16. Osteoporosis 17. DJD 18. Hearing deficit 19. Cholecystectomy 20. Hysterectomy 21. Bilateral intraocular lens implants Social history , lives with her daughter No tobacco or alcohol Family history Noncontributory Review of systems A 10 point review of systems was undertaken and negative except for that described above. Allergies Allergy/AdvReac Type Severity Reaction Status Date / Time Beta-Blockers Allergy Unknown Unknown Verified 11/27/24 09:45 (Beta-Adrenergic Bloc prochlorperazine Allergy Unknown "combid" Verified 06/29/24 09:45 Unknown aspirin AdvReac Intermediate stomach Verified 06/29/24 09:45 pains methotrexate AdvReac Intermediate elevated Verified 06/29/24 09:45 liver levels COMBID Allergy Unknown Unknown Uncoded 06/29/24 09:45 Home Medications Medication Instructions Recorded Confirmed Type pyridoxine (vitamin B6) 100 mg 100 mg PO QAM 10/08/21 07/06/24 History tablet diclofenac sodium 1 % topical gel 2 g EXT QID PRN pain #100 grams 11/24/22 07/06/24 Rx (Voltaren Arthritis Pain) diltiazem HCl 120 mg 120 mg PO BID #180 caps 08/04/23 07/06/24 Rx capsule,extended release 24 hr (Cartia XT) acetaminophen 500 mg tablet 500 mg PO Q6H PRN pain/fever 01/05/24 07/06/24 History (Tylenol Extra Strength) bumetanide 1 mg tablet 1 mg PO 2XWK #30 tabs 05/16/24 07/06/24 Rx apixaban 2.5 mg tablet (Eliquis) 2.5 mg PO BID #180 tabs 05/30/24 07/06/24 Rx Medical Marijuana 1 gummy PO HS 06/13/24 07/06/24 History doxepin 3 mg tablet 3 mg PO HS 06/13/24 07/06/24 History ipratropium bromide 21 mcg (0.03 2 spray intranasal BID PRN 06/13/24 07/06/24 History %) nasal spray Congestion levothyroxine 25 mcg tablet 25 mcg PO QAM 06/13/24 07/06/24 History omeprazole 20 mg capsule,delayed 20 mg PO QAM 06/13/24 07/06/24 History release pramipexole 0.25 mg tablet 0.25 mg PO UD 06/13/24 07/06/24 History spironolactone 25 mg tablet 25 mg PO QAM 06/13/24 07/06/24 History syringe (disposable) 60 mL #100 ea 06/16/24 06/29/24 Rx (Monoject Syringe Vahid Type) nutritional supplements 0.08 See Rx Instructions feeding tube 06/17/24 07/06/24 Rx gram-2 kcal/mL liquid for tube TID 30 days #24,000 mL feed (Nutren 2.0) albuterol sulfate 90 mcg/actuation 1 inh inhalation .COMPLEX 06/21/24 07/06/24 History aerosol inhaler shortness of breath or wheezing atorvastatin 10 mg tablet 10 mg PO .COMPLEX 06/21/24 07/06/24 History cyanocobalamin (vitamin B-12) See Rx Instructions .Route .COMPLEX 06/21/24 07/06/24 History 1,000 mcg tablet Oxygen Home #1 ea 07/02/24 Rx losartan 25 mg tablet 25 mg PO QAM #90 tabs 07/05/24 07/06/24 Rx Patient History Medical History Exercise hypoxemia 05/04/24: 6 min walk test, 86% RA, test prematurely stopped. TZunigaMD Hx of vertigo no recent issues per dtr Venous insufficiency Severe tricuspid regurgitation Severe mitral regurgitation Hx of pleural effusion "in the past, no concern at this point per dtr" Permanent atrial fibrillation [facility] Osteoporosis PLMD (periodic limb movement disorder) Hx of iron deficiency anemia Idiopathic polyneuropathy Hypothyroidism GERD without esophagitis Eczema no recent flares Dysphagia Dyslipidemia Adult failure to thrive LUCAI (dyspnea on exertion) Coronary artery disease Chronic diastolic CHF (congestive heart failure) Chronic insomnia Dermatomyositis hx, no recent issues History of temporal arteritis SNHL (sensorineural hearing loss) bilateral hearing aids Lyme disease hx, no residual effects per dtr. Surgical History Hx of cardiac cath 2006, preop to hysterectomy, ~3 days later taken to [facility] for CABG x3 Hx of right cataract extraction Hx of CABG 2006, triple bypass, [facility]; f/u dr. araujo, [place] History of left cataract surgery History of colonoscopy History of myringotomy History of temporal artery biopsy History of hysterectomy History of breast surgery pt dtr denies History of cholecystectomy Family History Mother Myocardial infarction Hypertension Cardiac disorder Brother Prostate cancer Myocardial infarction FHx: deafness or hearing loss Father Cardiac disorder Sister Colon cancer FHx: deafness or hearing loss Non-Hodgkin lymphoma Brother Cardiac disorder Hypertension Denies family history of Ovarian cancer Breast cancer Social History Smoking Status: Never smoker Second Hand Exposure: No; Do You Dip or Chew Tobacco: No; Hx Alcohol Use: No Hx Substance Use: Yes Last Used Substance Other:: uses daily at bedtime Substance Use Type Other:: marijuana gummies Preferred Language: Sinhala Communication Ability: Impaired Communication Ability Comment: Patient has slurred speech that is chronic/unable to swallow Visual Impairment: Limited Hearing Ability: Use of Hearing Aid Sterile Supply Technician Required: No Beliefs That Will Affect Care: None marital status: / Current Living Situation: Family Current Living Situation Comment: with daughter current occupational status: retired current occupation: used to work at the [employer] How many Children do You have: 2 Feels Safe at Home: Yes Safety Concerns: Feels Safe At This Time Childhood Exposure to Second-Hand Smoke: No Diet: regular caffeine: No (Soda occasional.) during the past year weight has: remained stable Dental Care, Regularly: Yes Physical Activity Frequency: Daily Seatbelt Use: always Sunscreen Use: No (isn't out in the sun ) Assistive Devices: Glasses and Hearing Aid - Bilateral Physical Exam Physical Exam: In general this is a thin, elderly white female in no acute distress. HEENT exam is negative. Neck is supple with full carotid upstrokes. There are no carotid bruits. Jugular is pressure is flat at 90 degrees. No thyromegaly. Cardiovascular Fady reveals an irregular regular rhythm with a 2/6 apical holosystolic murmur. Lungs are clear without rales, rhonchi, or wheezes. Abdomen notes a PEG tube in place. Extremities reveal intact radial pulse bilaterally. There is no peripheral edema. Results & Data Vital Signs (Past 12 Hours) Vital Signs Temp Pulse Pulse Resp BP BP Pulse Ox 07/07/24 10:39 89 18 112/74 96 07/07/24 07:34 101 H 22 128/96 97 07/07/24 03:25 36.3 C L 82 18 99/55 L 98 07/07/24 02:03 07/07/24 00:00 87 07/06/24 23:17 36.9 C 74 16 97/49 L 97 O2 Del Method 07/07/24 10:39 Room Air 07/07/24 07:34 Room Air 07/07/24 03:25 Room Air 07/07/24 02:03 Room Air 07/07/24 00:00 07/06/24 23:17 Room Air Laboratory Results Initial high-sensitivity troponin was 1161 with a follow-up value 1113. BNP is elevated at 1356. TSH is elevated at 6.68 with a normal T4 of 0.9 Diagnostic Findings Echocardiogram notes mild to moderate left ventricular dysfunction with ejection fraction of 40%. There is mild to moderate global hypokinesis. There is moderate to severe tricuspid and moderate mitral regurgitation. Compared with the study performed in November 2022, regurgitant lesions are less pronounced. PG Care Time/CCT Total # of Minutes Spent Total Time Spent with Patient: Total time spent is greater than 50% in coordination of care (as documented) at patient's floor/unit and/or counseling patient: Coding Level of Care Code 76010 INT INP/OBS CARE 3/75MIN Diagnoses Heart failure with mid-range ejection fraction (HFmEF) I50.22 Coronary artery disease I25.10 Permanent atrial fibrillation I48.21 Severe mitral regurgitation I34.0
--- NOTE | 2024-07-07 11:59 | Hospitalist Progress Note ---
Date of Service July 07, 2024 Assessment & Plan (1) Congestive heart failure: Plan: Presented with progressive dyspnea, lower extremity edema, and reported hypoxia 70-85% by home pulse ox. - Acute on chronic heart failure exacerbation, likely secondary to recent change in diuretic regimen - Echo EF= 40%, moderate to severe TR, moderate MR, left ventricular systolic function is mild to moderately reduced, mild to moderate global hypokinesis of left ventricle - BNP elevated at 1356 on admission. - Troponin elevated and peaked at 1454.5, likely secondary to demand ischemia in setting of hypoxia and acute CHF - CTA negative for PE. Does note pulmonary edema and R>L pleural effusions - Continue dose reduced Eliquis - Continue Lasix 20 mg IV BID - Feed free water amounts being adjusted as noted below, depending on progression may also need 12 X weekly dose of diuretic reinstated - Cardiology following (2) Coronary artery disease involving coronary bypass graft: Plan: History of CAD having undergone three-vessel bypass in 2006. Follow[address] Araujo outpatient - Continue statin, diltiazem - Losartan/spironolactone now resumed; initially held for borderline low blood pressures and concurrent hyperkalemia (3) Malnutrition: Plan: With history of dysphagia and PEG placement 1 month ago due to severe malnutrition - EGD 06/16/2024: Suspicious for candidiasis, benign esophageal stenosis, externally removable PEG placement completed, normal stomach/duodenum - Nutrition consulted. Patient had been working up to a full can of AthleteTraxen 3 times daily, currently is only taking around 6 ounces per meal. 4 ounce water flush before and after in addition to 2 ounces of water in the morning with pills - RD following and will decrease proportion of free water given CHF (4) Goals of care, counseling/discussion: Plan: Goals of care discussion occurred on admission - Verified patient is DNR/DNI - POLST form completed and signed on admission and scanned into chart - In short DNR/DNI, would want to discuss limited interventions outside of cardiac arrest, would want antibiotics if they could prolong life, and currently has a PEG tube and does not want any limitation of care related to artificial n utrition Plan Chronic stable issues: PMR: Continue home meds Insomnia: Continue home meds. Patient may take her medical marijuana gummy in the evening if brought in for verification and self-administered Of note, TSH elevated at 6.682, with normal Free T4. Recommend repeating TSH in outpatient setting DVT prophylaxis: Eliquis CODE STATUS: DNR/DNI Admission and Anticipated Discharge Date Admission Date: July 06, 2024 Subjective Patient seen and evaluated in bedside chair. She reports that her shortness of breath is improved, but she is not yet to her baseline. She has been urinating frequently, but due to incontinence, I&Os have not been accurately measured. Denies chest pain, palpitations, nausea, or abdominal pain. She denies any other complaints or concerns at this time. Physical Exam Physical Exam: General: No acute distress, nondiaphoretic, well-developed, well-nourished. Skin: The skin was without rashes, erythema, edema, or bruising. Cardiac: Regular rate and rhythm without murmurs gallops or rubs. Pulm: Breath sounds diminished in bases bilaterally but otherwise clear to auscultation. No respiratory distress. 96% on room air. Clear to auscultation bilaterally without wheezes, rales or rhonchi. No retractions or accessory muscle use. Abdominal: PEG in place, no discharge, erythema, tenderness. Soft, nontender, nondistended. Bowel sounds present. Neuro: A&O x3. No focal neurological deficits. Results & Data Results & Data Vital Signs (Past 12 Hours) Vital Signs Temp Pulse Pulse Resp BP BP Pulse Ox 07/07/24 10:39 89 18 112/74 96 07/07/24 07:34 101 H 22 128/96 97 07/07/24 03:25 97.3 F L 82 18 99/55 L 98 07/07/24 02:03 07/07/24 00:00 87 O2 Del Method 07/07/24 10:39 Room Air 07/07/24 07:34 Room Air 07/07/24 03:25 Room Air 07/07/24 02:03 Room Air 07/07/24 00:00 Laboratory Results Reviewed CBC Reviewed BMP Diagnostic Findings Reviewed chest CTA Reviewed echocardiogram PG Care Time/CCT Total # of Minutes Spent Total Time Spent with Patient: Total time spent is greater than 50% in coordination of care (as documented) at patient's floor/unit and/or counseling patient: Coding Level of Care Code 06117 SUB INP/OBS CARE 2/35MIN Diagnoses Congestive heart failure I50.23 Heart failure chronicity: acute on chronic Heart failure type: systolic Coronary artery disease involving coronary bypass graft I25.810 Associated angina: without angina [place] vs. transplanted heart: [place] heart Malnutrition E46 Goals of care, counseling/discussion Z71.89 (1) Congestive heart failure Heart failure chronicity: acute on chronic Heart failure type: systolic Qualified Code(s): I50.23 - Acute on chronic systolic (congestive) heart failure (2) Coronary artery disease involving coronary bypass graft Associated angina: without angina [place] vs. transplanted heart: [place] heart Qualified Code(s): I25.810 - Atherosclerosis of coronary artery bypass graft(s) without angina pectoris
[2024-07-08] MEDS: ACETAMINOPHEN 325 MG TAB PO PRN (05:39)
[2024-07-08 08:00] LABS: Basophils # (auto) 0.02 K/uL (0.00-0.20); Basophils % (auto) 0.3 %; Eosinophils # (auto) 0.02 K/uL (0.00-0.50); Eosinophils % (auto) 0.3 %; Hematocrit (blood only) 32.1 % (37.0-47.0); Hemoglobin 10.8 g/dl (12.0-16.0); Immature Granulocytes # (auto) 0.02 K/uL (0.01-0.20); Immature Granulocytes % (auto) 0.3 %; Lymphocytes # (auto) 0.68 K/uL (1.20-3.40); Lymphocytes % (auto) 9.8 %; Mean Corpuscular Hemoglobin 31.4 pg (25.0-34.0); Mean Corpuscular Hgb Conc 33.6 g/dL (32.0-36.0); Mean Corpuscular Volume 93.3 fL (80.0-100.0); Mean Platelet Volume 10.6 fL (9.4-12.4); Monocytes # (auto) 0.43 K/uL (0.11-0.59); Monocytes % (auto) 6.2 %; Neutrophils # (auto) 5.75 K/uL (1.40-6.50); Neutrophils % (auto) 83.1 %; Platelet Count 291 K/uL (130-400); RDW Coefficient of Variation 15.5 % (11.5-14.5); RDW Standard Deviation 52.5 fL (36.4-46.3); Red Blood Count 3.44 M/uL (4.20-5.40); White Blood Count 6.92 K/ul (4.8-10.8)
[2024-07-08 08:44] LABS: BUN Creatinine Ratio 56.5 (10-20); Calcium 9.7 mg/dl (8.6-10.3); Creatinine Clr Calc Pharmacy 26.3 ml/min
[2024-07-08 09:00] LABS: Potassium 3.8 mmol/L (3.5-5.1)
[2024-07-08] MEDS: SPIRONOLACTONE 25 MG TAB PO SCH (09:53)
[2024-07-08] MEDS: LOSARTAN POTASSIUM 25 MG TAB PO SCH (09:53)
--- NOTE | 2024-07-08 10:37 | Hospitalist Progress Note ---
Date of Service July 08, 2024 Assessment & Plan (1) Congestive heart failure: Plan: Presented with progressive dyspnea, lower extremity edema, and reported hypoxia 70-85% by home pulse ox. - Acute on chronic heart failure exacerbation, likely secondary to recent change in diuretic regimen - Echo EF= 40%, moderate to severe TR, moderate MR, left ventricular systolic function is mild to moderately reduced, mild to moderate global hypokinesis of left ventricle - BNP elevated at 1356 on admission. - Troponin elevated and peaked at 1454.5, likely secondary to demand ischemia in setting of hypoxia and acute CHF - CTA negative for PE. Does note pulmonary edema and R>L pleural effusions - Continue dose reduced Eliquis - Continue Lasix 20 mg IV BID - Feed free water amounts being adjusted as noted below, depending on progression may also need 12 X weekly dose of diuretic reinstated - Cardiology following (2) Coronary artery disease involving coronary bypass graft: Plan: History of CAD having undergone three-vessel bypass in 2006. Follow[address] Araujo outpatient - Continue statin, diltiazem - Losartan/spironolactone now resumed; initially held for borderline low blood pressures and concurrent hyperkalemia (3) Malnutrition: Plan: With history of dysphagia and PEG placement 1 month ago due to severe malnutrition - EGD 06/16/2024: Suspicious for candidiasis, benign esophageal stenosis, externally removable PEG placement completed, normal stomach/duodenum - Nutrition consulted. Patient had been working up to a full can of Savorfullen 3 times daily, currently is only taking around 6 ounces per meal. 4 ounce water flush before and after in addition to 2 ounces of water in the morning with pills - RD following and will decrease proportion of free water given CHF (4) Goals of care, counseling/discussion: Plan: Goals of care discussion occurred on admission - Verified patient is DNR/DNI - POLST form completed and signed on admission and scanned into chart - In short DNR/DNI, would want to discuss limited interventions outside of cardiac arrest, would want antibiotics if they could prolong life, and currently has a PEG tube and does not want any limitation of care related to artificial n utrition Plan Updated daughter via phone call Chronic stable issues: PMR: Continue home meds Insomnia: Continue home meds. Patient may take her medical marijuana gummy in the evening if brought in for verification and self-administered Of note, TSH elevated at 6.682, with normal Free T4. Recommend repeating TSH in outpatient setting DVT prophylaxis: Eliquis CODE STATUS: DNR/DNI Admission and Anticipated Discharge Date Admission Date: July 06, 2024 Subjective Patient seen and evaluated at bedside. She reports some continued shortness of breath, but does say this is improving. She notes that her urinary frequency has slowed down. We discussed one more day of IV diuretics and then probably returning to a soft diuretic regimen. No additional complaints or concerns at this time. Physical Exam Physical Exam: General: No acute distress, nondiaphoretic, well-developed, well-nourished. Skin: The skin was without rashes, erythema, edema, or bruising. Mouth: No signs of candidiasis. Cardiac: Regular rate and rhythm without murmurs gallops or rubs. Pulm: Breath sounds slightly diminished in bases bilaterally but otherwise clear to auscultation. No respiratory distress. 99% on room air. Abdominal: PEG in place, no discharge, erythema, tenderness. Soft, nontender, nondistended. Bowel sounds present. Neuro: A&O x3. No focal neurological deficits. Results & Data Results & Data Vital Signs (Past 12 Hours) Vital Signs Temp Pulse Resp BP BP Pulse Ox O2 Del Method 07/08/24 07:19 97.2 F L 95 H 19 110/58 L 99 Room Air 07/08/24 02:50 97.7 F 75 16 109/65 98 Room Air 07/07/24 22:45 97.5 F L 109 H 14 96/57 L 98 Room Air Laboratory Results Reviewed CBC Reviewed BMP PG Care Time/CCT Total # of Minutes Spent Total Time Spent with Patient: Total time spent is greater than 50% in coordination of care (as documented) at patient's floor/unit and/or counseling patient: Coding Level of Care Code 90002 SUB INP/OBS CARE 2/35MIN Diagnoses Congestive heart failure I50.23 Heart failure chronicity: acute on chronic Heart failure type: systolic Coronary artery disease involving coronary bypass graft I25.810 Associated angina: without angina [place] vs. transplanted heart: [place] heart Malnutrition E46 Goals of care, counseling/discussion Z71.89 (1) Congestive heart failure Heart failure chronicity: acute on chronic Heart failure type: systolic Qualified Code(s): I50.23 - Acute on chronic systolic (congestive) heart failure (2) Coronary artery disease involving coronary bypass graft Associated angina: without angina [place] vs. transplanted heart: [place] heart Qualified Code(s): I25.810 - Atherosclerosis of coronary artery bypass graft(s) without angina pectoris
[2024-07-08] MEDS: dilTIAZem HCl 60 MG TAB PO SCH (14:12)
[2024-07-08] MEDS: NUTREN LIQD 2.0 1,000 ML BAG PEG SCH (17:05)
[2024-07-09 07:39] LABS: Hematocrit (blood only) 32.7 % (37.0-47.0); Hemoglobin 10.5 g/dl (12.0-16.0); Mean Corpuscular Hemoglobin 30.5 pg (25.0-34.0); Mean Corpuscular Hgb Conc 32.1 g/dL (32.0-36.0); Mean Corpuscular Volume 95.1 fL (80.0-100.0); Mean Platelet Volume 10.3 fL (9.4-12.4); Neutrophils % (auto) 81.2 %; Platelet Count 278 K/uL (130-400); RDW Coefficient of Variation 15.6 % (11.5-14.5); RDW Standard Deviation 53.9 fL (36.4-46.3); Red Blood Count 3.44 M/uL (4.20-5.40); White Blood Count 6.53 K/ul (4.8-10.8)
[2024-07-09 07:40] LABS: Basophils # (auto) 0.02 K/uL (0.00-0.20); Basophils % (auto) 0.3 %; Eosinophils # (auto) 0.04 K/uL (0.00-0.50); Eosinophils % (auto) 0.6 %; Immature Granulocytes # (auto) 0.02 K/uL (0.01-0.20); Immature Granulocytes % (auto) 0.3 %; Lymphocytes # (auto) 0.74 K/uL (1.20-3.40); Lymphocytes % (auto) 11.3 %; Monocytes # (auto) 0.41 K/uL (0.11-0.59); Monocytes % (auto) 6.3 %
[2024-07-09 07:55] LABS: BUN Creatinine Ratio 64.4 (10-20); Calcium 9.8 mg/dl (8.6-10.3); Creatinine Clr Calc Pharmacy 30.1 ml/min
[2024-07-09] MEDS: PANTOprazole 40 MG/10 ML SYR IV SCH (09:38)
--- NOTE | 2024-07-09 10:10 | Hospitalist Progress Note ---
Date of Service July 09, 2024 Assessment & Plan (1) Congestive heart failure: Plan: Presented with progressive dyspnea, lower extremity edema, and reported hypoxia 70-85% by home pulse ox. - Acute on chronic heart failure exacerbation, likely secondary to recent change in diuretic regimen - Echo EF= 40%, moderate to severe TR, moderate MR, left ventricular systolic function is mild to moderately reduced, mild to moderate global hypokinesis of left ventricle - BNP elevated at 1356 on admission - Troponin elevated and peaked at 1454.5, likely secondary to demand ischemia in setting of hypoxia and acute CHF - CTA negative for PE. Does note pulmonary edema and R>L pleural effusions - Cardiology consulted > CXR ordered for 12/8 AM > Continue IV diuretics to maintain volume status > If patient remains symptomatic with episodic dyspnea despite correction of volume overload, her options may be limited and palliative care discussion may be warranted - Continue dose reduced Eliquis - Continue Lasix 20 mg IV BID - Feed free water amounts being adjusted as noted below, depending on progression may also need 12 X weekly dose of diuretic reinstated - PT/OT recommending short term rehab; referral made to [facility]. Daughter now stating their wishes are to return home with home health services (2) Coronary artery disease involving coronary bypass graft: Plan: History of CAD having undergone three-vessel bypass in 2006. Follows with Dr. Araujo outpatient - Continue statin, diltiazem - Losartan/spironolactone now resumed; initially held for borderline low blood pressures and concurrent hyperkalemia (3) Malnutrition: Plan: With history of dysphagia and PEG placement 1 month ago due to severe malnutrition - EGD 06/16/2024: Suspicious for candidiasis, benign esophageal stenosis, externally removable PEG placement completed, normal stomach/duodenum - Nutrition consulted. Patient had been working up to a full can of [employer] 3 times daily, currently is only taking around 6 ounces per meal. 4 ounce water flush before and after in addition to 2 ounces of water in the morning with pills - RD following and will decrease proportion of free water given CHF (4) Goals of care, counseling/discussion: Plan: Goals of care discussion occurred on admission - Verified patient is DNR/DNI - POLST form completed and signed on admission and scanned into chart - In short DNR/DNI, would want to discuss limited interventions outside of cardiac arrest, would want antibiotics if they could prolong life, and currently has a PEG tube and does not want any limitation of care related to artificial nutrition Plan Updated daughter at bedside Ordered Ativan x 1 HS Chronic stable issues: PMR: Continue home meds Insomnia: Continue home meds. Patient may take her medical marijuana gummy in the evening if brought in for verification and self-administered Of note, TSH elevated at 6.682, with normal Free T4. Recommend repeating TSH in outpatient setting DVT prophylaxis: Ester CODE STATUS: DNR/DNI Admission and Anticipated Discharge Date Admission Date: July 06, 2024 Subjective Patient seen and evaluated at bedside with her daughter present. She reports not feeling well today due to both not sleeping at night and episodic dyspnea. She reports she has not slept well in 3 nights. She reports short episodes where it feels like she cannot breathe. These episodes resolve on their own. She denies chest pain, palpitations. We discussed the recommendations from cardiology. Patient's daughter states they are not interested in rehab placement, though case management did make a referral to [facility]. They would like to use home health services instead. No additional complaints or concerns at this time. Physical Exam Physical Exam: General: No acute distress, nondiaphoretic, frail elderly female. Skin: The skin was without rashes, erythema, edema, or bruising. Mouth: No signs of candidiasis. Cardiac: Irregularly irregular in the 70s. Systolic and soft diastolic murmurs noted. No JVD. Pulm: Breath sounds slightly diminished in bases bilaterally R>L, but otherwise clear to auscultation. No respiratory distress currently. 98% on room air. Abdominal: PEG in place, slight discharge crusted around PEG insertion. Soft, nontender, nondistended. Bowel sounds present. Neuro: A&O x3. No focal neurological deficits. Results & Data Results & Data Vital Signs (Past 12 Hours) Vital Signs Temp Pulse Pulse Resp BP Pulse Ox O2 Del Method 07/09/24 04:00 97.3 F L 83 18 123/59 L 98 Room Air 07/09/24 03:18 97.3 F L 83 18 123/59 L 98 Room Air 07/08/24 23:05 72 07/08/24 22:57 97.3 F L 72 18 132/68 96 Room Air Laboratory Results Reviewed CBC Reviewed BMP PG Care Time/CCT Total # of Minutes Spent Total Time Spent with Patient: Total time spent is greater than 50% in coordination of care (as documented) at patient's floor/unit and/or counseling patient: Coding Level of Care Code 12438 SUB INP/OBS CARE 3/50MIN Diagnoses Congestive heart failure I50.23 Heart failure chronicity: acute on chronic Heart failure type: systolic Coronary artery disease involving coronary bypass graft I25.810 Associated angina: without angina [place] vs. transplanted heart: [place] heart Malnutrition E46 Goals of care, counseling/discussion Z71.89 (1) Congestive heart failure Heart failure chronicity: acute on chronic Heart failure type: systolic Qualified Code(s): I50.23 - Acute on chronic systolic (congestive) heart failure (2) Coronary artery disease involving coronary bypass graft Associated angina: without angina [place] vs. transplanted heart: [place] heart Qualified Code(s): I25.810 - Atherosclerosis of coronary artery bypass graft(s) without angina pectoris
--- NOTE | 2024-07-09 12:33 | Cardiology Progress Note ---
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 She still has episodic dyspnea at rest despite appearing euvolemic on exam. Suspect she has advanced/end-stage valvular disease (MR/TR) which is manifesting as dyspnea even in the absence of significant volume overload. Reasonable to continue current furosemide 20 mg IV twice daily to maintain volume status, doubt she would benefit from more aggressive diuretic regimen in the absence of clear evidence of ongoing volume overload (her weight is down from admission, neck veins are not elevated, and she has no crackles on exam). There may be an element of right pleural effusion (based on exam), will check repeat chest x-ray, since this could represent a potentially reversible (via thoracentesis) contributing factor to her dyspnea. In the absence of a removable sized effusion, if she remains symptomatic despite correction of volume overload her options may be limited and palliative care discussion may be warranted. This could potentially entail anxiolytics/analgesics for her dyspneic episodes for [id number] purposes. Will continue to follow her during the current admission. Further recom mendations based on chest x-ray results and reevaluation in the morning. Admission and Anticipated Discharge Date Admission Date: July 06, 2024 Subjective 88-year-old woman well-known to me from outpatient cardiology encounters who was admitted 07/06/24 with acute on chronic congestive heart failure. Although chronically frail with multiple medical issues, she had been stable as recently as 06/21/2024 when I saw her in the office. She was on twice weekly diuretic, I was concerned about the potential for overdiuresis given her recent PEG tube placement and reduced nutritional intake. She missed a single dose of diuretic and subsequently developed dyspnea and leg edema and was admitted with evidence of volume overload/heart failure. Echocardiogram this admission showed EF 40%, moderate mitral regurgitation with moderate to severe tricuspid regurgitation. Compared with 2022 study, regurgitant lesions may be less severe. Degree of diuresis since admission is unclear, input/output not routinely recorded. Her weight is down 2 pounds from admission. She still notes episodic acute dyspnea which does not appear associated with hypoxemia. During my visit today, she had a transient episode of breathlessness which resolved after a few minutes without specific intervention (beyond reassurance). After that episode, her only complaint was insomnia (hadn't slept for a couple days). No chest pain, palpitations, presyncope, or syncope. Telemetry overnight showed atrial fibrillation with rate generally 70-100 bpm, rare episodes up to 145 bpm transiently. Physical Exam Physical Exam: Frail-appearing elderly female appears uncomfortable but not acutely distressed. Afebrile. BP 97/43 mmHg. Pulse 80 bpm and irregular. Respirations 20/minute but unlabored. Skin: no generalized lesions. HEENT: unremarkable. Neck: JVP at the clavicle at 90 degrees, no carotid bruits. Lungs: Dullness right base one third of the way up, mildly decreased breath sounds but no wheezing or obvious crackles. Cardiac: Irregular rhythm, normal S1-2, 2/6 basal systolic ejection murmur radiating upward and left lower sternal border, 3/6 apical holosystolic murmur rating to the axilla, no diastolic murmur. Abdomen: benign. Extremities: no edema, pulses intact. Neurologic: normal affect and conversation, nonfocal. Results & Data Vital Signs (Past 12 Hours) Vital Signs Temp Pulse Resp BP Pulse Ox O2 Del Method 07/09/24 09:05 97.2 F L 74 18 97/43 L 99 Room Air 07/09/24 04:00 97.3 F L 83 18 123/59 L 98 Room Air 07/09/24 03:18 97.3 F L 83 18 123/59 L 98 Room Air Laboratory Results Hemoglobin 10.5 with normal white count and platelet count. Normal electrolytes, BUN 47, creatinine 0.73. Stable. PG Care Time/CCT Total # of Minutes Spent Total Time Spent with Patient: Total time spent is greater than 50% in coordination of care (as documented) at patient's floor/unit and/or counseling patient: Coding Level of Care Code 13696 SUB INP/OBS CARE 3/50MIN Diagnoses Dyspnea R06.00 Heart failure with mid-range ejection fraction (HFmEF) I50.22 Severe mitral regurgitation I34.0 Severe tricuspid regurgitation I07.1 Permanent atrial fibrillation I48.21 Hx of CABG Z95.1
[2024-07-09] MEDS: LORazepam 0.5 MG TAB PO ONE (21:28)
--- NOTE | 2024-07-10 10:13 | XRay Report ---
XR chest 2V PA/lateral HISTORY: 88 years-old Female CHF acute shortness of breath COMPARISON: CT chest 07/06/2024 TECHNIQUE: PA and lateral views of the chest FINDINGS: Cardiomegaly. Median sternotomy. Unchanged right greater than left pleural effusions with biapical pl eural-parenchymal scarring and calcifications. Pulmonary vascular congestion. Gastrostomy tube noted. No pneumothorax or lobar airspace consolidation. IMPRESSION: 1. Cardiomegaly with pulmonary vascular congestion. 2. Unchanged right greater than left pleural effusions. 3. Biapical pleural parenchymal scarring with pleural calcifications again noted. ACT 112: Negative or not required by law. The above report was generated using voice recognition software. It may contain grammatical, syntax o r spelling errors. Electronically signed by: Poli Hayes M.D. 07/10/2024 10:12 AM
[2024-07-10] MEDS ORDERED: Nursing to Pharmacy Communication SCH (10:30)
[2024-07-10 12:33] VITALS: RESP 18
--- NOTE | 2024-07-10 14:56 | Cardiology Progress Note ---
Date of Service July 10, 2024 Assessment & Plan (1) Dyspnea: (2) Heart failure with mid-range ejection fraction (HFmEF): (3) Severe mitral regurgitation: (4) Severe tricuspid regurgitation: (5) Permanent atrial fibrillation: (6) Hx of CABG: Plan 88-year-old woman with multiple cardiac issues well-known to me from outpatient encounters. Fortunately, she is doing much better and appears euvolemic by neck veins. She does have some persistent pulmonary congestion on chest x-ray, she does not have a sufficient size pleural effusion to consider thoracentesis. Review of her records and serial echocardiograms confirm that she has had severe multi valvular disease (MR/TR) for several decades, her most recent echo does appear to show a significant decline in LV systolic function and a possible new wall motion abnormality compared with a year or so ago. Her troponin curve was elevated but flat, suggesting the wall motion abnormality is not an acute finding. Discussed with the patient and her daughter that she essentially has end-stage multi valvular heart disease for which the medical management options are extremely limited. Reviewing options, recommended palliative care consultation as focus shifts from correcting specific problems to symptom relief. In particular, she may benefit from additional home health care if she were to be a hospice candidate. Would continue her current diuretic dose of furosemide 20 mg IV twice daily while hospitalized, recommendations for outpatient diuretics to be determined at the time of discharge. Would discontinue losartan (held today) given her low blood pressure while continuing diltiazem for continued rate control with her atrial fibrillation. She did benefit from benzodiazepine last evening, as focus shifts to symptom management would have a low threshold for repeating this should she demonstrate significant anxiety, insomnia, or dyspnea. Will continue to follow while she is hospitalized. Admission and Anticipated Discharge Date Admission Date: July 06, 2024 Subjective She feels much better than yesterday. She was finally able to sleep after a small dose of anxiolytic (lorazepam 0.5 mg orally) last evening. She has not had any further episodes of acute breathlessness. No chest pain, lightheadedness, or subjective palpitations. Telemetry showed atrial fibrillation with controlled ventricular response (70-90 bpm). Physical Exam Physical Exam: Frail-appearing elderly female appears who appeared comfortable. Afebrile. BP 109/64 mmHg Pulse 80 bpm and irregular. Respirations 18. Skin: no generalized lesions. HEENT: unremarkable. Neck: JVP at the clavicle at 90 degrees, no carotid bruits. Lungs: Dullness right base, mildly decreased breath sounds but no wheezing or obvious crackles. Cardiac: Irregular rhythm, normal S1-2, 2/6 basal systolic ejection murmur radiating upward and left lower sternal border, 3/6 apical holosystolic murmur rating to the axilla, no diastolic murmur. Abdomen: benign. Extremities: no edema, pulses intact. Neurologic: normal affect and conversation, nonfocal. Results & Data Vital Signs (Past 12 Hours) Vital Signs Temp Pulse Pulse Resp BP Pulse Ox O2 Del Method 07/10/24 13:53 81 109/64 07/10/24 12:32 96.3 F L 75 18 102/56 L 99 Room Air 07/10/24 09:24 68 103/48 L 07/10/24 08:54 97.5 F L 82 17 98/56 L 97 Room Air 07/10/24 05:58 97.7 F 73 18 110/53 L 97 Room Air Laboratory Results No labs today. Diagnostic Findings Chest x-ray this morning showed cardiomegaly with mild but persistent pulmonary vascular congestion and small bilateral pleural effusions. PG Care Time/CCT Total # of Minutes Spent Total Time Spent with Patient: Total time spent is greater than 50% in coordination of care (as documented) at patient's floor/unit and/or counseling patient: Coding Level of Care Code 80662 SUB INP/OBS CARE 3/50MIN Diagnoses Dyspnea R06.00 Heart failure with mid-range ejection fraction (HFmEF) I50.22 Severe mitral regurgitation I34.0 Severe tricuspid regurgitation I07.1 Permanent atrial fibrillation I48.21 Hx of CABG Z95.1
--- NOTE | 2024-07-10 16:21 | Hospitalist Progress Note ---
Date of Service July 10, 2024 Assessment & Plan (1) Congestive heart failure: Plan: Presented with progressive dyspnea, lower extremity edema, and reported hypoxia 70-85% by home pulse ox. - Acute on chronic heart failure exacerbation, likely secondary to recent change in diuretic regimen - Echo EF= 40%, moderate to severe TR, moderate MR, left ventricular systolic function is mild to moderately reduced, mild to moderate global hypokinesis of left ventricle - BNP elevated at 1356 on admission - Troponin elevated and peaked at 1454.5, likely secondary to demand ischemia in setting of hypoxia and acute CHF - CTA negative for PE. Does note pulmonary edema and R>L pleural effusions - CXR shows persistent pulmonary congestion. Pleural effusion not large enough to consider thoracentesis. - Cardiology consulted > End-stage multi valvular heart disease for which medical management options are extremely limited > Continue IV diuretics to maintain volume status > Discontinue losartan given low blood pressure. Continue diltiazem for rate control with A-fib > Recommending palliative care consult - Continue dose reduced Eliquis - Continue Lasix 20 mg IV BID - Feed free water amounts being adjusted as noted below, depending on progression may also need 12 X weekly dose of diuretic reinstated (2) Coronary artery disease involving coronary bypass graft: Plan: History of CAD having undergone three-vessel bypass in 2006. Follows [address] Dr. Araujo outpatient - Continue statin, diltiazem, spironolactone - Discontinued losartan given low blood pressures (3) Malnutrition: Plan: With history of dysphagia and PEG placement 1 month ago due to severe malnutr ition - EGD 06/16/2024: Suspicious for candidiasis, benign esophageal stenosis, externally removable PEG placement completed, normal stomach/duodenum - Nutrition consulted. Patient had been working up to a full can of [place] 3 times daily, currently is only taking around 6 ounces per meal. 4 ounce water flush before and after in addition to 2 ounces of water in the morning with pills - RD following and will decrease proportion of free water given CHF (4) Goals of care, counseling/discussion: Plan: Goals of care discussion occurred on admission - Verified patient is DNR/DNI - POLST form completed and signed on admission and scanned into chart - In short DNR/DNI, would want to discuss limited interventions outside of cardiac arrest, would want antibiotics if they could prolong life, and currently has a PEG tube and does not want any limitation of care related to artificial nutrition Repeat goals of care discussion over the weekend -- episodic dyspnea persists despite euvolemic status. Suspect secondary to multi valvular heart disease with limited medical management options - Palliative care consulted - Ativan 0.5 mg HS and PRN Q6H for anxiety - Consider BuSpar 5 mg twice daily for anxiety Plan Updated daughter at bedside Discussed case with cardiology Ordered Ativan PRN Consulted palliative care Chronic stable issues: PMR: Continue home meds Insomnia: Continue home meds. Patient may take her medical marijuana gummy in the evening if brought in for verification and self-administered Of note, TSH elevated at 6.682, with normal Free T4. Recommend repeating TSH in outpatient setting DVT prophylaxis: Eliquis CODE STATUS: DNR/DNI Admission and Anticipated Discharge Date Admission Date: July 06, 2024 Subjective Patient seen and evaluated bedside chair with her daughter present. She reports feeling much better today. She has not had any episodic dyspnea today. She states she slept well last night for the first time in 3 nights. We discussed a palliative care consult, both patient and daughter are interested. Daughter asked for palliative care provider to call her cell phone when she meets with the patient as daughter asked to be at work tomorrow. No additional complaints or concerns at this time. Physical Exam Physical Exam: General: No acute distress, nondiaphoretic, frail elderly female. Skin: The skin was without rashes, erythema, edema, or bruising. Mouth: No signs of candidiasis. Cardiac: Irregularly irregular in the 80s. Systolic and soft diastolic murmurs noted. No JVD. Pulm: Breath sounds slightly diminished in bases bilaterally R>L, but otherwise clear to auscultation. No respiratory distress currently. 99% on room air. Abdominal: PEG in place, no discharge or erythema around PEG insertion. Soft, nontender, nondistended. Bowel sounds present. Neuro: A&O x3. No focal neurological deficits. Results & Data Results & Data Vital Signs (Past 12 Hours) Vital Signs Temp Pulse Pulse Resp BP Pulse Ox O2 Del Method 07/10/24 13:53 81 109/64 07/10/24 12:32 96.3 F L 75 18 102/56 L 99 Room Air 07/10/24 09:24 68 103/48 L 07/10/24 08:54 97.5 F L 82 17 98/56 L 97 Room Air 07/10/24 05:58 97.7 F 73 18 110/53 L 97 Room Air PG Care Time/CCT Total # of Minutes Spent Total Time Spent with Patient: Total time spent is greater than 50% in coordination of care (as documented) at patient's floor/unit and/or counseling patient: Coding Level of Care Code 75170 SUB INP/OBS CARE 3/50MIN Diagnoses Congestive heart failure I50.23 Heart failure chronicity: acute on chronic Heart failure type: systolic Coronary artery disease involving coronary bypass graft I25.810 Associated angina: without angina [place] vs. transplanted heart: [place] heart Malnutrition E46 Goals of care, counseling/discussion Z71.89 (1) Congestive heart failure Heart failure chronicity: acute on chronic Heart failure type: systolic Qualified Code(s): I50.23 - Acute on chronic systolic (congestive) heart failure (2) Coronary artery disease involving coronary bypass graft Associated angina: without angina [place] vs. transplanted heart: [place] heart Qualified Code(s): I25.810 - Atherosclerosis of coronary artery bypass graft(s) without angina pectoris
[2024-07-10] MEDS: LORazepam 0.5 MG TAB PO ONE (21:27)
--- NOTE | 2024-07-11 10:07 | Palliative Care Consultation ---
Date of Consultation July 11, 2024 Assessment & Plan (1) Goals of care, counseling/discussion: (2) Palliative care by specialist: (3) Encounter for hospice care discussion: Plan Multiple conversations with pt's daughter today, total of 45 minutes in care planning conversations. Had three conversations with patient's daughter/HCPOA Samantha via phone today. In summary, Samantah initially expressed desire for her mother to be discharged home with hospice, but requests that artificial nutrition continue in conjunction with hospice. Samantha shared her commitment to caring for the pt at home to prevent SNF stay. She is concerned about her mother starving and worries that the pt's intermittent SOB has been exacerbated with bolus tube feeds so she would like to continue with continuous feeds. Shared with Samantha that the pt continues to have dyspnea here with continuous feeds. We discussed that with hospice care patients generally are allowed to eat by mouth for pleasure and tube feeding does not offer that. She asked that we help her find a hospice agency that will allow for continuous feeds. This information was shared with CM, who then called Samantha to assist with navigation. Later in day, Samantha again called me to share that she had learned from CM that the only hospice agency in her area would not approve continuous tube feeds but would allow for bolus feeds. She shared that she believes that the pt's sudden decompensation at home was due to her bumex being stopped and the bolus feeds. She shared hope that getting pt back home on continuous 24hr feeding and scheduled bumex would allow pt to return to her previous quality of life. Ultimately, daughter requests pt be discharged to home with home health care and ongoing life prolonging therapies. Samantha shared she will be visiting with patient tomorrow. We will continue to follow and be available for ongoing [facility] discussions. History of Present Illness Reason for Consultation: goals of care Requesting Physician: Angelito Nino MD Attending Physician: Angelito Nino MD History of Present Illness Debra is an 88-year-old female with a past medical history of CABG 2006, permanent A-fib on dose reduced apixaban, heart failure with EF 40-45% with sev ere TR/MR recently switched from Bumex twice daily to as needed 06/2024 who presented to ED on 07/06 after 2 weeks of progressive dyspnea, lower extremity edema, and reported hypoxia 70-85% by home pulse ox. Of note, PEG tube placed last month for difficulty swallowing and weight loss. She has been admitted for medical management. 07/06 per H&P " Goals of care were discussed including CODE STATUS which was verified is DNR/DNI... POLST form completed and scanned into chart, patient retained original copy to post on fridge. In short DNR/DNI, would want to discuss limited interventions outside of cardiac arrest, would want antibiotics if they could prolong life, and currently has a PEG tube and does not want any limitation of care related to artificial nutrition. " Allergies Allergy/AdvReac Type Severity Reaction Status Date / Time Beta-Blockers Allergy Unknown Unknown Verified 06/29/24 09:45 (Beta-Adrenergic Bloc prochlorperazine Allergy Unknown "combid" Verified 06/29/24 09:45 Unknown aspirin AdvReac Intermediate stomach Verified 06/29/24 09:45 pains methotrexate AdvReac Intermediate elevated Verified 06/29/24 09:45 liver levels COMBID Allergy Unknown Unknown Uncoded 06/29/24 09:45 Home Medications Medication Instructions Recorded Confirmed Type pyridoxine (vitamin B6) 100 mg 100 mg PO QAM 10/08/21 07/06/24 History tablet diclofenac sodium 1 % topical gel 2 g EXT QID PRN pain #100 grams 11/24/22 1 09/06/23 Rx (Voltaren Arthritis Pain) diltiazem HCl 120 mg 120 mg PO BID #180 caps 08/04/23 07/06/24 Rx capsule,extended release 24 hr (Cartia XT) acetaminophen 500 mg tablet 500 mg PO Q6H PRN pain/fever 01/05/24 07/06/24 History (Tylenol Extra Strength) bumetanide 1 mg tablet 1 mg PO 2XWK #30 tabs 05/16/24 07/06/24 Rx apixaban 2.5 mg tablet (Eliquis) 2.5 mg PO BID #180 tabs 05/30/24 07/06/24 Rx Medical Marijuana 1 gummy PO HS 06/13/24 07/06/24 History doxepin 3 mg tablet 3 mg PO HS 06/13/24 07/06/24 History ipratropium bromide 21 mcg (0.03 2 spray intranasal BID PRN 06/13/24 07/06/24 History %) nasal spray Congestion levothyroxine 25 mcg tablet 25 mcg PO QAM 06/13/24 07/06/24 History omeprazole 20 mg capsule,delayed 20 mg PO QAM 06/13/24 07/06/24 History release pramipexole 0.25 mg tablet 0.25 mg PO UD 06/13/24 07/06/24 History spironolactone 25 mg tablet 25 mg PO QAM 06/13/24 07/06/24 History syringe (disposable) 60 mL #100 ea 06/16/24 07/08/24 Rx (Monoject Syringe Vahid Type) nutritional supplements 0.08 See Rx Instructions feeding tube 06/17/24 07/06/24 Rx gram-2 kcal/mL liquid for tube TID 30 days #24,000 mL feed (Nutren 2.0) albuterol sulfate 90 mcg/actuation 1 inh inhalation .COMPLEX 06/21/24 07/06/24 History aerosol inhaler shortness of breath or wheezing atorvastatin 10 mg tablet 10 mg PO .COMPLEX 06/21/24 07/06/24 History cyanocobalamin (vitamin B-12) See Rx Instructions .Route .COMPLEX 06/21/24 07/06/24 History 1,000 mcg tablet Oxygen Home #1 ea 07/02/24 07/08/24 Rx losartan 25 mg tablet 25 mg PO QAM #90 tabs 07/05/24 07/06/24 Rx Patient History Medical History Exercise hypoxemia 05/04/24: 6 min walk test, 86% RA, test prematurely stopped. [id number] Hx of vertigo no recent issues per dtr Venous insufficiency Severe tricuspid regurgitation Severe mitral regurgitation Hx of pleural effusion "in the past, no concern at this point per dtr" Permanent atrial fibrillation [place] [facility] [place]oporosis PLMD (periodic limb movement disorder) Hx of iron deficiency anemia Idiopathic polyneuropathy Hypothyroidism GERD without esophagitis Eczema no recent flares Dysphagia Dyslipidemia Adult failure to thrive LUCIA (dyspnea on exertion) Coronary artery disease Chronic diastolic CHF (congestive heart failure) Chronic insomnia Dermatomyositis hx, no recent issues History of temporal arteritis SNHL (sensorineural hearing loss) bilateral hearing aids Lyme disease hx, no residual effects per dtr. Surgical History Hx of cardiac cath 2006, preop to hysterectomy, ~3 days later taken to [facility] for CABG x3 Hx of right cataract extraction Hx of CABG 2007, triple bypass, [facility] [place]; [place] [facility] [place] of left cataract surgery History of colonoscopy History of myringotomy History of temporal artery biopsy History of hysterectomy History of breast surgery pt dtr denies History of cholecystectomy Family History Mother Myocardial infarction Hypertension Cardiac disorder Brother Prostate cancer Myocardial infarction FHx: deafness or hearing loss Father Cardiac disorder Sister Colon cancer FHx: deafness or hearing loss Non-Hodgkin lymphoma Brother Cardiac disorder Hypertension Denies family history of Ovarian cancer Breast cancer Social History Smoking Status: Never smoker Second Hand Exposure: No; Do You Dip or Chew Tobacco: No; Hx Alcohol Use: No Hx Substance Use: Yes Last Used Substance Other:: uses daily at bedtime Substance Use Type Other:: marijuana gummies Preferred Language: Mongolian Communication Ability: Effective Communication Ability Comment: Patient has slurred speech that is chronic/unable to swallow Visual Impairment: Limited Hearing Ability: Use of Hearing Aid Sampler Ovens Required: No Beliefs That Will Affect Care: None marital status: / Current Living Situation: Family Current Living Situation Comment: with daughter current occupational status: retired current occupation: used to work at the [employer] How many Children do You have: 2 Feels Safe at Home: Yes Safety Concerns: Feels Safe At This Time Childhood Exposure to Second-Hand Smoke: No Diet: regular caffeine: No (Soda occasional.) during the past year weight has: remained stable Dental Care, Regularly: Yes Physical Activity Frequency: Daily Seatbelt Use: always Sunscreen Use: No (isn't out in the sun ) Assistive Devices: Glasses and Hearing Aid - Bilateral Review of Systems Respiratory: Dyspnea at rest, worsens with any exertion, even talking. Cardiovascular: + dyspnea at rest, + dyspnea on exertion and + edema; no chest pain and no palpitations Gastrointestinal: no abdominal pain, no nausea, no vomiting and no constipation Genitourinary: no dysuria, no urinary frequency and no decreased urination Musculoskeletal: + muscle weakness; no limited range of m otion and no body aches Neurologic: + generalized weakness and + abnormal sp eech; no falls, no localized weakness, no radiating pain and no syncope Physical Exam Physical Exam: General: No acute distress, nondiaphoretic, frail elderly female. Skin: The skin was without rashes, erythema, edema, or bruising. Mouth: No signs of candidiasis. Cardiac: Irregularly irregular in the 80s. Systolic and soft diastolic murmurs noted. No JVD. Pulm: Breath sounds slightly diminished in bases bilaterally R>L, but otherwise clear to auscultation. No respiratory distress currently. 99% on room air. Abdominal: PEG in place, no discharge or erythema around PEG insertion. Soft, nontender, nondistended. Bowel sounds present. Neuro: A&O x3. No focal neurological deficits. Results & Data Vital Signs (Past 12 Hours) Vital Signs Temp Pulse Pulse Resp BP Pulse Ox O2 Del Method 07/11/24 08:14 36.3 C L 81 18 116/70 99 Room Air 07/11/24 06:21 36.7 C 72 18 130/77 97 Room Air 07/11/24 00:04 Room Air 07/11/24 00:00 68 Laboratory Results Abnormal lab results 07/11/24 Range/Units 11:18 Chloride 95 L (98-107) mmol/L Carbon Dioxide 38 H (21-32) mmol/L BUN 50 H (6-23) mg/dl BUN/Creatinine Ratio 63.3 H (10-20) Glucose 123 H (70-99(Fasting)) mg/dl Diagnostic Findings Chest CTA 07/06/24 09:40 CT ANGIOGRAPHY OF THE CHEST, PULMONARY EMBOLUS PROTOCOL CLINICAL HISTORY: Shortness of breath. Evaluate for pulmonary embolus. COMPARISON STUDY: Chest CT November 03, 2018. Chest radiograph February 22, 2024. TECHNIQUE: Following IV administration of 119 mL of Optiray, helical axial images of the chest were obtained utilizing the pulmonary embolus protocol. Maximal intensity projections and sagittal and coronal reformats were viewed on an independent 3D workstation. IV contrast was administered without complication. Automated exposure control was utilized for the study. A dose lowering technique was utilized adhering to the principles of ALARA. CT DOSE: 242.84 mGy.cm FINDINGS: No pulmonary emboli are identified. The thoracic aorta is not opacified. There are postoperative findings consistent with median sternotomy and bypass grafting. Moderate cardiomegaly. No pericardial effusion is present. Dilatation of the right heart chambers with dilatation of the IVC and hepatic veins with reflux of contrast is noted. Small to moderate right and small left pleural effusions are present. There is no pneumothorax. Asymmetric groundglass opacities within the right lower lobe favor atelectasis. There is no consolidation to suggest pneumonia. Scattered tiny pulmonary nodules measuring up to 4 mm are similar to CT of November 03, 2018. Subpleural biapical partially calcified densities are unchanged. These are benign. There are no acute fractures within the bony thorax. There is body wall edema. IMPRESSION: 1. No pulmonary emboli identified. 2. Cardiomegaly with pulmonary edema. Small to moderate right and small left pleural effusions. 3. Asymmetric groundglass right lung opacity suggestive of atelectasis. No consolidation to suggest pneumonia. ACT 112: Negative or not required by law. Electronically signed by: Alex Gomez M.D. 07/06/2024 11:30 AM Chest X-Ray 07/10/24 07:00 XR chest 2V PA/lateral HISTORY: 88 years-old Female CHF acute shortness of breath COMPARISON: CT chest 07/06/2024 TECHNIQUE: PA and lateral views of the chest FINDINGS: Cardiomegaly. Median sternotomy. Unchanged right greater than left pleural effusions with biapical pleural-parenchymal scarring and calcifications. Pulmonary vascular congestion. Gastrostomy tube noted. No pneumothorax or lobar airspace consolidation. IMPRESSION: 1. Cardiomegaly with pulmonary vascular congestion. 2. Unchanged right greater than left pleural effusions. 3. Biapical pleural parenchymal scarring with pleural calcifications again noted. ACT 112: Negative or not required by law. The above report was generated using voice recognition software. It may contain grammatical, syntax or spelling errors. Electronically signed by: Poli Hayes M.D. 07/10/2024 10:12 AM Medications Administered Current Inpatient Medications Acetaminophen (Acetaminophen 325 Mg Tab) 650 mg PO Q4H PRN PRN Reason: Pain or Fever Stop: 08/05/24 12:58 Last Admin: 07/08/24 05:39 Dose: 650 mg Albuterol (Albuterol Hfa 8 Gm Inhaler) 1 puffs INH QIDR PRN PRN Reason: Shortness Of Breath Or Wheezing Stop: 08/05/24 12:58 Apixaban (Apixaban 2.5 Mg Tab) 2.5 mg PO BID [facility] Stop: 08/05/24 20:59 Last Admin: 07/11/24 09:21 Dose: 2.5 mg Atorvastatin Calcium (Atorvastatin 10 Mg Tab) 10 mg PO DAILY [place] Stop: 08/05/24 13:59 Last Admin: 07/11/24 09:21 Dose: 10 mg Banana Based Medical Food (Banatrol Tf 60 Ml Liquid Pkt) 60 ml PEG BID [place] Stop: 08/05/24 20:59 Last Admin: 07/11/24 09:20 Dose: 60 ml Cyanocobalamin (Cyanocobalamin (B-12) 500 Mcg Tablet) 1,000 mcg PO QAM [facility] Stop: 08/06/24 08:59 Last Admin: 07/11/24 09:21 Dose: 1,000 mcg Diclofenac Sodium (Diclofenac Sod 1% Gel 100 Gm Tube) 2 gm EXT QID PRN; Protocol PRN Reason: pain Stop: 08/05/24 12:58 Diltiazem HCl (Diltiazem Hcl 60 Mg Tab) 60 mg PO QID [facility] Stop: 08/07/24 12:59 Last Admin: 07/11/24 13:08 Dose: 60 mg Doxepin HCl (Doxepin Hcl 3 Mg Tab) 3 mg PO HS [facility] Stop: 08/05/24 20:59 Last Admin: 07/10/24 21:30 Dose: 3 mg Pantoprazole Sodium (Protonix) 40 mg in 10 mls @ 5 mls/min IV DAILY [place] Stop: 08/08/24 08:59 Last Admin: 07/11/24 09:20 Dose: 5 mls/min Ipratropium [place] (Ipratropium [place] Nasal [place] 0.06% 15ml) 2 sprays NERY BID PRN PRN Reason: CONGESTION Stop: 08/05/24 13:14 Last Admin: 07/07/24 07:47 Dose: 2 sprays Levothyroxine Sodium (Levothyroxine Sodium 25 Mcg Tablet) 25 mcg PO DAILYBB [facility] Stop: 08/06/24 06:29 Last Admin: 07/11/24 06:15 Dose: 25 mcg Lorazepam (Lorazepam 0.5 Mg Tab) 0.5 mg PO Q6H PRN PRN Reason: Anxiety Stop: 08/09/24 16:27 Miscellaneous Medication (Medical Marijuana) 1 dose PO HS [facility] Stop: 08/05/24 21:44 Last Admin: 07/10/24 21:31 Dose: 1 dose Nutritional Formula (Nutren Liqd 2.0 1,000 Ml Bag) 1,000 ml PEG UD [facility]; Protocol Stop: 08/05/24 13:59 Last Admin: 07/09/24 17:02 Dose: 1,000 ml Ondansetron HCl (Ondansetron Inj 2 Mg/Ml 2 Ml Vial) 4 mg IV Q6H PRN PRN Reason: Nausea Stop: 08/05/24 12:58 Polyethylene Glycol (Polyethylene (Miralax) 17 Gm Pack) 17 gm PO DAILY PRN PRN Reason: Constipation Stop: 08/05/24 12:58 Pramipexole Dihydrochloride (Pramipexole Dihydrochlo 0.25 Mg Tab) 0.25 mg PO DAILY@1800 [facility] Stop: 08/05/24 17:59 Last Admin: 07/10/24 17:23 Dose: 0.25 mg Pramipexole Dihydrochloride (Pramipexole Dihydrochlo 0.25 Mg Tab) 0.125 mg PO [facility] Stop: 08/05/24 20:59 Last Admin: 07/10/24 21:30 Dose: 0.125 mg Pyridoxine HCl (Pyridoxine Hcl 50 Mg Tab) [facility] Stop: 08/06/24 08:59 Last Admin: 07/11/24 09:20 Dose: 100 mg Spironolactone (Spironolactone 25 Mg Tab) [facility] Stop: 08/07/24 08:59 Last Admin: 07/11/24 09:20 Dose: 25 mg Sterile Water (Tube Feeding Water Flush) 30 ml PEG Q4H [facility] Stop: 08/05/24 13:59 Last Admin: 07/11/24 13:08 Dose: 30 ml PG Care Time/CCT Total # of Minutes Spent Total Time Spent with Patient: Total time spent is greater than 50% in coordination of care (as documented) at patient's floor/unit and/or counseling patient: Advanced Care Planning 00871 Advanced Care Planning 30 [place] [address] IN/OBS CONSULT LVL 4,60M Patient Type New History Expanded Problem Focused Exam Expanded Problem Focused Medical Decision Making Moderate Complexity Diagnoses Goals of care, counseling/discussion Z71.89 Palliative care by specialist Z51.5 Encounter for hospice care discussion Z71.89 Additional Codes Advanced Care Planning - 61081 Advanced Care Planning 30 Min: 47388 Advanced Care Planning 30 Min ([id number])
[2024-07-11 12:28] LABS: BUN Creatinine Ratio 63.3 (10-20); Calcium 9.8 mg/dl (8.6-10.3); Creatinine Clr Calc Pharmacy 28.5 ml/min; Potassium 4.1 mmol/L (3.5-5.1)
--- NOTE | 2024-07-11 16:11 | Hospitalist Progress Note ---
Date of Service July 11, 2024 Assessment & Plan (1) Congestive heart failure: Plan: Presented with progressive dyspnea, lower extremity edema, and reported hypoxia 70-85% by home pulse ox. - Acute on chronic heart failure exacerbation, likely secondary to recent change in diuretic regimen - Echo EF= 40%, moderate to severe TR, moderate MR, left ventricular systolic function is mild to moderately reduced, mild to moderate global hypokinesis of left ventricle - BNP elevated at 1356 on admission - Troponin elevated and peaked at 1454.5, likely secondary to demand ischemia in setting of hypoxia and acute CHF - CTA negative for PE. Does note pulmonary edema and R>L pleural effusions - CXR shows persistent pulmonary congestion. Pleural effusion not large enough to consider thoracentesis. - Cardiology consulted > End-stage multi valvular heart disease for which medical management options are extremely limited > Discontinued diuretics > Discontinue losartan given low blood pressure. Continue diltiazem for rate control with A-fib > Recommending palliative care consult - Continue dose reduced Eliquis - Continue Lasix 20 mg IV BID - Feed free water amounts being adjusted as noted below, depending on progression may also need 12 X weekly dose of diuretic reinstated (2) Coronary artery disease involving coronary bypass graft: Plan: History of CAD having undergone three-vessel bypass in 2006. [address] Araujo outpatient - Continue statin, diltiazem, spironolactone - Discontinued losartan given low blood pressures (3) Malnutrition: Plan: With history of dysphagia and PEG placement 1 month ago due to severe malnutrition - EGD 06/16/2024: Suspicious for candidiasis, benign esophageal stenosis, externally removable PEG placement completed, normal stomach/duodenum - Nutrition consulted. Patient had been working up to a full can of ZupCat 3 times daily, currently is only taking around 6 ounces per meal. 4 ounce water flush before and after in addition to 2 ounces of water in the morning with pills - RD following and will decrease proportion of free water given CHF (4) Goals of care, counseling/discussion: Plan: Goals of care discussion occurred on admission - Verified patient is DNR/DNI - POLST form completed and signed on admission and scanned into chart - In short DNR/DNI, would want to discuss limited interventions outside of cardiac arrest, would want antibiotics if they could prolong life, and currently has a PEG tube and does not want any limitation of care related to artificial nutrition Repeat goals of care discussion over the weekend -- episodic dyspnea persists despite euvolemic status. Suspect secondary to multi valvular heart disease with limited medical management options - Palliative care consulted - Ativan 0.5 mg HS and PRN Q6H for anxiety - Consider BuSpar 5 mg twice daily for anxiety Plan Updated daughter via phone call Discussed case with palliative care Chronic stable issues: PMR: Continue home meds Insomnia: Continue home meds. Patient may take her medical marijuana gummy in the evening if brought in for verification and self-administered Of note, TSH elevated at 6.682, with normal Free T4. Recommend repeating TSH in outpatient setting DVT prophylaxis: [place] CODE STATUS: DNR/DNI Admission and Anticipated Discharge Date Admission Date: July 06, 2024 Subjective Patient seen and evaluated at bedside. She reports 1 event of episodic dyspnea. She states that she feels very tired with low energy today. She would like to take a nap now. No additional complaints or concerns. Will call daughter. Discussed evaluation by palliative care with daughter, Samantha, via phone call this evening. Multiple times she said "I'm not ready to cut her off and go to hospice yet." She appears conflicted as she made comments that she wants to prioritize her mother's comfort, while also stating she wants to continue with full treatments and not go on hospice. Will follow-up with palliative care again tomorrow. Physical Exam Physical Exam: General: No acute distress, nondiaphoretic, frail elderly female. Skin: The skin was without rashes, erythema, edema, or bruising. Mouth: No signs of candidiasis. Cardiac: Irregularly irregular in the 80s. Systolic and soft diastolic murmurs noted. No JVD. Pulm: Breath sounds slightly diminished in bases bilaterally R>L, but otherwise clear to auscultation. No respiratory distress currently. 96% on room air. Abdominal: PEG in place, no discharge or erythema around PEG insertion. Soft, nontender, nondistended. Bowel sounds present. Neuro: A&O x3. No focal neurological deficits. Results & Data Results & Data Vital Signs (Past 12 Hours) Vital Signs Temp Pulse Pulse Resp BP Pulse Ox O2 Del Method 07/11/24 15:06 90 07/11/24 12:20 97.9 F 75 18 120/63 97 Room Air 07/11/24 09:21 Room Air 07/11/24 09:21 72 07/11/24 08:14 97.3 F L 81 18 116/70 99 Room Air 07/11/24 06:21 98.1 F 72 18 130/77 97 Room Air Laboratory Results Reviewed BMP PG Care Time/CCT Total # of Minutes Spent Total Time Spent with Patient: Total time spent is greater than 50% in coordination of care (as documented) at patient's floor/unit and/or counseling patient: Coding Level of Care Code 45456 SUB INP/OBS CARE 3/50MIN Diagnoses Congestive heart failure I50.23 Heart failure chronicity: acute on chronic Heart failure type: systolic Coronary artery disease involving coronary bypass graft I25.810 Associated angina: without angina [place] vs. transplanted heart: [place] heart Malnutrition E46 Goals of care, counseling/discussion Z71.89 (1) Congestive heart failure Heart failure chronicity: acute on chronic Heart failure type: systolic Qualified Code(s): I50.23 - Acute on chronic systolic (congestive) heart failure (2) Coronary artery disease involving coronary bypass graft Associated angina: without angina [place] vs. transplanted heart: [place] heart Qualified Code(s): I25.810 - Atherosclerosis of coronary artery bypass graft(s) without angina pectoris
--- NOTE | 2024-07-11 17:32 | Cardiology Progress Note ---
Date of Service July 11, 2024 Assessment & Plan (1) Dyspnea: (2) Heart failure with mid-range ejection fraction (HFmEF): (3) Severe mitral regurgitation: (4) Severe tricuspid regurgitation: (5) Permanent atrial fibrillation: (6) Hx of CABG: Plan No major change in her clinical status. Diuretics held for a day to avoid overdiuresis, fortunately PRP return with stable renal function and normal electrolytes. Recommend initiating Bumex 1 mg daily, upon discharge could decrease to 1 mg every other day. She had been on 1 mg twice a week, balancing her diuretic to avoid even minimal volume overload while not over diuresing will be challenging given her end-stage multi valvular heart disease. Agree with benzodiazepines for dyspneic and other symptom control. Prognosis very poor, encourage palliative options to minimize futile interventions. Cardiology follow-up with me in 1 to 3 weeks after discharge. Admission and Anticipated Discharge Date Admission Date: July 06, 2024 Subjective She was episodically dyspneic earlier in the day but was sleeping comfortably this evening. No chest pain or palpitations. Telemetry showed atrial fibrillation with controlled ventricular response (90 bpm range) Physical Exam Physical Exam: Frail-appearing elderly female appears who appeared comfortable this evening. Afebrile. BP 109/56 mmHg Pulse 90 bpm and irregular. Respirations 18. Skin: no generalized lesions. HEENT: unremarkable. Neck: JVP at the clavicle at 90 degrees, no carotid bruits. Lungs: Dullness right base, mildly decreased breath sounds but no wheezing or obvious crackles. Cardiac: Irregular rhythm, normal S1-2, 2/6 basal systolic ejection murmur radiating upward and left lower sternal border, 3/6 apical holosystolic murmur rating to the axilla, no diastolic murmur. Abdomen: benign. Extremities: no edema, pulses intact. Neurologic: Resting, nonfocal. Results & Data Vital Signs (Past 12 Hours) Vital Signs Temp Pulse Pulse Resp BP Pulse Ox O2 Del Method 07/11/24 16:31 97.7 F 90 18 109/56 L 96 Room Air 07/11/24 15:06 90 07/11/24 12:20 97.9 F 75 18 120/63 97 Room Air 07/11/24 09:21 Room Air 07/11/24 09:21 72 07/11/24 08:14 97.3 F L 81 18 116/70 99 Room Air 07/11/24 06:21 98.1 F 72 18 130/77 97 Room Air Laboratory Results Normal electrolytes, BUN 50, creatinine 0.79. PG Care Time/CCT Total # of Minutes Spent Total Time Spent with Patient: Total time spent is greater than 50% in coordination of care (as documented) at patient's floor/unit and/or counseling patient: Coding Level of Care Code 66464 SUB INP/OBS CARE 2/35MIN Diagnoses Dyspnea R06.00 Heart failure with mid-range ejection fraction (HFmEF) I50.22 Severe mitral regurgitation I34.0 Severe tricuspid regurgitation I07.1 Permanent atrial fibrillation I48.21 Hx of CABG Z95.1
[2024-07-11] MEDS: LORazepam 0.5 MG TAB PO PRN (21:59)
--- NOTE | 2024-07-12 07:48 | Hospitalist Progress Note ---
Date of Service July 12, 2024 Assessment & Plan (1) Congestive heart failure: Plan: Presented with progressive dyspnea, lower extremity edema, and reported hypoxia 70-85% by home pulse ox. - Acute on chronic heart failure exacerbation, likely secondary to recent change in diuretic regimen - Echo EF= 40%, moderate to severe TR, moderate MR, left ventricular systolic function is mild to moderately reduced, mild to moderate global hypokinesis of left ventricle - BNP elevated at 1356 on admission - Troponin elevated and peaked at 1454.5, likely secondary to demand ischemia in setting of hypoxia and acute CHF - CTA negative for PE. Does note pulmonary edema and R>L pleural effusions - CXR shows persistent pulmonary congestion. Pleural effusion not large enough to consider thoracentesis. - Cardiology consulted > End-stage multi valvular heart disease for which medical management options are extremely limited > Discontinued diuretics > Discontinue losartan given low blood pressure. Continue diltiazem for rate control with A-fib > Recommending palliative care consult - Continue dose reduced Eliquis - Continue Lasix 20 mg IV BID - Feed free water amounts being adjusted as noted below, depending on progression may also need 12 X weekly dose of diuretic reinstated 07/12 -- Palliative/cardiology to meet for discussion today given end stage valvular disease/limited options, does NOT appear patient ready for dc on hospice yet. F/u discussion/meeting Lasix 20mg IV BID DISCONTINUED AM 07/[address] Araujo, recs for bumex 1mg daily (could decrease to 1mg Q2D at dc) ---> Message to cardiology as has not been started on bumex yet --> RESTARTING BUMEX, but at 1mg daily/monitoring while inpatient, consideration for q2d dosing. Remains on spironolactone 25mg daily 1gm IV mag to keep closer to 2 w/ underlying afib. Remains on metoprolol/eliquis TSH elevation but w/ anxiety, will defer adjustment to synthroid Possible dc next 24 hr pending palliative meeting/pending response to diuretics but if stable on lower dose see above (2) Coronary artery disease involving coronary bypass graft: Plan: History of CAD having undergone three-vessel bypass in 2006. [address] Araujo outpatient - Continue statin, diltiazem, spironolactone - Discontinued losartan given low blood pressures and valvular disease Dr Araujo on consult while inpaitent, CHF f/u at dc recommended (3) Malnutrition: Plan: With history of dysphagia and PEG placement 1 month ago due to severe malnutrition - EGD 06/16/2024: Suspicious for candidiasis, benign esophageal stenosis, externally removable PEG placement completed, normal stomach/duodenum - Nutrition consulted. Patient had been working up to a full can of Nutren 3 times daily, currently is only taking around 6 ounces per meal. 4 ounce water flush before and after in addition to 2 ounces of water in the morning with pills - RD following and will decrease proportion of free water given CHF (4) Goals of care, counseling/discussion: Plan: Goals of care discussion occurred on admission - Verified patient is DNR/DNI - POLST form completed and signed on admission and scanned into chart - In short DNR/DNI, would want to discuss limited interventions outside of cardiac arrest, would want antibiotics if they could prolong life, and currently has a PEG tube and does not want any limitation of care related to artificial nutrition Repeat goals of care discussion over the weekend -- episodic dyspnea persists despite euvolemic status. Suspect secondary to multi valvular heart disease with limited medical management options - Palliative care consulted - Ativan 0.5 mg HS and PRN Q6H for anxiety - Consider BuSpar 5 mg twice daily for anxiety Chronic stable issues: PMR: Continue home meds Insomnia: Continue home meds. Patient may take her medical marijuana gummy in the evening if brought in for verification and self-administered Plan DVT proph: eliquis continued. Dispo: palliative/cards meeting today, possible dc on hospice however does not appear wanting that at this time. Bumex 1mg daily ordered and will place for HOLD AM 12/11 until reasssessed but possible dc on Q2D dosign w/ close follow up Of note, TSH elevated, with normal Free T4. Recommend repeating TSH in outpatient setting but defer adjustment for now until finalized meeting on goals Admission and Anticipated Discharge Date Admission Date: July 06, 2024 Supervising Physician Co-Signing Physician Notes The patient was not seen by me. The chart was reviewed. Case discussed with DOUGLAS Denney. Agree with assessment and plan Subjective Eval this morning, Dr Araujo at bedside. Did get some sleep with ativan last evening. Given bumex 1mg PO for today, monitoring response. Does not appear Debra ready to dc on hospice at this time and is "not ready". Palliative meeting to occur at 11:30 for further discussion but discussed if not wanting to go on hospice would need to arrange for artificial nutrition/etc pending wishes. Does have ongoing JVD from TR, bumex to be held for AM until assessed but suspect going to continue every other day with close monitoring. Questions/concerns addressed at this time. Physical Exam 2 Physical Exam: General: 88yo frail elderly female sitting up in bed, Dr Araujo at bedside HEENT: head atraumatic, normocephalic, +JVD Resp: diminished in the bases but no significant wheezing/rales, on room air CV: irregularly irregular, rates 70-80s, +systolic murmur, +diastolic murmur, trace pedal edema GI: +BS, soft but slight distension but no significant edema/guarding. PEG tube in place Neuro: A&O x3, frail/fatigued appearing but no focal deficits Results & Data Results & Data Vital Signs (Past 12 Hours) Vital Signs Temp Pulse Pulse Resp BP Pulse Ox O2 Del Method 07/12/24 07:35 Room Air 07/12/24 04:00 36.7 C 70 18 123/62 96 Room Air 07/12/24 00:00 82 07/11/24 23:58 Room Air 07/11/24 22:00 36.4 C L 77 18 127/65 97 Room Air Laboratory Results 07/09/24 07:12 07/12/24 07:47 Mag 1.9 PG Care Time/CCT Total # of Minutes Spent Total Time Spent with Patient: Total time spent is greater than 50% in coordination of care (as documented) at patient's floor/unit and/or counseling patient: Coding Level of Care Code 93028 SUB INP/OBS CARE 3/50MIN Diagnoses Congestive heart failure I50.23 Heart failure chronicity: acute on chronic Heart failure type: systolic Coronary artery disease involving coronary bypass graft I25.810 Associated angina: without angina Circle vs. transplanted heart: [place] heart Malnutrition E46 Goals of care, counseling/discussion Z71.89 (1) Congestive heart failure Heart failure chronicity: acute on chronic Heart failure type: systolic Qualified Code(s): I50.23 - Acute on chronic systolic (congestive) heart failure (2) Coronary artery disease involving coronary bypass graft Associated angina: without angina [place] vs. transplanted heart: [place] heart Qualified Code(s): I25.810 - Atherosclerosis of coronary artery bypass graft(s) without angina pectoris
[2024-07-12 08:17] VITALS: TEMP 97.3; O2SAT 94
[2024-07-12 08:53] LABS: BUN Creatinine Ratio 66.2 (10-20); Calcium 9.8 mg/dl (8.6-10.3); Creatinine Clr Calc Pharmacy 30.4 ml/min; Magnesium 1.9 mg/dl (1.7-2.4); Potassium 3.8 mmol/L (3.5-5.1)
[2024-07-12] MEDS ORDERED: BUMETANIDE 1 MG TAB PO SCH (09:00)
[2024-07-12] MEDS: BUMETANIDE 1 MG TAB PEG SCH (09:30)
[2024-07-12] MEDS: MAGNESIUM SULFATE / D5W 1 GM/100 ML BAG IV ONE (09:32)
--- NOTE | 2024-07-12 13:02 | Palliative Family Discussion ---
Date of Service July 12, 2024 Patient Directed Conference Time of Meetin:30 - 12:15 Participants: Paloma Callahan AGACNP Patient participation: yes Patient Support System: HCPOA/dtr Other Healthcare Provider Participation: Dr Araujo cardiology Meeting Location: at bedside Advanced Directive available: Yes If yes, descriptors: The patient's surrogate medical decision maker participated: Samanhta was present Legally authorized health care proxy: as above Other surrogate: as above A family meeting was held for TJ Alvarado SARIAHKYLIE. This meeting was necessary for determining the appropriate course of treatment. Along with Dr Araujo and Vania Zayas PA met with the pt and her daughter at bedside to discuss goals of care. Pt does not require a proxy for medical decisions. Patient has exhibited current possession of decisional capacity based on the ability to convey understanding of personal PMHx, current medical condition, treatment options nor the risks / benefits of those options, and lack of ability to make decisions based on such knowledge. Hospital does have written documentation of patient wishes concerning her chosen proxy for medical decisions. Properly executed LW/AD on file, signed by pt on 12/28/2003 indicating chosen HCPOA as 1. Dtr Samantha Danielle [phone] and 2. Son hSeldon Malhotra [phone] In summary, discussed the pt's end stage heart failure, frailty, and decompensated state and options of continued current level of care including progressive heart failure, sob and debility requiring frequent hospitalizations for symptom management vs comfort directed care with hospice at home. Samantha and pt both expressed the same conflicting desires to continue HHC with tube feeds at home AND to not return to hospital again. Helped both understand that with ongoing life prolonging treatment and HHC visiting nurses, if nurses find pt in acute distress they would then call EMS for pt to be brought to ED. Both reinforced desire to remain at home for the remainder of her life. Dr Araujo helped both understand that at this stage of her heart disease, the most that can be offered is symptom management and she will likely have progressive weakness and shortness of breath that could be managed at home with hospice to avoid return to hospital. Dr Araujo shared his personal contact information with agreement to continue to assist with heart failure symptom management at home. Ultimately they decided to transition to comfort directed care and Samantha will drive pt home for ongoing hospice care today. Case discussed with CM, BSRN and attending team. Topics of Discussion Topics of Discussion: 1. goals of care 2. hospice discussion 3. anticipatory guidance 4. Advanced directives/POLST Other Content of Meetin. Opportunity given for participants to speak and ask questions. 2. Participants were assured of attention to patient comfort. 3. Reassurance provided. 4. Support was provided for informed, good-marilin decisions. 5. Emotions expressed by family were acknowledged and addressed. 6. Follow-up Outpatient: n/a 7. Plan of Care: home with hospice * Dying patients fear dyspnea and pain, therefore, symptom control is one cornerstone of pulmonary palliative care. Dyspnea is a prominent symptom of the patient with advanced respiratory disease of any cause: nearly all patients with COPD had dyspnea during the last 3 days of their lives. Providers routinely care for patients with chronic or advanced respiratory diseases and critical illnesses. The ATS recognizes: the growing importance and complexity of palliative care for patients with life-threatening and life- limiting diseases and disorders and the need for improving professional competence and teamwork in providing such care. The statement strongly endorses the concept that palliative care should be available to patients at all stages of illness and should be individualized based on the needs and preferences of the patient and the patients family. Clinicians should consult with palliative care specialists as appropriate for managing palliative care situations beyond the clinicians level of competence. * (ATS Clinical Policy Statement: Palliative Care for Patients with Respiratory Diseases and Critical Illnesses; Ale Espinoza et al., for the [employer], the [employer], the [place] [employer], and the Respiratory Society* Diagnosis and Management of Stable Chronic Obstructive Pulmonary Disease: A Clinical Prac anai Guideline Update from the [employer], [employer], [place] [employer] Society, and Respiratory Society . Corrine Turret [employer] Med. 2011;155:179-191.) * Dying process: Discussed changes pt may move through in the dying process including but not limited to sleeping more, disorientation when awake, restlessness, diminished senses/inability to respond to stimulus although ability to be aware of them remains intact longer, and changes in body temperatures, skin changes/mottling/cyanosis, respiratory pattern changes, and oral secretions. Family verbalized understanding. The goal is to assure a peaceful . * EOL Rally: When a person facing the end of life rallies, they seem to be come "more stable" - may want to talk or even begin taking PO; this phenomenon is usually seen as a sudden burst of energy before . This period of perking up can be accompanied by such a notable change in mental clarity that is often referred to as terminal lucidity. This change in cognition and behavior goes against everything families learn about the physical signs that the end of life is near. It is important to note that evidence-based data is elusive, if nonexistent. Theories support that it may be a search for a final, strong connection. Also, as organs shut down, they can release a steroid like compound that briefly rouses the body - in the specific case of brain tumors, swelling occurs in the confined space of the skull. The edema shrinks as EOL care patients are weaned off food and drink, waking up the brain a bit. Families and caregivers may grasp at what seems to be a turnaround in a loved ones health, however, the EOL Rally is a hallmark pre- sign. It is not uncommon for patients to show improvement before : they may want to talk while others may become restless or act as if they need to start preparing for a trip. Some patients will become more relaxed yet remain tuned in to what is going on around them, others will show signs of physical stability when, seconds before, they seemed on the verge of letting go. A rally can last for a few moments or even days. Short or long, these temporary improvements can have a profound effect on loved ones who are keeping bazan. Like a moment of clarity for someone who has dementia, a rally is one last opportunity to connect with a loved one. Each persons experience is unique and impossible to predict with total accuracy. Life is full of questions, and some of them simply are not meant to be answered. Read more: [email or web address]//well/wpu-xiepetu-bp-ocg-az-trqn-rallies.htm l * Oxygen at EOL: For patients at the end of life, oxygen delivered by a nasal cannula provides no additional symptomatic benefit for relief of refractory dyspnea in patients with life-limiting illness compared with room air: there's a point at which that the oxygen level gets so low that it's no longer compatible with life. By providing supplemental oxygen, the dying process will be unnecessarily prolonged. Please use less burdensome but more effective strategies such as comfort care meds, oscillating fan, massage, repositioning, etc. (Kaushik AP, Mckenna CF, Lolita COLE, et al. Effect of palliative oxygen versus room air in relief of breathlessness in patients with refractory dyspnoea: a double-blind, randomised controlled trial. Lancet. 2010;376(7622):556-463. doi:10.1016/[id number](93)94006-4) * Secretions at EOL/management: I discussed with family that as the level of consciousness decreases in the dying process, patients lose their ability to swallow and clear oral secretions. As air moves over the secretions, which have pooled in the oropharynx and bronchi, the resulting turbulence produces noisy ventilation with each breath, described as gurgling or rattling rivera ses. While there is no evidence that patients find this rattle disturbing, evidence from bereaved surveys suggests the noises can be disturbing to the patients visitors and caregivers who may fear that the patient is choking to . We recommend a combination of Non- Pharmacological and Pharmacological Treatments: * 1. Position the patient on their side or in a semi-prone position to facilitate postural drainage * 2. Communication with family and caregivers to reaffirm commitment to their loves ones care, reduce anxiety and fears. * 3. Gentle oropharyngeal suctioning is used although this can be ineffective when fluids are beyond the reach of the catheter. Avoid deep suctioning as it is very irritating. Note that frequent suctioning is disturbing to both the patient and the visitors. * 4. Reduction of fluid intake. * 5. Consider a 1-2 min Trendelenburg positioning, to move fluids up into the oropharynx for easier removal BUT note that ASPIRATION RISK WILL INCREASE. * 6. Muscarinic receptor blockers (anti-cholinergic drugs) are most often used: glycopyrrolate (Robinul), scopolamine (Transderm Scop), hyoscyamine and atropine. Of these, I prefer to using glycopyrrolate as first line treatment, because it is a quaternary amine (therefore does not cross the blood-brain barrier) which reduces the potential anti cholinergic agent associated WEED CUTTER toxicity (sedation, delirium). * 7. Glycopyrrolate has five times the anti-secretory potency compared to atropine, while scopolamine dries/thickens secretions and causes dry mouth, which may be more distressing to the patient and detract from comfort. Time Involved in Meeting: I spent 90 minutes overall addressing this case: 15 in medical data review/discussion with referring provider(s) and/or preparation for the visit 60 in direct interaction with the patient 45 Advance Care Planning/Goals of Care discussions as detailed above in note (must be >16min) 15 in subsequent review and synthesis of assessment and plan
[2024-07-12 13:50] VITALS: BP 110/58
[2024-07-12 13:51] VITALS: PULSE 69
--- NOTE | 2024-07-12 15:30 | Cardiology Progress Note ---
Date of Service July 12, 2024 Assessment & Plan (1) Encounter for hospice care discussion: (2) Dyspnea: (3) Heart failure with mid-range ejection fraction (HFmEF): (4) Severe mitral regurgitation: (5) Severe tricuspid regurgitation: (6) Permanent atrial fibrillation: (7) Hx of CABG: Plan No major change in her clinical status. Present for extensive hospice discussion with Kendal Callahan (palliative nurse practitioner) and Vania Zayas (CELESTINA), I gave the patient and her daughter my cell number, will contact via text to help adjust diuretics in the coming days or weeks. Patient will return home without plans to come back to the hospital. Initial Bumex dosing 1 mg every other day, further adjustments based on symptoms rather than weight (will be difficult to obtain daily weight). Prognosis poor secondary to end-stage valvular heart disease. No in office follow-up planned, as noted we will be in touch via phone. Admission and Anticipated Discharge Date Admission Date: July 06, 2024 Subjective No major change. She was able to sleep with Ativan but still felt fairly restless. No major episodes of dyspnea. No chest pain, palpitations, or lightheadedness. Telemetry showed atrial fibrillation with ventricular rate 70-80 bpm. Physical Exam Physical Exam: Frail-appearing elderly female appears chronically ill but not acutely distressed. Afebrile. BP 135/62 mmHg. Pulse 82 bpm and irregular Respirations 18. Skin: no generalized lesions. HEENT: unremarkable. Neck: JVP at the clavicle at 90 degrees, no carotid bruits. Lungs: Dullness right base, mildly decreased breath sounds but no wheezing or obvious crackles. Cardiac: Irregular rhythm, normal S1-2, 2/6 basal systolic ejection murmur radiating upward and left lower sternal border, 3/6 apical holosystolic murmur rating to the axilla, no diastolic murmur. Abdomen: benign. Extremities: no edema, pulses intact. Neurologic: Resting, nonfocal. Results & Data Vital Signs (Past 12 Hours) Vital Signs Temp Pulse Pulse Pulse Resp BP BP 07/12/24 13:48 97.3 F L 82 76 18 135/62 110/58 L 07/12/24 08:16 97.3 F L 76 18 135/62 07/12/24 08:00 69 07/12/24 07:35 07/12/24 04:00 98.1 F 70 18 123/62 Pulse Ox O2 Del Method 07/12/24 13:48 94 07/12/24 08:16 94 Room Air 07/12/24 08:00 07/12/24 07:35 Room Air 07/12/24 04:00 96 Room Air Laboratory Results Normal electrolytes, BUN 49, creatinine 0.74. PG Care Time/CCT Total # of Minutes Spent Total Time Spent: 60 Total Time Spent with Patient: Total time spent is greater than 50% in coordination of care (as documented) at patient's floor/unit and/or counseling patient: Coding Level of Care Code 62790 SUB INP/OBS CARE 3/50MIN Diagnoses Encounter for hospice care discussion Z71.89 Dyspnea R06.00 Heart failure with mid-range ejection fraction (HFmEF) I50.22 Severe mitral regurgitation I34.0 Severe tricuspid regurgitation I07.1 Permanent atrial fibrillation I48.21 Hx of CABG Z95.1
--- NOTE | 2024-07-12 15:55 | Discharge Summary ---
Discharge Summary Date of Service July 12, 2024 Principal Dx & Hospital Course #1 = Principal Diagnosis (1) Congestive heart failure: Presented with progressive dyspnea, lower extremity edema, and reported hypoxia 70-85% by home pulse ox. Acute on chronic heart failure exacerbation, likely secondary to recent change in diuretic regimen but also with worsening/end stage valvular disease with her tricuspid regurgitation Echo EF= 40%, moderate to severe TR, moderate MR, left ventricular systolic function is mild to moderately reduced, mild to moderate global hypokinesis of left ventricle BNP elevated at 1356 Troponin elevated and peaked at 1454.5, likely secondary to demand ischemia in setting of hypoxia and acute CHF CTA negative for PE. Does note pulmonary edema and R>L pleural effusions CXR shows persistent pulmonary congestion. Pleural effusion not large enough to consider thoracentesis. Cardiology consulted > End-stage multi valvular heart disease for which medical management options are extremely limited, diuretics discontinued as well as losartan and placed on lasix 20mg IV BID with free water flushes with PEG reduced to lowest possible. Lasix discontinued AM 07/11 by cardiology, recs for bumex 1mg every other day which was started 07/12 prior to discharge. Multiple discussions with cardiology, palliative consulted and ultimately decided on discharge on hospice for increased services and limited options for Ms Malhotra. Extensive discussion and plans to continue essential meds for symptoms: spironolactone 25mg daily, diltiazem for afib/HR control, eliquis BID. Bumex at 1mg q2d however provided number for Dr Araujo to daughter by himself to call if needing to discuss adjustments for weight gain if needed as switching from continuous tube feeding to bolus and discussed w/ nutrition 180mL QID w/ 2oz free water flushes (1oz before/after) and monitoring of weight. Rx for ativan provided and had been using about once daily w/ reported effectiveness. Initially palliaitve recs for q6h dosing but given only using once daily decision/recs for 0.5mg q8h with additional prn dosing as needed and can further be discussed/adjusted with hospice in follow up eval for symptom control. Remained on room air, feeding by mouth for comfort but had been avoiding. Given rx for dissolvable PPI to continue and discontinued vitamins/statin as moving to hospice. Daughter wanting to ENSURE able to continue feeds, was confirmed and she has supplies as well as hospital bed/equipment at home and plans to transport Debra herself. (2) Coronary artery disease involving coronary bypass graft: History of CAD having undergone three-vessel bypass in 2006. Typically followed by Dr Araujo outpatient who was consulted while inpatient ECHO:LV systolic function is mild-moderately reduced. Mild-moderate global hypokinesis of the left ventricle. EF 40% There is moderate to severe tricuspid regurgitation. Moderate mitral regurgitation Compared with study of 11/11/2022, regurgitant lesions may be less severe. As above, continue on eliquis/metoprolol as well as spironolactone/bumex as above . No CP reported. DC losartan (3) Malnutrition: With history of dysphagia and PEG placement 1 month ago due to severe malnutrition EGD 06/16/2024: Suspicious for candidiasis, benign esophageal stenosis, externally removable PEG placement completed, normal stomach/duodenum - Nutrition consulted. Patient had been working up to a full can of Nag[place] 3 times daily, currently is only taking around 6 ounces per meal. 4 ounce water flush before and after in addition to 2 ounces of water in the morning with pills RD following and will decrease proportion of free water given CHF PEG tube functioning -- as above, switching back to bolus feeding but lower rate to prevent increased distension/discomfort as had prior Bolus QID with 180mL planned and has feeds at home w/ 2oz flushes (4) Goals of care, counseling/discussion: Palliative consulted while inpatient, is DNR/DNI. Has pEG/wanting to continue feeds as above but planning for hospice at me Ativan as outlined, morphine sent if needed for air hunger and CM arranging for hospice at me Plan Discharge on hospice, transportation via daughter. Bumex continued at lower 1mg dose at me, q2d per cards and can have f/u at me for ongoing volume management (via phone to prevent office trips, # provided by Dr Araujo to daughter in room). Notes For Next Care Provider Discharged home with hospice services 2nd to CHF/end stage valvular heart disease with limited options. Continued cardiac meds for sx control and bumex resumed at LOWER dose and ongoing management per cards/CHF in follow up but recs for q2d for now Consider increase synthroid given anxiety but not wanting to make afib worse and T4 was wnl. No change rec by cards. Medication Changes From Visit Bumex changed to 1mg Q2D DC Lipitor, vitamins Ativan 0.5mg Q8H, additional q4h prn Morphine prn Admission HPI Per Admitting Provider Debra is an 88-year-old female with a past medical history of CABG 2006, permanent A-fib on dose reduced apixaban, heart failure with EF 40-45% with severe TR/MR recently switched from Bumex twice daily to as needed 06/2024 who presents with progressive dyspnea, lower extremity edema, and reported hypoxia 70-85% by home pulse ox. PEG tube placed last month for difficulty swallowing and weight loss. Doing well after until she started to get trouble with her breathing. Did have some dificulty swallowing and using an ICH which she stopped due to thrush. No wheezing. 2 weeks ago started to get more short of breath going up stairs, then with exertion, and now has had some shortness of breath even with rest. Can no longer ascend steps at home due to dyspnea. No chest pain at any point. NO chest pressure or palpitations. 1 night of sinus congestion 2 weeks ago, but but has been using a vicks inhaler which she feels helps with her breathing a little. NO leg edema NO extra salt, is on PEG tube feedings. Bumux now as neede for leg swelling. Has not had any real food or salt PO since peg was placed. Does take some pudding/applesauce with evening pills. Takes eliquis dose reduced BID. Held this around her PEG tube placement. Restarted this ~1 week after PEG placement (06/22/24) and has been taking this reliable [facility]. PEG Feeds: Nutrien 2.0 . Follows with [facility]. 1 carton per meal, onlyup to 6 or 7 oz per meal so far +4oz water flush per meal before and after, plus 2oz water with pills in the morningly. Takes evening pills with a few teaspoons of water and applesauce. Tried banatrol yesterday. On admission EKG has? Inferior lateral ischemic changes, baseline bundle branch block is redemonstrated, troponin is elevated to approximately 1000 with last measurement approximately 20 No infectious symptoms. No fever chills sweats cough runny nose. Medical History: Reviewed Medications: Reviewed Surgical History: Reviewed Family history: Reviewed Allergies: Reviewed Social History: No tobacco use, no etoh use Code Status: Samantha Danielle [phone] first contact in an emergency. Admission Exam Per Admitting Provider General: A&Ox3. NAD. Cooperative. HEENT: Atraumatic, normocephalic. Vision and hearing grossly intact Pulm: Diminished in the bases bilaterally with trace rales in the right dependent field symmetrical chest rise. No increased work of breathing. No r espiratory distress. Cardiac: Irregularly irregular, systolic and soft diastolic murmurs present. Radial pulses intact and symmetrical. JVD is present Abdominal: PEG in place, no discharge/erythema/tenderness. Remaining abdomen Nontender, nondistended, soft. BS present. Extremities: There is no lower extremity edema Discharge Exam General: 88yo frail elderly female sitting up in bed, Dr Araujo at bedside/daughter/palliative, tearful/withdrawn at times HEENT: head atraumatic, normocephalic, +JVD Resp: diminished in the bases but no significant wheezing/rales, on room air CV: irregularly irregular, rates 70-80s, +systolic murmur, +diastolic murmur, trace pedal edema GI: +BS, soft but slight distension but no significant edema/guarding. PEG tube in place Neuro: A&O x3, frail/fatigued appearing but no focal deficits Discharge Plan Discharge Items Patient Disposition: Hospice - Home Reason For Visit: AOC CHF, DEMAND ISCHEMIA VS NSTEMI Discharge Diagnosis: CHF, valvular heart disease, end stage Goals: You have been hospitalized for an acute medical problem. During your stay at [facility], we have made an effort to correct the problem that brought you to the hospital while keeping you as comfortable as possible. Medications were used to bring your condition under control and your discharge instructions will include directions for any medications you should take after leaving the hospital. Please make sure you see your Primary Care Provider as part of your follow up plan. Activity: As commented below Non-emergency contact: Primary Care Provider and Equipment Records Supervisor Call non-emergency contact if: you have any medication questions, your symptoms worsen, your pain is not controlled, your pain is worsening, your pain is unusual for you and you have a fever Follow-up/Referrals: Presley Araujo MD [Family Provider] - Tran Garber MD [Primary Care Provider] - Diet: Heart Healthy Diet Comment: as desired for comfort, aspiration precautions Addtl Attending Provider Instructions: You have been hospitalized for shortness of breath. We provided diuretics and cardiology was consulted and unfortunately it appears your valvular heart disease has significantly worsened and not much to do except symptom management. We restarted diuretics with bumex 1mg by mouth and are continuing every other day. Please monitor your weights and as discussed with Cardiology, can call Dr Araujo for direction for additoinal dosing as needed. We are STOPPING nonessential medications like lipitor and vitamins but are continuing your other medications. Palliative was consulted and arrangements have been made for hospice at discharge which should help to continue symptom management during this time and can provide morphine as needed for pain/air hunger, ativan for anxiety as well as medications for secretions if needed. For now, we are recommending to continue ativan 0.5mg every 8 hours for anxiety and can use additional every 4 hours as needed. You can continue tube feeds at LOWER bolus rate as followed: 180mL (6 oz), FOUR times daily. Flush with 1oz water BEFORE AND AFTER to prevent issues. As discussed, increased water flushes will occur with increased boluses and you may need additional bumex pending repeat weights/weight gain with increased fluid intake. Please follow up with hospice as well as primary care and cardiology as discussed at discharge. It has been a pleasure being a part of the medical team providing for you while you have been in the hospital. Take care! Pending Studies at Discharge: No Stand-Alone Forms: My [facility] Medications and DC Order Prescriptions: New bumetanide 1 mg Tablet 1 mg PEG Q2D Qty: 30 0RF omeprazole 20 mg tablet,disintegrat, delay rel 20 mg PO DAILY Qty: 30 0RF lorazepam 0.5 mg tablet 0.5 mg PO Q8H PRN (Reason: anxiety) Qty: 20 0RF morphine concentrate 100 mg/5 mL (20 mg/mL) solution 5 mg PO Q4H PRN (Reason: pain) Qty: 15 0RF lorazepam 0.5 mg Tablet 0.5 mg PO Q6H PRN (Reason: anxiety) Qty: 30 0RF morphine concentrate 10 mg/0.5 mL syringe 5 mg PO Q4H PRN (Reason: pain) Qty: 50 0RF Continued diltiazem HCl [Cartia XT] 120 mg capsule,extended release 24hr 120 mg PO BID Qty: 180 3RF Eliquis 2.5 mg tablet 2.5 mg PO BID Qty: 180 0RF Nutren 2.0 0.08 gram-2 kcal/mL liquid See Rx Instructions feeding tube TID 30 Days Qty: 92639 3RF Rx Instructions: 250 mL via feeding tube three times a day; R62.7, R63.4 Nutren 2.0 or equivalent (DME) Oxygen Home Liters Per Minute See Rx Instructions .ROUTE Qty: 1 0RF Rx Instructions: 2 L/min with exertion Dx R09.02 acetaminophen [Tylenol Extra Strength] 500 mg tablet 500 mg PO Q6H PRN (Reason: pain/fever) albuterol sulfate 90 mcg/actuation HFA aerosol inhaler 1 inh inhalation .COMPLEX Rx Instructions: 1 inh inhaled ON HOLD; diclofenac sodium [Voltaren Arthritis Pain] 1 % Gel 2 g EXT QID PRN (Reason: pain) Qty: 100 0RF Patient Comments: rare use Rx Instructions: Apply to painful joint Please use tube from hospital pramipexole 0.25 mg tablet 0.25 mg PO UD Rx Instructions: 1 tablet 2-3 hr prior to bedtime then 1/2 tab at bedtime doxepin 3 mg Tablet 3 mg PO HS spironolactone 25 mg tablet 25 mg PO QAM levothyroxine 25 mcg tablet 25 mcg PO QAM ipratropium bromide 21 mcg (0.03 %) spray,non-aerosol 2 spray intranasal BID PRN (Reason: Congestion) Rx Instructions: administer into each nostril Medical Marijuana 1 gummy PO HS Discontinued bumetanide 1 mg tablet 1 mg PO 2XWK Qty: 30 3RF Patient Comments: thursday/thursday losartan 25 mg tablet 25 mg PO QAM Qty: 90 3RF pyridoxine (vitamin B6) 100 mg tablet 100 mg PO QAM omeprazole 20 mg capsule,delayed release(DR/EC) 20 mg PO QAM atorvastatin 10 mg tablet 10 mg PO .COMPLEX Rx Instructions: 10 mg orally ON HOLD cyanocobalamin (vitamin B-12) 1,000 mcg tablet See Rx Instructions .ROUTE .COMPLEX Rx Instructions: ON HOLD; OTC No Action (DME) syringe (disposable) [Monoject Syringe Vahid Type] 60 mL syringe See Rx Instructions .Route Qty: 100 5RF Rx Instructions: As directed R63.4, R62.7 Discharge Orders: Discharge Order (Routine); Ordered 07/12/24 Ordered By: Vania Zayas Admission Data Admit Date/Time: 07/06/24 12:01 Attending Provider: John Piper Admit Provider: Jamie Mcdaniel Primary Care Provider: Tran Garber Other Providers: Lenny David; Jamie Mcdaniel; Stan Vargas [facility]; [facility]; Kendal Callahan Other Interventions: Discharge Summary Assessment (RN) Last Done: 07/12/24 13:48 Hospital Stay Data Consultations 07/06/24 11:17 ED Decision to Admit Stat 07/06/24 12:59 Consult Cardiology Routine 07/10/24 15:57 Consult Palliative Care Routine Diagnostic Imagining Performed Chest CTA 07/06/24 09:40 CT ANGIOGRAPHY OF THE CHEST, PULMONARY EMBOLUS PROTOCOL CLINICAL HISTORY: Shortness of breath. Evaluate for pulmonary embolus. COMPARISON STUDY: Chest CT November 03, 2018. Chest radiograph February 22, 2024. TECHNIQUE: Following IV administration of 119 mL of Optiray, helical axial images of the chest were obtained utilizing the pulmonary embolus protocol. Maximal intensity projections and sagittal and coronal reformats were viewed on an independent 3D workstation. IV contrast was administered without complication. Automated exposure control was utilized for the study. A dose lowering technique was utilized adhering to the principles of ALARA. CT DOSE: 242.84 mGy.cm FINDINGS: No pulmonary emboli are identified. The thoracic aorta is not opacified. There are postoperative findings consistent with median sternotomy and bypass grafting. Moderate cardiomegaly. No pericardial effusion is present. Dilatation of the right heart chambers with dilatation of the IVC and hepatic veins with reflux of contrast is noted. Small to moderate right and small left pleural effusions are present. There is no pneumothorax. Asymmetric groundglass opacities within the right lower lobe favor atelectasis. There is no consolidation to suggest pneumonia. Scattered tiny pulmonary nodules measuring up to 4 mm are similar to CT of November 03, 2018. Subpleural biapical partially calcified densities are unchanged. These are benign. There are no acute fractures within the bony thorax. There is body wall edema. IMPRESSION: 1. No pulmonary emboli identified. 2. Cardiomegaly with pulmonary edema. Small to moderate right and small left pleural effusions. 3. Asymmetric groundglass right lung opacity suggestive of atelectasis. No consolidation to suggest pneumonia. ACT 112: Negative or not required by law. Electronically signed by: Alex Gomez M.D. 07/06/2024 11:30 AM Chest X-Ray 07/10/24 07:00 XR chest 2V PA/lateral HISTORY: 88 years-old Female CHF acute shortness of breath COMPARISON: CT chest 07/06/2024 TECHNIQUE: PA and lateral views of the chest FINDINGS: Cardiomegaly. Median sternotomy. Unchanged right greater than left pleural effusions with biapical pleural-parenchymal scarring and calcifications. Pulmonary vascular congestion. Gastrostomy tube noted. No pneumothorax or lobar airspace consolidation. IMPRESSION: 1. Cardiomegaly with pulmonary vascular congestion. 2. Unchanged right greater than left pleural effusions. 3. Biapical pleural parenchymal scarring with pleural calcifications again noted. ACT 112: Negative or not required by law. The above report was generated using voice recognition software. It may contain grammatical, syntax or spelling errors. Electronically signed by: Poli Hayes M.D. 07/10/2024 10:12 AM ECHOCARDIOGRAM 07/06/24 LV systolic function is mild-moderately reduced. Mild-moderate global hypokinesis of the left ventricle. EF 40% There is moderate to severe tricuspid regurgitation. Moderate mitral regurgitation Compared with study of 11/11/2022, regurgitant lesions may be less severe. Pending Results Patient Have Any Pending Studies at Discharge: No Discharge Instructions Given to Patient (Per Discharging Provider) You have been hospitalized for shortness of breath. We provided diuretics and cardiology was consulted and unfortunately it appears your valvular heart disease has significantly worsened and not much to do except symptom management. We restarted diuretics with bumex 1mg by mouth and are continuing every other day. Please monitor your weights and as discussed with Cardiology, can call Dr Araujo for direction for additoinal dosing as needed. We are STOPPING nonessential medications like lipitor and vitamins but are continuing your other medications. Palliative was consulted and arrangements have been made for hospice at discharge which should help to continue symptom management during this time and can provide morphine as needed for pain/air hunger, ativan for anxiety as well as medications for secretions if needed. For now, we are recommending to continue ativan 0.5mg every 8 hours for anxiety and can use additional every 4 hours as needed. You can continue tube feeds at LOWER bolus rate as followed: 180mL (6 oz), FOUR times daily. Flush with 1oz water BEFORE AND AFTER to prevent issues. As discussed, increased water flushes will occur with increased boluses and you may need additional bumex pending repeat weights/weight gain with increased fluid intake. Please follow up with hospice as well as primary care and cardiology as discussed at discharge. It has been a pleasure being a part of the medical team providing for you while you have been in the hospital. Take care! Supervising Physician Co-Signing Physician Notes The patient was not seen by me. The chart was reviewed. Case discussed with DOUGLAS Denney. Agree with assessment and plan Total Time Total Time Spent Total Time Spent (In Minutes): 90 Coding Level of Care Code 26459 INP/OBS DISCH >30 MIN Diagnoses Congestive heart failure I50.23 Heart failure chronicity: acute on chronic Heart failure type: systolic Coronary artery disease involving coronary bypass graft I25.810 Associated angina: without angina [place] vs. transplanted heart: nondalton heart Malnutrition E46 Goals of care, counseling/discussion Z71.89
== END 2024-07-12 15:31 | disposition hospice, home (50) | DRG 291 ==
LOC: ED 08:46 → EDINP 12:01 → SUATTDRO 12:01 → 4W 13:00